=== PATIENT | male | born 1965 | race Two or more races ===

== ENCOUNTER 2022-01-27 10:32 | Emergency (ER) | payer BC, OTHER ==
[~2022-01-27] VITALS: Ht 165.1 cm; Wt 49.9 kg
[2022-01-27 10:51] VITALS: BP 102/68
[2022-01-27] MEDS ORDERED: IPRATROPIUM BROM 0.5 MG/2.5ML INH SOL HHN ONE (11:00)
[2022-01-27] MEDS ORDERED: ALBUTEROL SULF 2.5 MG/0.5ML(0.5%) NEB SOLN HHN ONE (11:00)
[2022-01-27] MEDS ORDERED: methylPREDNISolone SOD SUCC 125 MG/2 ML VL IV ONE (11:00)
[2022-01-27 11:28] LABS: Basophils # (auto) 0 10 ^3/uL (0-0.2); Basophils % (auto) 0.5 % (0.0-2.0); Eosinophils # (auto) 0.1 10 ^3/uL (0-0.8); Eosinophils % (auto) 0.7 % (0.0-7.0); Hematocrit 42.7 % (41.0-53.0); Lymphocytes % (auto) 12.9 % (10.0-50.0); Mean Corpuscular Hgb Conc. 35.1 g/dL (32.0-36.0); Mean Corpuscular Volume 94.1 fL (80.0-100.0); Monocytes # (auto) 0.2 10 ^3/uL (0-1.3); Monocytes % (auto) 2.6 % (0.0-12.0); Neutrophils # (auto) 6.7 10 ^3/uL (1.6-8.6); Neutrophils % (auto) 83.3 % (37.0-80.0); Nucleated Red Blood Cells % 0.1 %; Red Blood Cells 4.54 10^6/uL (4.5-5.90); Red Cell Distribution Width 14.6 % (11.8-14.3)
[2022-01-27 11:43] LABS: Albumin 3.3 g/dL (3.4-5.0); Calcium 8.7 mg/dL (8.5-10.1); Potassium 3.7 mmol/L (3.5-5.1)
[2022-01-27 11:48] LABS: Bilirubin, Total 0.3 mg/dL (0.2-1.0); Total Protein 7.6 g/dL (6.4-8.2)
== END 2022-01-27 12:48 | disposition left against medical advice (07) ==
LOC: EDBD 10:32 → ER 10:32
DX: J44.1 Chronic obstructive pulmonary disease with (acute) exacerbation (principal)
CPT/HCPCS: 36415; 71045; 80053; 83880; 84484; 85025; 94644; 96374; 99285; J2930; J7030; J7644

== ENCOUNTER 2025-02-14 16:00 | Inpatient (IN) | payer MEDICAID ==
[~2025-02-14] VITALS: Ht 165.1 cm; Wt 41.8 kg
[2025-02-14] VITALS (12 sets, daily range): BP systolic 78–124; BP diastolic 54–90; PULSE 86–117; RESP 16–20; TEMP 87.6–99; O2SAT 97–100
[~2025-02-14 16:00] MED LIST: ALBU108A5 PO; BICT1TAB PO; FLUT1INH27 INH; IPRA0.00 NEB; TIOT17SP PO
[2025-02-14] MEDS: MIDAZOLAM HCL 5 MG/ML-1ML VIAL ONE (16:02)
[2025-02-14] MEDS: ETOMIDATE (2MG/ML) 20ML VIAL IV ONE ×2 (16:02→16:04)
[2025-02-14] MEDS: ROCURONIUM 10MG/ML 10ML VIAL IV ONE ×2 (16:03→16:05)
[2025-02-14] MEDS: PROPOFOL 100 ML IV SCH (16:45)
--- NOTE | 2025-02-14 17:37 | DVH ---
INDICATION: sob TECHNIQUE: Single AP portable chest radiograph was obtained. COMPARISON: XY CHEST PORTABLE on DOS: 02/24/24, CHEST PORTABLE on DOS: 01/27/22, XY CHEST PORTABLE on D OS: 02/24/24 FINDINGS: Lungs: Emphysematous changes with hyperaeration of the lungs and flattening of the diaphragm. Opaciti es in the right lung base, may be due to atelectasis and/or developing consolidation. Mild atelectasi s in the left lung base. Cardiac: Heart size is within normal limits. Pulmonary vasculature: Unremarkable. Mediastinum/donna: Unremarkable. Bones: No acute osseous abnormality identified. Other: Endotracheal tube 5 cm from the janie. Nasogastric tube tip in the stomach. IMPRESSION: 1. Bibasilar atelectasis with possible developing consolidation in the right lung base. Similar appea ring emphysematous changes.
[2025-02-14 17:38] LABS: Basophils # (auto) 0.1 10 ^3/uL (0-0.2); Basophils % (auto) 0.5 % (0.0-2.0); Eosinophils # (auto) 0.2 10 ^3/uL (0-0.8); Eosinophils % (auto) 1.1 % (0.0-7.0); Hematocrit 47.5 % (41.0-53.0); Hemoglobin 15.5 g/dL (13.5-17.5); Lymphocytes # (auto) 1.9 10 ^3/uL (0.4-5.4); Lymphocytes % (auto) 11.2 % (10.0-50.0); Mean Corpuscular Hgb Conc. 32.7 g/dL (32.0-36.0); Mean Corpuscular Volume 97.8 fL (80.0-100.0); Monocytes # (auto) 0.7 10 ^3/uL (0-1.3); Monocytes % (auto) 4.1 % (0.0-12.0); Neutrophils # (auto) 13.9 10 ^3/uL (1.6-8.6); Neutrophils % (auto) 83.1 % (37.0-80.0); Platelet Count (auto) 364 10^3/uL (140-450); Red Blood Cells 4.85 10^6/uL (4.5-5.90); Red Cell Distribution Width 14.7 % (11.8-14.3); White Blood Cell 16.7 10^3/uL (4.4-10.8)
[2025-02-14] MEDS: MIDAZOLAM DRIP 50 mg/50mL 50 ML IV SCH (17:38)
[2025-02-14 17:59] LABS: Alanine Aminotransferase 23 U/L (7-40); Albumin 4.7 g/dL (3.2-4.8); Anion Gap 13 (5-15); Aspartate Aminotransferase 40 U/L (13-40); BUN/Creatinine Ratio 17.5 (10.0-20.0); Blood Urea Nitrogen 20 mg/dL (9-23); Calcium 9.6 mg/dL (8.7-10.4); Carbon Dioxide 23 mmol/L (20-31); Chloride 102 mmol/L (98-107); Sodium 138 mmol/L (136-145); Total Protein 7.8 g/dL (5.7-8.2)
[2025-02-14] MEDS: SODIUM CHLORIDE 0.9% 1,850 ML IV ONE (18:07)
[2025-02-14 18:09] LABS: Alkaline Phosphatase 149 U/L (46-116); Glucose 186 mg/dL (74-106); Potassium 3.5 mmol/L (3.5-5.1)
[2025-02-14 18:18] LABS: Lactic Acid w/Reflex 4.5 mmol/L (0.4-2.0)
--- NOTE | 2025-02-14 18:20 | ED.PDOC ---
History of Present Illness HPI Comments 59M with HIV and COPD presents via EMS in respiratory distress. Per EMS patient was short of breath today and frantic so family called 911. Upon EMS arrival patient was frantically running towards them and stopped then became nonresponsive. EMS reports the patient's stopped breathing so they began bagging the patient. After approximately 10 minutes of bagging the patient, patient became more alert. Patient was very combative pulling out his IV, thrashing screaming and not able to interact with the EMS. Upon arrival to the ER. Patient was combative, appear blue, and was frantically confused. Patient was emergently intubated in the ER. Chief Complaint: Shortness of Breath Time Seen by MD: 16:03 Primary Care Provider: TORRI Reviewed Notes: Nurses Notes, Finish Inspector Notes Allergies: Uncoded Allergies: TREE NUTS (Allergy, Unknown, 02/24/24) Information Source: Relative (Child) Mode of Arrival: EMS Past Medical History PAST MEDICAL HISTORY: COPD, HIV Surgical History: Hernia Repair Family History Family History: Family hx of Cancer Social History Smoker: Non-Smoker Alcohol: Occasionally Drugs: Marijuana Lives In: Home Unable to Obtain due to: Altered Mental Status All Other Systems: Deferred Physical Exam General Appearance: Severe Distress HEENT: PERRL/EOMI Neck: Normal Inspection Respiratory: Other (Tachypnea and wheezing) Cardiovascular: Tachycardia Breast Exam: Normal Gastrointestinal: No Organomegaly Genitalia: Penis, Scrotum, Normal Pelvic: Deferred Rectal: Deferred Extremities: Normal range of motion Neurologic: Disoriented, No Motor Deficits Cerebellar Function: Unable to Test Reflexes: NOT DONE Skin: Cyanosis Lymphatic: No Adenopathy Was a procedure done? Was a procedure done?: Yes Sedation Sedation?: No Central Line Recorder of insertion practice: Business Representative Occupation of slot tag inserter: Attending Physician Indication: Hypotension, Volume resuscitation Room prepared for procedure: Yes Business Representative performed hand hygien: Yes Maximal sterile barrier precau: Mask/Eye shield, Sterlie gloves, Large sterlie drape Skin Preparation: Chlorhexidine gluconate Skin preparation completely dr: Yes Insertion site: Right, Femoral Central line catheter type: Wzr-[id number]-[id number] dialysis Number of lumens: 3 Central line exchanged over a: Yes Antiseptic ointment applied to: Yes Post Assessment: Proper placement Informed consent obtained: No Risks/benefits/alt described: No Intubation Indication: Altered Mental Status Prep: No Preoxygenation Pretreated with: Other (Etomidate) Medicated with: Other (Rocuronium) Intubation Approach: Orotracheal Intubation size: cm (8) Informed consent obtained: No Risks/benefits/alt described: No Differential Dx Considerations may include: COPD, HIV, NE, ACS, viral syndrome, abnormalities, sepsis X-Ray, Labs, Meds, VS Vital Signs Date Time Temp Pulse Resp B/P (MAP) Pulse Ox O2 Delivery O2 Flow Rate FiO2 02/14/25 17:38 126/93 02/14/25 17:04 125 02/14/25 16:45 168/106 02/14/25 16:25 114 20 166/83 (110) 99 100 02/14/25 16:09 114 02/14/25 16:08 115 02/14/25 16:06 100.4 118 32 155/77 (103) 71 100.4 Lab Test 02/14/25 18:15 02/14/25 17:14 Range/Units Blood Gas Specimen Type Arterial Blood Gas Sample Site Left radial Blood Gas Patient Temperature 37.0 Arterial Blood Date Drawn [id number] Arterial Blood pH 7.294 L 7.350-7.450 Arterial Blood Partial Pressure CO2 39.7 35.0-48.0 mmHg Arterial Blood HCO3 18.8 L 21.0-28.0 mmol/L Arterial Blood Oxygen Saturation 99.7 H 94.0-98.0 % Arterial Blood Base Excess -7.2 L -2.0-3.0 mmol/L Arterial Blood Oxyhemoglobin 98.4 H 94.0-98.0 % Arterial Blood Carboxyhemoglobin 0.8 0.5-1.5 % Arterial Blood Methemoglobin 0.5 0.0-1.5 % Davin Test Yes Blood Gas Total Hemoglobin 14.30 13.5-17.5 g/dL Blood Gas Modality Vent - ac FiO2 % 100.0 Specimen Drawn By White Blood Count 16.7 H 4.4-10.8 10^3/uL Red Blood Count 4.85 4.5-5.90 10^6/uL Hemoglobin 15.5 13.5-17.5 g/dL Hematocrit 47.5 41.0-53.0 % Mean Corpuscular Volume 97.8 80.0-100.0 fL Mean Corpuscular Hemoglobin 32.0 28.0-32.0 pg Mean Corpuscular Hemoglobin Concent 32.7 32.0-36.0 g/dL Red Cell Distribution Width 14.7 H 11.8-14.3 % Platelet Count 364 140-450 10^3/uL Mean Platelet Volume 7.6 6.9-10.8 fL Neutrophils (%) (Auto) 83.1 H 37.0-80.0 % Lymphocytes (%) (Auto) 11.2 10.0-50.0 % Monocytes (%) (Auto) 4.1 0.0-12.0 % Eosinophils (%) (Auto) 1.1 0.0-7.0 % Basophils (%) (Auto) 0.5 0.0-2.0 % Neutrophils # (Auto) 13.9 H 1.6-8.6 10 ^3/uL Lymphocytes # (Auto) 1.9 0.4-5.4 10 ^3/uL Monocytes # (Auto) 0.7 0-1.3 10 ^3/uL Eosinophils # (Auto) 0.2 0-0.8 10 ^3/uL Basophils # (Auto) 0.1 0-0.2 10 ^3/uL Nucleated Red Blood Cells 0.0 % Sodium Level 138 136-145 mmol/L Potassium Level 3.5 3.5-5.1 mmol/L Chloride Level 102 98-107 mmol/L Carbon Dioxide Level 23 20-31 mmol/L Anion Gap 13 5-15 Blood Urea Nitrogen 20 9-23 mg/dL Creatinine 1.14 0.700-1.30 mg/dL Glomerular Filtration Rate Calc 73 >90 mL/min BUN/Creatinine Ratio 17.5 10.0-20.0 Serum Glucose 186 H 74-106 mg/dL Lactic Acid Level 4.5 *H 0.4-2.0 mmol/L Calcium Level 9.6 8.7-10.4 mg/dL Total Bilirubin 1.0 0.2-1.0 mg/dL Aspartate Amino Transferase (AST) 40 13-40 U/L Alanine Aminotransferase (ALT) 23 7-40 U/L Alkaline Phosphatase 149 H 46-116 U/L Troponin I High Sensitivity 910 *H </=54 ng/L B-Type Natriuretic Peptide 34.43 0-100 pg/mL Total Protein 7.8 5.7-8.2 g/dL Albumin 4.7 3.2-4.8 g/dL Current Medications Medications (Trade) Dose Ordered Sig/Zenon Route Start Time Stop Time Status Last Admin Propofol 100 ml @ 1.8 mls/hr Q24H IV 02/14/25 16:30 02/14/25 16:45 Midazolam HCl 50 ml @ 1 mls/hr Q24H IV 02/14/25 16:30 02/14/25 17:38 Sodium Chloride 1,850 ml @ 1,850 mls/hr ONCE ONCE IV 02/14/25 18:00 02/14/25 18:59 02/14/25 18:07 Time of 1ST Reevaluation: 18:28 (Discussed with cardiology regarding patient's EKG they recommend CT angio and trend the troponins. They do not believe it is a STEMI.) Reevaluation 1ST: Improved Patient Education/Counseling: Pt Unresponsive Family Education/Counseling: Diagnosis, Treatment Departure 1 Departure Time of Disposition: 18:29 (Patient presented acutely ill was emergently intubated and central line we will admit patient to ICU) Impression: Primary Impression: Acute respiratory failure Qualified Codes: J96.01 - Acute respiratory failure with hypoxia Additional Impressions: Shortness of breath Acute metabolic encephalopathy Disposition: ADMITTED INPATIENT Admit to: ICU Condition: Critical Critical Care Note Critical Care Time?: Yes Critical care comment: Acute respiratory failure Authorized and Performed by: Andres Tsang MD Total critical care time: Approximately 117 minutes Due to a high probability of clinically significant, life threatening deterioration, the patient required my highest level of preparedness to intervene emergently and I personally spent this critical care time directly and personally managing the patient. This critical care time included obtaining a history; examining the patient; pulse oximetry; ordering and review of studies; arranging urgent treatment with development of a management plan; evaluation of patient's response to treatment; frequent reassessment; and, discussions with other providers. This critical care time was performed to assess and manage the high probability of imminent, life-threatening deterioration that could result in multi-organ failure. It was exclusive of separately billable procedures and treating other patients and teaching time. Please see my other sections and the rest of the note for further information on patient assessment and treatment. Stability Stability form required: No Heart Score Heart Score: Heart Score Response (Comments) Value History N/A 0 EKG N/A 0 Age N/A 0 Risk Factors N/A 0 Troponin N/A 0 Total 0 ANDRES TSANG MD Feb 14, 2025 18:20
[2025-02-14 18:22] LABS: Base Excess -7.2 mmol/L (-2.0-3.0)
[2025-02-14] MEDS: CEFEPIME 1GM/ 50ML 50 ML IV ONE (18:25)
[2025-02-14] MEDS: IOHEXOL 350 MG/ML 100ML IJ ONE (18:33)
[2025-02-14] MEDS: fentaNYL Drip 2500mCg/250mlNS 250 ML IV SCH (18:55)
[2025-02-14] MEDS: VANCOMYCIN 1GM/200ML PM 250 ML IV ONE (19:02)
--- NOTE | 2025-02-14 19:04 | ECG ---
[facility] Test Date: 2025-02-14 Test Time: 16:08:38 Pat Name: ROSARIO SHEETS Department: ED Room: [address] [place] [address] Gender: M Soil Technologist: mara : 1965 Requested By: ANDRES EARLY Order Number: [id number] Reading MD: Nazario Hunt Measurements Intervals [place] Rate: 115 P: 81 MA: 171 QRS: 81 QRSD: 108 T: 58 QT: 359 QTc: 497 Interpretive Statements Sinus tachycardia Biatrial enlargement Inferior infarct, acute (LCx) Lateral leads are also involved Baseline wander in lead(s) V3 Electronically Signed On 02-14-2025 22:16:14 PDT by Nazario Hunt Please click the below link to view image of tracing.
--- NOTE | 2025-02-14 19:05 | ECG ---
[facility] Test Date: 2025-02-14 Test Time: 17:04:17 Pat Name: ROSARIO SHEETS Department: ED Room: [address] [place] [address] Gender: M Field Director: mara : 1965 Requested By: ANDRES EARLY Order Number: [id number] Reading MD: Nazario Hunt Measurements Intervals [place] Rate: 125 P: 80 [place]: 150 QRS: -57 QRSD: 90 T: 64 QT: 325 QTc: 469 Interpretive Statements Sinus tachycardia Abnormal R-wave progression, early transition Inferior infarct, acute (LCx) Lateral leads are also involved Baseline wander in lead(s) III,aVF Electronically Signed On 02-14-2025 22:16:21 PDT by Nazario Hunt Please click the below link to view image of tracing.
[2025-02-14 19:46] LABS: Urine Bacteria MANY /hpf (None Seen); Urine Blood 2+ /uL (Negative); Urine Clarity Turbid (Clear); Urine Color Yellow (Yellow); Urine Hyaline Cast FEW /lpf (0 - 2); Urine Mucus FEW (None Seen); Urine Protein, UAD 2+ (Negative); Urine Specific Gravity 1.027 (1.001-1.035); Urine Sperm PRESENT /hpf (None Seen); Urine Squamous Epithelial Cell MOD /hpf (<5); Urine Urobilinogen Normal (Negative); Urine WBC 8 /HPF (0-3)
[2025-02-14 19:54] LABS: Cannabinoid Screen, Urine Pos (NEGATIVE)
[2025-02-14] MEDS ORDERED: NITROGLYCERIN 0.4 MG SL TAB SL PRN (20:00)
[2025-02-14] MEDS ORDERED: MORPHINE SULFATE INJ 2 MG/ml SYRG IV PRN (20:00)
[2025-02-14] MEDS ORDERED: VANCOMYCIN PER PHARMACY 0 MG IV SCH (20:00)
[2025-02-14 20:35] LABS: Amphetamine Screen, Urine Pos (NEGATIVE); Barbiturate Scree,Urine Neg (NEGATIVE); Benzodiazephine Screen, Urine Neg (NEGATIVE); Cocaine Screen, Urine Neg (NEGATIVE); Opiate Scree,Urine Neg (NEGATIVE); Phencyclidine Screen, Urine Neg (NEGATIVE)
[2025-02-14] MEDS: HEPARIN SODIUM (PORCINE) 5000 UNITS/ML 1ML VIAL IV ONE (20:58)
[2025-02-14] MEDS: HEPARIN DRIP/D5W 100UNITS/ML 250 ML IV SCH (20:58)
[2025-02-14] MEDS: NOREPINEPHRINE 8 MG/250ML KIT 250 ML IV SCH (20:59)
[2025-02-14] MEDS: SODIUM CHLORIDE 0.9% 1,000 ML IV SCH (21:00)
[2025-02-14 21:05] LABS: INR 1.03 (0.9-1.15); Partial Thromboplastin Time 28.2 SEC (24.5-34.5); Prothrombin Time 10.9 sec (9.3-11.8)
[2025-02-14 21:11] LABS: Basophils # (auto) 0.1 10 ^3/uL (0-0.2); Basophils % (auto) 0.4 % (0.0-2.0); Eosinophils # (auto) 0.1 10 ^3/uL (0-0.8); Eosinophils % (auto) 0.4 % (0.0-7.0); Hematocrit 36.9 % (41.0-53.0); Hemoglobin 12.4 g/dL (13.5-17.5); Lymphocytes # (auto) 1.4 10 ^3/uL (0.4-5.4); Lymphocytes % (auto) 10.2 % (10.0-50.0); Mean Corpuscular Hemoglobin 32.6 pg (28.0-32.0); Mean Corpuscular Hgb Conc. 33.7 g/dL (32.0-36.0); Mean Corpuscular Volume 96.8 fL (80.0-100.0); Monocytes # (auto) 0.9 10 ^3/uL (0-1.3); Monocytes % (auto) 6.9 % (0.0-12.0); Neutrophils # (auto) 11.1 10 ^3/uL (1.6-8.6); Neutrophils % (auto) 82.1 % (37.0-80.0); Platelet Count (auto) 259 10^3/uL (140-450); Red Blood Cells 3.81 10^6/uL (4.5-5.90); Red Cell Distribution Width 14.6 % (11.8-14.3); White Blood Cell 13.5 10^3/uL (4.4-10.8)
--- NOTE | 2025-02-14 21:18 | CONS ---
Pharmacy Clinical Information: Spoke to JAMSHID Kang 02/14/25 @9183 regarding to Heparin Drip RN corrected patient weight 51 kg via scale. RN confirmed Heparin's current rate 600 units/hr with bolus 3,000 units once RN confirmed the PTT Lab is scheduled on 02/15 @0300 [facility] AR[facility]UR [facility] Feb 14, 2025 21:17
[2025-02-14] MEDS: AZITHROMYCIN 500MG/ 250ML 250 ML IV ONE (21:21)
--- NOTE | 2025-02-14 21:43 | DVHHP2 ---
History of Present Illness Reason for Visit: Shortness for breath History of Present Illness 59-year-old male with a history and COPD in HIV presents for evaluation of shortness for breath. Patient is currently sedated and intubated. Per ED records and family is at the bedside patient had been complaining of shortness for breath since yesterday. Today he had another episode of severe shortness for breath in which EMS was called and on arrival patient collapsed to the ground. Patient still had a pulse so he was bagged EN route to the emergency department. Patient regained consciousness prior to arrival to the emergency department and became combative. In the emergency department the patient was still combative, short of breath and was emergently intubated for airway protection. Past Medical History HIV and COPD Past Surgical History Hernia repair Family History Cancer Smoke: No ALCOHOL: occassional Drugs: Marijuana, Other (Methamphetamine) Lives: with Family Review of Systems Review of Systems Review of systems can not be completed, patient is sedated and intubated. Allergies: Uncoded Allergies: TREE NUTS (Allergy, Unknown, 02/24/24) Medications Current Medications Medications Dose Ordered Sig/Zenon Route Start Time Stop Time Status Last Admin Dose Admin Propofol 100 ml @ 1.8 mls/hr Q24H IV 02/14/25 16:30 02/14/25 16:45 1.8 MLS/HR Midazolam HCl 50 ml @ 1 mls/hr Q24H IV 02/14/25 16:30 02/14/25 17:38 15 MLS/HR Fentanyl Citrate 250 ml @ 2.5 mls/hr Q24H IV 02/14/25 18:30 02/14/25 18:55 2.5 MLS/HR Sodium Chloride 1,000 ml @ 85 mls/hr [id number] IV 02/14/25 20:00 02/14/25 21:00 85 MLS/HR Heparin Sodium/ Dextrose 250 ml @ 6 mls/hr Q24H IV 02/14/25 20:35 02/14/25 20:58 6 MLS/HR Piperacillin Sod/ Tazobactam Sod 100 ml @ 25 mls/hr Q8H IV 02/14/25 21:00 Vancomycin HCl 0 ml @ 0 mls/hr UD IV 02/14/25 20:00 Ondansetron HCl 4 mg Q4HP PRN IV 02/14/25 20:00 Acetaminophen 650 mg Q6HP PRN PO 02/14/25 20:00 Nitroglycerin 0.4 mg Q5MINP PRN SL 02/14/25 20:00 Morphine Sulfate 2 mg Q30M PRN IV 02/14/25 20:00 Norepinephrine Bitartrate 250 ml @ 3.75 mls/hr Q24H IV 02/14/25 20:45 02/14/25 20:59 3.75 MLS/HR Vancomycin HCl 100 ml @ 200 mls/hr Q8H IV 02/15/25 03:00 Exam Vital Signs Vital Signs Date Time Temp Pulse Resp B/P (MAP) Pulse Ox O2 Delivery O2 Flow Rate FiO2 02/14/25 21:08 96.8 86 20 78/54 100 60 96.8 02/14/25 20:00 Mechanical Ventilator+ Exam Gen: 59-year-old male in moderate distress Skin: Warm, dry, normal color and texture, no rash. HEENT: Normocephalic atraumatic, mucous membranes moist and pink. Neck: Cervical and supraclavicular nodes normal without enlargement, trachea is midline, thyroid gland is normal without masses. Pulmonary: Intubated, diminished breath sounds bilaterally Cardiac: Regular rate and rhythm. No murmur Abdomen: Soft, nontender, nondistended, bowel sounds present all 4 quadrants, no guarding, no rigidity, no organomegaly. Extremities: No cyanosis, clubbing, no edema Neuro: Sedated, pupils equal and reactive Labs/Xrays ORDERING PHYSICIAN: ANDRES EARLY MD PROCEDURE(s): CXRP - CHEST PORTABLE REASON: sob ORDER NUMBER(s): [id number], ACCESSION NUMBER(s): [id number] INDICATION: sob TECHNIQUE: Single AP portable chest radiograph was obtained. COMPARISON: XY CHEST PORTABLE on DOS: 02/24/24, CHEST PORTABLE on DOS: 01/27/22, XY CHEST PORTABLE on DOS: 02/24/24 FINDINGS: Lungs: Emphysematous changes with hyperaeration of the lungs and flattening of the diaphragm. Opacities in the right lung base, may be due to atelectasis and/or developing consolidation. Mild atelectasis in the left lung base. Cardiac: Heart size is within normal limits. Pulmonary vasculature: Unremarkable. Mediastinum/donna: Unremarkable. Bones: No acute osseous abnormality identified. Other: Endotracheal tube 5 cm from the janie. Nasogastric tube tip in the stomach. IMPRESSION: 1. Bibasilar atelectasis with possible developing consolidation in the right lung base. Similar appearing emphysematous changes. Labs Test 02/14/25 20:45 02/14/25 20:06 02/14/25 19:14 02/14/25 18:15 Range/Units White Blood Count 13.5 H 4.4-10.8 10^3/uL Red Blood Count 3.81 L 4.5-5.90 10^6/uL Hemoglobin 12.4 #L 13.5-17.5 g/dL Hematocrit 36.9 #L 41.0-53.0 % Mean Corpuscular Volume 96.8 80.0-100.0 fL Mean Corpuscular Hemoglobin 32.6 H 28.0-32.0 pg Mean Corpuscular Hemoglobin Concent 33.7 32.0-36.0 g/dL Red Cell Distribution Width 14.6 H 11.8-14.3 % Platelet Count 259 140-450 10^3/uL Mean Platelet Volume 7.8 6.9-10.8 fL Neutrophils (%) (Auto) 82.1 H 37.0-80.0 % Lymphocytes (%) (Auto) 10.2 10.0-50.0 % Monocytes (%) (Auto) 6.9 0.0-12.0 % Eosinophils (%) (Auto) 0.4 0.0-7.0 % Basophils (%) (Auto) 0.4 0.0-2.0 % Neutrophils # (Auto) 11.1 H 1.6-8.6 10 ^3/uL Lymphocytes # (Auto) 1.4 0.4-5.4 10 ^3/uL Monocytes # (Auto) 0.9 0-1.3 10 ^3/uL Eosinophils # (Auto) 0.1 0-0.8 10 ^3/uL Basophils # (Auto) 0.1 0-0.2 10 ^3/uL Nucleated Red Blood Cells 0.0 % Lactic Acid Level 2.0 0.4-2.0 mmol/L Troponin I High Sensitivity 9588 *H </=54 ng/L Urine Color Yellow Yellow Urine Clarity Turbid H Clear Urine pH 6.0 5.0-9.0 Urine Specific [place] 1.027 1.001-1.035 Urine Protein 2+ H Negative Urine Ketones 1+ H Negative Urine Blood 2+ H Negative /uL Urine Nitrite Negative Negative Urine Bilirubin Negative Negative Urine Urobilinogen Normal Negative mg/dL Urine Leukocyte Esterase Trace Negative /uL Urine RBC 60 0 - 3 /hpf Urine Microscopic WBC 8 H 0-3 /HPF Urine Squamous Epithelial Cells Mod <5 /hpf Urine Bacteria Many H None Seen /hpf Urine Hyaline Casts Few 0 - 2 /lpf Urine Mucus Few None Seen Urine Sperm Present None Seen /hpf Urine Glucose Trace Normal mg/dL Urine Opiates Screen Neg NEGATIVE Urine Fentanyl Screen Neg NEGATIVE Urine Barbiturates Screen Neg NEGATIVE Urine Phencyclidine Screen Neg NEGATIVE Urine Amphetamines Screen Pos NEGATIVE Urine Benzodiazepines Screen Neg NEGATIVE Urine Cocaine Screen Neg NEGATIVE Urine Cannabinoids Screen Pos NEGATIVE Blood Gas Specimen Type Arterial Blood Gas Sample Site Left radial Blood Gas Patient Temperature 37.0 Arterial Blood Date Drawn [id number] Arterial Blood pH 7.294 L 7.350-7.450 Arterial Blood Partial Pressure CO2 39.7 35.0-48.0 mmHg Arterial Blood HCO3 18.8 L 21.0-28.0 mmol/L Arterial Blood Oxygen Saturation 99.7 H 94.0-98.0 % Arterial Blood Base Excess -7.2 L -2.0-3.0 mmol/L Arterial Blood Oxyhemoglobin 98.4 H 94.0-98.0 % Arterial Blood Carboxyhemoglobin 0.8 0.5-1.5 % Arterial Blood Methemoglobin 0.5 0.0-1.5 % Davin Test Yes Blood Gas Total Hemoglobin 14.30 13.5-17.5 g/dL Blood Gas Modality Vent - ac FiO2 % 100.0 Specimen Drawn By Test 02/14/25 17:14 Range/Units Prothrombin Time 10.9 9.3-11.8 sec Prothrombin Time INR 1.03 0.9-1.15 Activated Partial Thromboplast Time 28.2 24.5-34.5 SEC Sodium Level 138 136-145 mmol/L Potassium Level 3.5 3.5-5.1 mmol/L Chloride Level 102 98-107 mmol/L Carbon Dioxide Level 23 20-31 mmol/L Anion Gap 13 5-15 Blood Urea Nitrogen 20 9-23 mg/dL Creatinine 1.14 0.700-1.30 mg/dL Glomerular Filtration Rate Calc 73 >90 mL/min BUN/Creatinine Ratio 17.5 10.0-20.0 Serum Glucose 186 H 74-106 mg/dL Calcium Level 9.6 8.7-10.4 mg/dL Total Bilirubin 1.0 0.2-1.0 mg/dL Aspartate Amino Transferase (AST) 40 13-40 U/L Alanine Aminotransferase (ALT) 23 7-40 U/L Alkaline Phosphatase 149 H 46-116 U/L B-Type Natriuretic Peptide 34.43 0-100 pg/mL Total Protein 7.8 5.7-8.2 g/dL Albumin 4.7 3.2-4.8 g/dL Assessment/Plan Assessment/Plan Assessment Acute respiratory failure NSTEMI Sepsis with possible shock Questionable pneumonia HIV Polysubstance abuse Plan Admit the patient to ICU to the hospitalist Zosyn/vancomycin CT angiogram pending Cardiology consultation Pulmonary consult Continue treatment per orders Total critical care time excluding procedures performed is 55 minutes. Plan discussed with: Patient My Orders Orders - BARBIE DENNIS [facility] Procedure Category Date Status Time Sodium Chloride 0.9% PHA 02/14/25 In Process 20:00 Platelet Monitoring GEMA 02/14/25 In Process 20:00 Heparin Per GEMA 02/14/25 In Process Standardized Proce 20:00 Discontinue All Im GEMA 02/14/25 In Process Injections 20:00 Heparin Drip/D5w PHA 02/14/25 In Process 100units/Ml 20:35 Stat Ekg For Chest GEMA 02/14/25 In Process Pain 20:00 Vancomycin Per PHA 02/14/25 In Process Pharmacy 20:00 Admit ADMIT 02/14/25 Transmitted 20:00 Ondansetron Hcl PHA 02/14/25 In Process (Zofran) 20:00 Complete Blood Count LAB 02/15/25 Verified 04:00 Comprehensive LAB 02/15/25 Verified Metabolic Panel 04:00 Echo 2d Mode Cardiac US 02/14/25 Logged DOP 20:00 Condition: Unstable GEMA 02/14/25 In Process 20:00 Acetaminophen Tablet PHA 02/14/25 In Process (Tylenol Tablet) 20:00 Bedrest With Bathroom GEMA 02/14/25 In Process Privileg 20:00 Nitroglycerin PHA 02/14/25 In Process Sublingual (Ntrostat 20:00 Morphine Sulfate PHA 02/14/25 In Process Injection 20:00 Stat Ekg For Chest GEMA 02/14/25 In Process Pain 20:00 Notify Of Changes GEMA 02/14/25 In Process From Base 20:00 Firmware Engineer For GEMA 02/14/25 In Process 24 Hours 20:00 Emergency Dysrhythmia GEMA 02/14/25 In Process Protocol 20:00 Rhythm Strips Once GEMA 02/14/25 In Process Every Shift 20:00 Oxygen By Nasal RT 02/14/25 Transmitted Cannula 20:00 * Cardiology Consult CONS 02/14/25 Transmitted 20:11 *Consult CONS 02/14/25 Transmitted / 20:11 Piperacillin-Tazob PHA 02/14/25 In Process 3.375gm (Zosyn 3.375g 21:00 Norepinephrine 8 PHA 02/14/25 In Process Mg/250ml Kit 20:45 PTPTT LAB 02/15/25 Verified 03:00 Vancomycin 500mg/100ml PHA 02/15/25 In Process 03:00 Vancomycin,Trough LAB 02/15/25 Verified 18:00 Vancomycin Per GEMA 02/15/25 In Process Pharmacy Protoc 19:00 Date of Service: Feb 14, 2025 Billing Provider: BARBIE DENNIS Common Visit Codes: 34777-[id number] CARE 30-74 MIN BARBIE DENNIS Feb 14, 2025 21:43
[2025-02-14] MEDS: PIPERACILLIN-TAZOB 3.375GM 100 ML IV SCH (22:56)
--- NOTE | 2025-02-14 23:17 | DVH ---
INDICATION: intubated, chest pain, sob, c/f pe COMPARISON: CT ANGIO CHEST CONTRAST on DOS: 02/24/24 TECHNIQUE: Multidetector CTA of the chest was performed of the chest with 100 cc of intravenous contr ast. PULMONARY ANGIOGRAPHY PROTOCOL was utilized using a bolus-tracking technique centered on the devi n pulmonary artery. Axial, coronal and sagittal multiplanar and MIP reformats were performed. Radiation Dose : 1. Chest: CTDI volume is 20.72 mGy. Dose-length product is 538.84 mGy*cm The dose indicators for CT are the volume Computed Tomography (CT) Dose Index (CTDIvol) and the Dose Length Product (DLP), and are measured in units of mGy and mGy-cm, respectively. These indicators are not patient dose, but values generated from the CT scanner acquisition factors. The report includes radiation exposure data for exposures received during this examination. Contrast consists 100 mL Omnipaque 350 with none wasted Findings: Heart size is normal. There is no evidence for pulmonary embolus there is bilateral hilar adenopathy. Esophagus is unremarkable nasogastric tube esophagus and stomach. There appears to be gas in the nondependent left lobe of the liver in the biliary radicles in there a ppears to be ascites adjacent to the liver. Vertebral body heights are well preserved. IMPRESSION: 1. No evidence for pulmonary embolus bilateral hilar adenopathy and there is a small amount of gas or air in the nondependent portion of the biliary radicles in the left lobe of the liver of uncertain s ignificance
[2025-02-15] VITALS (107 sets, daily range): BP systolic 83–118; BP diastolic 60–86; PULSE 73–143; RESP 16–27; TEMP 96.3–100; O2SAT 90–100
[2025-02-15] MEDS: VANCOMYCIN 500mg/100mL 100 ML IV SCH (03:01)
[2025-02-15 03:58] LABS: Basophils # (auto) 0.1 10 ^3/uL (0-0.2); Basophils % (auto) 0.4 % (0.0-2.0); Eosinophils # (auto) 0.1 10 ^3/uL (0-0.8); Eosinophils % (auto) 0.5 % (0.0-7.0); Lymphocytes # (auto) 3.2 10 ^3/uL (0.4-5.4); Lymphocytes % (auto) 21.3 % (10.0-50.0); Mean Corpuscular Hemoglobin 32.3 pg (28.0-32.0); Mean Corpuscular Hgb Conc. 32.6 g/dL (32.0-36.0); Monocytes # (auto) 1.1 10 ^3/uL (0-1.3); Monocytes % (auto) 7.5 % (0.0-12.0); Neutrophils # (auto) 10.4 10 ^3/uL (1.6-8.6); Neutrophils % (auto) 70.3 % (37.0-80.0); Nucleated Red Blood Cells % 0.2 %; Platelet Count (auto) 329 10^3/uL (140-450); Red Blood Cells 4.65 10^6/uL (4.5-5.90); White Blood Cell 14.8 10^3/uL (4.4-10.8)
[2025-02-15 04:12] LABS: INR 1.08 (0.9-1.15); Partial Thromboplastin Time 62.6 SEC (24.5-34.5); Prothrombin Time 11.4 sec (9.3-11.8)
[2025-02-15 04:18] LABS: Alanine Aminotransferase 27 U/L (7-40); Albumin 3.7 g/dL (3.2-4.8); Anion Gap 10 (5-15); BUN/Creatinine Ratio 10.9 (10.0-20.0); Bilirubin, Total 1.1 mg/dL (0.2-1.0); Blood Urea Nitrogen 15 mg/dL (9-23); Chloride 105 mmol/L (98-107); Potassium 4.5 mmol/L (3.5-5.1); Total Protein 6.7 g/dL (5.7-8.2)
[2025-02-15 04:31] LABS: Alkaline Phosphatase 119 U/L (46-116); Aspartate Aminotransferase 87 U/L (13-40); Calcium 8.2 mg/dL (8.7-10.4); Carbon Dioxide 19 mmol/L (20-31); Glucose 184 mg/dL (74-106); Sodium 134 mmol/L (136-145)
--- NOTE | 2025-02-15 05:52 | DVH ---
CHEST RADIOGRAPH Indication: PATIENT INTUBATED Technique: Single frontal view of the chest was obtained COMPARISON: XY CHEST PORTABLE on DOS: 02/14/25, XY CHEST PORTABLE on DOS: 02/24/24, CHEST PORTABLE on DO S: 01/27/22 FINDINGS: Lines and Tubes: Endotracheal tube and enteric catheter in satisfactory position Lungs: Mild congestion Pleura: No effusion. No pneumothorax. Cardiomediastinal contours: Unremarkable Bones: Unremarkable IMPRESSION: Lines and tubes in satisfactory position. No significant interval change.
--- NOTE | 2025-02-15 06:39 | ECG ---
[facility] Test Date: 2025-02-14 Test Time: 21:46:27 Pat Name: ROSARIO SHEETS Department: ED Room: [address] [place] [address] A Gender: M Endoscopy Support Specialist: CRISELDA : 1965 Requested By: ANDRES EARLY Order Number: [id number] Reading MD: Nazario Hunt Measurements Intervals [place] Rate: 95 P: 77 OR: 154 QRS: -73 QRSD: 92 T: 70 QT: 392 QTc: 493 Interpretive Statements Sinus rhythm Left anterior fascicular block Low voltage, precordial leads ST elevation, consider inferior injury Borderline prolonged QT interval Electronically Signed On 02-16-2025 18:43:20 PDT by Nazario Hunt Please click the below link to view image of tracing.
[2025-02-15 07:04] LABS: Base Excess -9.7 mmol/L (-2.0-3.0)
--- NOTE | 2025-02-15 08:17 | DVHPNRES ---
Progress Note Date Seen: Feb 15, 2025 Resident Creating Document: ESTEPHANIA LIND RESIDENT Medical Necessity Reason Pt with a Central, PICC or Fol: Yes The following are medically ne: Central Line, Breaux Catheter (RN) Subjective Review of Systems HPI- Patient is 59 years old male with past medical history of COPD, HIV brought in to the ER due to shortness of breaths. Information was gathered from reviewing the chart and also talking to the family. Patient is brought into the hospital by EMS. As patient was short of breath 1 day before family called EMS and on arrival patient collapsed to the ground. EMS began bagging the patient as patient still had pulse. After approximately 10 minutes of bagging the patient, patient became more alert. Patient was very combative pulling out his IV, thrashing screaming and not able to interact with the EMS. Upon arrival to the ER. Patient was combative, appear blue, and was frantically confused. Patient was emergently intubated in the ER. Initial lab workup revealed leukocytosis with WBC 16.7, hemoglobin 15.5, platelets 364, sodium 144, potassium 4.5, serum creatinine 1.37, BUN 15, calcium 8.2, total bilirubin 1.1, AST 87, ALT 27, alkaline phosphatase 119, BNP 34, Troponin I - 910> 4131> 9588> 51245, UDS positive for amphetamine, cannabinoids. Negative for COVID-19 and influenza type A and B. Urinalysis leukocyte esterase trace, WBC 8, bacteria many. Initial chest x-ray revealed-. Bibasilar atelectasis with possible developing consolidation in the right lung base. Similar appearing emphysematous changes. CT angio revealed-bilateral emphysema, bullous lesion. No evidence for pulmonary embolus bilateral hilar adenopathy and there is a small amount of gas or air in the nondependent portion of the biliary radicles in the left lobe of the liver of uncertain significance. Patient on ventilator, on pressure support. Patient was seen by Cardiology, scheduled for left heart catheterization on 02/16/25. Patient on heparin and aspirin. Patient on antibiotic piperacillin and vancomycin. Pending echo 2D report. MRSA screening negative. Respiratory culture preliminary, no significant growth. Patient has a central line in the right femoral artery. PMH-COPD, HIV PSH- hernia repair Allergy- tree nuts Personal History/ Social History-occasional alcoholic, marijuana, methamphetamine, lives with family Home medications-Biktarvy, albuterol sulfate inhaler, ipratropium neb , fluticasone/vilan, Spiriva, Patient was seen today for clinical evaluation. Labs and chart reviewed Overnight patient's BP ranging from 84-115/55-87, pulse 75-96, temperature 98.8- 99.9 I/O- intake 1300, output 400, positive balance 900. Chest x-ray on 02/15/2025-significant interval changes Labs revealed ABG-pH 7.31, pCO2 30.7, PO2 109, bicarbonate 15.1, WBC 16.7> 13.5> 14.8> 16.4 Hemoglobin 15.5> 12.4> 15.0> 14.7 Platelet 364> 259> 329> 320 Sodium 138> 134> 135 Potassium 3.5> 4.5> 4.0 Anion gap 13> 10> 7 Serum creatinine 1.14> 1.37> 1.25 BUN 20> 15> 40 HGB A1C 5.3 Magnesium 1.8 Lactic acid 4.5> 2.0 Total bilirubin 1.0> 1.1> 0.8 AST 40> 87> 369 ALT 23> 27> 230 Alkaline phosphatase 49> 119 Troponin I - 910> 4131> 9588> 39765, UDS positive for amphetamine, cannabinoids. MRSA screening negative Respiratory culture preliminary no significant growth. Patient was seen by Cardiology, recommendation reviewed and appreciated. Patient has due for left heart catheterization tomorrow on 02/16/2025. Pending echo 2D report- Provider Called and spoke to patient's daughter Karo Gibbs, discussed patient's current medical condition, plan of care and answered her questions Objective vital signs Vital Sign Date Time Temp Pulse Resp B/P (MAP) Pulse Ox O2 Delivery O2 Flow Rate FiO2 02/15/25 07:23 87 20 105/74 (84) 100 30 02/15/25 06:45 98.8 209.8 02/15/25 06:00 Mechanical Ventilator+ Total Intake and Output 02/14/25 02/14/25 02/15/25 14:59 22:59 06:59 Intake Total 6 ml 1294.75 ml Output Total 400 ml Balance 6 ml 894.75 ml medications Current Medications Medications Dose Ordered Sig/Zenon Route Start Time Stop Time Status Last Admin Dose Admin Propofol 100 ml @ 1.8 mls/hr Q24H IV 02/14/25 16:30 02/14/25 16:45 1.8 MLS/HR Midazolam HCl 50 ml @ 1 mls/hr Q24H IV 02/14/25 16:30 02/15/25 04:51 15 MLS/HR Fentanyl Citrate 250 ml @ 2.5 mls/hr Q24H IV 02/14/25 18:30 02/14/25 18:55 2.5 MLS/HR Sodium Chloride 1,000 ml @ 85 mls/hr [id number] IV 02/14/25 20:00 02/14/25 23:00 85 MLS/HR Heparin Sodium/ Dextrose 250 ml @ 6 mls/hr Q24H IV 02/14/25 20:35 02/14/25 20:58 6 MLS/HR Piperacillin Sod/ Tazobactam Sod 100 ml @ 25 mls/hr Q8H IV 02/14/25 21:00 02/15/25 04:56 25 MLS/HR Vancomycin HCl 0 ml @ 0 mls/hr UD IV 02/14/25 20:00 Ondansetron HCl 4 mg Q4HP PRN IV 02/14/25 20:00 Acetaminophen 650 mg Q6HP PRN PO 02/14/25 20:00 Nitroglycerin 0.4 mg Q5MINP PRN SL 02/14/25 20:00 Morphine Sulfate 2 mg Q30M PRN IV 02/14/25 20:00 Norepinephrine Bitartrate 250 ml @ 3.75 mls/hr Q24H IV 02/14/25 20:45 02/15/25 04:52 30 MLS/HR Vancomycin HCl 100 ml @ 200 mls/hr Q8H IV 02/15/25 03:00 02/15/25 03:01 200 MLS/HR Examination General examination- HEENT- PEERLA, no acute nasal discharge Cardiovascular- S1-S2 audible, rate and rhythm regular, no murmur Respiratory- CTAB, no wheeze or rhonchi Gastrointestinal-nontender, bowel sound+. Nondistended Musculoskeletal-no acute joint swelling or tenderness or redness Lower extremity- Neurological- cranial nerves intact, no acute dysarthria or dysphagia Psychiatry- denies depression or SI or HI Skin- no acute rash or purpura laboratory and microbiology Laboratory Tests 02/15/25 03:24 Test 02/15/25 03:24 Range/Units Serum Glucose 184 H 74-106 mg/dL Problem List/Assessment/Plan Problem List/Assessment/Plan Assessment and plan- #Neurology Metabolic encephalopathy likely due to acute hypoxic respiratory failure/substance abuse Patient on mechanical ventilation/on sedation -continue current management #Cardiovascular -IHD- NSTEMI type 1 -continue heparin as prescribed -continue aspirin 80 mg daily possible Left heart catheterization tomorrow as per Cardiology Pending Echo 2D report #Pulmonary -acute hypoxic respiratory failure likely due to acute exacerbation of COPD/pneumonia Acute exacerbation of COPD -emphysema -pneumonia Gram-positive versus Gram-negative -continue current management -methylprednisolone 40 mg IV b.i.d. -continue Zosyn, vancomycin as prescribed #Gastrointestinal -transaminitis -monitor CMP #Genitourinary/renal -MOLLY likely due to VMN #Hematology -monitor CBC #Infectious -cardiogenic shock/septic shock -history of HIV #Metabolic or endocrine disorder -mild hyponatremia -lactic acidosis-resolved #Skin or elementary -monitor skin integrity #Substance abuse -UDS positive for amphetamine, cannabinoid Lines-Central line on 02/14/25-right femoral artery ETT patient was intubated on 02/14/2025 Drips-fentanyl, Versed, Levophed. Goals of care, Code status ; discussed with >25 minutes PUD prophylaxis: Pantoprazole DVT prophylaxis: Heparin Plan discussed with Dr. Carrillo , nursing staff, Total time spent on patient evaluation, chart review, assessment and plan, Critical time spent including mechanical ventilation, excluding procedure 87 minutes Plan discussed with: Daughter, Other (RN) Date of Service: Feb 15, 2025 Billing Provider: ANA MARIA GUTIERREZ MD Common Visit Codes: NOT BILLABLE ESTEPHANIA LIND RESIDENT Feb 15, 2025 08:17 ANA MARIA GUTIERREZ MD Feb 27, 2025 09:33
[2025-02-15 08:57] LABS: Triglycerides 81 mg/dL (< 150)
[2025-02-15 08:58] LABS: LDL Cholesterol 81 mg/dL (< 100)
[2025-02-15 08:59] LABS: Cholesterol 138 mg/dL (< 200); HDL Cholesterol 44 mg/dL (40-59)
[2025-02-15 09:57] LABS: Basophils # (auto) 0.1 10 ^3/uL (0-0.2); Basophils % (auto) 0.7 % (0.0-2.0); Eosinophils # (auto) 0.1 10 ^3/uL (0-0.8); Eosinophils % (auto) 0.6 % (0.0-7.0); Hematocrit 44.3 % (41.0-53.0); Hemoglobin 14.7 g/dL (13.5-17.5); Lymphocytes # (auto) 2.5 10 ^3/uL (0.4-5.4); Lymphocytes % (auto) 15.1 % (10.0-50.0); Mean Corpuscular Hemoglobin 32.4 pg (28.0-32.0); Mean Corpuscular Hgb Conc. 33.2 g/dL (32.0-36.0); Mean Corpuscular Volume 97.7 fL (80.0-100.0); Monocytes # (auto) 0.9 10 ^3/uL (0-1.3); Monocytes % (auto) 5.5 % (0.0-12.0); Neutrophils # (auto) 12.8 10 ^3/uL (1.6-8.6); Neutrophils % (auto) 78.1 % (37.0-80.0); Platelet Count (auto) 320 10^3/uL (140-450); Red Blood Cells 4.53 10^6/uL (4.5-5.90); Red Cell Distribution Width 14.8 % (11.8-14.3); White Blood Cell 16.4 10^3/uL (4.4-10.8)
[2025-02-15 10:12] LABS: Albumin 3.5 g/dL (3.2-4.8); Alkaline Phosphatase 110 U/L (46-116); Anion Gap 7 (5-15); BUN/Creatinine Ratio 11.2 (10.0-20.0); Blood Urea Nitrogen 14 mg/dL (9-23); Magnesium 1.8 mg/dL (1.6-2.6); Total Protein 6.1 g/dL (5.7-8.2)
[2025-02-15 10:13] LABS: Bilirubin, Total 0.8 mg/dL (0.2-1.0)
[2025-02-15 10:28] LABS: Alanine Aminotransferase 236 U/L (7-40); Aspartate Aminotransferase 369 U/L (13-40); Carbon Dioxide 20 mmol/L (20-31); Chloride 108 mmol/L (98-107); Glucose 133 mg/dL (74-106); Sodium 135 mmol/L (136-145)
[2025-02-15 10:48] LABS: INR 1.08 (0.9-1.15); Prothrombin Time 11.4 sec (9.3-11.8)
[2025-02-15 10:54] LABS: COVID19 ANTIGEN SOFIA FIA NEGATIVE (NEGATIVE); Rapid Influenza A Negative (Negative); Rapid Influenza B Negative (Negative)
[2025-02-15] MEDS: PANTOPRAZOLE 40 MG/10 ML VIAL INJ IV ONE (11:02)
--- NOTE | 2025-02-15 11:23 | CONS ---
Pharmacy Clinical Information: JUAN DIEGO BORWN TEMPLATE: SPOKE TO MATTEO BREEN REGARDING HEPARIN DOSE CHANGE CURRENT DOSE: 6 UNITS/HR CURRENT APTT: 49.0 ON 02/15/25 @0932 DATE AND TIME OF NEW STARTED: 02/15/25 @1105 NEXT APTT: 02/15/25 @1700 BIJU BREEN READ BACK NEW DOSE: 8 UNITS/HR GERA MICHAUD PHARMACIST Feb 15, 2025 11:23
--- NOTE | 2025-02-15 11:29 | DVHINCON2 ---
Date Seen: Feb 15, 2025 Referring Physician ARCELIA Chavez Reason for Consultation Elevated troponin History of Present Illness This is a 59-year-old male patient who presents to the emergency room with chief complaint of worsening shortness of breath. At the time of assessment, the patient is chemically sedated and mechanically ventilated. History obtained from patient's daughter who is at bedside. According to the patient's daughter, the patient was at home and progressively began feeling shortness of breath. The patient called out for his granddaughter who then called emergency medical services. The patient was endotracheally intubated upon emergency room arrival. Cardiology has been consulted at this time for elevated troponin levels. Initial twelve lead electrocardiogram reveals sinus tachycardia with nonspecific ST segment changes to inferior leads. Initial troponin level of 910ng/L with significant up trend and peak level at [id number]. Significant past medical history includes COPD, HIV, and polysubstance use. Past Medical History Past medical history reviewed. No other significant than mentioned above. Past Surgical History Hernia repair Family History: Lung cancer SIBLINGS SIBLINGS Family History Family history reviewed. 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 Patient's daughter reports that the patient vapes daily Denies alcohol use Allergies: Uncoded Allergies: TREE NUTS (Allergy, Unknown, 02/24/24) Home Meds Home medications reviewed. Current Medications Current Medications Medications (Trade) Dose Ordered Sig/Zenon Route PRN Reason Start Time Stop Time Status Last Admin Propofol 100 ml @ 1.8 mls/hr Q24H IV 02/14/25 16:30 02/14/25 16:45 Midazolam HCl 50 ml @ 1 mls/hr Q24H IV 02/14/25 16:30 02/15/25 09:00 Fentanyl Citrate 250 ml @ 2.5 mls/hr Q24H IV 02/14/25 18:30 02/14/25 18:55 Sodium Chloride 1,000 ml @ 85 mls/hr [id number] IV 02/14/25 20:00 02/14/25 23:00 Heparin Sodium/ Dextrose 250 ml @ 6 mls/hr Q24H IV 02/14/25 20:35 02/15/25 11:17 DC 02/15/25 11:05 Piperacillin Sod/ Tazobactam Sod 100 ml @ 25 mls/hr Q8H IV 02/14/25 21:00 02/15/25 04:56 Vancomycin HCl 0 ml @ 0 mls/hr UD IV 02/14/25 20:00 Ondansetron HCl (Zofran) 4 mg Q4HP PRN IV NAUSEA / VOMITING 02/14/25 20:00 Acetaminophen (Tylenol Tablet) 650 mg Q6HP PRN PO PAIN SCALE 1-3 OR TEMP>100.4 02/14/25 20:00 Nitroglycerin (Ntrostat Sublingual) 0.4 mg Q5MINP PRN SL FOR CHEST PAIN 02/14/25 20:00 Morphine Sulfate 2 mg Q30M PRN IV FOR CHEST PAIN 02/14/25 20:00 Norepinephrine Bitartrate 250 ml @ 3.75 mls/hr Q24H IV 02/14/25 20:45 02/15/25 04:52 Vancomycin HCl 100 ml @ 200 mls/hr Q8H IV 02/15/25 03:00 02/15/25 11:03 Pantoprazole Sodium (Protonix) 40 mg DAILY IV 02/16/25 10:00 Heparin Sodium/ Dextrose 250 ml @ 8 mls/hr Q24H IV 02/15/25 11:30 Review of Systems Constitutional: No symptom reported Ears, Nose, & Throat: No symptom reported Eyes: No symptom reported Neurological: No symptoms reported Pulmonary/Respiratory: Shortness of breath Cardiovascular: No symptom reported Gastrointestinal: No symptom reported Genitourinary: No symptom reported Musculoskeletal: No symptom reported Skin: No symptom reported Psychiatric: No symptom reported Endocrine: No symptom reported Hematologic/Lymphatic: No symptom reported Vital Signs Vital Signs Date Time Temp Pulse Resp B/P (MAP) Pulse Ox O2 Delivery O2 Flow Rate FiO2 02/15/25 10:59 89 20 111/83 (92) 94 30 02/15/25 08:00 Mechanical Ventilator+ 02/15/25 07:45 99.3 210.7 Physical Exam General Appearance: Calm, relaxed. Thin Pulmonary/Respiratory: Clear, bilateral upper lobe breaths sounds. Diminished bilateral lower lobe sounds. Mechanically ventilated Cardiovascular/Chest: Regular rate and rhythm. Peripheral Pulses: 2+ Radial (R). 2+ Radial (L). 2+ Pedal (R). 2+ Pedal (L) Abdominal Exam: Normal bowel sounds. Ankle Exam: Negative ankle edema Lower extremities: Negative lower extremity edema Neuro/Mental Status: Chemically sedated Thoughts/Psych: Deferred Appearance: No acute distress. Skin Exam: Normal inspection. Normal color. Warm and dry. Labs/Diagnostic Data Labs Test 02/15/25 10:15 02/15/25 09:32 02/15/25 06:58 02/15/25 03:24 Range/Units Influenza Type A Antigen Negative Negative Influenza Type B Antigen Negative Negative SARS-CoV-2 Antigen (Rapid) Negative NEGATIVE White Blood Count 16.4 H 4.4-10.8 10^3/uL Red Blood Count 4.53 4.5-5.90 10^6/uL Hemoglobin 14.7 13.5-17.5 g/dL Hematocrit 44.3 41.0-53.0 % Mean Corpuscular Volume 97.7 80.0-100.0 fL Mean Corpuscular Hemoglobin 32.4 H 28.0-32.0 pg Mean Corpuscular Hemoglobin Concent 33.2 32.0-36.0 g/dL Red Cell Distribution Width 14.8 H 11.8-14.3 % Platelet Count 320 140-450 10^3/uL Mean Platelet Volume 8.0 6.9-10.8 fL Neutrophils (%) (Auto) 78.1 37.0-80.0 % Lymphocytes (%) (Auto) 15.1 10.0-50.0 % Monocytes (%) (Auto) 5.5 0.0-12.0 % Eosinophils (%) (Auto) 0.6 0.0-7.0 % Basophils (%) (Auto) 0.7 0.0-2.0 % Neutrophils # (Auto) 12.8 H 1.6-8.6 10 ^3/uL Lymphocytes # (Auto) 2.5 0.4-5.4 10 ^3/uL Monocytes # (Auto) 0.9 0-1.3 10 ^3/uL Eosinophils # (Auto) 0.1 0-0.8 10 ^3/uL Basophils # (Auto) 0.1 0-0.2 10 ^3/uL Nucleated Red Blood Cells 0.0 % Prothrombin Time 11.4 9.3-11.8 sec Prothrombin Time INR 1.08 0.9-1.15 Activated Partial Thromboplast Time 49.0 H 24.5-34.5 SEC Sodium Level 135 L 136-145 mmol/L Potassium Level 4.0 3.5-5.1 mmol/L Chloride Level 108 H 98-107 mmol/L Carbon Dioxide Level 20 20-31 mmol/L Anion Gap 7 5-15 Blood Urea Nitrogen 14 9-23 mg/dL Creatinine 1.25 0.700-1.30 mg/dL Glomerular Filtration Rate Calc 66 >90 mL/min BUN/Creatinine Ratio 11.2 10.0-20.0 Serum Glucose 133 H 74-106 mg/dL Calcium Level 8.0 L 8.7-10.4 mg/dL Magnesium Level 1.8 1.6-2.6 mg/dL Total Bilirubin 0.8 0.2-1.0 mg/dL Aspartate Amino Transferase (AST) 369 H 13-40 U/L Alanine Aminotransferase (ALT) 236 H 7-40 U/L Alkaline Phosphatase 110 46-116 U/L Troponin I High Sensitivity 13117 *H </=54 ng/L Total Protein 6.1 5.7-8.2 g/dL Albumin 3.5 3.2-4.8 g/dL Blood Gas Specimen Type Arterial Blood Gas Sample Site Right radial Blood Gas Patient Temperature 37.0 Arterial Blood Date Drawn [id number] Arterial Blood pH 7.310 L 7.350-7.450 Arterial Blood Partial Pressure CO2 30.7 L 35.0-48.0 mmHg Arterial Blood Partial Pressure O2 109.2 H 83.0-108.0 mmHg Arterial Blood HCO3 15.1 L 21.0-28.0 mmol/L Arterial Blood Oxygen Saturation 97.3 94.0-98.0 % Arterial Blood Base Excess -9.7 L -2.0-3.0 mmol/L Arterial Blood Oxyhemoglobin 96.8 94.0-98.0 % Arterial Blood Carboxyhemoglobin 0.3 L 0.5-1.5 % Arterial Blood Methemoglobin 0.2 0.0-1.5 % Davin Test Modified Blood Gas Total Hemoglobin 15.70 13.5-17.5 g/dL Blood Gas Set Respiration Rate 20.0 Blood Gas Modality Vent - ac Blood Gas Spontaneous Rate 20 FiO2 % 30.0 Blood Gas Tidal Volume 450.0 Blood Gas Inspiratory Pressure 25.0 Blood Gas PEEP or CPAP 5.0 Bl Gas Inspiratory/Expiratory Ratio 1:3.2 Specimen Drawn By ghyde rt Hemoglobin A1c 5.3 <5.7 % A1C Triglycerides Level 81 < 150 mg/dL Cholesterol Level 138 < 200 mg/dL LDL Cholesterol 81 < 100 mg/dL HDL Cholesterol 44 40-59 mg/dL Thyroid Stimulating Hormone (TSH) 0.63 0.55-4.78 uIU/mL Test 02/14/25 20:06 02/14/25 19:14 02/14/25 17:14 Range/Units Lactic Acid Level 2.0 0.4-2.0 mmol/L Urine Color Yellow Yellow Urine Clarity Turbid H Clear Urine pH 6.0 5.0-9.0 Urine Specific [place] 1.027 1.001-1.035 Urine Protein 2+ H Negative Urine Ketones 1+ H Negative Urine Blood 2+ H Negative /uL Urine Nitrite Negative Negative Urine Bilirubin Negative Negative Urine Urobilinogen Normal Negative mg/dL Urine Leukocyte Esterase Trace Negative /uL Urine RBC 60 0 - 3 /hpf Urine Microscopic WBC 8 H 0-3 /HPF Urine Squamous Epithelial Cells Mod <5 /hpf Urine Bacteria Many H None Seen /hpf Urine Hyaline Casts Few 0 - 2 /lpf Urine Mucus Few None Seen Urine Sperm Present None Seen /hpf Urine Glucose Trace Normal mg/dL Urine Opiates Screen Neg NEGATIVE Urine Fentanyl Screen Neg NEGATIVE Urine Barbiturates Screen Neg NEGATIVE Urine Phencyclidine Screen Neg NEGATIVE Urine Amphetamines Screen Pos NEGATIVE Urine Benzodiazepines Screen Neg NEGATIVE Urine Cocaine Screen Neg NEGATIVE Urine Cannabinoids Screen Pos NEGATIVE B-Type Natriuretic Peptide 34.43 0-100 pg/mL Microbiology Date/Time Source Procedure Growth Status 02/14/25 16:27 Sputum Gram Stain - Final Resulted 02/14/25 16:27 Sputum Respiratory Culture - Preliminary Resulted Assessment NSTEMI, likely type I Rule out coronary artery disease Rule out structural heart disease Shock, likely mixed (septic and cardiogenic) Acute hypoxic respiratory failure Pneumonia COPD Transaminitis Polysubstance abuse Plan/Recommendation We will continue with the following plan/recommendations (Dr. Hunt): Case reviewed and discussed with . We will proceed with obtaining a transthoracic echocardiogram to evaluate cardiac function and wall motion. Given the patient's severely elevated troponin level and abnormal twelve lead electrocardiogram, highly suspect NSTEMI type 1. Patient may benefit from coronary angiogram with left heart catheterization. The procedure was discussed with the patients daughter (given that patient is chemically sedated and mechanically ventilated), in full detail including risks and benefits. Risks include but are not limited to bleeding, contrast-induced nephropathy, stroke, and even . The patients daughter understands and is agreeable for the patient to undergo the procedure. An extensive conversation was had between myself and the patient's daughter regarding medical compliance. The patient has a known history of methamphetamine abuse. Explained to the patient's daughter that if a stent needs to be placed, the patient has to be completely compliant to his medication regimen due to the high risk for InStent restenosis/thrombosis if he does not take the required dual antiplatelet therapy. The patient's daughter understands and would like to proceed with coronary angiogram and left heart catheterization. We will tentatively schedule the patient for coronary angiogram on 02/16/2025. In the meantime, continue with heparin drip per ACS protocol and single antiplatelet therapy. Continue with vasopressors for hemodynamic support. Continue with close cardiac surveillance and notify Cardiology immediately for any ECG changes. Thank you for allowing us to care for this patient. Please call with any questions or concerns. Critical care time spent: 42 minutes This medical document was created using an electronic medical record system with voice recognition software and computerized dictation system. Although this document has been carefully reviewed, there might still be some phonetic and typographical errors. Occasional wrong-word or ``sound-alike substitutions may have occurred due to the inherent limitations of voice recognition software. These areas are purely typographical due to imperfections of the software pro grams and do not reflect any compromise in the patient's medical care. Please read the chart carefully and recognize, using context, where these substitutions have occurred. Plan discussed with: Daughter, Other (Bedside RN) NYHA Physical activity limitations: NA Date of Service: Feb 15, 2025 Billing Provider: KERI PEARCE Cardiology Common Codes: 18065-JEVFIAP INP/OBS CARE (High) Cardiology Consultation Codes: 93833-RKOVITQOG CONSULT <45MIN KERI PEARCE Feb 15, 2025 11:29
[2025-02-15] MEDS: HEPARIN DRIP/D5W 100UNITS/ML 250 ML IV SCH (11:30)
[2025-02-15] MEDS: methylPREDNISolone SOD SUCC 40 MG/ML VL IV ONE (13:09)
[2025-02-15] MEDS: MAGNESIUM SULFATE 1GM/100ML 100 ML IV ONE (13:10)
[2025-02-15 17:38] LABS: INR 1.08 (0.9-1.15); Partial Thromboplastin Time 61.5 SEC (24.5-34.5); Prothrombin Time 11.4 sec (9.3-11.8)
[2025-02-15] MEDS: methylPREDNISolone SOD SUCC 40 MG/ML VL IV SCH (20:38)
[2025-02-16] VITALS (108 sets, daily range): BP systolic 85–114; BP diastolic 58–79; PULSE 67–95; RESP 9–29; TEMP 97.6–98.6; O2SAT 94–100
[2025-02-16 04:11] LABS: Basophils # (auto) 0 10 ^3/uL (0-0.2); Basophils % (auto) 0.3 % (0.0-2.0); Eosinophils # (auto) 0 10 ^3/uL (0-0.8); Lymphocytes # (auto) 0.6 10 ^3/uL (0.4-5.4); Lymphocytes % (auto) 3.9 % (10.0-50.0); Mean Corpuscular Hemoglobin 32.3 pg (28.0-32.0); Mean Corpuscular Hgb Conc. 33.3 g/dL (32.0-36.0); Monocytes # (auto) 0.4 10 ^3/uL (0-1.3); Monocytes % (auto) 2.7 % (0.0-12.0); Neutrophils # (auto) 14.1 10 ^3/uL (1.6-8.6); Neutrophils % (auto) 93.1 % (37.0-80.0); Platelet Count (auto) 258 10^3/uL (140-450); Red Blood Cells 4.33 10^6/uL (4.5-5.90); Red Cell Distribution Width 14.9 % (11.8-14.3); White Blood Cell 15.1 10^3/uL (4.4-10.8)
[2025-02-16 04:23] LABS: Potassium 4.2 mmol/L (3.5-5.1); Sodium 138 mmol/L (136-145)
[2025-02-16 04:24] LABS: Anion Gap 10 (5-15)
[2025-02-16 04:25] LABS: Calcium 8.2 mg/dL (8.7-10.4); Carbon Dioxide 18 mmol/L (20-31); Chloride 110 mmol/L (98-107)
[2025-02-16 04:30] LABS: BUN/Creatinine Ratio 15.7 (10.0-20.0); Blood Urea Nitrogen 14 mg/dL (9-23)
[2025-02-16 04:33] LABS: Glucose 155 mg/dL (74-106)
[2025-02-16 04:35] LABS: INR 1.18 (0.9-1.15); Prothrombin Time 12.3 sec (9.3-11.8)
[2025-02-16 04:39] LABS: Partial Thromboplastin Time 91.6 SEC (24.5-34.5)
--- NOTE | 2025-02-16 05:15 | DVH ---
INDICATION: PNA TECHNIQUE: Single frontal view of the chest was obtained COMPARISON: XY CHEST PORTABLE on DOS: 02/15/25, XY CHEST PORTABLE on DOS: 02/14/25, XY CHEST PORTABLE on DOS: 02/24/24, CHEST PORTABLE on DOS: 01/27/22, XY CHEST PORTABLE on DOS: 02/15/25 FINDINGS: Lines and Tubes: Endotracheal tube and enteric catheter in satisfactory position Lungs: Mild congestion Pleura: No effusion. No pneumothorax. Cardiomediastinal contours: Unremarkable Bones: Unremarkable IMPRESSION: Lines and tubes in satisfactory position. No significant interval change.
[2025-02-16 06:06] LABS: Base Excess -10.7 mmol/L (-2.0-3.0)
[2025-02-16] MEDS: HEPARIN DRIP/D5W 100UNITS/ML 250 ML IV SCH ×3 (06:19→22:00)
--- NOTE | 2025-02-16 09:18 | DVHPN2 ---
Consult Progress Note Subjective Other Systems: Patient remains chemically sedated and mechanically ventilated. Patient in normal sinus rhythm with depressed ST on security monitor Objective vital signs Vital Sign Date Time Temp Pulse Resp B/P (MAP) Pulse Ox O2 Delivery O2 Flow Rate FiO2 02/16/25 08:00 24 97 Mechanical Ventilator+ 30 30 02/16/25 08:00 74 02/16/25 07:24 100/72 (81) 02/16/25 04:00 98.3 98.3 Total Intake and Output 02/15/25 02/15/25 02/16/25 15:00 23:00 07:00 Intake Total 1244.75 ml 1188.25 ml 1309.00 ml Output Total 450 ml 500 ml Balance 1244.75 ml 738.25 ml 809.00 ml medications Current Medications Medications Dose Ordered Sig/Zenon Route Start Time Stop Time Status Last Admin Dose Admin Propofol 100 ml @ 1.8 mls/hr Q24H IV 02/14/25 16:30 02/14/25 16:45 1.8 MLS/HR Midazolam HCl 50 ml @ 1 mls/hr Q24H IV 02/14/25 16:30 02/16/25 06:16 6 MLS/HR Fentanyl Citrate 250 ml @ 2.5 mls/hr Q24H IV 02/14/25 18:30 02/14/25 18:55 2.5 MLS/HR Sodium Chloride 1,000 ml @ 85 mls/hr [id number] IV 02/14/25 20:00 02/16/25 01:04 85 MLS/HR Piperacillin Sod/ Tazobactam Sod 100 ml @ 25 mls/hr Q8H IV 02/14/25 21:00 02/16/25 04:33 25 MLS/HR Vancomycin HCl 0 ml @ 0 mls/hr UD IV 02/14/25 20:00 Ondansetron HCl 4 mg Q4HP PRN IV 02/14/25 20:00 Acetaminophen 650 mg Q6HP PRN PO 02/14/25 20:00 Nitroglycerin 0.4 mg Q5MINP PRN SL 02/14/25 20:00 Morphine Sulfate 2 mg Q30M PRN IV 02/14/25 20:00 Norepinephrine Bitartrate 250 ml @ 3.75 mls/hr Q24H IV 02/14/25 20:45 02/15/25 17:09 18.75 MLS/HR Vancomycin HCl 100 ml @ 200 mls/hr Q8H IV 02/15/25 03:00 02/16/25 03:04 200 MLS/HR Pantoprazole Sodium 40 mg DAILY IV 02/16/25 10:00 Aspirin 81 mg DAILY PO 02/16/25 10:00 Methylprednisolone Sodium Succinate 40 mg BID IV 02/15/25 22:00 02/15/25 20:38 40 MG Heparin Sodium/ Dextrose 250 ml @ 5 mls/hr Q24H IV 02/16/25 06:00 02/16/25 06:19 5 MLS/HR Examination: GENERAL:Abnormal, LUNGS:Abnormal (Mechanically ventilated), CVS:Normal, NEURO:Abnormal (Chemically sedated) laboratory and microbiology Laboratory Tests 02/16/25 03:11 Test 02/16/25 03:11 Range/Units Serum Glucose 155 H 74-106 mg/dL Problem List/Assessment/Plan Problem List/Assessment/Plan NSTEMI, likely type I Rule out coronary artery disease Rule out structural heart disease Shock, likely mixed (septic and cardiogenic) Acute hypoxic respiratory failure Pneumonia COPD Transaminitis Polysubstance abuse Plan/Recommendation (Dr. Hunt): Case reviewed and discussed with . We will proceed with obtaining a transthoracic echocardiogram to evaluate cardiac function and wall motion. Given the patient's severely elevated troponin level and abnormal twelve lead electrocardiogram, highly suspect NSTEMI type 1. The plan for coronary angiogram with left heart catheterization was explained to the daughter who was initially agreeable for the patient to undergo the procedure. Today, the patient's daughter has changed her mind and would like to hold off on the procedure. Patient's daughter refusing to sign consents for procedure. In the meantime, continue with heparin drip per ACS protocol and single antiplatelet therapy. Continue vasopressors for hemodynamic support as needed. Continue with close cardiac surveillance and notify Cardiology immediately for any ECG changes. Thank you for allowing us to care for this patient. Please call with any questions or concerns. Critical care time spent: 42 minutes.This medical document was created using an electronic medical record system with voice recognition software and computerized dictation system. Although this document has been carefully reviewed, there might still be some phonetic and typographical errors. Occasional wrong-word or ``sound-alike substitutions may have occurred due to the inherent limitations of voice recognition software. These areas are purely typographical due to imperfections of the software programs and do not reflect any compromise in the patient's medical care. Please read the chart carefully and recognize, using context, where these substitutions have occurred. Plan discussed with: Daughter, Other (Bedside RN) Date of Service: Feb 16, 2025 Billing Provider: KERI PEARCE Common Visit Codes: [id number] CARE 30-74 MIN KERI PEARCE Feb 16, 2025 09:18
[2025-02-16] MEDS: ASPirin 81 mg TAB PO SCH (10:03)
[2025-02-16] MEDS: PANTOPRAZOLE 40 MG/10 ML VIAL INJ IV SCH (10:03)
--- NOTE | 2025-02-16 11:33 | DVHPN2 ---
Progress Note - Dictate Date Seen: Feb 16, 2025 Medical Necessity Reason Pt with a Central, PICC or Fol: Yes The following are medically ne: Central Line, Breaux Catheter (RN) Subjective Covering for Dr. Casillas Patient seen and examined Overnight events reviewed vital signs Vital Sign Date Time Temp Pulse Resp B/P (MAP) Pulse Ox O2 Delivery O2 Flow Rate FiO2 02/16/25 11:23 103/74 02/16/25 10:45 79 99 02/16/25 10:15 18 02/16/25 10:03 30 02/16/25 10:00 Mechanical Ventilator+ 02/16/25 08:00 98.3 98.3 Total Intake and Output 02/15/25 02/15/25 02/16/25 15:00 23:00 07:00 Intake Total 1244.75 ml 1188.25 ml 1309.00 ml Output Total 450 ml 500 ml Balance 1244.75 ml 738.25 ml 809.00 ml medications Current Medications Medications Dose Ordered Sig/Zenon Route Start Time Stop Time Status Last Admin Dose Admin Propofol 100 ml @ 1.8 mls/hr Q24H IV 02/14/25 16:30 02/14/25 16:45 1.8 MLS/HR Midazolam HCl 50 ml @ 1 mls/hr Q24H IV 02/14/25 16:30 02/16/25 06:16 6 MLS/HR Fentanyl Citrate 250 ml @ 2.5 mls/hr Q24H IV 02/14/25 18:30 02/14/25 18:55 2.5 MLS/HR Sodium Chloride 1,000 ml @ 85 mls/hr [id number] IV 02/14/25 20:00 02/16/25 01:04 85 MLS/HR Piperacillin Sod/ Tazobactam Sod 100 ml @ 25 mls/hr Q8H IV 02/14/25 21:00 02/16/25 04:33 25 MLS/HR Vancomycin HCl 0 ml @ 0 mls/hr UD IV 02/14/25 20:00 Ondansetron HCl 4 mg Q4HP PRN IV 02/14/25 20:00 Acetaminophen 650 mg Q6HP PRN PO 02/14/25 20:00 Nitroglycerin 0.4 mg Q5MINP PRN SL 02/14/25 20:00 Morphine Sulfate 2 mg Q30M PRN IV 02/14/25 20:00 Norepinephrine Bitartrate 250 ml @ 3.75 mls/hr Q24H IV 02/14/25 20:45 02/16/25 11:23 11.25 MLS/HR Vancomycin HCl 100 ml @ 200 mls/hr Q8H IV 02/15/25 03:00 02/16/25 10:08 200 MLS/HR Pantoprazole Sodium 40 mg DAILY IV 02/16/25 10:00 02/16/25 10:03 40 MG Aspirin 81 mg DAILY PO 02/16/25 10:00 02/16/25 10:03 81 MG Methylprednisolone Sodium Succinate 40 mg BID IV 02/15/25 22:00 02/16/25 10:02 40 MG Heparin Sodium/ Dextrose 250 ml @ 5 mls/hr Q24H IV 02/16/25 06:00 02/16/25 06:19 5 MLS/HR laboratory and microbiology Laboratory Tests 02/16/25 03:11 Test 02/16/25 03:11 Range/Units Serum Glucose 155 H 74-106 mg/dL Assessment/Plan Impression Acute hypoxemic respiratory failure Multifocal pneumonia Substance abuse Atelectasis Patient seen and examined in ICU Events On mechanical ventilation S/p intubation PEEP 5, FiO2 35% Labs and imaging reviewed ABG reviewed Management Vent support Titrate to maintain sats 90% or above Sedation holiday daily If patient follows commands, proceed to weaning trial Pressure support 05/19, extubate when ready Antibiotics Bronchodilators Monitor renal function Monitor electrolytes Supplement as needed Pressors as needed for hemodynamic support To maintain a mean arterial pressure of 65 mmHg F/u cardiology Watch for signs of withdrawal DVT prophylaxis Critical care time 35 minutes Plan discussed with: Other (Rn) ANA MARIA GUTIERREZ MD Feb 16, 2025 11:33
[2025-02-16 12:40] LABS: INR 1.11 (0.9-1.15); Partial Thromboplastin Time 32.2 SEC (24.5-34.5); Prothrombin Time 11.6 sec (9.3-11.8)
--- NOTE | 2025-02-16 13:03 | CONS ---
Pharmacy Clinical Information: BOLUS 5000 UNITS HEPARIN IV AND INCREASE HEPARIN DRIP RATE TO 800 UNITS/HR = 8 ML/HR PER APTT OF 32.2 (SUBTHERAPEUTIC). NEXT APTT DRAW SCHEDULED FOR 1999 PER RX PROTOCOL. EARL ZURITA PHARMACIST Feb 16, 2025 13:03
[2025-02-16] MEDS: HEPARIN SODIUM (PORCINE) 5000 UNITS/ML 1ML VIAL IV ONE (13:29)
[2025-02-16] MEDS: HEPARIN SODIUM (PORCINE) 5000 UNITS/ML 1ML VIAL ONE (13:42)
[2025-02-16 20:33] LABS: INR 1.14 (0.9-1.15); Prothrombin Time 11.9 sec (9.3-11.8)
[2025-02-16 20:42] LABS: Partial Thromboplastin Time 91.7 SEC (24.5-34.5)
--- NOTE | 2025-02-16 21:18 | CONS ---
Pharmacy Clinical Information: NO BOLUS TEMPLATE: SPOKE TO CARMEL BREEN REGARDING HEPARIN DOSE CHANGE CURRENT DOSE: 800 UNITS/HR CURRENT APTT: 91.7 ON 02/16/25 @1949 HOLD INFUSION FOR 1 HR: YES (ONLY WHEN APTT > 90.0) DECREASE (NEW DOSE): 500 UNITS/HR DATE AND TIME OF NEW STARTED: 02/16/25 @2200 NEXT APTT: 02/17/25 @0400 BIJU BREEN READ BACK NEW DOSE: 500 UNITS/HR GERA MICHAUD PHARMACIST Feb 16, 2025 21:18
[2025-02-17] VITALS (108 sets, daily range): BP systolic 81–113; BP diastolic 55–80; PULSE 61–95; RESP 17–20; TEMP 97.4–98.8; O2SAT 97–100
[2025-02-17 03:45] LABS: Basophils # (auto) 0.1 10 ^3/uL (0-0.2); Basophils % (auto) 0.3 % (0.0-2.0); Eosinophils # (auto) 0 10 ^3/uL (0-0.8); Hematocrit 38.3 % (41.0-53.0); Hemoglobin 12.7 g/dL (13.5-17.5); Lymphocytes # (auto) 0.8 10 ^3/uL (0.4-5.4); Lymphocytes % (auto) 4.1 % (10.0-50.0); Mean Corpuscular Hgb Conc. 33.1 g/dL (32.0-36.0); Mean Corpuscular Volume 96.7 fL (80.0-100.0); Monocytes # (auto) 0.5 10 ^3/uL (0-1.3); Monocytes % (auto) 2.9 % (0.0-12.0); Neutrophils # (auto) 17.1 10 ^3/uL (1.6-8.6); Neutrophils % (auto) 92.7 % (37.0-80.0); Platelet Count (auto) 277 10^3/uL (140-450); Red Blood Cells 3.96 10^6/uL (4.5-5.90); Red Cell Distribution Width 15.1 % (11.8-14.3); White Blood Cell 18.4 10^3/uL (4.4-10.8)
[2025-02-17 04:04] LABS: Alkaline Phosphatase 75 U/L (46-116); Anion Gap 7 (5-15); Bilirubin, Total 0.4 mg/dL (0.2-1.0); Blood Urea Nitrogen 18 mg/dL (9-23); Carbon Dioxide 21 mmol/L (20-31); Potassium 4.5 mmol/L (3.5-5.1); Sodium 140 mmol/L (136-145)
[2025-02-17 04:05] LABS: Alanine Aminotransferase 196 U/L (7-40); Albumin 3.2 g/dL (3.2-4.8); Aspartate Aminotransferase 96 U/L (13-40); Calcium 8.3 mg/dL (8.7-10.4); Chloride 112 mmol/L (98-107); Glucose 169 mg/dL (74-106); Total Protein 5.7 g/dL (5.7-8.2)
[2025-02-17 04:38] LABS: INR 1.05 (0.9-1.15); Partial Thromboplastin Time 33.9 SEC (24.5-34.5); Prothrombin Time 11.1 sec (9.3-11.8)
[2025-02-17] MEDS: HEPARIN SODIUM (PORCINE) 5000 UNITS/ML 1ML VIAL IV ONE (04:56)
[2025-02-17] MEDS: HEPARIN DRIP/D5W 100UNITS/ML 250 ML IV SCH ×3 (05:00→21:55)
--- NOTE | 2025-02-17 06:00 | DVH ---
CHEST RADIOGRAPH Indication: RESPIRATORY FAILURE Technique: Single frontal view of the chest was obtained Comparison: XY CHEST PORTABLE on DOS: 02/16/25, XY CHEST PORTABLE on DOS: 02/15/25, XY CHEST PORTABLE on DOS: 02/14/25 IMPRESSION: Heart appears stable in size. Endotracheal tube tip approximately 3 cm from the janie. Enteric tub e beyond the gastroesophageal junction, not included in this examination. No sizable effusion or pneu mothorax. Patchy airspace opacity in the left lower lobe.
--- NOTE | 2025-02-17 10:12 | DVHPN2 ---
Assessment/Plan Assessment/Plan ICU notes 59 M with COPD, HIV CD4 unknown, admitted for SOB with acute hypoxic RF, intubated and placed on mechanical ventilation Seen by me today during rounds, LHC not done, family refused. c/w heparin. pending echo read, however EF looks severely decreased with dilated left side chambers. Physical exam sedated and mechanically ventilated opening eyes to name, not tracking PERLLA no JVD mechanical breath sounds s1 s2 RRR abdomen soft nontender no LE edema Labs EKG imaging reviewed Assessment and plan Acute on chronic hypoxic RF requiring mechanical ventilation Toxic metabolic encephalopathy PSA vs sepsis Mixed shock sepsis cardiogenic ISO PNA and NSTEMI Pneumonia GP vs GN COPD group E with exacerbation Acute systolic heart failure HFrEF HIV NSTEMI MOLLY VMN Hyponatremia Lactic acidosis PSA c/w mechanical vent c/w pressor maintain MAP >65 c/w sedation maintain RAAS -2 daily SAT SBT c/w vanc, d/c zosyn to meropenem (TRE 8 in culture) steroid and breathing treatment cardio consult appreciated plan for LHC, fam refused c/w heparin drip in the interim d/c fluid, considering diureses per fluid balance switch fem TLC to IJ when able send CD4 VL lines alarcon TLC R fem full code condition critical prognosis poor diet tube feeding dvt ppx on heparin gi ppx protonix critical care time 60 minutes Plan discussed with: Other Date of Service: Feb 17, 2025 Billing Provider: PO MATAMOROS MD Common Visit Codes: [id number] CARE 30-74 MIN PO MATAMOROS MD Feb 17, 2025 10:12
--- NOTE | 2025-02-17 11:15 | DVHPN2 ---
Consult Progress Note Subjective Review of Systems: Deferred (intubated) Objective vital signs Vital Sign Date Time Temp Pulse Resp B/P (MAP) Pulse Ox O2 Delivery O2 Flow Rate FiO2 02/17/25 09:56 67 20 91/65 (74) 100 30 02/17/25 06:45 98.2 208.8 02/17/25 06:00 Mechanical Ventilator+ Total Intake and Output 02/16/25 02/16/25 02/17/25 15:00 23:00 07:00 Intake Total 1109.25 ml 1013.5 ml 1010.55 ml Output Total 400 ml 450 ml Balance 1109.25 ml 613.5 ml 560.55 ml medications Current Medications Medications Dose Ordered Sig/Zenon Route Start Time Stop Time Status Last Admin Dose Admin Propofol 100 ml @ 1.8 mls/hr Q24H IV 02/14/25 16:30 02/14/25 16:45 1.8 MLS/HR Midazolam HCl 50 ml @ 1 mls/hr Q24H IV 02/14/25 16:30 02/16/25 06:16 6 MLS/HR Fentanyl Citrate 250 ml @ 2.5 mls/hr Q24H IV 02/14/25 18:30 02/14/25 18:55 2.5 MLS/HR Sodium Chloride 1,000 ml @ 85 mls/hr [id number] IV 02/14/25 20:00 02/17/25 00:42 85 MLS/HR Vancomycin HCl 0 ml @ 0 mls/hr UD IV 02/14/25 20:00 Ondansetron HCl 4 mg Q4HP PRN IV 02/14/25 20:00 Acetaminophen 650 mg Q6HP PRN PO 02/14/25 20:00 Nitroglycerin 0.4 mg Q5MINP PRN SL 02/14/25 20:00 Morphine Sulfate 2 mg Q30M PRN IV 02/14/25 20:00 Norepinephrine Bitartrate 250 ml @ 3.75 mls/hr Q24H IV 02/14/25 20:45 02/16/25 11:23 11.25 MLS/HR Vancomycin HCl 100 ml @ 200 mls/hr Q8H IV 02/15/25 03:00 02/17/25 02:36 200 MLS/HR Pantoprazole Sodium 40 mg DAILY IV 02/16/25 10:00 02/17/25 10:55 40 MG Aspirin 81 mg DAILY PO 02/16/25 10:00 02/17/25 10:59 81 MG Methylprednisolone Sodium Succinate 40 mg BID IV 02/15/25 22:00 02/17/25 10:55 40 MG Dexmedetomidine HCl 400 mcg/ Dextrose 100 ml @ 2.55 mls/hr Q24H IV 02/16/25 16:45 02/17/25 04:15 2.55 MLS/HR Heparin Sodium/ Dextrose 250 ml @ 8 mls/hr Q24H IV 02/17/25 05:00 Meropenem 50 ml @ 17 mls/hr Q8HR IV 02/17/25 14:00 Examination: LUNGS:Abnormal (rales), CVS:Abnormal (Levophed at 4 mcg), NEURO:Abnormal (Sedated), Any Other System: (Telemetry reviewed, consistent with sinus rhythm at 67 beats per minute.) laboratory and microbiology Laboratory Tests 02/17/25 03:18 Test 02/17/25 03:18 Range/Units Serum Glucose 169 H 74-106 mg/dL Problem List/Assessment/Plan Problem List/Assessment/Plan Problem List/Assessment/Plan NSTEMI, likely type I Rule out coronary artery disease Rule out structural heart disease Shock, likely mixed (septic and cardiogenic) Acute hypoxic respiratory failure Pneumonia COPD Transaminitis Polysubstance abuse Plan/Recommendation (Dr. Hunt): Case reviewed and discussed with . We will proceed with obtaining a transthoracic echocardiogram to evaluate cardiac function and wall motion. Given the patient's severely elevated troponin level and abnormal twelve lead electrocardiogram, highly suspect NSTEMI type 1. The plan for coronary angiogram with left heart catheterization was explained to the daughter who was initially agreeable for the patient to undergo the procedure though decided she would like to hold off on the procedure. Patient's daughter refusing to sign consents for procedure. Continue heparin drip per ACS protocol and single antiplatelet therapy. On vasopressor support, titrate as tolerated. Awaiting final report on echo, seems to be significantly reduced LV function. Initiate on GDMT once able to tolerate. Continue with close cardiac surveillance and notify Cardiology immediately for any ECG changes. Possible CPAP trial, follow up pulmonology recs. Thank you for allowing us to care for this patient. Please call with any questions or concerns. Critical care, time spent: 35 min This medical document was created using an electronic medical record system with voice recognition software and computerized dictation system. Although this document has been carefully reviewed, there might still be some phonetic and typographical errors. Occasional wrong-word or ``sound-alike substitutions may have occurred due to the inherent limitations of voice recognition software. These areas are purely typographical due to imperfections of the software programs and do not reflect any compromise in the patient's medical care. Please read the chart carefully and recognize, using context, where these substitutions have occurred. Thank you for allowing me to participate in the management of this patient. The treatment plan was discussed with and agreed upon by patient/family including requesting consultants and ordering of imaging/procedures. Plan discussed with: Other (Bedside RN) Date of Service: Feb 17, 2025 Billing Provider: NADIA SANCHEZ Common Visit Codes: [id number] INP/OBS CARE(HIGH), [id number] CARE 30-74 MIN NADIA SANCHEZ Feb 17, 2025 11:15
[2025-02-17 11:25] LABS: INR 1.09 (0.9-1.15); Prothrombin Time 11.5 sec (9.3-11.8)
[2025-02-17 11:29] LABS: Partial Thromboplastin Time 116.8 SEC (24.5-34.5)
--- NOTE | 2025-02-17 11:53 | CONS ---
Pharmacy Clinical Information: NO BOLUS TEMPLATE: SPOKE TO MEJIA BREEN REGARDING HEPARIN DOSE CHANGE CURRENT DOSE: 800 UNITS/HR CURRENT APTT: 116.8 ON 02/17/25 @1042 HOLD INFUSION FOR 1 HR: YES (ONLY WHEN APTT > 90.0) DECREASE (NEW DOSE): 500 UNITS/HR DATE AND TIME OF NEW STARTED: 02/17/25 @1230 NEXT APTT: 02/17/25 @1830 MEJIA BREEN READ BACK NEW DOSE: 5 UNITS/HR GERA MICHAUD PHARMACIST Feb 17, 2025 11:53
--- NOTE | 2025-02-17 14:03 | DVHSR ---
APPROVED REPORT EXAM: Two-dimensional and M-mode echocardiogram with Doppler and color Doppler. Blood Pressure: 105/74 mmHg INDICATION Chest Pain RISK FACTORS Height: 5'5", Weight: 112 DIMENSIONS LVDd4.6 (3.8-5.7cm)LA (2D)3.8 (1.9-4.0cm)Aortic Root (2.0-3.7cm) LVDs4.2 (2.5-4.0cm)LA (MM) (1.9-4.0cm)Aortic Cusp Exc (1.5-2.0cm) EF (%) 18.0 (55-70%)Rt. Atrium3.1 (1.9-4.0cm)Asc. Aorta cm IVSd (0.7-1.1cm)RV (D)3.2 (1.8-2.4cm) Mitral Valve MitralMitral Stenosis E wave0.38m/sMV Mean GR.mmHg A wave0.26m/sMV Peak GR.mmHg E/A ratio1.52D MVAcm2 DECEL [id number] 1/2 Timems Aortic Valve Aortic ValveAortic Stenosis V10.69m/Domenica Mean GR.2mmHg V20.76m/Domenica Peak GR.2mmHg LVOT Diameter2.0 (1.8-2.4cm)Doppler AVA2.85cm2 Other Information Quality : Technically LimitedRhythm : Technically limited study due to body habitus and on vent. Conclusion Technically good study. Limited acoustic windows. Most of the studies based on apical and subcostal views. There appears to be biatrial and LV enlargement. Valves appear to be structurally normal as it pertains to aortic tricuspid and mitral. The pulmonic is not clearly visualized. Left ventricular systolic performance is markedly diminished. There is severe global hypokinesis. A kinesis of the apical lateral wall of left ventricle. EF is about 15-20%. Right ventricular functio n appears normal. Free wall hypokinesis. Mild tricuspid and mitral insufficiency. Small pericardial effusion not hemodynamically significant.
[2025-02-17] MEDS: MEROPENEM 1GM IVPB 50 ML IV SCH (14:09)
[2025-02-17 14:39] LABS: Base Excess -4.2 mmol/L (-2.0-3.0)
[2025-02-17] MEDS ORDERED: VANCOMYCIN 500mg/100mL 100 ML IV SCH (15:45)
[2025-02-17] MEDS: VANCOMYCIN 500mg/100mL 100 ML IV SCH (17:15)
[2025-02-17 18:59] LABS: INR 1.06 (0.9-1.15); Partial Thromboplastin Time 26.6 SEC (24.5-34.5); Prothrombin Time 11.2 sec (9.3-11.8)
[2025-02-17] MEDS: HEPARIN 1,000 UNITS/ml 1ML VIAL IV ONE (19:33)
--- NOTE | 2025-02-17 20:05 | DVHPN2 ---
Progress Note - Dictate Date Seen: Feb 17, 2025 Medical Necessity Reason Pt with a Central, PICC or Fol: Yes The following are medically ne: Central Line, Breaux Catheter (RN) Subjective Patient seen and examined at bedside. Sedated, intubated on mechanical ventilator. Overnight events reviewed. vital signs Vital Sign Date Time Temp Pulse Resp B/P (MAP) Pulse Ox O2 Delivery O2 Flow Rate FiO2 02/17/25 19:44 102/70 02/17/25 18:45 98.8 65 20 100 209.8 02/17/25 18:11 30 02/17/25 18:00 Mechanical Ventilator+ Total Intake and Output 02/16/25 02/16/25 02/17/25 15:00 23:00 07:00 Intake Total 1109.25 ml 1013.5 ml 1028.60 ml Output Total 400 ml 450 ml Balance 1109.25 ml 613.5 ml 578.60 ml medications Current Medications Medications Dose Ordered Sig/Zenon Route Start Time Stop Time Status Last Admin Dose Admin Propofol 100 ml @ 1.8 mls/hr Q24H IV 02/14/25 16:30 02/14/25 16:45 1.8 MLS/HR Midazolam HCl 50 ml @ 1 mls/hr Q24H IV 02/14/25 16:30 02/16/25 06:16 6 MLS/HR Fentanyl Citrate 250 ml @ 2.5 mls/hr Q24H IV 02/14/25 18:30 02/17/25 19:44 10 MLS/HR Vancomycin HCl 0 ml @ 0 mls/hr UD IV 02/14/25 20:00 Ondansetron HCl 4 mg Q4HP PRN IV 02/14/25 20:00 Acetaminophen 650 mg Q6HP PRN PO 02/14/25 20:00 Nitroglycerin 0.4 mg Q5MINP PRN SL 02/14/25 20:00 Morphine Sulfate 2 mg Q30M PRN IV 02/14/25 20:00 Norepinephrine Bitartrate 250 ml @ 3.75 mls/hr Q24H IV 02/14/25 20:45 02/16/25 11:23 11.25 MLS/HR Pantoprazole Sodium 40 mg DAILY IV 02/16/25 10:00 02/17/25 10:55 40 MG Aspirin 81 mg DAILY PO 02/16/25 10:00 02/17/25 10:59 81 MG Methylprednisolone Sodium Succinate 40 mg BID IV 02/15/25 22:00 02/17/25 10:55 40 MG Dexmedetomidine HCl 400 mcg/ Dextrose 100 ml @ 2.55 mls/hr Q24H IV 02/16/25 16:45 02/17/25 19:37 3.825 MLS/HR Meropenem 50 ml @ 17 mls/hr Q8HR IV 02/17/25 14:00 02/17/25 14:09 17 MLS/HR Vancomycin HCl 100 ml @ 200 mls/hr Q6H IV 02/17/25 17:00 02/17/25 17:15 200 MLS/HR Heparin Sodium/ Dextrose 250 ml @ 8 mls/hr Q24H IV 02/17/25 19:30 objective Gen.: Patient lying in bed in medical ICU. Sedated, intubated on mechanical ventilator. Head: Normocephalic, atraumatic. Eyes: PERRLA. Ears: Normal external anatomy. Throat: Endotracheal tube and orogastric tube in place. Neck: Supple, trachea midline. Chest: Transmitted breath sounds bilaterally. Decreased air entry bilaterally. No wheezing. Bibasilar crackles. Cardiovascular: Positive S1, positive S2. Regular rate and rhythm. Abdomen: Positive bowel sounds in all 4 quadrants. Soft, nontender, nondistended. : Breaux in place. Normal external genitalia. Rectal: Deferred. Skin: Warm, dry. Intact. Extremities: 2+ radial pulses bilaterally. No lower extremity edema. Neuro: Sedated. laboratory and microbiology Laboratory Tests 02/17/25 03:18 Test 02/17/25 03:18 Range/Units Serum Glucose 169 H 74-106 mg/dL Assessment/Plan Impression Acute hypoxemic respiratory failure Multifocal pneumonia Substance abuse Atelectasis Patient seen and examined in ICU Events On mechanical ventilation S/p intubation Vent settings; AC mode with RR 20, VT 450, PEEP 8, FiO2 30% Improved FiO2 requirements Sedated on Versed, Fentanyl On Precedex drip Continue IV steroids IV fluids with NS at 85 ml/hr. Received heparin 800 units. Sedation vacation done. Patient is extremely agitated, resumed sedation. Possible CPAP tomorrow. Labs and imaging reviewed ABG reviewed Management Vent support Titrate to maintain sats 90% or above Vent settings; AC mode with RR 20, VT 450, PEEP 8, FiO2 30% Sedation holiday daily If patient follows commands, proceed to weaning trial Pressure support 05/19, extubate when ready Antibiotics Received bronchodilators IV steroids Monitor renal function Monitor electrolytes Supplement as needed Pressors as needed for hemodynamic support To maintain a mean arterial pressure of 65 mmHg F/u cardiology Watch for signs of withdrawal DVT prophylaxis GI prophylaxis. Prognosis: Poor given patient's multiple co-morbidities. Condition: Critical Rest of plan per hospitalist and other consultants. A total of 35 minutes of critical care time was spent reviewing the patient record, examining the patient, making a diagnostic and therapeutic plan, discussing this plan with the medical personnel, following up on diagnostic studies and following the patient for clinical stability excluding any and all procedures. At least 50% of this time was spent in direct, [id number] contact. Thank you, ARCELIA Chavez, for allowing me to participate in this patient's care. Further recommendations will depend on the patient's clinical course. Please do not hesitate to contact me if you have any questions or concerns. This medical document was created using an electronic medical record system with [employer] dictation system. Although these documentations are being carefully reviewed, there may still be some phonetic and typographical changes. The errors are purely typographical, due to imperfection on the software program, and do not reflect any compromise in the patient's medical care. Dietary Evaluation Review Comments: 1) If patient remains NPO > 7 days, consider EN/TPN to meet at least 75% estimated daily needs 2) If GI is preferred, consider Jevity 1.2 @ goal rate of 45 mL/hr as tolerated. Flush with 200 mL free H2O Q6H. TF regimen (including flushes) will provide 1296 kcals, 60g Pro, and 1672 mL free H2O per 24 hrs. TF rate will meet 95% estimated daily energy needs and ~87% estimated daily protein needs 3) Advance to cardiac diet when medically feasible, pending PATTERN SETTER approval 4) Follow-up with cardiology and pulmonology 5) Continue to monitor I&O, labs, and skin integrity Expected Outcomes/Goals: 1) patient to receive nutritional support within 7 days 2) appetite and labs to improve 3) diet to advance 4) f/u in 2-3 days Plan discussed with: Other (RN Muriel) JEANMARIE CONDE MD Feb 17, 2025 20:05
[2025-02-18] VITALS (109 sets, daily range): BP systolic 85–115; BP diastolic 58–83; PULSE 47–80; RESP 15–28; TEMP 92.5–99.1; O2SAT 95–100
[2025-02-18 02:13] LABS: INR 1.14 (0.9-1.15); Partial Thromboplastin Time 68.4 SEC (24.5-34.5); Prothrombin Time 11.9 sec (9.3-11.8)
[2025-02-18 03:52] LABS: Basophils # (auto) 0 10 ^3/uL (0-0.2); Basophils % (auto) 0.1 % (0.0-2.0); Eosinophils # (auto) 0 10 ^3/uL (0-0.8); Hematocrit 38.5 % (41.0-53.0); Lymphocytes # (auto) 0.7 10 ^3/uL (0.4-5.4); Lymphocytes % (auto) 3.8 % (10.0-50.0); Mean Corpuscular Hemoglobin 32.8 pg (28.0-32.0); Mean Corpuscular Hgb Conc. 33.8 g/dL (32.0-36.0); Mean Corpuscular Volume 96.9 fL (80.0-100.0); Monocytes # (auto) 0.7 10 ^3/uL (0-1.3); Monocytes % (auto) 3.9 % (0.0-12.0); Neutrophils % (auto) 92.2 % (37.0-80.0); Nucleated Red Blood Cells % 0.1 %; Platelet Count (auto) 250 10^3/uL (140-450); Red Blood Cells 3.97 10^6/uL (4.5-5.90); Red Cell Distribution Width 15.1 % (11.8-14.3); White Blood Cell 17.4 10^3/uL (4.4-10.8)
[2025-02-18 04:13] LABS: Alkaline Phosphatase 72 U/L (46-116); Anion Gap 10 (5-15); BUN/Creatinine Ratio 25.5 (10.0-20.0); Carbon Dioxide 22 mmol/L (20-31); Magnesium 2.2 mg/dL (1.6-2.6); Potassium 4.5 mmol/L (3.5-5.1); Sodium 141 mmol/L (136-145); Total Protein 5.8 g/dL (5.7-8.2)
[2025-02-18 04:14] LABS: Bilirubin, Total 0.3 mg/dL (0.2-1.0); Phosphorus 2.9 mg/dL (2.4-5.1)
[2025-02-18 04:18] LABS: Alanine Aminotransferase 201 U/L (7-40); Albumin 3.1 g/dL (3.2-4.8); Aspartate Aminotransferase 76 U/L (13-40); Blood Urea Nitrogen 24 mg/dL (9-23); Calcium 8.5 mg/dL (8.7-10.4); Chloride 109 mmol/L (98-107); Glucose 163 mg/dL (74-106)
[2025-02-18 05:07] LABS: Basos 0 % (Not Estab.); Eos 0 % (Not Estab.); Hemoglobin 13.3 g/dL (13.0-17.7); Immature Granulocytes (Abs) 0.1 x10E3/uL (0.0-0.1); Lymphs 4 % (Not Estab.); Lymphs (Absolute) 0.8 x10E3/uL (0.7-3.1); MCH 32.6 pg (26.6-33.0); MCHC 34.1 g/dL (31.5-35.7); MCV 96 fL (79-97); Monocytes 5 % (Not Estab.); Monocytes (Absolute) 0.9 x10E3/uL (0.1-0.9); Neutrophils 90 % (Not Estab.); Neutrophils (Absolute) 17.1 x10E3/uL (1.4-7.0); Platelets 186 x10E3/uL (150-450); RBC 4.08 x10E6/uL (4.14-5.80); RDW 13.8 % (11.6-15.4); WBC 18.9 x10E3/uL (3.4-10.8)
--- NOTE | 2025-02-18 08:53 | DVH ---
CHEST RADIOGRAPH Indication: PT INTUBATED Technique: Single frontal view of the chest was obtained Comparison: XY CHEST PORTABLE on DOS: 02/17/25, XY CHEST PORTABLE on DOS: 02/16/25, XY CHEST PORTABLE on DOS: 02/15/25, XY CHEST PORTABLE on DOS: 02/14/25, XY CHEST PORTABLE on DOS: 02/24/24 FINDINGS: Endotracheal tube tip projects 4.5 cm above the janie. Nasogastric tube projects towards stomach. The cardiac silhouette is unremarkable. The lungs demonstrate bilateral patchy airspace opacities, ri [id number]. The pulmonary vasculature is prominent. Small bilateral pleural effusions. The re is no pneumothorax. IMPRESSION: 1. Portable << >>
--- NOTE | 2025-02-18 10:15 | DVHPN2 ---
Assessment/Plan Assessment/Plan ICU notes 59 M with COPD, HIV CD4 unknown, admitted for SOB with acute hypoxic RF, intubated and placed on mechanical ventilation, planned for C wednesday however patient did not want to sign consent, discussed and now they are agreeable. Seen by me today during rounds, net positive, initiating diuresis. Physical exam sedated and mechanically ventilated opening eyes to name, not tracking PERLLA no JVD mechanical breath sounds s1 s2 RRR abdomen soft nontender no LE edema Labs EKG imaging reviewed Assessment and plan Acute on chronic hypoxic RF requiring mechanical ventilation Toxic metabolic encephalopathy PSA vs sepsis Mixed shock sepsis cardiogenic ISO PNA and NSTEMI Pneumonia klebsiella COPD group E with exacerbation Acute systolic heart failure HFrEF 15-20% HIV NSTEMI MOLLY VMN resolved Hyponatremia Lactic acidosis resolved PSA c/w mechanical vent c/w pressor maintain MAP >65 c/w sedation maintain RAAS -2 daily SAT SBT c/w vanc, d/c zosyn to meropenem (TRE 8 in culture) steroid and breathing treatment cardio consult appreciated plan for C, consent signed, plan for wed or c/w heparin drip in the interim d/c fluid, considering diureses per fluid balance switch fem TLC to PICC send CD4 VL adding klonazepam and methadone lasix maintain net -1-2L CD4 VL pending lines alarcon TLC R fem full code condition critical prognosis poor diet tube feeding dvt ppx on heparin gi ppx protonix critical care time 60 minutes Plan discussed with: Other My Orders Orders - PO MATAMOROS MD Procedure Category Date Status Time * Picc Line Consult CONS 02/18/25 Transmitted 10:03 Clonazepam Tablet PHA 02/18/25 Logged (Klonopin Tablet) 14:00 Methadone Hcl Tablet PHA 02/18/25 Logged (Methadone Hcl Tabl 14:00 Nutritional PHA 02/18/25 Logged Supplements (Jevity 10:15 Furosemide Injection PHA 02/18/25 Logged (Lasix Injection) 18:00 Comprehensive LAB 02/19/25 Verified Metabolic Panel 04:00 Magnesium LAB 02/19/25 Verified 04:00 Phosphorus LAB 02/19/25 Verified 04:00 Date of Service: Feb 18, 2025 Billing Provider: PO MATAMOROS MD Common Visit Codes: [id number] CARE 30-74 MIN PO MATAMOROS MD Feb 18, 2025 10:15
[2025-02-18 11:03] LABS: INR 1.14 (0.9-1.15); Partial Thromboplastin Time 57.8 SEC (24.5-34.5); Prothrombin Time 11.9 sec (9.3-11.8)
--- NOTE | 2025-02-18 11:26 | DVHPN2 ---
Consult Progress Note Subjective Review of Systems: Deferred (Continues to be intubated and sedated) Objective vital signs Vital Sign Date Time Temp Pulse Resp B/P (MAP) Pulse Ox O2 Delivery O2 Flow Rate FiO2 02/18/25 09:57 60 20 98/69 (79) 100 30 02/18/25 07:15 97.9 208.2 02/18/25 06:00 Mechanical Ventilator+ Total Intake and Output 02/17/25 02/17/25 02/18/25 15:00 23:00 07:00 Intake Total 147.700 ml 330.875 ml 391.325 ml Output Total 250 ml 375 ml Balance 147.700 ml 80.875 ml 16.325 ml medications Current Medications Medications Dose Ordered Sig/Zenon Route Start Time Stop Time Status Last Admin Dose Admin Propofol 100 ml @ 1.8 mls/hr Q24H IV 02/14/25 16:30 02/14/25 16:45 1.8 MLS/HR Midazolam HCl 50 ml @ 1 mls/hr Q24H IV 02/14/25 16:30 02/18/25 01:21 4 MLS/HR Fentanyl Citrate 250 ml @ 2.5 mls/hr Q24H IV 02/14/25 18:30 02/17/25 19:44 10 MLS/HR Vancomycin HCl 0 ml @ 0 mls/hr UD IV 02/14/25 20:00 Ondansetron HCl 4 mg Q4HP PRN IV 02/14/25 20:00 Acetaminophen 650 mg Q6HP PRN PO 02/14/25 20:00 Nitroglycerin 0.4 mg Q5MINP PRN SL 02/14/25 20:00 Morphine Sulfate 2 mg Q30M PRN IV 02/14/25 20:00 Norepinephrine Bitartrate 250 ml @ 3.75 mls/hr Q24H IV 02/14/25 20:45 02/18/25 05:25 3.75 MLS/HR Pantoprazole Sodium 40 mg DAILY IV 02/16/25 10:00 02/18/25 10:51 40 MG Aspirin 81 mg DAILY PO 02/16/25 10:00 02/18/25 10:52 81 MG Methylprednisolone Sodium Succinate 40 mg BID IV 02/15/25 22:00 02/18/25 10:51 40 MG Dexmedetomidine HCl 400 mcg/ Dextrose 100 ml @ 2.55 mls/hr Q24H IV 02/16/25 16:45 02/17/25 19:37 3.825 MLS/HR Meropenem 50 ml @ 17 mls/hr Q8HR IV 02/17/25 14:00 02/18/25 05:25 17 MLS/HR Vancomycin HCl 100 ml @ 200 mls/hr Q6H IV 02/17/25 17:00 02/18/25 05:24 200 MLS/HR Heparin Sodium/ Dextrose 250 ml @ 8 mls/hr Q24H IV 02/17/25 19:30 02/17/25 21:55 8 MLS/HR Clonazepam 0.5 mg TID PO 02/18/25 14:00 Methadone HCl 10 mg Q8HR PO 02/18/25 14:00 UNV Enteral Nutritional Formula 1,000 ml 40ML/HR GT 02/18/25 10:15 Furosemide 20 mg BIDD IV 02/18/25 18:00 Examination: CVS:Abnormal (Telemetry reviewed and consistent with sinus bradycardia at 54 bpm. HR down to 45 overnight.) laboratory and microbiology Laboratory Tests 02/18/25 03:18 Test 02/18/25 03:18 Range/Units Serum Glucose 163 H 74-106 mg/dL Problem List/Assessment/Plan Problem List/Assessment/Plan Problem List/Assessment/Plan NSTEMI, likely type I Rule out coronary artery disease Rule out structural heart disease Shock, likely mixed (septic and cardiogenic) Acute hypoxic respiratory failure Pneumonia COPD Transaminitis Polysubstance abuse Small pericardial effusion Plan/Recommendation (Dr. Hunt): Case reviewed and discussed with . We will proceed with obtaining a transthoracic echocardiogram to evaluate cardiac function and wall motion. Given the patient's severely elevated troponin level and abnormal twelve lead electrocardiogram, highly suspect NSTEMI type 1. The plan for coronary angiogram with left heart catheterization was explained to the daughter who was initially agreeable for the patient to undergo the procedure though decided she would like to hold off on the procedure. Spoke with daughter via phone as patient now decided to sign consent and go ahead with procedure. Plan of care discussed all questions answered. Continue heparin drip per ACS protocol and single antiplatelet therapy. On vasopressor support, titrate as tolerated. Echo reviewed and shows severely global hypokinesis and decreased LVEF function of 15-20%. Akinesis of the apical lateral wall of left ventricle. Small pericardial effusion. Initiate on GDMT once able to tolerate. Continue with close cardiac surveillance and notify Cardiology immediately for any ECG changes. Possible CPAP trial, follow up pulmonology recs. Thank you for allowing us to care for this patient. Please call with any questions or concerns. Critical care, time spent: 35 min This medical document was created using an electronic medical record system with voice recognition software and computerized dictation system. Although this document has been carefully reviewed, there might still be some phonetic and typographical errors. Occasional wrong-word or ``sound-alike substitutions may have occurred due to the inherent limitations of voice recognition software. These areas are purely typographical due to imperfections of the software programs and do not reflect any compromise in the patient's medical care. Please read the chart carefully and recognize, using context, where these substitutions have occurred. Thank you for allowing me to participate in the management of this patient. The treatment plan was discussed with and agreed upon by patient/family including requesting consultants and ordering of imaging/procedures. Plan discussed with: Daughter (via phone), Other (Bedside RN) Dietary Evaluation Review Comments: 1) If patient remains NPO > 7 days, consider EN/TPN to meet at least 75% estimated daily needs 2) If GI is preferred, consider Jevity 1.2 @ goal rate of 45 mL/hr as tolerated. Flush with 200 mL free H2O Q6H. TF regimen (including flushes) will provide 1296 kcals, 60g Pro, and 1672 mL free H2O per 24 hrs. TF rate will meet 95% estimated daily energy needs and ~87% estimated daily protein needs 3) Advance to cardiac diet when medically feasible, pending [employer] approval 4) Follow-up with cardiology and pulmonology 5) Continue to monitor I&O, labs, and skin integrity Expected Outcomes/Goals: 1) patient to receive nutritional support within 7 days 2) appetite and labs to improve 3) diet to advance 4) f/u in 2-3 days Date of Service: Feb 18, 2025 Billing Provider: NADIA SANCHEZ Common Visit Codes: [id number] INP/OBS CARE(HIGH), [id number] CARE 30-74 MIN NADIA SANCHEZ Feb 18, 2025 11:26
[2025-02-18] MEDS: LIDOCAINE 1% (LOCAL ANESTH.) PF 5ml SDV ID ONE (12:55)
[2025-02-18] MEDS: clonazePAM 0.5 MG TAB PO SCH (14:00)
[2025-02-18] MEDS: METHADONE HCL 10 MG TAB PO SCH (14:00)
--- NOTE | 2025-02-18 14:22 | DVH ---
CHEST RADIOGRAPH Indication: PICC LINE PLACEMENT. TO BE ORDERED BY PICC LINE NURSE Technique: Single frontal view of the chest was obtained Comparison: XY CHEST XRAY 1 VIEW on DOS: 02/18/25, XY CHEST PORTABLE on DOS: 02/17/25, XY CHEST PORTABLE on DOS: 02/16/25 FINDINGS: Lines and Tubes: Right upper extremity PICC is noted terminating over the superior cavoatrial junctio n. Enteric tube is in satisfactory position. Endotracheal tube is in satisfactory position. Lungs: Mild pulmonary vascular congestion. Pleura: No effusion. No pneumothorax. Cardiomediastinal contours: Unremarkable Bones: No acute osseous abnormality. IMPRESSION: Right upper extremity PICC, enteric tube and endotracheal tube are in satisfactory position. No significant interval change.
[2025-02-18 16:51] LABS: INR 1.16 (0.9-1.15); Partial Thromboplastin Time 64.9 SEC (24.5-34.5); Prothrombin Time 12.1 sec (9.3-11.8)
--- NOTE | 2025-02-18 17:02 | CONS ---
Pharmacy Clinical Information: CONTINUE HEPARIN DRIP AT RATE 800 UNITS/HR = 8 ML/HR PER APTT OF 64.9 (THERA PEUTIC) THIRD CONSECUTIVE THERAPEUTIC APTT ==> CHANGE TO DAILY APPTS NEXT APTT DRAW SCHEDULED FOR 02/19 WITH [facility] PER RX PROTOCOL EARL ZURITA PHARMACIST Feb 18, 2025 17:02
--- NOTE | 2025-02-18 18:45 | DVHPN2 ---
Progress Note - Dictate Date Seen: Feb 18, 2025 Medical Necessity Reason Pt with a Central, PICC or Fol: Yes The following are medically ne: Central Line, Alarcon Catheter (RN) Reason for alarcon catheter: Strict I&O Subjective Patient seen and examined at bedside. Sedated, intubated on mechanical ventilator. Overnight events reviewed. vital signs Vital Sign Date Time Temp Pulse Resp B/P (MAP) Pulse Ox O2 Delivery O2 Flow Rate FiO2 02/18/25 18:00 20 100 Mechanical Ventilator+ 30 30 02/18/25 16:07 53 100/67 (78) 02/18/25 07:15 97.9 208.2 Total Intake and Output 02/17/25 02/17/25 02/18/25 15:00 23:00 07:00 Intake Total 147.700 ml 330.875 ml 391.325 ml Output Total 250 ml 375 ml Balance 147.700 ml 80.875 ml 16.325 ml medications Current Medications Medications Dose Ordered Sig/Zenon Route Start Time Stop Time Status Last Admin Dose Admin Propofol 100 ml @ 1.8 mls/hr Q24H IV 02/14/25 16:30 02/14/25 16:45 1.8 MLS/HR Midazolam HCl 50 ml @ 1 mls/hr Q24H IV 02/14/25 16:30 02/18/25 01:21 4 MLS/HR Fentanyl Citrate 250 ml @ 2.5 mls/hr Q24H IV 02/14/25 18:30 02/17/25 19:44 10 MLS/HR Vancomycin HCl 0 ml @ 0 mls/hr UD IV 02/14/25 20:00 Ondansetron HCl 4 mg Q4HP PRN IV 02/14/25 20:00 Acetaminophen 650 mg Q6HP PRN PO 02/14/25 20:00 Nitroglycerin 0.4 mg Q5MINP PRN SL 02/14/25 20:00 Morphine Sulfate 2 mg Q30M PRN IV 02/14/25 20:00 Norepinephrine Bitartrate 250 ml @ 3.75 mls/hr Q24H IV 02/14/25 20:45 02/18/25 05:25 3.75 MLS/HR Pantoprazole Sodium 40 mg DAILY IV 02/16/25 10:00 02/18/25 10:51 40 MG Aspirin 81 mg DAILY PO 02/16/25 10:00 02/18/25 10:52 81 MG Methylprednisolone Sodium Succinate 40 mg BID IV 02/15/25 22:00 02/18/25 10:51 40 MG Dexmedetomidine HCl 400 mcg/ Dextrose 100 ml @ 2.55 mls/hr Q24H IV 02/16/25 16:45 02/17/25 19:37 3.825 MLS/HR Meropenem 50 ml @ 17 mls/hr Q8HR IV 02/17/25 14:00 02/18/25 05:25 17 MLS/HR Heparin Sodium/ Dextrose 250 ml @ 8 mls/hr Q24H IV 02/17/25 19:30 02/17/25 21:55 8 MLS/HR Clonazepam 0.5 mg TID PO 02/18/25 14:00 Methadone HCl 10 mg Q8HR PO 02/18/25 14:00 Enteral Nutritional Formula 1,000 ml 40ML/HR GT 02/18/25 10:15 Furosemide 20 mg BIDD IV 02/18/25 18:00 Sodium Chloride 10 ml QSHIFT@10,22 IV 02/18/25 22:00 objective Gen.: Patient lying in bed in medical ICU. Sedated, intubated on mechanical ventilator. Head: Normocephalic, atraumatic. Eyes: PERRLA. Ears: Normal external anatomy. Throat: Endotracheal tube and orogastric tube in place. Neck: Supple, trachea midline. Chest: Transmitted breath sounds bilaterally. Decreased air entry bilaterally. No wheezing. Bibasilar crackles. Cardiovascular: Positive S1, positive S2. Regular rate and rhythm. Abdomen: Positive bowel sounds in all 4 quadrants. Soft, nontender, nondistended. : Alarcon in place. Normal external genitalia. Rectal: Deferred. Skin: Warm, dry. Intact. Extremities: 2+ radial pulses bilaterally. No lower extremity edema. Neuro: Sedated. laboratory and microbiology Laboratory Tests 02/18/25 03:18 Test 02/18/25 03:18 Range/Units Serum Glucose 163 H 74-106 mg/dL Assessment/Plan Impression Acute hypoxemic respiratory failure On mechanical ventilator Multifocal pneumonia Substance abuse Atelectasis Patient seen and examined in ICU Events On mechanical ventilation S/p intubation Vent settings; AC mode with RR 20, VT 450, PEEP 5, FiO2 30% Sedated on Versed, Fentanyl On pressors (Levophed) for hemodynamic support Titrate to keep mean arterial pressure greater than 65 mmHg. Continue IV steroids Continue heparin. Pending left heart catheterization CPAP/SBT tomorrow. Labs and imaging reviewed ABG on 02/17/25 reviewed, compensated. Management Vent support Titrate to maintain sats 90% or above Vent settings; AC mode with RR 20, VT 450, PEEP 5, FiO2 30% Sedation holiday daily If patient follows commands, proceed to weaning trial Pressure support 05/19, extubate when ready Antibiotics Received bronchodilators IV steroids Diurese w/ Lasix as tolerated Monitor renal function Monitor electrolytes Supplement as needed Pressors as needed for hemodynamic support To maintain a mean arterial pressure of 65 mmHg F/u cardiology recs Plan for [facility] Watch for signs of withdrawal DVT prophylaxis GI prophylaxis. Prognosis: Poor given patient's multiple co-morbidities. Condition: Critical Rest of plan per hospitalist and other consultants. A total of 35 minutes of critical care time was spent reviewing the patient record, examining the patient, making a diagnostic and therapeutic plan, discussing this plan with the medical personnel, following up on diagnostic studies and following the patient for clinical stability excluding any and all procedures. At least 50% of this time was spent in direct, [id number] contact. Thank you, ARCELIA Chavez, for allowing me to participate in this patient's care. Further recommendations will depend on the patient's clinical course. Please do not hesitate to contact me if you have any questions or concerns. This medical document was created using an electronic medical record system with [employer] computerized dictation system. Although these documentations are being carefully reviewed, there may still be some phonetic and typographical changes. The errors are purely typographical, due to imperfection on the software program, and do not reflect any compromise in the patient's medical care. Dietary Evaluation Review Comments: 1) If patient remains NPO > 7 days, consider EN/TPN to meet at least 75% estimated daily needs 2) If GI is preferred, consider Jevity 1.2 @ goal rate of 45 mL/hr as tolerated. Flush with 200 mL free H2O Q6H. TF regimen (including flushes) will provide 1296 kcals, 60g Pro, and 1672 mL free H2O per 24 hrs. TF rate will meet 95% estimated daily energy needs and ~87% estimated daily protein needs 3) Advance to cardiac diet when medically feasible, pending [employer] approval 4) Follow-up with cardiology and pulmonology 5) Continue to monitor I&O, labs, and skin integrity Expected Outcomes/Goals: 1) patient to receive nutritional support within 7 days 2) appetite and labs to improve 3) diet to advance 4) f/u in 2-3 days Plan discussed with: Other (JAMSHID Goodrich) Critical Care Time(min): 35 JEANMARIE CONDE MD Feb 18, 2025 18:45
[2025-02-18] MEDS: FUROSEMIDE 20 MG/2 ML VIAL IV SCH (19:30)
[2025-02-18] MEDS: Jevity 1.2 Cal/Fiber 1 Liter GT SCH (21:01)
[2025-02-18] MEDS: SODIUM CHLOR 0.9% PF (SALINE LOCK) 10ML VIAL/SYR IV SCH (21:41)
[2025-02-19] VITALS (103 sets, daily range): BP systolic 84–128; BP diastolic 53–92; PULSE 43–79; RESP 14–23; TEMP 92.8–99; O2SAT 95–100
[2025-02-19 04:03] LABS: Alkaline Phosphatase 68 U/L (46-116); Anion Gap 9 (5-15); Carbon Dioxide 26 mmol/L (20-31); Magnesium 2.1 mg/dL (1.6-2.6); Sodium 143 mmol/L (136-145); Total Protein 5.7 g/dL (5.7-8.2)
[2025-02-19 04:04] LABS: Basophils # (auto) 0 10 ^3/uL (0-0.2); Basophils % (auto) 0.1 % (0.0-2.0); Eosinophils # (auto) 0 10 ^3/uL (0-0.8); Eosinophils % (auto) 0.1 % (0.0-7.0); Hematocrit 38.7 % (41.0-53.0); Hemoglobin 13.2 g/dL (13.5-17.5); Lymphocytes # (auto) 0.7 10 ^3/uL (0.4-5.4); Lymphocytes % (auto) 5.5 % (10.0-50.0); Mean Corpuscular Hemoglobin 32.8 pg (28.0-32.0); Mean Corpuscular Volume 96.2 fL (80.0-100.0); Monocytes # (auto) 0.6 10 ^3/uL (0-1.3); Monocytes % (auto) 5.2 % (0.0-12.0); Neutrophils # (auto) 11.1 10 ^3/uL (1.6-8.6); Neutrophils % (auto) 89.1 % (37.0-80.0); Nucleated Red Blood Cells % 0.2 %; Platelet Count (auto) 231 10^3/uL (140-450); Red Blood Cells 4.02 10^6/uL (4.5-5.90); Red Cell Distribution Width 15.2 % (11.8-14.3); White Blood Cell 12.4 10^3/uL (4.4-10.8)
[2025-02-19 04:05] LABS: Phosphorus 2.7 mg/dL (2.4-5.1)
[2025-02-19 04:15] LABS: INR 1.14 (0.9-1.15); Partial Thromboplastin Time 52.8 SEC (24.5-34.5); Prothrombin Time 11.9 sec (9.3-11.8)
[2025-02-19 04:19] LABS: Chloride 108 mmol/L (98-107); Glucose 180 mg/dL (74-106)
[2025-02-19 04:20] LABS: Alanine Aminotransferase 190 U/L (7-40); Albumin 3.1 g/dL (3.2-4.8); Aspartate Aminotransferase 69 U/L (13-40); Bilirubin, Total 0.3 mg/dL (0.2-1.0); Blood Urea Nitrogen 31 mg/dL (9-23); Calcium 8.6 mg/dL (8.7-10.4)
--- NOTE | 2025-02-19 05:10 | DVH ---
EXAM: XR Chest, 1 View CLINICAL INDICATION: INTUBATED TECHNIQUE: Frontal view of the chest. COMPARISON: XY CHEST PORTABLE on DOS: 02/18/25, XY CHEST XRAY 1 VIEW on DOS: 02/18/25, XY CHEST PORTABL E on DOS: 02/17/25, XY CHEST PORTABLE on DOS: 02/16/25, XY CHEST PORTABLE on DOS: 02/15/25 FINDINGS: LUNGS AND PLEURAL SPACES: Pulmonary venous congestion. No consolidation. No pneumothorax. HEART: Unremarkable. No cardiomegaly. MEDIASTINUM: Unremarkable. Normal mediastinal contour. BONES/JOINTS: Unremarkable. No acute fracture. TUBES, LINES AND DEVICES: The endotracheal tube (ETT) is in satisfactory position. Right periphera lly inserted central catheter (PICC) tip in the superior vena cava. Enteric tube tip cannot be seen but is below the diaphragm. OTHER FINDINGS: . . IMPRESSION: Pulmonary venous congestion.
[2025-02-19 07:43] LABS: Base Excess 2.8 mmol/L (-2.0-3.0)
[2025-02-19] MEDS: cefTRIAXone 1GM/50ML D5W 50 ML IV SCH (09:35)
[2025-02-19 10:07] LABS: % CD 4 Pos Lymph 30.9 % (30.8-58.5); % CD 8 Pos Lymph 37.2 % (12.0-35.5); Absolute CD 4 Helper 247 /uL (359-1519); CD4/CD8 Ratio 0.83 (0.92-3.72)
[2025-02-19] MEDS: HEPARIN IN NS 1000Units/500mL 1,500 ML ONE (10:08)
[2025-02-19] MEDS: IODIXANOL 320MG/ML 100ML BTL IV ONE (10:08)
--- NOTE | 2025-02-19 11:01 | DVHPNRES ---
Progress Note Date Seen: Feb 19, 2025 Resident Creating Document: LINDSEY JOY RESIDENT Medical Necessity Reason Pt with a Central, PICC or Fol: Yes The following are medically ne: Central Line, Alarcon Catheter (RN) Reason for alarcon catheter: Strict I&O Subjective Review of Systems Patient was seen and examined at bedside. He remains on mechanical ventilator. Minimal vent settings, we came down on respiratory rate to 18. He is still on Levophed at four. He is on fentanyl and Precedex. He will undergo left heart catheterization today. Objective vital signs Vital Sign Date Time Temp Pulse Resp B/P (MAP) Pulse Ox O2 Delivery O2 Flow Rate FiO2 02/19/25 09:20 48 20 92/62 (72) 100 30 02/19/25 08:45 93.9 201.0 02/19/25 08:00 Mechanical Ventilator+ Total Intake and Output 02/18/25 02/18/25 02/19/25 15:00 23:00 07:00 Intake Total 450.00 ml 247.50 ml 373.0 ml Output Total 975 ml 1625 ml Balance 450.00 ml -727.50 ml -1252.0 ml medications Current Medications Medications Dose Ordered Sig/Zenon Route Start Time Stop Time Status Last Admin Dose Admin Propofol 100 ml @ 1.8 mls/hr Q24H IV 02/14/25 16:30 02/14/25 16:45 1.8 MLS/HR Midazolam HCl 50 ml @ 1 mls/hr Q24H IV 02/14/25 16:30 02/19/25 03:52 5 MLS/HR Fentanyl Citrate 250 ml @ 2.5 mls/hr Q24H IV 02/14/25 18:30 02/18/25 15:30 12.5 MLS/HR Ondansetron HCl 4 mg Q4HP PRN IV 02/14/25 20:00 Acetaminophen 650 mg Q6HP PRN PO 02/14/25 20:00 Nitroglycerin 0.4 mg Q5MINP PRN SL 02/14/25 20:00 Morphine Sulfate 2 mg Q30M PRN IV 02/14/25 20:00 Norepinephrine Bitartrate 250 ml @ 3.75 mls/hr Q24H IV 02/14/25 20:45 02/18/25 05:25 3.75 MLS/HR Pantoprazole Sodium 40 mg DAILY IV 02/16/25 10:00 02/19/25 09:34 40 MG Aspirin 81 mg DAILY PO 02/16/25 10:00 02/19/25 09:34 81 MG Methylprednisolone Sodium Succinate 40 mg BID IV 02/15/25 22:00 02/19/25 09:34 40 MG Dexmedetomidine HCl 400 mcg/ Dextrose 100 ml @ 2.55 mls/hr Q24H IV 02/16/25 16:45 02/17/25 19:37 3.825 MLS/HR Heparin Sodium/ Dextrose 250 ml @ 8 mls/hr Q24H IV 02/17/25 19:30 02/19/25 00:53 8 MLS/HR Methadone HCl 10 mg Q8HR PO 02/18/25 14:00 02/19/25 06:30 10 MG Enteral Nutritional Formula 1,000 ml 40ML/HR GT 02/18/25 10:15 02/18/25 21:01 1,000 ML Sodium Chloride 10 ml QSHIFT@10,22 IV 02/18/25 22:00 02/19/25 09:34 10 ML Ceftriaxone Sodium 50 ml @ 100 mls/hr DAILY@09 IV 02/19/25 09:00 02/19/25 09:35 100 MLS/HR Furosemide 40 mg BIDD IV 02/19/25 18:00 Examination Physical examination as below: General: On mechanical ventilator, intubated. HEENT: Head is normocephalic and atraumatic. Pupils are equal, round, and reactive to light. Neck: Supple with no cervical lymphadenopathy. Heart: Sinus bradycardia without murmur, rub, or gallop. Lungs: Scattered crackles Abdomen: No external sign of injury. Bowel sounds are present. Abdomen is soft, nontender. Extremities: Strong peripheral pulses. There is no clubbing, no cyanosis, and no edema. Skin: No rash. Neurologic: Sedated laboratory and microbiology Laboratory Tests 02/19/25 03:00 Test 02/19/25 03:00 Range/Units Serum Glucose 180 H 74-106 mg/dL Microbiology Date/Time Source Procedure Growth Status 02/15/25 06:17 Urine - Alarcon [place] Urine Culture - Final Complete 02/14/25 22:43 Nose MRSA Screen - Final Complete 02/14/25 18:22 Blood Blood Culture - Preliminary NO GROWTH AFTER 72 HOURS OF INCUBATION. Resulted 02/14/25 16:27 Sputum Gram Stain - Final Complete 02/14/25 16:27 Respiratory Culture - Final Klebsiella pneumoniae Complete Labs and/or images reviewed: Labs reviewed by me, Image(s) reviewed by me Problem List/Assessment/Plan Problem List/Assessment/Plan Neurology #Toxic/Metabolic encephalopathy, likely due to sepsis, drug use, respiratory failure On methadone Cardiovascular #Acute on chronic systolic CHF Lasix 40mg IV bid EF 15-20% #Ischemic cardiomyopathy #Drug-induced cardiomyopathy #Methamphetamine abuse #NSTEMI likely type 2 #CAD, mild LHC performed on 02/19/25, mild CAD Aspirin and lipitor DC heparin drip Pulmonology #Acute hypoxic respiratory failure likely due to pneumonia, COPD exacerbation, drug use On minimal vent setting: FIO2: 30%, TV: 450ml. PEEP: 5. RR: 20->18 CPAP trial tomorrow 02/19/25 #Multifocal pneumonia, gram (+) vs gram (-), atypicals Sputum culture growing K. pneumoniae De-escalated from Merrem IV to Rocephin IV #COPD exacerbation, improved DC solumedrol Continue duonebs #Respiratory alkalosis Came down on RR. Nephrology #MOLLY due to VMN, likely hemodynamically mediated, improved Monitor for in and outs Avoid nephrotoxic agents Endocrinology #Hyperglycemia due to glucocorticoids Gastroenterology #Transaminitis, likely due to sepsis Monitor On tube feedings: [facility] Hematology and Oncology #Anemia normocytic, normochromic Monitor Infectious Disease #HIV, since 4 years ago CD4 count 247 Hold biktarvy # Septic shock due to Multifocal pneumonia, gram (+) vs gram (-), atypicals As above Dermatology x DVT ppx Lovenox PUD ppx Protonix Drips Levo 4 Fent Versed Precedex Lines Intubated 02/14/25 PICC line placed on 02/18/25 Alarcon 02/14/25 Updated family members on patient's current status. Goals of care were discussed for over 30 minutes. FULL CODE. Critical care time spent 70 mins. Case was discussed with Dr. Eckert Plan discussed with: Daughter, Other (RN) My Orders My Orders Orders - LINDSEY JOY RESIDENT Procedure Category Date Status Time Ceftriaxone 1gm/50ml PHA 02/19/25 In Process D5w (Rocephin) 09:00 Furosemide Injection PHA 02/19/25 In Process (Lasix Injection) 18:00 Ventilator Orders RT 02/19/25 Transmitted 10:05 Type And Screen BBK 02/19/25 Logged 10:18 Dietary Evaluation Review Comments: 1) If patient remains NPO > 7 days, consider EN/TPN to meet at least 75% estimated daily needs 2) If GI is preferred, consider Jevity 1.2 @ goal rate of 45 mL/hr as tolerated. Flush with 200 mL free H2O Q6H. TF regimen (including flushes) will provide 1296 kcals, 60g Pro, and 1672 mL free H2O per 24 hrs. TF rate will meet 95% estimated daily energy needs and ~87% estimated daily protein needs 3) Advance to cardiac diet when medically feasible, pending [employer] approval 4) Follow-up with cardiology and pulmonology 5) Continue to monitor I&O, labs, and skin integrity Expected Outcomes/Goals: 1) patient to receive nutritional support within 7 days 2) appetite and labs to improve 3) diet to advance 4) f/u in 2-3 days Date of Service: Feb 19, 2025 Billing Provider: ANA MARIA GUTIERREZ MD Common Visit Codes: NOT BILLABLE LINDSEY JOY RESIDENT Feb 19, 2025 11:01 ANA MARIA GUTIERREZ MD Feb 27, 2025 09:32
[2025-02-19] MEDS: LIDOCAINE 2%HCL (LOCAL ANESTH.) INJ 20ML MDV ONE (11:51)
[2025-02-19] MEDS: VERAPAMIL 2.5MG/ML INJ 2ML VIAL IV ONE (12:00)
[2025-02-19] MEDS: ATROPINE SULF 1 MG/10ml SYR ONE (12:03)
[2025-02-19] MEDS: EPINEPHrine HCL 1 MG/10 ML SYRG ONE (12:04)
[2025-02-19] MEDS: HEPARIN 1,000 UNITS/ml 1ML VIAL ONE (12:11)
--- NOTE | 2025-02-19 12:16 | DVHOP2 ---
Operative Report Operative Report CARDIAC DIRECTOR OF CAREER RESOURCES PROCEDURE REPORT [place], [place] Date of Service: 02/19/25 Court Stenographer: Travon Philip MD PROCEDURES PERFORMED: Coronary angiogram, left heart catheterization, conscious sedation administration and supervision, less than 15 minutes; fluoroscopy use and interpretation. PREOPERATIVE DIAGNOSES: NSTEMI, severe CHF POSTOP DIAGNOSIS: NICM DESCRIPTION OF PROCEDURE: The patient or appropriate family signed informed consent understanding the risks, benefits and alternatives of the procedure, they wished to proceed. The patient was brought to the cardiac slab inspector in n.p.o. state. The patient was prepped in a sterile fashion. Sedation was used per cardiac cath protocol. I administered 2 mL of 2% lidocaine to the right wrist. With an antegrade front wall puncture. I cannulated the right radial artery and placed a 6-Maori Glidesheath slender. Next, an intra-arterial spasmolytic was administered. Next, a - 6French Fontana catheter and XXXXX guide and were used for coronary angiogram and LVEDP measurement and pressure pullback. At the completion of procedure, all guides and wires were removed, and there were no immediate complications. FINDINGS: RCA: Moderate vessel off the right sinus of Valsalva, there is no severe flow limiting stenosis. co dominant vessel LEFT MAIN: Moderate size left main, it bifurcates into LAD and circumflex. no stenosis CIRCUMFLEX: Moderate caliber vessel coming off the left main with no flow limiting stenosis. LAD: LAD is a moderate caliber vessel coming of the left main. no severe stenosis. prox LAD mild plaquing noted. LVEDP of 15 mmhg CONCLUSIONS: 1. NICM with mild CAD PLAN: Aggressive risk factor modification and medical management for the patient. TRAVON PHILIP MD Feb 19, 2025 12:16
--- NOTE | 2025-02-19 12:17 | DVHPN2 ---
Progress Note Date Seen: Feb 19, 2025 Medical Necessity Reason Pt with a Central, PICC or Fol: Yes The following are medically ne: Central Line, Alarcon Catheter (RN) Reason for alarcon catheter: Strict I&O Subjective Other Systems: sp cath Objective vital signs Vital Sign Date Time Temp Pulse Resp B/P (MAP) Pulse Ox O2 Delivery O2 Flow Rate FiO2 02/19/25 11:50 47 02/19/25 11:50 30 02/19/25 11:50 20 100 Mechanical Ventilator+ 02/19/25 11:30 98.6 108/73 (85) 209.5 Total Intake and Output 02/18/25 02/18/25 02/19/25 14:59 22:59 06:59 Intake Total 467.00 ml 245.25 ml 372.0 ml Output Total 975 ml 1625 ml Balance 467.00 ml -729.75 ml -1253.0 ml medications Current Medications Medications Dose Ordered Sig/Zenon Route Start Time Stop Time Status Last Admin Dose Admin Propofol 100 ml @ 1.8 mls/hr Q24H IV 02/14/25 16:30 02/14/25 16:45 1.8 MLS/HR Midazolam HCl 50 ml @ 1 mls/hr Q24H IV 02/14/25 16:30 02/19/25 03:52 5 MLS/HR Fentanyl Citrate 250 ml @ 2.5 mls/hr Q24H IV 02/14/25 18:30 02/18/25 15:30 12.5 MLS/HR Ondansetron HCl 4 mg Q4HP PRN IV 02/14/25 20:00 Acetaminophen 650 mg Q6HP PRN PO 02/14/25 20:00 Nitroglycerin 0.4 mg Q5MINP PRN SL 02/14/25 20:00 Morphine Sulfate 2 mg Q30M PRN IV 02/14/25 20:00 Norepinephrine Bitartrate 250 ml @ 3.75 mls/hr Q24H IV 02/14/25 20:45 02/18/25 05:25 3.75 MLS/HR Pantoprazole Sodium 40 mg DAILY IV 02/16/25 10:00 02/19/25 09:34 40 MG Aspirin 81 mg DAILY PO 02/16/25 10:00 02/19/25 09:34 81 MG Methylprednisolone Sodium Succinate 40 mg BID IV 02/15/25 22:00 02/19/25 09:34 40 MG Dexmedetomidine HCl 400 mcg/ Dextrose 100 ml @ 2.55 mls/hr Q24H IV 02/16/25 16:45 02/17/25 19:37 3.825 MLS/HR Heparin Sodium/ Dextrose 250 ml @ 8 mls/hr Q24H IV 02/17/25 19:30 02/19/25 00:53 8 MLS/HR Methadone HCl 10 mg Q8HR PO 02/18/25 14:00 02/19/25 06:30 10 MG Enteral Nutritional Formula 1,000 ml 40ML/HR GT 02/18/25 10:15 02/18/25 21:01 1,000 ML Sodium Chloride 10 ml QSHIFT@10,22 IV 02/18/25 22:00 02/19/25 09:34 10 ML Ceftriaxone Sodium 50 ml @ 100 mls/hr DAILY@09 IV 02/19/25 09:00 02/19/25 09:35 100 MLS/HR Furosemide 40 mg BIDD IV 02/19/25 18:00 Examination: GENERAL:Abnormal, HEENT:Abnormal, LUNGS:Abnormal, CVS:Abnormal, ABDOMEN:Abnormal laboratory and microbiology Laboratory Tests 02/19/25 03:00 Test 02/19/25 03:00 Range/Units Serum Glucose 180 H 74-106 mg/dL Microbiology Date/Time Source Procedure Growth Status 02/15/25 06:17 Urine - Alarcon Port Urine Culture - Final Complete 02/14/25 22:43 Nose MRSA Screen - Final Complete 02/14/25 18:22 Blood Blood Culture - Preliminary NO GROWTH AFTER 72 HOURS OF INCUBATION. Resulted 02/14/25 16:27 Sputum Gram Stain - Final Complete 02/14/25 16:27 Respiratory Culture - Final Klebsiella pneumoniae Complete Problem List/Assessment/Plan Problem List/Assessment/Plan HIV NICM nstemi ckd resp failure r/o PNA cont treatment per primary team [facility] no severe cad noted dc heparin gtt from CV perspective unless other indications fu with primary cardiology team mild sinus bradycardia noted--wean off sedation as possible Plan discussed with: Other (rn) My Orders My Orders Orders - TRAVON PHILIP MD Procedure Category Date Status Time Cl Left Heart Cath CL 02/19/25 Taken 07:56 Dietary Evaluation Review Comments: 1) If patient remains NPO > 7 days, consider EN/TPN to meet at least 75% estimated daily needs 2) If GI is preferred, consider Jevity 1.2 @ goal rate of 45 mL/hr as tolerated. Flush with 200 mL free H2O Q6H. TF regimen (including flushes) will provide 1296 kcals, 60g Pro, and 1672 mL free H2O per 24 hrs. TF rate will meet 95% estimated daily energy needs and ~87% estimated daily protein needs 3) Advance to cardiac diet when medically feasible, pending MACHINE LAY OUT WORKER approval 4) Follow-up with cardiology and pulmonology 5) Continue to monitor I&O, labs, and skin integrity Expected Outcomes/Goals: 1) patient to receive nutritional support within 7 days 2) appetite and labs to improve 3) diet to advance 4) f/u in 2-3 days Date of Service: Feb 19, 2025 Billing Provider: TRAVON PHILIP MD Common Visit Codes: NOT BILLABLE TRAVON PHILIP MD Feb 19, 2025 12:17
[2025-02-19] MEDS: FUROSEMIDE 20 MG/2 ML VIAL IV ONE (14:19)
[2025-02-19] MEDS ORDERED: VANCOMYCIN 750MG KIT 100 ML IV SCH (16:00)
[2025-02-19] MEDS: VANCOMYCIN 750mg/150ml 150 ML IV SCH (17:52)
[2025-02-19] MEDS: FUROSEMIDE 20 MG/2 ML VIAL IV SCH (17:53)
[2025-02-20] VITALS (105 sets, daily range): BP systolic 79–141; BP diastolic 52–99; PULSE 46–114; RESP 16–28; TEMP 97.5–99.1; O2SAT 92–100
[2025-02-20 03:58] LABS: Basophils # (auto) 0 10 ^3/uL (0-0.2); Basophils % (auto) 0.1 % (0.0-2.0); Eosinophils # (auto) 0 10 ^3/uL (0-0.8); Hematocrit 40.1 % (41.0-53.0); Lymphocytes # (auto) 1.7 10 ^3/uL (0.4-5.4); Lymphocytes % (auto) 13.1 % (10.0-50.0); Mean Corpuscular Hemoglobin 33.3 pg (28.0-32.0); Mean Corpuscular Hgb Conc. 34.8 g/dL (32.0-36.0); Mean Corpuscular Volume 95.8 fL (80.0-100.0); Monocytes # (auto) 1.2 10 ^3/uL (0-1.3); Monocytes % (auto) 9.1 % (0.0-12.0); Neutrophils % (auto) 77.7 % (37.0-80.0); Nucleated Red Blood Cells % 0.2 %; Platelet Count (auto) 191 10^3/uL (140-450); Red Blood Cells 4.19 10^6/uL (4.5-5.90); Red Cell Distribution Width 15.1 % (11.8-14.3); White Blood Cell 12.9 10^3/uL (4.4-10.8)
[2025-02-20 04:15] LABS: INR 1.21 (0.9-1.15); Partial Thromboplastin Time 27.1 SEC (24.5-34.5); Prothrombin Time 12.6 sec (9.3-11.8)
[2025-02-20 04:16] LABS: Alkaline Phosphatase 76 U/L (46-116); Anion Gap 7 (5-15); BUN/Creatinine Ratio 38.1 (10.0-20.0); Chloride 103 mmol/L (98-107); Magnesium 2.1 mg/dL (1.6-2.6); Sodium 144 mmol/L (136-145)
[2025-02-20 04:18] LABS: Alanine Aminotransferase 188 U/L (7-40); Albumin 3.4 g/dL (3.2-4.8); Aspartate Aminotransferase 71 U/L (13-40); Bilirubin, Total 0.4 mg/dL (0.2-1.0); Blood Urea Nitrogen 32 mg/dL (9-23); Calcium 8.6 mg/dL (8.7-10.4); Carbon Dioxide 34 mmol/L (20-31); Glucose 138 mg/dL (74-106); Potassium 3.1 mmol/L (3.5-5.1)
[2025-02-20] MEDS: POTASSIUM CHL 20MEQ/50ML 100 ML IV ONE (05:12)
[2025-02-20] MEDS: POTASSIUM CHL 20MEQ/100ML 100 ML IV SCH (05:12)
--- NOTE | 2025-02-20 05:29 | DVH ---
EXAM: XY CHEST PORTABLE HISTORY: sob COMPARISON: XY CHEST XRAY 1 VIEW on DOS: 02/19/25, XY CHEST PORTABLE on DOS: 02/18/25, XY CHEST XRAY 1 EW on DOS: 02/18/25, XY CHEST PORTABLE on DOS: 02/17/25, XY CHEST PORTABLE on DOS: 02/16/25, chest CT dated 02/14/2025 TECHNIQUE: Portable upright AP view of the chest was performed. FINDINGS: Endotracheal tube is re-identified with its tip 3.6 cm above the janie. OG tube and right upper ext remity PICC line are re-identified. No pneumothorax. Emphysematous changes are better characterized o n prior CT scan. There is mild right upper lobe infiltrate. The heart is not enlarged. IMPRESSION: 1. Mechanical ventilation with tubes and lines as above. 2. Mild right upper lobe infiltrate. 3. Emphysema.
--- NOTE | 2025-02-20 05:32 | DVH ---
Exam: US US GUIDED VASCULAR ACCESS Clinical History: PICC LINE INSERTION Comparison: None Findings: Targeted sonographic evaluation of the upper extremity vein was obtained utilizing grayscale and colo r Doppler imaging. IMPRESSION: Sonographic assistance for peripheral central line placement. Please refer to procedural report for d etailed findings.
[2025-02-20 07:19] LABS: Base Excess 5.3 mmol/L (-2.0-3.0)
--- NOTE | 2025-02-20 09:19 | DVHPN2 ---
Consult Progress Note Date Seen: Feb 20, 2025 Subjective Other Systems: No overnight cardiac events Objective vital signs Vital Sign Date Time Temp Pulse Resp B/P (MAP) Pulse Ox O2 Delivery O2 Flow Rate FiO2 02/20/25 08:14 91 18 135/97 (110) 100 30 02/20/25 06:00 Mechanical Ventilator+ 02/20/25 04:00 98.6 98.6 Total Intake and Output 02/19/25 02/19/25 02/20/25 15:00 23:00 07:00 Intake Total 286.00 ml 292.0 ml 207.60 ml Output Total 2850 ml 2025 ml Balance 286.00 ml -2558.0 ml -1817.40 ml medications Current Medications Medications Dose Ordered Sig/Zenon Route Start Time Stop Time Status Last Admin Dose Admin Propofol 100 ml @ 1.8 mls/hr Q24H IV 02/14/25 16:30 02/14/25 16:45 1.8 MLS/HR Midazolam HCl 50 ml @ 1 mls/hr Q24H IV 02/14/25 16:30 02/19/25 03:52 5 MLS/HR Fentanyl Citrate 250 ml @ 2.5 mls/hr Q24H IV 02/14/25 18:30 02/18/25 15:30 12.5 MLS/HR Ondansetron HCl 4 mg Q4HP PRN IV 02/14/25 20:00 Acetaminophen 650 mg Q6HP PRN PO 02/14/25 20:00 Nitroglycerin 0.4 mg Q5MINP PRN SL 02/14/25 20:00 Morphine Sulfate 2 mg Q30M PRN IV 02/14/25 20:00 Norepinephrine Bitartrate 250 ml @ 3.75 mls/hr Q24H IV 02/14/25 20:45 02/18/25 05:25 3.75 MLS/HR Pantoprazole Sodium 40 mg DAILY IV 02/16/25 10:00 02/19/25 09:34 40 MG Aspirin 81 mg DAILY PO 02/16/25 10:00 02/19/25 09:34 81 MG Dexmedetomidine HCl 400 mcg/ Dextrose 100 ml @ 2.55 mls/hr Q24H IV 02/16/25 16:45 02/20/25 04:13 2.55 MLS/HR Methadone HCl 10 mg Q8HR PO 02/18/25 14:00 02/20/25 05:27 10 MG Enteral Nutritional Formula 1,000 ml 40ML/HR GT 02/18/25 10:15 02/18/25 21:01 1,000 ML Sodium Chloride 10 ml QSHIFT@10,22 IV 02/18/25 22:00 02/19/25 22:21 10 ML Ceftriaxone Sodium 50 ml @ 100 mls/hr DAILY@09 IV 02/19/25 09:00 02/19/25 09:35 100 MLS/HR Vancomycin HCl 100 ml @ 100 mls/hr Q12H IV 02/19/25 16:00 Cancel Enoxaparin Sodium 40 mg DAILY SC 02/20/25 10:00 Examination: GENERAL:Abnormal, LUNGS:Abnormal (Endotracheally intubated 30% FiO2), CVS:Abnormal (On low-dose levophed), NEURO:Normal (Low-dose sedation) laboratory and microbiology Laboratory Tests 02/20/25 03:00 Test 02/20/25 03:00 Range/Units Serum Glucose 138 H 74-106 mg/dL Problem List/Assessment/Plan Problem List/Assessment/Plan Shock likely mixed, septic and cardiogenic Non ST-Elevation myocardial infarction 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 Hunt) Transthoracic echocardiogram revealed severely global hypokinesis and decreased LVEF function of 15-20%. The patient underwent a heart catheterization revealing mild coronary artery disease. HFrEF likely secondary to long-standing polysubstance abuse. Continue vasopressor for hemodynamic support. Initiate GDMT for CHF as tolerated. Pending head CT prior to CPAP trial. Replete electrolytes as necessary. Rest of orders per clinical course. Thank you for allowing us to care for this patient. Please call with any questions or concerns. Critical care, time spent: 35 min. This medical document was created using an electronic medical record system with voice recognition software and computerized dictation system. Although this document has been carefully reviewed, there might still be some phonetic and typographical errors. Occasional wrong-word or ``sound-alike substitutions may have occurred due to the inherent limitations of voice recognition software. These areas are purely typographical due to imperfections of the software programs and do not reflect any compromise in the patient's medical care. Please read the chart carefully and recognize, using context, where these substitutions have occurred. Plan discussed with: Other (Grand-daughter) Dietary Evaluation Review Comments: 1) If patient remains NPO > 7 days, consider EN/TPN to meet at least 75% estimated daily needs 2) If GI is preferred, consider Jevity 1.2 @ goal rate of 45 mL/hr as tolerated. Flush with 200 mL free H2O Q6H. TF regimen (including flushes) will provide 1296 kcals, 60g Pro, and 1672 mL free H2O per 24 hrs. TF rate will meet 95% estimated daily energy needs and ~87% estimated daily protein needs 3) Advance to cardiac diet when medically feasible, pending ASSISTED LIVING EXECUTIVE DIRECTOR approval 4) Follow-up with cardiology and pulmonology 5) Continue to monitor I&O, labs, and skin integrity Expected Outcomes/Goals: 1) patient to receive nutritional support within 7 days 2) appetite and labs to improve 3) diet to advance 4) f/u in 2-3 days Date of Service: Feb 20, 2025 Billing Provider: PAULO HENNING Cardiology Common Codes: [id number] CARE 30-74 MIN PAULO HENNING Feb 20, 2025 09:19
[2025-02-20] MEDS: ENOXAPARIN SOD 40 MG/0.4 ML SYRINGE SC SCH (10:09)
[2025-02-20] MEDS: acetaZOLAMIDE 250 MG TAB NG ONE (10:38)
--- NOTE | 2025-02-20 12:21 | ECG ---
[facility] Test Date: 2025-02-19 Test Time: 04:23:52 Pat Name: ROSARIO SHEETS Department: ICU Room: [address] [place] [address] A Gender: M Grade Foreman: JAMSHID : 1965 Requested By: LINDSEY RAM Order Number: [id number] Reading MD: Nazario Hunt Measurements Intervals [employer] Rate: 49 P: 0 AR: 134 QRS: -57 QRSD: 100 T: 253 QT: 496 QTc: 448 Interpretive Statements Bradycardia with irregular rate LAD, consider left anterior fascicular block Borderline low voltage, extremity leads Abnormal T, consider ischemia, diffuse leads Electronically Signed On 02-22-2025 20:21:46 PDT by Nazario Hunt Please click the below link to view image of tracing.
--- NOTE | 2025-02-20 13:29 | DVHPNRES ---
Progress Note Date Seen: Feb 20, 2025 Resident Creating Document: LINDSEY JOY RESIDENT Medical Necessity Reason Pt with a Central, PICC or Fol: Yes The following are medically ne: Central Line, Alarcon Catheter (RN) Reason for alarcon catheter: Strict I&O Subjective Review of Systems Patient was seen and examined at bedside. He remains on mechanical ventilator. Minimal vent settings. He is still on Levophed at four. He is on fentanyl and Precedex. Not following commands, but responding to verbal stimuli Objective vital signs Vital Sign Date Time Temp Pulse Resp B/P (MAP) Pulse Ox O2 Delivery O2 Flow Rate FiO2 02/20/25 13:00 83 18 123/89 (100) 100 02/20/25 12:00 30 02/20/25 12:00 97.5 97.5 02/20/25 12:00 Mechanical Ventilator+ Total Intake and Output 02/19/25 02/19/25 02/20/25 15:00 23:00 07:00 Intake Total 286.00 ml 292.0 ml 207.60 ml Output Total 2850 ml 2025 ml Balance 286.00 ml -2558.0 ml -1817.40 ml medications Current Medications Medications Dose Ordered Sig/Zenon Route Start Time Stop Time Status Last Admin Dose Admin Propofol 100 ml @ 1.8 mls/hr Q24H IV 02/14/25 16:30 02/14/25 16:45 1.8 MLS/HR Midazolam HCl 50 ml @ 1 mls/hr Q24H IV 02/14/25 16:30 02/20/25 10:19 3 MLS/HR Fentanyl Citrate 250 ml @ 2.5 mls/hr Q24H IV 02/14/25 18:30 02/18/25 15:30 12.5 MLS/HR Ondansetron HCl 4 mg Q4HP PRN IV 02/14/25 20:00 Acetaminophen 650 mg Q6HP PRN PO 02/14/25 20:00 Nitroglycerin 0.4 mg Q5MINP PRN SL 02/14/25 20:00 Morphine Sulfate 2 mg Q30M PRN IV 02/14/25 20:00 Norepinephrine Bitartrate 250 ml @ 3.75 mls/hr Q24H IV 02/14/25 20:45 02/18/25 05:25 3.75 MLS/HR Pantoprazole Sodium 40 mg DAILY IV 02/16/25 10:00 02/20/25 10:09 40 MG Aspirin 81 mg DAILY PO 02/16/25 10:00 02/20/25 10:08 81 MG Dexmedetomidine HCl 400 mcg/ Dextrose 100 ml @ 2.55 mls/hr Q24H IV 02/16/25 16:45 02/20/25 04:13 2.55 MLS/HR Methadone HCl 10 mg Q8HR PO 02/18/25 14:00 02/20/25 05:27 10 MG Enteral Nutritional Formula 1,000 ml 40ML/HR GT 02/18/25 10:15 02/18/25 21:01 1,000 ML Sodium Chloride 10 ml QSHIFT@10,22 IV 02/18/25 22:00 02/20/25 10:09 10 ML Ceftriaxone Sodium 50 ml @ 100 mls/hr DAILY@09 IV 02/19/25 09:00 02/20/25 10:09 100 MLS/HR Vancomycin HCl 100 ml @ 100 mls/hr Q12H IV 02/19/25 16:00 Cancel Enoxaparin Sodium 40 mg DAILY SC 02/20/25 10:00 02/20/25 10:09 40 MG Examination Physical examination as below: General: On mechanical ventilator, intubated. HEENT: Head is normocephalic and atraumatic. Pupils are equal, round, and reactive to light. Neck: Supple with no cervical lymphadenopathy. Heart: Sinus bradycardia without murmur, rub, or gallop. Lungs: Scattered crackles Abdomen: No external sign of injury. Bowel sounds are present. Abdomen is soft, nontender. Extremities: Strong peripheral pulses. There is no clubbing, no cyanosis, and no edema. Skin: No rash. Neurologic: Sedated laboratory and microbiology Laboratory Tests 02/20/25 03:00 Test 02/20/25 03:00 Range/Units Serum Glucose 138 H 74-106 mg/dL Microbiology Date/Time Source Procedure Growth Status 02/15/25 06:17 Urine - Alarcon Port Urine Culture - Final Complete 02/14/25 22:43 Nose MRSA Screen - Final Complete 02/14/25 18:22 Blood Blood Culture - Final NO GROWTH AFTER 5 DAYS OF INCUBATION. Complete 02/14/25 16:27 Sputum Gram Stain - Final Complete 02/14/25 16:27 Respiratory Culture - Final Klebsiella pneumoniae Complete Labs and/or images reviewed: Labs reviewed by me, Image(s) reviewed by me Problem List/Assessment/Plan Problem List/Assessment/Plan Neurology #Toxic/Metabolic encephalopathy, likely due to sepsis, drug use, respiratory failure Ordered head ct, pending On Fentanyl and Precedex Cardiovascular #Acute on chronic systolic CHF held Lasix EF 15-20% #Non-Ischemic cardiomyopathy #Drug-induced cardiomyopathy #Methamphetamine abuse #NSTEMI likely type 2 #CAD, mild LHC performed on 02/19/25, mild CAD Aspirin Pulmonology #Acute hypoxic respiratory failure likely due to pneumonia, COPD exacerbation, drug use On minimal vent setting: FIO2: 30%, TV: 450ml. PEEP: 5. RR: 18 CPAP trial tomorrow 02/20/25 #Multifocal pneumonia, gram (+) vs gram (-), atypicals Sputum culture growing K. pneumoniae Rocephin 2g IV qd #COPD exacerbation, improving solumedrol 40mg iv bid Continue duonebs #Respiratory alkalosis Came down on RR. Nephrology #MOLLY due to VMN, likely hemodynamically mediated, improved Monitor for in and outs Avoid nephrotoxic agents Endocrinology #Hyperglycemia due to glucocorticoids Monitor Gastroenterology #Transaminitis, likely due to sepsis Monitor On tube feedings: [facility] Hematology and Oncology #Anemia normocytic, normochromic Monitor Infectious Disease #HIV, since 4 years ago CD4 count 247 Continue biktarvy # Septic shock due to Multifocal pneumonia, gram (+) vs gram (-), atypicals As above Dermatology x DVT ppx Lovenox PUD ppx Protonix Drips Levo 4 Fent Precedex Lines ET tube 02/14/25 PICC line placed on 02/18/25 Alarcon 02/14/25 Updated family members on patient's current status. Goals of care were discussed for over 30 minutes. FULL CODE. Critical care time excluding procedures was 81 mins. Case was discussed with Dr. Servin Plan discussed with: Daughter, Other (RN) My Orders My Orders Orders - LINDSEY JOY RESIDENT Procedure Category Date Status Time Cpap Trial For Am ORDERS 02/19/25 Transmitted 13:34 Cpap/Sed Vacation Med ORDERS 02/19/25 Transmitted Weaning 13:34 Chest Portable XY 02/20/25 Resulted 04:00 Abg W/ Co-Ox RT 02/20/25 Logged 04:00 Cpap Trial For Am ORDERS 02/20/25 Transmitted 04:00 * Special Client Bus Driver CONS 02/19/25 Transmitted Consult Enoxaparin Sodium PHA 02/20/25 In Process (Lovenox) 10:00 Potassium LAB 02/20/25 In Process 12:[address] 02/21/25 Logged 08:00 Dietary Evaluation Review Comments: 1) If patient remains NPO > 7 days, consider EN/TPN to meet at least 75% estimated daily needs 2) If GI is preferred, consider Jevity 1.2 @ goal rate of 45 mL/hr as tolerated. Flush with 200 mL free H2O Q6H. TF regimen (including flushes) will provide 1296 kcals, 60g Pro, and 1672 mL free H2O per 24 hrs. TF rate will meet 95% estimated daily energy needs and ~87% estimated daily protein needs 3) Advance to cardiac diet when medically feasible, pending MINIATURE SET DESIGNER approval 4) Follow-up with cardiology and pulmonology 5) Continue to monitor I&O, labs, and skin integrity Expected Outcomes/Goals: 1) patient to receive nutritional support within 7 days 2) appetite and labs to improve 3) diet to advance 4) f/u in 2-3 days Date of Service: Feb 20, 2025 Billing Provider: BARBIE SERVIN MD Common Visit Codes: [id number] CARE 30-74 MIN, [id number] CARE-EACH +30MIN LINDSEY JOY RESIDENT Feb 20, 2025 13:29 BARBIE SERVIN MD Feb 21, 2025 14:35
[2025-02-20] MEDS: cefTRIAXone 1GM/50ML D5W 50 ML IV ONE (15:26)
[2025-02-20] MEDS: methylPREDNISolone SOD SUCC 40 MG/ML VL IV ONE (16:07)
[2025-02-20] MEDS: methylPREDNISolone SOD SUCC 40 MG/ML VL IV SCH (22:20)
[2025-02-21] VITALS (102 sets, daily range): BP systolic 88–153; BP diastolic 63–97; PULSE 62–117; RESP 7–24; TEMP 97.9–100; O2SAT 85–100
[2025-02-21 03:54] LABS: Basophils # (auto) 0 10 ^3/uL (0-0.2); Basophils % (auto) 0.1 % (0.0-2.0); Eosinophils # (auto) 0 10 ^3/uL (0-0.8); Eosinophils % (auto) 0.1 % (0.0-7.0); Hematocrit 42.9 % (41.0-53.0); Hemoglobin 14.6 g/dL (13.5-17.5); Lymphocytes # (auto) 0.5 10 ^3/uL (0.4-5.4); Lymphocytes % (auto) 4.7 % (10.0-50.0); Mean Corpuscular Volume 97.2 fL (80.0-100.0); Monocytes # (auto) 0.3 10 ^3/uL (0-1.3); Monocytes % (auto) 2.9 % (0.0-12.0); Neutrophils # (auto) 9.4 10 ^3/uL (1.6-8.6); Neutrophils % (auto) 92.2 % (37.0-80.0); Nucleated Red Blood Cells % 0.1 %; Platelet Count (auto) 167 10^3/uL (140-450); Red Blood Cells 4.41 10^6/uL (4.5-5.90); Red Cell Distribution Width 14.8 % (11.8-14.3); White Blood Cell 10.2 10^3/uL (4.4-10.8)
[2025-02-21 04:15] LABS: Alkaline Phosphatase 79 U/L (46-116); Anion Gap 9 (5-15); BUN/Creatinine Ratio 39.5 (10.0-20.0); Carbon Dioxide 27 mmol/L (20-31); Chloride 104 mmol/L (98-107); Sodium 140 mmol/L (136-145); Total Protein 6.2 g/dL (5.7-8.2)
[2025-02-21 04:16] LABS: Alanine Aminotransferase 167 U/L (7-40); Albumin 3.4 g/dL (3.2-4.8); Aspartate Aminotransferase 71 U/L (13-40); Bilirubin, Total 0.4 mg/dL (0.2-1.0); Blood Urea Nitrogen 30 mg/dL (9-23); Calcium 8.6 mg/dL (8.7-10.4); Glucose 132 mg/dL (74-106)
--- NOTE | 2025-02-21 05:15 | DVH ---
EXAM: XR Chest, 1 View CLINICAL INDICATION: sob TECHNIQUE: Frontal view of the chest. COMPARISON: XY CHEST PORTABLE on DOS: 02/20/25, XY CHEST PORTABLE on DOS: 02/18/25, XY CHEST PORTABLE o n DOS: 02/17/25, XY CHEST PORTABLE on DOS: 02/16/25, XY CHEST PORTABLE on DOS: 02/15/25 FINDINGS: LUNGS AND PLEURAL SPACES: Hyperlucent lungs. Flattening of the diaphragm. Pulmonary venous congest ion. No consolidation. No pneumothorax. HEART: Unremarkable. No cardiomegaly. MEDIASTINUM: Unremarkable. Normal mediastinal contour. BONES/JOINTS: Unremarkable. No acute fracture. TUBES, LINES AND DEVICES: Right peripherally inserted central catheter (PICC) tip in the superior v carlos cava. The endotracheal tube (ETT) is in satisfactory position. Enteric tube tip cannot be seen but is below the diaphragm. OTHER FINDINGS: . . IMPRESSION: 1. Suggestion of COPD. 2. Pulmonary venous congestion.
[2025-02-21 06:25] LABS: Base Excess 0.1 mmol/L (-2.0-3.0)
[2025-02-21] MEDS ORDERED: FUROSEMIDE 20 MG/2 ML VIAL IV SCH (10:00)
[2025-02-21] MEDS: Bictegravir-Emtricitabine-Teno (Biktarvy 50-200-25 mg) TABLET PO SCH (10:00)
[2025-02-21] MEDS: cefTRIAXone 2GM/50ML D5W 50 ML IV SCH (11:05)
[2025-02-21] MEDS: FUROSEMIDE 40 MG/4 ML VIAL IV SCH (11:05)
[2025-02-21 14:46] LABS: Base Excess -0.9 mmol/L (-2.0-3.0)
[2025-02-21] MEDS: DEXMEDETOMIDINE HCL IN D5W 100 ML IV SCH (15:00)
[2025-02-21] MEDS: ONDANSETRON HCL 4 MG/2 ML VIAL IV PRN (16:13)
--- NOTE | 2025-02-21 16:50 | DVHPN2 ---
Consult Progress Note Subjective Other Systems: The patient was extubated earlier today. 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 Objective vital signs Vital Sign Date Time Temp Pulse Resp B/P (MAP) Pulse Ox O2 Delivery O2 Flow Rate FiO2 02/21/25 15:00 100 Mask 8.0 02/21/25 15:00 35 35 02/21/25 15:00 101 20 153/97 (115) 02/21/25 14:45 99.7 211.5 Total Intake and Output 02/20/25 02/20/25 02/21/25 15:00 23:00 07:00 Intake Total 63.850 ml 309.8 ml 356.338 ml Output Total 2000 ml 1250 ml Balance 63.850 ml -1690.2 ml -893.662 ml medications Current Medications Medications Dose Ordered Sig/Zenon Route Start Time Stop Time Status Last Admin Dose Admin Midazolam HCl 50 ml @ 1 mls/hr Q24H IV 02/14/25 16:30 02/20/25 10:19 1 MLS/HR Fentanyl Citrate 250 ml @ 2.5 mls/hr Q24H IV 02/14/25 18:30 02/20/25 23:01 15 MLS/HR Acetaminophen 650 mg Q6HP PRN PO 02/14/25 20:00 Nitroglycerin 0.4 mg Q5MINP PRN SL 02/14/25 20:00 Norepinephrine Bitartrate 250 ml @ 3.75 mls/hr Q24H IV 02/14/25 20:45 02/20/25 20:22 7.5 MLS/HR Pantoprazole Sodium 40 mg DAILY IV 02/16/25 10:00 02/21/25 11:05 40 MG Aspirin 81 mg DAILY PO 02/16/25 10:00 02/20/25 10:08 81 MG Enteral Nutritional Formula 1,000 ml 40ML/HR GT 02/18/25 10:15 02/20/25 18:08 1,000 ML Sodium Chloride 10 ml QSHIFT@10,22 IV 02/18/25 22:00 02/21/25 11:06 10 ML Vancomycin HCl 100 ml @ 100 mls/hr Q12H IV 02/19/25 16:00 Cancel Enoxaparin Sodium 40 mg DAILY SC 02/20/25 10:00 02/21/25 11:07 40 MG Ceftriaxone Sodium/Dextrose 50 ml @ 50 mls/hr DAILY IV 02/21/25 10:00 02/21/25 11:05 50 MLS/HR Methylprednisolone Sodium Succinate 40 mg BID IV 02/20/25 22:00 02/21/25 14:06 40 MG Patient Own Medication 1 tab DAILY PO 02/21/25 10:00 Furosemide 40 mg DAILY IV 02/21/25 10:00 02/21/25 11:05 40 MG Ondansetron HCl 4 mg Q6HPRN PRN IV 02/21/25 16:00 Examination: GENERAL:Abnormal (Generalized weakness), LUNGS:Normal, CVS:Normal, NEURO:Normal laboratory and microbiology Laboratory Tests 02/21/25 03:20 Test 02/21/25 03:20 Range/Units Serum Glucose 132 H 74-106 mg/dL Problem List/Assessment/Plan Problem List/Assessment/Plan Shock likely mixed, septic and cardiogenic Non ST-Elevation myocardial infarction 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 Hunt) Transthoracic echocardiogram revealed severely global hypokinesis and decreased LVEF function of 15-20%. The patient underwent a heart catheterization revealing mild coronary artery disease. HFrEF likely secondary to long-standing polysubstance abuse. The patient is currently off of vasopressor therapy and was recently extubated. We will recommend to initiate guideline directed medical therapy for CHF with stable BP. Thank you for allowing us to care for this patient. Please call with any questions or concerns. Critical care, time spent: 35 min. This medical document was created using an electronic medical record system with voice recognition software and computerized dictation system. Although this document has been carefully reviewed, there might still be some phonetic and typographical errors. Occasional wrong-word or ``sound-alike substitutions may have occurred due to the inherent limitations of voice recognition software. These areas are purely typographical due to imperfections of the software programs and do not reflect any compromise in the patient's medical care. Please read the chart carefully and recognize, using context, where these substitutions have occurred. Plan discussed with: Patient, Daughter, Other (Bedside RN) Dietary Evaluation Review Comments: 1) If patient remains NPO > 7 days, consider EN/TPN to meet at least 75% estimated daily needs 2) If GI is preferred, consider Jevity 1.2 @ goal rate of 45 mL/hr as tolerated. Flush with 200 mL free H2O Q6H. TF regimen (including flushes) will provide 1296 kcals, 60g Pro, and 1672 mL free H2O per 24 hrs. TF rate will meet 95% estimated daily energy needs and ~87% estimated daily protein needs 3) Advance to cardiac diet when medically feasible, pending SUPERINTENDENT TRACK approval 4) Follow-up with cardiology and pulmonology 5) Continue to monitor I&O, labs, and skin integrity Expected Outcomes/Goals: 1) patient to receive nutritional support within 7 days 2) appetite and labs to improve 3) diet to advance 4) f/u in 2-3 days Date of Service: Feb 21, 2025 Billing Provider: KERI PEARCE Common Visit Codes: [id number] CARE 30-74 MIN KERI PEARCE Feb 21, 2025 16:50
--- NOTE | 2025-02-21 19:26 | DVHPNRES ---
Progress Note Date Seen: Feb 21, 2025 Resident Creating Document: LINDSEY JOY RESIDENT Medical Necessity Reason Pt with a Central, PICC or Fol: Yes The following are medically ne: Central Line, Alarcon Catheter (RN) Reason for alarcon catheter: Strict I&O Subjective Review of Systems Patient was seen and examined at bedside. He remains on mechanical ventilator. Minimal vent settings. He is still on Levophed at four. He is on fentanyl and Precedex. Following commands. CPAP trial today Objective vital signs Vital Sign Date Time Temp Pulse Resp B/P (MAP) Pulse Ox O2 Delivery O2 Flow Rate FiO2 02/21/25 18:45 78 11 111/74 (86) 100 02/21/25 18:00 Nasal Cannula* 4 36 02/21/25 17:00 99.1 210.4 Total Intake and Output 02/20/25 02/20/25 02/21/25 15:00 23:00 07:00 Intake Total 63.850 ml 309.8 ml 356.338 ml Output Total 2000 ml 1250 ml Balance 63.850 ml -1690.2 ml -893.662 ml medications Current Medications Medications Dose Ordered Sig/Zenon Route Start Time Stop Time Status Last Admin Dose Admin Midazolam HCl 50 ml @ 1 mls/hr Q24H IV 02/14/25 16:30 02/20/25 10:19 1 MLS/HR Fentanyl Citrate 250 ml @ 2.5 mls/hr Q24H IV 02/14/25 18:30 02/20/25 23:01 15 MLS/HR Acetaminophen 650 mg Q6HP PRN PO 02/14/25 20:00 Nitroglycerin 0.4 mg Q5MINP PRN SL 02/14/25 20:00 Norepinephrine Bitartrate 250 ml @ 3.75 mls/hr Q24H IV 02/14/25 20:45 02/20/25 20:22 7.5 MLS/HR Pantoprazole Sodium 40 mg DAILY IV 02/16/25 10:00 02/21/25 11:05 40 MG Aspirin 81 mg DAILY PO 02/16/25 10:00 02/20/25 10:08 81 MG Enteral Nutritional Formula 1,000 ml 40ML/HR GT 02/18/25 10:15 02/20/25 18:08 1,000 ML Sodium Chloride 10 ml QSHIFT@10,22 IV 02/18/25 22:00 02/21/25 11:06 10 ML Vancomycin HCl 100 ml @ 100 mls/hr Q12H IV 02/19/25 16:00 Cancel Enoxaparin Sodium 40 mg DAILY SC 02/20/25 10:00 02/21/25 11:07 40 MG Ceftriaxone Sodium/Dextrose 50 ml @ 50 mls/hr DAILY IV 02/21/25 10:00 02/21/25 11:05 50 MLS/HR Methylprednisolone Sodium Succinate 40 mg BID IV 02/20/25 22:00 02/21/25 14:06 40 MG Patient Own Medication 1 tab DAILY PO 02/21/25 10:00 Furosemide 40 mg DAILY IV 02/21/25 10:00 02/21/25 11:05 40 MG Ondansetron HCl 4 mg Q6HPRN PRN IV 02/21/25 16:00 Examination Physical examination as below: General: On mechanical ventilator, intubated. HEENT: Head is normocephalic and atraumatic. Pupils are equal, round, and reactive to light. Neck: Supple with no cervical lymphadenopathy. Heart: Sinus bradycardia without murmur, rub, or gallop. Lungs: Scattered crackles Abdomen: No external sign of injury. Bowel sounds are present. Abdomen is soft, nontender. Extremities: Strong peripheral pulses. There is no clubbing, no cyanosis, and no edema. Skin: No rash. Neurologic: Following commands laboratory and microbiology Laboratory Tests 02/21/25 03:20 Test 02/21/25 03:20 Range/Units Serum Glucose 132 H 74-106 mg/dL Microbiology Date/Time Source Procedure Growth Status 02/15/25 06:17 Urine - Alarcon Port Urine Culture - Final Complete 02/14/25 22:43 Nose MRSA Screen - Final Complete 02/14/25 18:22 Blood Blood Culture - Final NO GROWTH AFTER 5 DAYS OF INCUBATION. Complete 02/14/25 16:27 Sputum Gram Stain - Final Complete 02/14/25 16:27 Respiratory Culture - Final Klebsiella pneumoniae Complete Labs and/or images reviewed: Labs reviewed by me, Image(s) reviewed by me Problem List/Assessment/Plan Problem List/Assessment/Plan Neurology #Toxic/Metabolic encephalopathy, likely due to sepsis, drug use, respiratory failure Ordered head ct, pending On Fentanyl and Precedex Cardiovascular #Acute on chronic systolic CHF Lasix 40mg iv qd EF 15-20% #Non-Ischemic cardiomyopathy #Drug-induced cardiomyopathy #Methamphetamine abuse #NSTEMI likely type 2 #CAD, mild LHC performed on 02/19/25, mild CAD Aspirin Pulmonology #Acute hypoxic respiratory failure likely due to pneumonia, COPD exacerbation, drug use on mechanical ventilator On minimal vent setting: FIO2: 30%, TV: 450ml. PEEP: 5. RR: 18 CPAP trial today 02/21/25. Extubated around 2pm, in nasal cannula #Multifocal pneumonia, gram (+) vs gram (-), atypicals Sputum culture growing K. pneumoniae Rocephin 2g IV qd #COPD exacerbation, improving solumedrol 40mg iv bid Continue duonebs #Respiratory alkalosis, improved Came down on RR. Nephrology #MOLLY due to VMN, likely hemodynamically mediated, improved Monitor for in and outs Avoid nephrotoxic agents Endocrinology #Hyperglycemia due to glucocorticoids Monitor Gastroenterology #Transaminitis, likely due to sepsis Monitor held tube feedings: Jevety Swallow eval tomorrow Hematology and Oncology #Anemia normocytic, normochromic Monitor Infectious Disease #HIV, since 4 years ago CD4 count 247 Continue biktarvy # Septic shock due to Multifocal pneumonia, gram (+) vs gram (-), atypicals As above Dermatology x DVT ppx Lovenox PUD ppx Protonix Drips Levo off Fent off Precedex off Lines ET tube 02/14/25, extubated 02/21/25 PICC line placed on 02/18/25 Alarcon 02/14/25 PT eval tomorrow Swallow eval tomorrow Updated family members on patient's current status. CPAP trial and extubation today. Goals of care were discussed for over 30 minutes. FULL CODE. Critical care time excluding procedures and including cpap trial was 91 mins. Case was discussed with Dr. Servin Plan discussed with: Daughter, Other (RN) My Orders My Orders Orders - LINDSEY JOY RESIDENT Procedure Category Date Status Time (NF) PHA 02/21/25 In Process [id number] 10:00 Cpap Trial For Am ORDERS 02/21/25 Transmitted 04:00 Chest Portable XY 02/21/25 Resulted 04:00 Abg W/ Co-Ox RT 02/21/25 Logged 04:00 Furosemide Injection PHA 02/21/25 In Process (Lasix Injection) 10:00 Extubate GEMA 02/21/25 In Process 14:48 Abg W/ Co-Ox RT 02/21/25 Logged 14:20 Dexmedetomidine Hcl PHA 02/21/25 In Process In D5w (Precedex) 15:00 * Swallow Request ST 02/22/25 Transmitted 08:00 Pt Request For Service PT 02/22/25 Logged 08:00 Dietary Evaluation Review Comments: 1) If patient remains NPO > 7 days, consider EN/TPN to meet at least 75% estimated daily needs 2) If GI is preferred, consider Jevity 1.2 @ goal rate of 45 mL/hr as tolerated. Flush with 200 mL free H2O Q6H. TF regimen (including flushes) will provide 1296 kcals, 60g Pro, and 1672 mL free H2O per 24 hrs. TF rate will meet 95% estimated daily energy needs and ~87% estimated daily protein needs 3) Advance to cardiac diet when medically feasible, pending TRANSIT POLICE OFFICER approval 4) Follow-up with cardiology and pulmonology 5) Continue to monitor I&O, labs, and skin integrity Expected Outcomes/Goals: 1) patient to receive nutritional support within 7 days 2) appetite and labs to improve 3) diet to advance 4) f/u in 2-3 days Date of Service: Feb 21, 2025 Billing Provider: BARBIE SERVIN MD Common Visit Codes: [id number] CARE 30-74 MIN, [id number] CARE-EACH +30MIN LINDSEY JOY RESIDENT Feb 21, 2025 19:26 BARBIE SERVIN MD Feb 22, 2025 13:41
--- NOTE | 2025-02-21 21:20 | DVH ---
EXAM: CT HEAD WITHOUT CONTRAST; DATE: 02/21/2025 08:36 AM HISTORY: altered mental status COMPARISON: None TECHNIQUE: Axial images were obtained and reformatted in coronal and sagittal planes. All CT scans at this medical facility are performed using dose modulation techniques as appropriate t o a performed exam including the following: Automated exposure control was utilized; adjustment of th e MA and/or KV according to patient size; and use of iterative reconstruction technique. CT Dose: CTDI volume is 51.54 mGy. Dose-length product is 929.5 mGy*cm FINDINGS: Supratentorial Region: No evidence for large acute territorial ischemia. No intracranial hemorrhage is noted. Posterior Fossa: No acute abnormality. Brainstem: Unremarkable. Sellar/Suprasellar Region: Unremarkable. Ventricles, Cisterns, Sulci: Age-appropriate. Orbits: Unremarkable. Paranasal Sinuses: Unremarkable. Mastoid Air Cells: Unremarkable. Vasculature: Unremarkable. Bones/Soft Tissues: No acute abnormality. Other: The patient is intubated. IMPRESSION: 1. No acute intracranial process.
[2025-02-22] VITALS (85 sets, daily range): BP systolic 83–157; BP diastolic 55–103; PULSE 68–127; RESP 11–45; TEMP 97.7–98.2; O2SAT 73–100
[2025-02-22] MEDS: ACETAMINOPHEN 650 MG RECT SUPP PR PRN (00:47)
--- NOTE | 2025-02-22 01:46 | DVH ---
Exam: XY KUB ABDOMEN SINGLE VIEW Indication: ABD PAIN Comparison: None Technique: Single AP radiograph of the abdomen Findings: Nonobstructive bowel gas pattern noted. No abnormal calcific density identified. Lung bases are clear with no pleural fusion. No osseous abnormality noted. Impression: Nonobstructive bowel gas pattern.
[2025-02-22] MEDS: MORPHINE SULFATE INJ 2 MG/ml SYRG IV ONE (02:30)
[2025-02-22 04:04] LABS: Basophils # (auto) 0 10 ^3/uL (0-0.2); Basophils % (auto) 0.2 % (0.0-2.0); Eosinophils # (auto) 0 10 ^3/uL (0-0.8); Hematocrit 42.4 % (41.0-53.0); Hemoglobin 14.4 g/dL (13.5-17.5); Lymphocytes # (auto) 0.3 10 ^3/uL (0.4-5.4); Lymphocytes % (auto) 1.4 % (10.0-50.0); Mean Corpuscular Hemoglobin 33.3 pg (28.0-32.0); Mean Corpuscular Volume 98.1 fL (80.0-100.0); Monocytes # (auto) 0.8 10 ^3/uL (0-1.3); Monocytes % (auto) 3.6 % (0.0-12.0); Neutrophils # (auto) 22.2 10 ^3/uL (1.6-8.6); Neutrophils % (auto) 94.8 % (37.0-80.0); Platelet Count (auto) 162 10^3/uL (140-450); Red Blood Cells 4.33 10^6/uL (4.5-5.90); Red Cell Distribution Width 14.7 % (11.8-14.3); White Blood Cell 23.4 10^3/uL (4.4-10.8)
[2025-02-22 04:27] LABS: Albumin 3.8 g/dL (3.2-4.8); Anion Gap 10 (5-15); Calcium 9.5 mg/dL (8.7-10.4); Carbon Dioxide 27 mmol/L (20-31); Chloride 104 mmol/L (98-107); Magnesium 2.3 mg/dL (1.6-2.6); Potassium 3.5 mmol/L (3.5-5.1); Sodium 141 mmol/L (136-145); Total Protein 6.6 g/dL (5.7-8.2)
[2025-02-22 04:34] LABS: Alanine Aminotransferase 628 U/L (7-40); Alkaline Phosphatase 466 U/L (46-116); Aspartate Aminotransferase 733 U/L (13-40); Bilirubin, Total 3.5 mg/dL (0.2-1.0); Blood Urea Nitrogen 40 mg/dL (9-23); Glucose 164 mg/dL (74-106)
[2025-02-22 04:46] LABS: BUN/Creatinine Ratio 49.4 (10.0-20.0)
--- NOTE | 2025-02-22 05:41 | DVH ---
EXAM: XR Chest, 1 View CLINICAL INDICATION: sob TECHNIQUE: Frontal view of the chest. COMPARISON: XY CHEST PORTABLE on DOS: 02/21/25, XY CHEST PORTABLE on DOS: 02/20/25, XY CHEST XRAY 1 VIE W on DOS: 02/19/25, XY CHEST PORTABLE on DOS: 02/18/25, XY CHEST XRAY 1 VIEW on DOS: 02/18/25 FINDINGS: LUNGS AND PLEURAL SPACES: Right basilar atelectasis or pneumonia. No pneumothorax. HEART: Unremarkable. No cardiomegaly. MEDIASTINUM: Unremarkable. Normal mediastinal contour. BONES/JOINTS: Unremarkable. No acute fracture. OTHER FINDINGS: . IMPRESSION: Right basilar atelectasis or pneumonia.
--- NOTE | 2025-02-22 09:08 | DVH ---
INDICATION: transaminitis TECHNIQUE: Multiple real-time sonographic images of the abdomen were obtained. COMPARISON: None FINDINGS: The liver is homogenous in echogenicity. The liver measures 13cm. No intrahepatic biliary ductal dilatation is noted. The gallbladder wall measures 0.4 cm and is unremarkable. No gallstones or sludge is seen. The commo n duct measures 0.8 cm and is unremarkable. No pericholecystic fluid is noted. The right kidney measures 10cm. No hydronephrosis. The left kidney measures 10cm. No hydronephrosis . The spleen measures 10 cm, within normal limits. The echogenicity is within normal limits. The pancreas is not well visualized due to obscuration from bowel gas. The visualized portions of the IVC and aorta are grossly unremarkable. IMPRESSION: 2.4cm echogenic mass left hepatic mass . Left hepatic vein thrombus
--- NOTE | 2025-02-22 09:54 | DVHPNRES ---
Progress Note Date Seen: Feb 22, 2025 Resident Creating Document: LINDSEY JOY RESIDENT Medical Necessity Reason Pt with a Central, PICC or Fol: Yes The following are medically ne: Central Line, Alarcon Catheter (RN) Reason for alarcon catheter: Strict I&O Subjective Review of Systems Patient was seen and examined at bedside. He remains on nasal cannula at 4 L. he states feeling better right now. However at night she had an episode of vomiting, he also had severe abdominal pain, mostly periumbilical, left lower quadrant. Pain medication was given, abdominal pain subsided. However, a.m. labs revealed transaminitis, liver US revealed left hepatic vein thrombosis, patient was started on heparin drip. Objective vital signs Vital Sign Date Time Temp Pulse Resp B/P (MAP) Pulse Ox O2 Delivery O2 Flow Rate FiO2 02/22/25 06:45 82 14 109/77 (88) 100 02/22/25 06:00 Mechanical Ventilator+ 30 30 02/22/25 00:00 97.9 97.9 02/21/25 20:00 4 Total Intake and Output 02/21/25 02/21/25 02/22/25 15:00 23:00 07:00 Intake Total 101.825 ml 0 ml 0 ml Output Total 2500 ml 850 ml Balance 101.825 ml -2500 ml -850 ml medications Current Medications Medications Dose Ordered Sig/Zenon Route Start Time Stop Time Status Last Admin Dose Admin Midazolam HCl 50 ml @ 1 mls/hr Q24H IV 02/14/25 16:30 02/20/25 10:19 1 MLS/HR Fentanyl Citrate 250 ml @ 2.5 mls/hr Q24H IV 02/14/25 18:30 02/20/25 23:01 15 MLS/HR Acetaminophen 650 mg Q6HP PRN PO 02/14/25 20:00 Nitroglycerin 0.4 mg Q5MINP PRN SL 02/14/25 20:00 Norepinephrine Bitartrate 250 ml @ 3.75 mls/hr Q24H IV 02/14/25 20:45 02/20/25 20:22 7.5 MLS/HR Pantoprazole Sodium 40 mg DAILY IV 02/16/25 10:00 02/21/25 11:05 40 MG Aspirin 81 mg DAILY PO 02/16/25 10:00 02/20/25 10:08 81 MG Enteral Nutritional Formula 1,000 ml 40ML/HR GT 02/18/25 10:15 02/20/25 18:08 1,000 ML Sodium Chloride 10 ml QSHIFT@10,22 IV 02/18/25 22:00 02/21/25 22:57 10 ML Vancomycin HCl 100 ml @ 100 mls/hr Q12H IV 02/19/25 16:00 Cancel Ceftriaxone Sodium/Dextrose 50 ml @ 50 mls/hr DAILY IV 02/21/25 10:00 02/21/25 11:05 50 MLS/HR Methylprednisolone Sodium Succinate 40 mg BID IV 02/20/25 22:00 02/21/25 22:57 40 MG Patient Own Medication 1 tab DAILY PO 02/21/25 10:00 Furosemide 40 mg DAILY IV 02/21/25 10:00 02/21/25 11:05 40 MG Ondansetron HCl 4 mg Q6HPRN PRN IV 02/21/25 16:00 Acetaminophen 650 mg Q6HP PRN MI 02/22/25 00:45 02/22/25 00:47 650 MG Examination Physical examination as below: General: On mechanical ventilator, intubated. HEENT: Head is normocephalic and atraumatic. Pupils are equal, round, and reactive to light. Neck: Supple with no cervical lymphadenopathy. Heart: Sinus bradycardia without murmur, rub, or gallop. Lungs: Scattered crackles Abdomen: No external sign of injury. Bowel sounds are present. Abdomen is soft, nontender. Extremities: Strong peripheral pulses. There is no clubbing, no cyanosis, and no edema. Skin: No rash. Neurologic: Following commands laboratory and microbiology Laboratory Tests 02/22/25 03:25 Test 02/22/25 03:25 Range/Units Serum Glucose 164 H 74-106 mg/dL Microbiology Date/Time Source Procedure Growth Status 02/15/25 06:17 Urine - Alarcon Port Urine Culture - Final Complete 02/14/25 22:43 Nose MRSA Screen - Final Complete 02/14/25 18:22 Blood Blood Culture - Final NO GROWTH AFTER 5 DAYS OF INCUBATION. Complete 02/14/25 16:27 Sputum Gram Stain - Final Complete 02/14/25 16:27 Respiratory Culture - Final Klebsiella pneumoniae Complete Labs and/or images reviewed: Labs reviewed by me, Image(s) reviewed by me Problem List/Assessment/Plan Problem List/Assessment/Plan Neurology #Toxic/Metabolic encephalopathy, likely due to sepsis, drug use, respiratory failure, improved Ordered head ct, unremarkable off sedation Cardiovascular #Acute on chronic systolic CHF, improving Lasix 40mg iv qd EF 15-20% #Non-Ischemic cardiomyopathy #Drug-induced cardiomyopathy #Methamphetamine abuse #NSTEMI likely type 2 #CAD, mild LHC performed on 02/19/25, mild CAD Aspirin Pulmonology #Acute hypoxic respiratory failure likely due to pneumonia, COPD exacerbation, drug use, s/p mechanical ventilator, extubated 02/21/25 On nasal cannula 4lts CPAP trial successful 02/21/25. Extubated around 2pm, in nasal cannula #Multifocal pneumonia, gram (+) vs gram (-), atypicals Sputum culture growing K. pneumoniae Rocephin 2g IV qd #COPD exacerbation, improving solumedrol 40mg iv bid Continue duonebs #Respiratory alkalosis, improved Nephrology #MOLLY due to VMN, likely hemodynamically mediated, improved Monitor for in and outs Avoid nephrotoxic agents Endocrinology #Hyperglycemia due to glucocorticoids Monitor Gastroenterology #Transaminitis, possibly due to left hepatic vein thrombosis #Hepatic mass, hemangioma #Left hepatic vein thrombosis Started heparin drip ordered lower extremity dvt pending gi consult #Acute cholecystitis? Consult surgery #Hyperammonemia lactulose 30ml tid held tube feedings: Jevety Swallow eval today Hematology and Oncology #Anemia normocytic, normochromic Monitor Infectious Disease #HIV, since 4 years ago CD4 count 247 Continue biktarvy # Septic shock due to Multifocal pneumonia, gram (+) vs gram (-), atypicals As above Dermatology x DVT ppx Heparin PUD ppx Protonix Drips Levo off Fent off Precedex off Lines ET tube 02/14/25, extubated 02/21/25 PICC line placed on 02/18/25 Alarcon 02/14/25 PT eval today Swallow eval today Updated family members on patient's current status. Goals of care were discussed for over 30 minutes. FULL CODE. Critical care time excluding procedures was 85 mins. Plan discussed with: Patient, Daughter, Other (RN) My Orders My Orders Orders - LINDSEY JOY Procedure Category Date Status Time Extubate GEMA 02/21/25 In Process 14:48 Abg W/ Co-Ox RT 02/21/25 Logged 14:20 Dexmedetomidine Hcl PHA 02/21/25 In Process In D5w (Precedex) 15:00 * Swallow Request ST 02/22/25 Transmitted 08:00 Pt Request For Service PT 02/22/25 Logged 08:00 Chest Portable XY 02/22/25 Resulted 04:00 LIVER US 02/22/25 Resulted 06:14 Bilirubin, Direct LAB 02/22/25 In Process 06:55 Lactate Dehydrogenase LAB 02/22/25 In Process 06:55 Acute Hepatitis Panel LAB 02/22/25 In Process 07:30 Hepatitis C Antibody LAB 02/22/25 In Process 07:30 Bilat Lower Dvt US 02/22/25 Logged 09:21 Vte Protocol Initiated GEMA 02/22/25 In Process 09:43 PTPTT LAB 02/22/25 Transmitted 09:43 Heparin Sodium PHA 02/22/25 Transmitted (Porcine) 09:45 Heparin Drip/D5w PHA 02/22/25 Transmitted 100units/Ml 09:45 * Gi Dvh Product Support Engineer CONS 02/22/25 Transmitted 09:43 Dietary Evaluation Review Comments: 1) If patient remains NPO > 7 days, consider EN/TPN to meet at least 75% estimated daily needs 2) If GI is preferred, consider Jevity 1.2 @ goal rate of 45 mL/hr as tolerated. Flush with 200 mL free H2O Q6H. TF regimen (including flushes) will provide 1296 kcals, 60g Pro, and 1672 mL free H2O per 24 hrs. TF rate will meet 95% estimated daily energy needs and ~87% estimated daily protein needs 3) Advance to cardiac diet when medically feasible, pending SOFTWARE PUBLISHER approval 4) Follow-up with cardiology and pulmonology 5) Continue to monitor I&O, labs, and skin integrity Expected Outcomes/Goals: 1) patient to receive nutritional support within 7 days 2) appetite and labs to improve 3) diet to advance 4) f/u in 2-3 days Date of Service: Feb 22, 2025 Billing Provider: ROGER UREÑA MD Common Visit Codes: [id number] CARE 30-74 MIN, [id number] CARE-EACH +30MIN LINDSEY JOY RESIDENT Feb 22, 2025 09:54 ROGER UREÑA MD Feb 23, 2025 18:38
[2025-02-22 10:38] LABS: INR 1.14 (0.9-1.15); Partial Thromboplastin Time 24.2 SEC (24.5-34.5); Prothrombin Time 11.9 sec (9.3-11.8)
--- NOTE | 2025-02-22 11:10 | DVH ---
Bilateral lower extremity venous duplex Clinical History: left hepatic vein thrombosis Comparison: None Technique: Duplex Doppler evaluation of the deep venous systems of both lower extremities from the co mmon femoral veins to the popliteal veins including color Doppler and spectral/pulsed waveform analys is was performed. Findings: RIGHT SIDE: The common femoral vein demonstrates lack of compressibility due to an elongated eccentric thrombus a long the posterior wall measuring 1.5 x 0.3 cm in length and thickness respectively . There is compressibility/patency of the great saphenous vein at the proximal thigh . The femoral vein demonstrates appropriate compressibility and waveform variability . The deep femoral vein demonstrates appropriate compressibility and waveform variability . The popliteal vein demonstrates appropriate compressibility and waveform variability . There is color flow at the tibioperoneal trunk and in the posterior tibial vein. LEFT SIDE: The common femoral vein demonstrates appropriate compressibility and waveform variability . There is compressibility/patency of the great saphenous vein at the proximal thigh . The femoral vein demonstrates appropriate compressibility and waveform variability . The deep femoral vein demonstrates appropriate compressibility and waveform variability . The popliteal vein demonstrates appropriate compressibility and waveform variability . There is color flow at the tibioperoneal trunk and in the posterior tibial vein. Impression: 1. Chronic nonocclusive right common femoral DVT. 2. No DVT in the left lower extremity.
[2025-02-22] MEDS: METOCLOPRAMIDE HCL 5MG/ml INJ 2ml VIAL IV ONE (11:57)
[2025-02-22] MEDS: methylPREDNISolone SOD SUCC 125 MG/2 ML VL IV SCH (11:58)
[2025-02-22] MEDS: HEPARIN SODIUM (PORCINE) 5000 UNITS/ML 1ML VIAL IV ONE (12:10)
[2025-02-22] MEDS: HEPARIN DRIP/D5W 100UNITS/ML 250 ML IV SCH (12:10)
--- NOTE | 2025-02-22 13:24 | CONS ---
Pharmacy Clinical Information: HEPARIN PER PHARMACY SPOKE TO JAMSHID TURNER REGARDING NEW HEPARIN DRIP ORDER CURRENT aPTT: 24.2 on 02/22/25 at 09:57 BOLUS: 3800 UNITS PER PROVIDER ORDER INITIAL HEPARIN DOSE: 800 UNITS/HR STARTED AT 12:10 TODAY 02/22/2025 Next aPTT: 02/22/2025 AT 1800 JAMSHID TURNER READ BACK NEW DOSE: 1200 UNITS/HR CHERELLE Tejada Feb 22, 2025 13:24
[2025-02-22] MEDS: IOHEXOL 300 MG/ML 100ML BOTTLE IJ ONE (14:16)
--- NOTE | 2025-02-22 15:10 | DVH ---
Exam: CT CT AB PEL WITH IV CON ONLY History: Liver mass/liver vein thrombus Comparison Study: None available TECHNIQUE: A digital buy boat operator image was obtained. During the uneventful, intravenous administration of c ontrast material, multislice data acquisition was obtained through the abdomen and pelvis. The data s et was subsequently reconstructed into axial images. Images reviewed on a wrist examination is an exa mination of axial and multiplanar reformations using a variety of window levels and settings. RADIATION DOSE: DLP 245.26 mGy.cm; CTDI vol 5.14 mGy. Findings: Lungs: Trace right pleural effusion. Heart: No cardiomegaly or pericardial effusion. Liver: 1.0 cm hemangioma in the left hepatic lobe. Gallbladder: Markedly distended gallbladder with wall thickening/edema. Spleen: Unremarkable Pancreas: Unremarkable Adrenals: Unremarkable Kidneys: Bilateral renal cysts. GI tract: Unremarkable : Breaux catheter within the urinary bladder which is mildly distended. Vasculature: Unremarkable Lymphadenopathy: Absent Peritoneum: No ascites Musculoskeletal: Unremarkable Soft tissues: Unremarkable Impression: 1. No acute abdominopelvic abnormalities. 2. 1.0 cm hemangioma in the left hepatic lobe. No other masses appreciated. 3. Markedly distended gallbladder with wall thickening / edema. 4. Breaux catheter within the urinary bladder which is distended. Correlate for appropriate functiona quinton.
--- NOTE | 2025-02-22 17:46 | DVHPN2 ---
Consult Progress Note Subjective Other Systems: Patient remains in normal sinus rhythm on continuous ribbon hand. Denies any cardiac symptoms at time of assessment Objective vital signs Vital Sign Date Time Temp Pulse Resp B/P (MAP) Pulse Ox O2 Delivery O2 Flow Rate FiO2 02/22/25 16:00 17 98 Nasal Cannula* 2 28 02/22/25 16:00 98 97/72 (80) 02/22/25 12:00 98.1 98.1 Total Intake and Output 02/21/25 02/21/25 02/22/25 14:59 22:59 06:59 Intake Total 125.875 ml 0 ml 0 ml Output Total 2500 ml 850 ml Balance 125.875 ml -2500 ml -850 ml medications Current Medications Medications Dose Ordered Sig/Zenon Route Start Time Stop Time Status Last Admin Dose Admin Acetaminophen 650 mg Q6HP PRN PO 02/14/25 20:00 Nitroglycerin 0.4 mg Q5MINP PRN SL 02/14/25 20:00 Pantoprazole Sodium 40 mg DAILY IV 02/16/25 10:00 02/22/25 11:56 40 MG Sodium Chloride 10 ml QSHIFT@10,22 IV 02/18/25 22:00 02/22/25 12:11 10 ML Vancomycin HCl 100 ml @ 100 mls/hr Q12H IV 02/19/25 16:00 Cancel Ceftriaxone Sodium/Dextrose 50 ml @ 50 mls/hr DAILY IV 02/21/25 10:00 02/22/25 12:18 50 MLS/HR Ondansetron HCl 4 mg Q6HPRN PRN IV 02/21/25 16:00 Heparin Sodium/ Dextrose 250 ml @ 8 mls/hr Q24H IV 02/22/25 09:45 02/22/25 12:10 8 MLS/HR Methylprednisolone Sodium Succinate 20 mg BID IV 02/22/25 22:00 Examination: GENERAL:Abnormal (Generalized weakness), LUNGS:Normal, CVS:Normal, NEURO:Normal laboratory and microbiology Laboratory Tests 02/22/25 03:25 Test 02/22/25 03:25 Range/Units Serum Glucose 164 H 74-106 mg/dL Problem List/Assessment/Plan Problem List/Assessment/Plan Shock likely mixed, septic and cardiogenic Non ST-Elevation myocardial infarction Non-ischemic/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 Hunt) Transthoracic echocardiogram revealed severely global hypokinesis and decreased LVEF function of 15-20%. The patient underwent a left heart catheterization revealing mild coronary artery disease. HFrEF likely secondary to long-standing polysubstance abuse. The patient is currently off of vasopressor therapy, but with borderline low BP readings. We will recommend to initiate guideline directed medical therapy for CHF (beta kelsie, ARNI, MRA, SGLT2i) with stable BP. The patient was found to have left hepatic vein thrombosis, initiate on heparin drip per primary care team. Thank you for allowing us to care for this patient. Please call with any questions or concerns. Critical care, time spent: 35 min. This medical document was created using an electronic medical record system with voice recognition software and computerized dictation system. Although this document has been carefully reviewed, there might still be some phonetic and typographical errors. Occasional wrong-word or ``sound-alike substitutions may have occurred due to the inherent limitations of voice recognition software. These areas are purely typographical due to imperfections of the software programs and do not reflect any compromise in the patient's medical care. Please read the chart carefully and recognize, using context, where these substitutions have occurred. Plan discussed with: Patient, Daughter Dietary Evaluation Review Comments: 1) If patient remains NPO > 7 days, consider EN/TPN to meet at least 75% estimated daily needs 2) If GI is preferred, consider Jevity 1.2 @ goal rate of 45 mL/hr as tolerated. Flush with 200 mL free H2O Q6H. TF regimen (including flushes) will provide 1296 kcals, 60g Pro, and 1672 mL free H2O per 24 hrs. TF rate will meet 95% estimated daily energy needs and ~87% estimated daily protein needs 3) Advance to cardiac diet when medically feasible, pending [employer] approval 4) Follow-up with cardiology and pulmonology 5) Continue to monitor I&O, labs, and skin integrity Expected Outcomes/Goals: 1) patient to receive nutritional support within 7 days 2) appetite and labs to improve 3) diet to advance 4) f/u in 2-3 days Date of Service: Feb 22, 2025 Billing Provider: KERI PEARCE Common Visit Codes: 09878-[id number] CARE 30-74 MIN KERI PEARCE Feb 22, 2025 17:46
[2025-02-22] MEDS: SODIUM CHLORIDE 0.9% 500 ML IV ONE (18:15)
[2025-02-22] MEDS: LACTULOSE 20Gm/30ML SOLN PO ONE (18:15)
[2025-02-22 18:54] LABS: INR 1.25 (0.9-1.15)
--- NOTE | 2025-02-22 21:35 | DVHINCON2 ---
Date of service: Feb 22, [address] Cedillo Reason for Consultation Elevated liver enzymes anf l hepatic vein thrombosis History of Present Illness 59-year-old male with history of polysubstance abuse including methamphetamines was admitted with shock likely mixed, septic and cardiogenic He had a Non ST-Elevation myocardial infarction; suspected Non-ischemic/likely drug-induced cardiomyopathy with LVEF 15-20% Acute hypoxic respiratory failure with underlying COPD with PNA; HIV positive. Patient was extubated yesterday. Later he developed moderate abdominal pain Patient was noted to have moderate elevation in his transaminases. Ultrasound of the abdomen showed a left hepatic vein thrombosis since suspected left hepatic mass. Patient also had a femoral DVT and he has been started on IV heparin. Patient as passed swallow eval is on a pureed diet Family History: Lung cancer SIBLINGS SIBLINGS Allergies: Uncoded Allergies: TREE NUTS (Allergy, Unknown, 02/24/24) Home Meds Reported Medications Tiotropium Orange Monohydrate (Spiriva Respimat) 2.5 Mcg/Act Spr, 2 SPRAY PO DAILY for 90 Days, #12 02/15/25 Fluticasone Furoate-Vilanterol (Fluticasone Furoate/Vilan 100-25 Mcg/Act) 1 Inh Inh, 1 PUFF INH DAILY PRN for BRONCHOSPASM for 90 Days, #180 02/15/25 Ipratropium-Albuterol (Ipratropium Orange/Albut) 1 Arlette Arlette, 3 ML NEB Q6HR PRN for WHEEZING/SHORTNESS OF BREATH for 30 Days, #360 02/15/25 Qgjfmzkwdno-Xmoughiwbxclh-Rofb (Biktarvy 50-200-25 mg) 1 Tab Tab, 1 TAB PO DAILY for 90 Days, #90 02/15/25 Albuterol Sulfate (Albuterol Sulfate Hfa) 108 Mcg/Act Aer, 1-2 PUFF PO QID PRN for 25 Days, #18 02/15/25 Current Medications Current Medications Medications (Trade) Dose Ordered Sig/Zenon Route PRN Reason Start Time Stop Time Status Last Admin Acetaminophen (Tylenol Suppository) [address] MODERATE PAIN (4-6 PAIN SCALE) 02/22/25 00:45 02/22/25 13:55 DC 02/22/25 00:47 Heparin Sodium/ Dextrose 250 ml @ 8 mls/hr Q24H IV 02/22/25 09:45 02/22/25 12:10 Methylprednisolone Sodium Succinate (Solu Medrol) 40 mg BID IV 02/22/25 11:43 02/22/25 13:40 DC 02/22/25 11:58 Methylprednisolone Sodium Succinate (Solu Medrol) 20 mg BID IV 02/22/25 22:00 Lactulose 30 ml TID PO 02/22/25 22:00 Vital Signs Vital Signs Date Time Temp Pulse Resp B/P (MAP) Pulse Ox O2 Delivery O2 Flow Rate FiO2 02/22/25 20:00 81 15 100 Nasal Cannula* 3 32 02/22/25 18:31 135/76 (95) 02/22/25 12:00 98.1 98.1 Physical Exam General: Extubated and awake HEENT: Head is normocephalic and atraumatic. Pupils are equal, round, and reactive to light. Neck: Supple with no cervical lymphadenopathy. Heart: Sinus bradycardia without murmur, rub, or gallop. Lungs: Scattered crackles Abdomen: No external sign of injury. Bowel sounds are present. Abdomen is soft, nontender. Extremities: Strong peripheral pulses. There is no clubbing, no cyanosis, and no edema. Skin: No rash. Neurologic: Following commands Labs/Diagnostic Data Labs Test 02/22/25 18:24 02/22/25 14:56 02/22/25 14:01 02/22/25 08:50 Range/Units Prothrombin Time 13.0 H 9.3-11.8 sec Prothrombin Time INR 1.25 H 0.9-1.15 Activated Partial Thromboplast Time 53.0 H 24.5-34.5 SEC Ammonia 55 H 11-32 umol/L Blood Gas Specimen Type Arterial Blood Gas Sample Site Left radial Blood Gas Patient Temperature 37.0 Arterial Blood Date Drawn [id number] Arterial Blood pH 7.405 7.350-7.450 Arterial Blood Partial Pressure CO2 40.3 35.0-48.0 mmHg Arterial Blood Partial Pressure O2 182.8 H 83.0-108.0 mmHg Arterial Blood HCO3 24.7 21.0-28.0 mmol/L Arterial Blood Oxygen Saturation 99.1 H 94.0-98.0 % Arterial Blood Base Excess 0.0 -2.0-3.0 mmol/L Arterial Blood Oxyhemoglobin 98.5 H 94.0-98.0 % Arterial Blood Carboxyhemoglobin 0.4 L 0.5-1.5 % Arterial Blood Methemoglobin 0.2 0.0-1.5 % Davin Test Yes Blood Gas Total Hemoglobin 15.50 13.5-17.5 g/dL Blood Gas Liter Flow 4.00 Blood Gas Modality Nasal cannula FiO2 % 36.0 Test 02/22/25 03:25 02/21/25 14:38 02/21/25 06:19 02/19/25 03:00 Range/Units White Blood Count 23.4 #H 4.4-10.8 10^3/uL Red Blood Count 4.33 L 4.5-5.90 10^6/uL Hemoglobin 14.4 13.5-17.5 g/dL Hematocrit 42.4 41.0-53.0 % Mean Corpuscular Volume 98.1 80.0-100.0 fL Mean Corpuscular Hemoglobin 33.3 H 28.0-32.0 pg Mean Corpuscular Hemoglobin Concent 34.0 32.0-36.0 g/dL Red Cell Distribution Width 14.7 H 11.8-14.3 % Platelet Count 162 140-450 10^3/uL Mean Platelet Volume 9.3 6.9-10.8 fL Neutrophils (%) (Auto) 94.8 H 37.0-80.0 % Lymphocytes (%) (Auto) 1.4 L 10.0-50.0 % Monocytes (%) (Auto) 3.6 0.0-12.0 % Eosinophils (%) (Auto) 0.0 0.0-7.0 % Basophils (%) (Auto) 0.2 0.0-2.0 % Neutrophils # (Auto) 22.2 H 1.6-8.6 10 ^3/uL Lymphocytes # (Auto) 0.3 L 0.4-5.4 10 ^3/uL Monocytes # (Auto) 0.8 0-1.3 10 ^3/uL Eosinophils # (Auto) 0 0-0.8 10 ^3/uL Basophils # (Auto) 0 0-0.2 10 ^3/uL Nucleated Red Blood Cells 0.0 % Sodium Level 141 136-145 mmol/L Potassium Level 3.5 3.5-5.1 mmol/L Chloride Level 104 98-107 mmol/L Carbon Dioxide Level 27 20-31 mmol/L Anion Gap 10 5-15 Blood Urea Nitrogen 40 #H 9-23 mg/dL Creatinine 0.81 0.700-1.30 mg/dL Glomerular Filtration Rate Calc 100 >90 mL/min BUN/Creatinine Ratio 49.4 H 10.0-20.0 Serum Glucose 164 H 74-106 mg/dL Calcium Level 9.5 8.7-10.4 mg/dL Magnesium Level 2.3 1.6-2.6 mg/dL Total Bilirubin 3.5 H 0.2-1.0 mg/dL Direct Bilirubin 2.4 H <0.3 mg/dL Aspartate Amino Transferase (AST) 733 H 13-40 U/L Alanine Aminotransferase (ALT) 628 H 7-40 U/L Alkaline Phosphatase 466 H 46-116 U/L Lactate Dehydrogenase 958 H 120-246 U/L Total Protein 6.6 5.7-8.2 g/dL Albumin 3.8 3.2-4.8 g/dL Lipase 33 12-53 U/L Blood Gas Pressure Support 8 Blood Gas PEEP or CPAP 5.0 Blood Gas Set Respiration Rate 18.0 Blood Gas Spontaneous Rate 18 Blood Gas Tidal Volume 450.0 Blood Gas Inspiratory Pressure 18.0 Bl Gas Inspiratory/Expiratory Ratio 1:3.0 Specimen Drawn By thue rt Phosphorus Level 2.7 2.4-5.1 mg/dL B-Type Natriuretic Peptide 842.97 0-100 pg/mL Random Vancomycin Level 13.5 H 5-10 ug/mL Test 02/18/25 10:00 02/17/25 13:03 02/15/25 15:00 02/15/25 14:37 Range/Units Vancomycin Level Trough 22.7 H 5-10 ug/mL Absolute Neutrophils (auto) 17.1 H 1.4-7.0 x10E3/uL Absolute Lymphocytes (auto) 0.8 0.7-3.1 x10E3/uL Absolute Monocytes (auto) 0.9 0.1-0.9 x10E3/uL Absolute Eosinophils (auto) 0.0 0.0-0.4 x10E3/uL Absolute Basophils (auto) 0.0 0.0-0.2 x10E3/uL Immature Granulocytes % 1 Not Estab. % Immature Granulocytes # 0.1 0.0-0.1 x10E3/uL Immature Blood Cells . Hematology Comments . Percent CD4 Cells 30.9 30.8-58.5 % Absolute CD4 Count 247 L 359-1519 /uL T-Lymphocyte CD4/CD8 Ratio 0.83 L 0.92-3.72 Percent CD8 Cells 37.2 H 12.0-35.5 % Absolute CD8 Count 298 109-897 /uL HIV-1 RNA (PCR) <20 . copies/mL HIV-1 RNA (PCR) log10 Value . POC Glucose 125 H 70-106 mg/dl Troponin I High Sensitivity 9753 *H </=54 ng/L Test 02/15/25 10:15 02/15/25 03:24 02/14/25 20:06 02/14/25 19:14 Range/Units Influenza Type A Antigen Negative Negative Influenza Type B Antigen Negative Negative SARS-CoV-2 Antigen (Rapid) Negative NEGATIVE Hemoglobin A1c 5.3 <5.7 % A1C Triglycerides Level 81 < 150 mg/dL Cholesterol Level 138 < 200 mg/dL LDL Cholesterol 81 < 100 mg/dL HDL Cholesterol 44 40-59 mg/dL Thyroid Stimulating Hormone (TSH) 0.63 0.55-4.78 uIU/mL Lactic Acid Level 2.0 0.4-2.0 mmol/L Urine Color Yellow Yellow Urine Clarity Turbid H Clear Urine pH 6.0 5.0-9.0 Urine Specific [place] 1.027 1.001-1.035 Urine Protein 2+ H Negative Urine Ketones 1+ H Negative Urine Blood 2+ H Negative /uL Urine Nitrite Negative Negative Urine Bilirubin Negative Negative Urine Urobilinogen Normal Negative mg/dL Urine Leukocyte Esterase Trace Negative /uL Urine RBC 60 0 - 3 /hpf Urine Microscopic WBC 8 H 0-3 /HPF Urine Squamous Epithelial Cells Mod <5 /hpf Urine Bacteria Many H None Seen /hpf Urine Hyaline Casts Few 0 - 2 /lpf Urine Mucus Few None Seen Urine Sperm Present None Seen /hpf Urine Glucose Trace Normal mg/dL Urine Opiates Screen Neg NEGATIVE Urine Fentanyl Screen Neg NEGATIVE Urine Barbiturates Screen Neg NEGATIVE Urine Phencyclidine Screen Neg NEGATIVE Urine Amphetamines Screen Pos NEGATIVE Urine Benzodiazepines Screen Neg NEGATIVE Urine Cocaine Screen Neg NEGATIVE Urine Cannabinoids Screen Pos NEGATIVE Microbiology Date/Time Source Procedure Growth Status 02/15/25 06:17 Urine - [place] Urine Culture - Final Complete 02/14/25 22:43 Nose MRSA Screen - Final Complete 02/14/25 18:22 Blood Blood Culture - Final NO GROWTH AFTER 5 DAYS OF INCUBATION. Complete 02/14/25 16:27 Sputum Gram Stain - Final Complete 02/14/25 16:27 Respiratory Culture - Final Klebsiella pneumoniae Complete Liver USG IMPRESSION: 2.4cm echogenic mass left hepatic mass . Left hepatic vein thrombus CT SCAN ABD PELVIS Impression: 1. No acute abdominopelvic abnormalities. 2. 1.0 cm hemangioma in the left hepatic lobe. No other masses appreciated. 3. Markedly distended gallbladder with wall thickening / edema. 4. Breaux catheter within the urinary bladder which is distended. Correlate for appropriate functionality. Problems(with codes): (1) Hepatic vein thrombosis (2) Gall bladder disease (3) Elevated liver enzymes (4) Acute metabolic encephalopathy (5) Shortness of breath (6) Acute respiratory failure (7) Multifocal pneumonia (8) Severe sepsis (9) COPD exacerbation (10) Leukocytosis Plan/Recommendation Plan Patient has been started on IV heparin Continue to monitor labs Continue IV antibiotics If persistent elevation in liver enzymes and leukocytosis consider cholec ystostomy tube placement Patient is high-risk for surgical procedure; surgical consult pending IR consult, I do not believe he needs any surgical or radiological intervention for his thrombosis at this time Plan discussed with: Patient, Other (Dr Cedillo) POLLY BAIRES MD Feb 22, 2025 21:35
[2025-02-22] MEDS: methylPREDNISolone SOD SUCC 40 MG/ML VL IV SCH (21:56)
[2025-02-22] MEDS: LACTULOSE 20Gm/30ML SOLN PO SCH (21:56)
[2025-02-23] VITALS (41 sets, daily range): BP systolic 104–129; BP diastolic 59–81; PULSE 56–155; RESP 11–27; TEMP 97.5–98.6; O2SAT 76–100
[2025-02-23 00:52] LABS: INR 1.19 (0.9-1.15); Partial Thromboplastin Time 50.6 SEC (24.5-34.5); Prothrombin Time 12.4 sec (9.3-11.8)
[2025-02-23 04:36] LABS: Basophils # (auto) 0 10 ^3/uL (0-0.2); Basophils % (auto) 0.1 % (0.0-2.0); Eosinophils # (auto) 0 10 ^3/uL (0-0.8); Hematocrit 37.4 % (41.0-53.0); Hemoglobin 12.9 g/dL (13.5-17.5); Lymphocytes # (auto) 0.5 10 ^3/uL (0.4-5.4); Mean Corpuscular Hemoglobin 33.1 pg (28.0-32.0); Mean Corpuscular Hgb Conc. 34.4 g/dL (32.0-36.0); Mean Corpuscular Volume 96.2 fL (80.0-100.0); Monocytes # (auto) 0.9 10 ^3/uL (0-1.3); Monocytes % (auto) 5.4 % (0.0-12.0); Neutrophils # (auto) 15.7 10 ^3/uL (1.6-8.6); Neutrophils % (auto) 91.5 % (37.0-80.0); Platelet Count (auto) 119 10^3/uL (140-450); Red Blood Cells 3.89 10^6/uL (4.5-5.90); Red Cell Distribution Width 15.2 % (11.8-14.3); White Blood Cell 17.2 10^3/uL (4.4-10.8)
[2025-02-23 04:47] LABS: Albumin 3.5 g/dL (3.2-4.8); Anion Gap 7 (5-15); BUN/Creatinine Ratio 38.2 (10.0-20.0); Calcium 9.2 mg/dL (8.7-10.4); Carbon Dioxide 29 mmol/L (20-31); Chloride 103 mmol/L (98-107); Magnesium 2.2 mg/dL (1.6-2.6); Potassium 3.7 mmol/L (3.5-5.1); Sodium 139 mmol/L (136-145); Total Protein 6.1 g/dL (5.7-8.2)
[2025-02-23 04:53] LABS: Alanine Aminotransferase 789 U/L (7-40); Alkaline Phosphatase 743 U/L (46-116); Aspartate Aminotransferase 616 U/L (13-40); Bilirubin, Total 5.3 mg/dL (0.2-1.0); Blood Urea Nitrogen 29 mg/dL (9-23); Glucose 159 mg/dL (74-106)
[2025-02-23] MEDS: ONDANSETRON HCL 4 MG/2 ML VIAL IV PRN (05:52)
[2025-02-23 07:32] LABS: INR 1.16 (0.9-1.15); Prothrombin Time 12.1 sec (9.3-11.8)
[2025-02-23] MEDS: HEPARIN DRIP/D5W 100UNITS/ML 250 ML IV SCH (09:14)
--- NOTE | 2025-02-23 09:21 | CONS ---
Pharmacy Clinical Information: INCREASE HEPARIN DRIP RATE TO 1000 UNITS/HR PER APTT OF 45 NEXT APTT DRAW SCHEDULED ON 02/23 @ 1500 PER RX PROTOCOL PER JAMSHID ALTAMIRANO, NEW RATE 1000 UNITS/HR STARTED AT 0900. JAMSHID ALTAMIRANO CONFIRMED AND READ BACK Kelly Harris PHARMACIST Feb 23, 2025 09:20
[2025-02-23] MEDS: rifAXIMin 550 MG TAB PO SCH (11:13)
--- NOTE | 2025-02-23 11:38 | DVH ---
CLINICAL HISTORY: r/o choledocholithiasis, cholangitis TECHNIQUE: Multiplanar multisequence images of the abdomen were obtained per MRCP protocol. COMPARISON: 02/22/2025 CT and ultrasound abdomen FINDINGS: Examination is markedly degraded by motion. Adrenal glands, spleen unremarkable. No hydronephrosis. Small right pleural effusion. T2 bright lesion in the left hepatic lobe measuring 12 mm. The gallbladder is severely distended. There is either a large calculus or extensive sludge within t he gallbladder. Extensive pericholecystic / gallbladder wall edema. Severe gallbladder distention. T he common bile duct measures approximately 8 mm in diameter. Pancreatic duct measures 3 mm in diamet er. IMPRESSION: Examination markedly degraded by motion. 1. Severe distention of the gallbladder which is extremely heterogeneous in appearance. There is eit her complete distention of gallbladder with sludge / debris and/or gallstones. Extensive pericholecy stic edema with gallbladder distention. These findings are highly concerning for cholecystitis. Marianna elate clinically to exclude gangrenous cholecystitis and other etiologies. Recommend surgical consult ation and HIDA scan for further management. 2. The common bile duct is dilated to approximately 8 mm 3. Right pleural effusion. 4. Other findings as described.
[2025-02-23 12:06] LABS: Hepatitis A Ab IgM Negative; Hepatitis B Core IgM Negative (Negative); Hepatitis B Surface Antigen Negative (Negative); Hepatitis C Antibody Negative (Negative)
--- NOTE | 2025-02-23 12:56 | DVHPNRES ---
Progress Note Date Seen: Feb 23, 2025 Resident Creating Document: LINDSEY JOY RESIDENT Medical Necessity Reason Pt with a Central, PICC or Fol: Yes The following are medically ne: Central Line, Alarcon Catheter (RN) Reason for alarcon catheter: Strict I&O Subjective Review of Systems Patient was seen and examined at bedside. He remains on nasal cannula at 2 L. He's following commands. States feeling better than on admission. Patient is currently on pureed diet. Objective vital signs Vital Sign Date Time Temp Pulse Resp B/P (MAP) Pulse Ox O2 Delivery O2 Flow Rate FiO2 02/23/25 11:34 14 100 Nasal Cannula* 2 28 02/23/25 11:34 66 02/23/25 06:45 02/23/25 04:00 98.0 98.0 Total Intake and Output 02/22/25 02/22/25 02/23/25 15:00 23:00 07:00 Intake Total 74 ml 714 ml 264 ml Output Total 1800 ml 650 ml Balance 74 ml -1086 ml -386 ml medications Current Medications Medications Dose Ordered Sig/Zenon Route Start Time Stop Time Status Last Admin Dose Admin Acetaminophen 650 mg Q6HP PRN PO 02/14/25 20:00 Nitroglycerin 0.4 mg Q5MINP PRN SL 02/14/25 20:00 Pantoprazole Sodium 40 mg DAILY IV 02/16/25 10:00 02/23/25 11:12 40 MG Sodium Chloride 10 ml QSHIFT@10,22 IV 02/18/25 22:00 02/23/25 11:12 10 ML Vancomycin HCl 100 ml @ 100 mls/hr Q12H IV 02/19/25 16:00 Cancel Ondansetron HCl 4 mg Q6HPRN PRN IV 02/21/25 16:00 02/23/25 11:12 4 MG Methylprednisolone Sodium Succinate 20 mg BID IV 02/22/25 22:00 02/23/25 11:12 20 MG Lactulose 30 ml Q6HR PO 02/23/25 12:00 Rifaximin 550 mg BID PO 02/23/25 10:00 02/23/25 11:13 550 MG Meropenem 50 ml @ 17 mls/hr Q8H IV 02/23/25 21:00 Enoxaparin Sodium 40 mg DAILY SC 02/24/25 10:00 UNV Examination Physical examination as below: General: Awake, alert, in no acute distress HEENT: Head is normocephalic and atraumatic. Pupils are equal, round, and reactive to light. Neck: Supple with no cervical lymphadenopathy. Heart: Normal rate without murmur, rub, or gallop. Lungs: Scattered crackles and wheezing Abdomen: No external sign of injury. Bowel sounds are present. Abdomen is soft, nontender. Extremities: Strong peripheral pulses. There is no clubbing, no cyanosis, and no edema. Skin: No rash. Neurologic: Following commands laboratory and microbiology Laboratory Tests 02/23/25 03:40 Test 02/23/25 03:40 Range/Units Serum Glucose 159 H 74-106 mg/dL Microbiology Date/Time Source Procedure Growth Status 02/15/25 06:17 Urine - [place] Urine Culture - Final Complete 02/14/25 22:43 Nose MRSA Screen - Final Complete 02/14/25 18:22 Blood Blood Culture - Final NO GROWTH AFTER 5 DAYS OF INCUBATION. Complete 02/14/25 16:27 Sputum Gram Stain - Final Complete 02/14/25 16:27 Respiratory Culture - Final Klebsiella pneumoniae Complete Labs and/or images reviewed: Labs reviewed by me, Image(s) reviewed by me Problem List/Assessment/Plan Problem List/Assessment/Plan Neurology #Toxic/Metabolic encephalopathy, likely due to sepsis, drug use, respiratory failure, improved Ordered head ct, unremarkable off sedation Cardiovascular #Acute on chronic systolic CHF, improving We will start GDMT Aldactone 25 mg p.o. q.d. EF 15-20% #Non-Ischemic cardiomyopathy #Drug-induced cardiomyopathy #Methamphetamine abuse #NSTEMI likely type 2 #CAD, mild LHC performed on 02/19/25, mild CAD Aspirin Pulmonology #Acute hypoxic respiratory failure likely due to pneumonia, COPD exacerbation, drug use, s/p mechanical ventilator, extubated 02/21/25 On nasal cannula 2lts CPAP trial successful 02/21/25. Extubated, in nasal cannula #Multifocal pneumonia, gram (+) vs gram (-), atypicals Sputum culture growing K. pneumoniae Merrem IV #COPD exacerbation, improving solumedrol 20mg iv bid Continue duonebs #Respiratory alkalosis, improved Nephrology #MOLLY due to VMN, likely hemodynamically mediated, improved Monitor for in and outs Avoid nephrotoxic agents Endocrinology #Hyperglycemia due to glucocorticoids Monitor Gastroenterology #Transaminitis, possibly due to left hepatic vein thrombosis #Hepatic mass, hemangioma #Left hepatic vein thrombosis ruled out #Acalculous cholecystitis DC heparin drip ordered lower extremity dvt gi consult recommended IR cholecystostomy Surgery recommended IR cholecystostomy #Acute cholecystitis? Consult surgery #Hyperammonemia lactulose 30ml qid diet: puree Hematology and Oncology #Anemia normocytic, normochromic Chronic, nonocclusive right common femoral thrombus Monitor Infectious Disease #HIV, since 4 years ago CD4 count 247 Continue biktarvy # Septic shock due to Multifocal pneumonia, gram (+) vs gram (-), atypicals, improved As above off levophed Dermatology x DVT ppx Heparin PUD ppx Protonix Drips Levo off Fent off Precedex off Lines ET tube 02/14/25, extubated 02/21/25 PICC line placed on 02/18/25 Alarcon 02/14/25 Updated family members on patient's current status. Goals of care were discussed for over 30 minutes. FULL CODE. Critical care time excluding procedures was 73 mins. Case was discussed with Dr. Lemus Plan discussed with: Spouse, Son, Other (RN) My Orders My Orders Orders - LINDSEY JOY RESIDENT Procedure Category Date Status Time Heparin Protocol GEMA 02/22/25 In Process 13:25 * Surgical Consult CONS 02/22/25 Transmitted Heparin Per Pharmacy GEMA 02/22/25 In Process Protocol 19:34 Heparin Protocol GEMA 02/23/25 In Process 01:10 Lactulose Oral PHA 02/23/25 In Process 12:00 Rifaximin (Xifaxan) PHA 02/23/25 In Process 10:00 Mrcp Mri MRI 02/23/25 Resulted 07:43 PTPTT LAB 02/23/25 Logged 15:00 Heparin Per Pharmacy GEMA 02/23/25 In Process Protocol 09:17 Meropenem 1gm Ivpb PHA 02/23/25 In Process (Merrem 1gm/ Ns) 12:00 Meropenem 1gm Ivpb PHA 02/23/25 In Process (Merrem 1gm/ Ns) 21:00 Npo Except For GEMA 02/23/25 In Process Medications 11:56 Transfer Orders XFER 02/23/25 Transmitted 12:10 Enoxaparin Sodium PHA 02/24/25 Logged (Lovenox) 10:00 Dietary Evaluation Review Comments: 1) If patient remains NPO > 7 days, consider EN/TPN to meet at least 75% estimated daily needs 2) If GI is preferred, consider Jevity 1.2 @ goal rate of 45 mL/hr as tolerated. Flush with 200 mL free H2O Q6H. TF regimen (including flushes) will provide 1296 kcals, 60g Pro, and 1672 mL free H2O per 24 hrs. TF rate will meet 95% estimated daily energy needs and ~87% estimated daily protein needs 3) Advance to cardiac diet when medically feasible, pending VOLTMETER OPERATOR approval 4) Follow-up with cardiology and pulmonology 5) Continue to monitor I&O, labs, and skin integrity Expected Outcomes/Goals: 1) patient to receive nutritional support within 7 days 2) appetite and labs to improve 3) diet to advance 4) f/u in 2-3 days LINDSEY JOY RESIDENT Feb 23, 2025 12:56
[2025-02-23] MEDS: LACTULOSE 20Gm/30ML SOLN PO SCH (14:17)
[2025-02-23] MEDS: MEROPENEM 1GM IVPB 50 ML IV ONE (14:22)
--- NOTE | 2025-02-23 17:46 | DVHPN2 ---
Consult Progress Note Subjective Other Systems: Patient was downgraded to telemetry unit. Patient in normal sinus rhythm on cardiac cath lab manager at time of assessment Objective vital signs Vital Sign Date Time Temp Pulse Resp B/P (MAP) Pulse Ox O2 Delivery O2 Flow Rate FiO2 02/23/25 13:00 98.2 66 118/69 (85) 100 98.2 02/23/25 12:00 11 02/23/25 11:34 Nasal Cannula* 2 28 Total Intake and Output 02/22/25 02/22/25 02/23/25 14:59 22:59 06:59 Intake Total 66 ml 714 ml 264 ml Output Total 1800 ml 650 ml Balance 66 ml -1086 ml -386 ml medications Current Medications Medications Dose Ordered Sig/Zenon Route Start Time Stop Time Status Last Admin Dose Admin Acetaminophen 650 mg Q6HP PRN PO 02/14/25 20:00 Nitroglycerin 0.4 mg Q5MINP PRN SL 02/14/25 20:00 Pantoprazole Sodium 40 mg DAILY IV 02/16/25 10:00 02/23/25 11:12 40 MG Sodium Chloride 10 ml QSHIFT@10,22 IV 02/18/25 22:00 02/23/25 11:12 10 ML Vancomycin HCl 100 ml @ 100 mls/hr Q12H IV 02/19/25 16:00 Cancel Ondansetron HCl 4 mg Q6HPRN PRN IV 02/21/25 16:00 02/23/25 11:12 4 MG Methylprednisolone Sodium Succinate 20 mg BID IV 02/22/25 22:00 02/23/25 11:12 20 MG Lactulose 30 ml Q6HR PO 02/23/25 12:00 02/23/25 14:17 30 ML Rifaximin 550 mg BID PO 02/23/25 10:00 02/23/25 11:13 550 MG Meropenem 50 ml @ 17 mls/hr Q8H IV 02/23/25 21:00 Enoxaparin Sodium 40 mg DAILY SC 02/24/25 10:00 Spironolactone 25 mg DAILY PO 02/24/25 10:00 Examination: GENERAL:Abnormal (Generalized weakness), LUNGS:Normal, CVS:Normal laboratory and microbiology Laboratory Tests 02/23/25 03:40 Test 02/23/25 03:40 Range/Units Serum Glucose 159 H 74-106 mg/dL Problem List/Assessment/Plan Problem List/Assessment/Plan Shock likely mixed, septic and cardiogenic Non ST-Elevation myocardial infarction Non-ischemic/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 Hunt) Transthoracic echocardiogram revealed severely global hypokinesis and decreased LVEF function of 15-20%. The patient underwent a left heart catheterization revealing mild coronary artery disease. HFrEF likely secondary to long-standing polysubstance abuse. We will recommend to initiate guideline directed medical therapy for CHF (beta kelsie, ARNI, MRA, SGLT2i) with stable BP. The patient was found to have left hepatic vein thrombosis, now on Lovenox subcutaneous injections per primary care team. There is no further inpatient cardiac workup indicated at this time. Establish GDMT with stable blood pressure and as tolerated. The patient should follow up with Cardiology in the outpatient setting post discharge. Thank you for allowing us to care for this patient. Please call with any questions or concerns. Critical care, time spent: 35 min. This medical document was created using an electronic medical record system with voice recognition software and computerized dictation system. Although this document has been carefully reviewed, there might still be some phonetic and typographical errors. Occasional wrong-word or ``sound-alike substitutions may have occurred due to the inherent limitations of voice recognition software. These areas are purely typographical due to imperfections of the software programs and do not reflect any compromise in the patient's medical care. Please read the chart carefully and recognize, using context, where these substitutions have occurred. Plan discussed with: Other Dietary Evaluation Review Comments: 1) If patient remains NPO > 7 days, consider EN/TPN to meet at least 75% estimated daily needs 2) If GI is preferred, consider Jevity 1.2 @ goal rate of 45 mL/hr as tolerated. Flush with 200 mL free H2O Q6H. TF regimen (including flushes) will provide 1296 kcals, 60g Pro, and 1672 mL free H2O per 24 hrs. TF rate will meet 95% estimated daily energy needs and ~87% estimated daily protein needs 3) Advance to cardiac diet when medically feasible, pending EAP COUNSELOR approval 4) Follow-up with cardiology and pulmonology 5) Continue to monitor I&O, labs, and skin integrity Expected Outcomes/Goals: 1) patient to receive nutritional support within 7 days 2) appetite and labs to improve 3) diet to advance 4) f/u in 2-3 days Date of Service: Feb 23, 2025 Billing Provider: KERI PEARCE Common Visit Codes: [id number] INP/OBS CARE(HIGH) KERI PEARCE Feb 23, 2025 17:46
--- NOTE | 2025-02-23 19:46 | DVHINCON2 ---
Date of service: Feb 23, 2025 Family History: Lung cancer SIBLINGS SIBLINGS Allergies: Uncoded Allergies: TREE NUTS (Allergy, Unknown, 02/24/24) Home Meds Reported Medications Tiotropium [place] Monohydrate (Spiriva Respimat) 2.5 Mcg/Act Spr, 2 SPRAY PO DAILY for 90 Days, #12 02/15/25 Fluticasone Furoate-Vilanterol (Fluticasone Furoate/Vilan 100-25 Mcg/Act) 1 Inh Inh, 1 PUFF INH DAILY PRN for BRONCHOSPASM for 90 Days, #180 02/15/25 Ipratropium-Albuterol (Ipratropium [place]/Albut) 1 Arlette Arlette, 3 ML NEB Q6HR PRN for WHEEZING/SHORTNESS OF BREATH for 30 Days, #360 02/15/25 Idfkplvwegh-Mbgiiilvbjvfw-Pyiq (Biktarvy 50-200-25 mg) 1 Tab Tab, 1 TAB PO DAILY for 90 Days, #90 02/15/25 Albuterol Sulfate (Albuterol Sulfate Hfa) 108 Mcg/Act Aer, 1-2 PUFF PO QID PRN for 25 Days, #18 02/15/25 Current Medications Current Medications Medications (Trade) Dose Ordered Sig/Zenon Route PRN Reason Start Time Stop Time Status Last Admin Methylprednisolone Sodium Succinate (Solu Medrol) 20 mg BID IV 02/22/25 22:00 02/23/25 11:12 Lactulose 30 ml TID PO 02/22/25 22:00 02/23/25 06:15 DC 02/23/25 05:33 Lactulose 30 ml Q6HR PO 02/23/25 12:00 02/23/25 14:17 Rifaximin (Xifaxan) 550 mg BID PO 02/23/25 10:00 02/23/25 11:13 Heparin Sodium/ Dextrose 250 ml @ 10 mls/hr Q24H IV 02/23/25 09:15 02/23/25 11:15 DC 02/23/25 09:14 Meropenem 50 ml @ 17 mls/hr Q8H IV 02/23/25 21:00 Enoxaparin Sodium (Lovenox) 40 mg DAILY SC 02/24/25 10:00 Spironolactone (Aldactone) 25 mg DAILY PO 02/24/25 10:00 Vital Signs Vital Signs Date Time Temp Pulse Resp B/P (MAP) Pulse Ox O2 Delivery O2 Flow Rate FiO2 02/23/25 13:00 98.2 66 118/69 (85) 100 98.2 02/23/25 12:00 11 02/23/25 11:34 Nasal Cannula* 2 28 Labs/Diagnostic Data Labs Test 02/23/25 08:28 02/23/25 06:50 02/23/25 03:40 02/22/25 14:01 Range/Units Lipase 36 12-53 U/L Prothrombin Time 12.1 H 9.3-11.8 sec Prothrombin Time INR 1.16 H 0.9-1.15 Activated Partial Thromboplast Time 45.0 H 24.5-34.5 SEC White Blood Count 17.2 #H 4.4-10.8 10^3/uL Red Blood Count 3.89 L 4.5-5.90 10^6/uL Hemoglobin 12.9 L 13.5-17.5 g/dL Hematocrit 37.4 #L 41.0-53.0 % Mean Corpuscular Volume 96.2 80.0-100.0 fL Mean Corpuscular Hemoglobin 33.1 H 28.0-32.0 pg Mean Corpuscular Hemoglobin Concent 34.4 32.0-36.0 g/dL Red Cell Distribution Width 15.2 H 11.8-14.3 % Platelet Count 119 L 140-450 10^3/uL Mean Platelet Volume 9.9 6.9-10.8 fL Neutrophils (%) (Auto) 91.5 H 37.0-80.0 % Lymphocytes (%) (Auto) 3.0 L 10.0-50.0 % Monocytes (%) (Auto) 5.4 0.0-12.0 % Eosinophils (%) (Auto) 0.0 0.0-7.0 % Basophils (%) (Auto) 0.1 0.0-2.0 % Neutrophils # (Auto) 15.7 H 1.6-8.6 10 ^3/uL Lymphocytes # (Auto) 0.5 0.4-5.4 10 ^3/uL Monocytes # (Auto) 0.9 0-1.3 10 ^3/uL Eosinophils # (Auto) 0 0-0.8 10 ^3/uL Basophils # (Auto) 0 0-0.2 10 ^3/uL Nucleated Red Blood Cells 0.0 % Sodium Level 139 136-145 mmol/L Potassium Level 3.7 3.5-5.1 mmol/L Chloride Level 103 98-107 mmol/L Carbon Dioxide Level 29 20-31 mmol/L Anion Gap 7 5-15 Blood Urea Nitrogen 29 #H 9-23 mg/dL Creatinine 0.76 0.700-1.30 mg/dL Glomerular Filtration Rate Calc 102 >90 mL/min BUN/Creatinine Ratio 38.2 H 10.0-20.0 Serum Glucose 159 H 74-106 mg/dL Calcium Level 9.2 8.7-10.4 mg/dL Magnesium Level 2.2 1.6-2.6 mg/dL Total Bilirubin 5.3 H 0.2-1.0 mg/dL Aspartate Amino Transferase (AST) 616 H 13-40 U/L Alanine Aminotransferase (ALT) 789 H 7-40 U/L Alkaline Phosphatase 743 H 46-116 U/L Ammonia 115 *H 11-32 umol/L B-Type Natriuretic Peptide 417.95 0-100 pg/mL Total Protein 6.1 5.7-8.2 g/dL Albumin 3.5 3.2-4.8 g/dL Blood Gas Specimen Type Arterial Blood Gas Sample Site Left radial Blood Gas Patient Temperature 37.0 Arterial Blood Date Drawn [id number] Arterial Blood pH 7.405 7.350-7.450 Arterial Blood Partial Pressure CO2 40.3 35.0-48.0 mmHg Arterial Blood Partial Pressure O2 182.8 H 83.0-108.0 mmHg Arterial Blood HCO3 24.7 21.0-28.0 mmol/L Arterial Blood Oxygen Saturation 99.1 H 94.0-98.0 % Arterial Blood Base Excess 0.0 -2.0-3.0 mmol/L Arterial Blood Oxyhemoglobin 98.5 H 94.0-98.0 % Arterial Blood Carboxyhemoglobin 0.4 L 0.5-1.5 % Arterial Blood Methemoglobin 0.2 0.0-1.5 % Davin Test Yes Blood Gas Total Hemoglobin 15.50 13.5-17.5 g/dL Blood Gas Liter Flow 4.00 Blood Gas Modality Nasal cannula FiO2 % 36.0 Test 02/22/25 08:50 02/22/25 03:25 02/21/25 14:38 02/21/25 06:19 Range/Units Hepatitis A IgM Antibody Negative Hepatitis B Surface Antigen Negative Negative Hepatitis B Core IgM Antibody Negative Negative Hepatitis C Antibody Negative Negative Direct Bilirubin 2.4 H <0.3 mg/dL Lactate Dehydrogenase 958 H 120-246 U/L Blood Gas Pressure Support 8 Blood Gas PEEP or CPAP 5.0 Blood Gas Set Respiration Rate 18.0 Blood Gas Spontaneous Rate 18 Blood Gas Tidal Volume 450.0 Blood Gas Inspiratory Pressure 18.0 Bl Gas Inspiratory/Expiratory Ratio 1:3.0 Specimen Drawn By Solace Therapeuticse rt Test 02/19/25 03:00 02/18/25 10:00 02/17/25 13:03 02/15/25 15:00 Range/Units Phosphorus Level 2.7 2.4-5.1 mg/dL Random Vancomycin Level 13.5 H 5-10 ug/mL Vancomycin Level Trough 22.7 H 5-10 ug/mL Absolute Neutrophils (auto) 17.1 H 1.4-7.0 x10E3/uL Absolute Lymphocytes (auto) 0.8 0.7-3.1 x10E3/uL Absolute Monocytes (auto) 0.9 0.1-0.9 x10E3/uL Absolute Eosinophils (auto) 0.0 0.0-0.4 x10E3/uL Absolute Basophils (auto) 0.0 0.0-0.2 x10E3/uL Immature Granulocytes % 1 Not Estab. % Immature Granulocytes # 0.1 0.0-0.1 x10E3/uL Immature Blood Cells . Hematology Comments . Percent CD4 Cells 30.9 30.8-58.5 % Absolute CD4 Count 247 L 359-1519 /uL T-Lymphocyte CD4/CD8 Ratio 0.83 L 0.92-3.72 Percent CD8 Cells 37.2 H 12.0-35.5 % Absolute CD8 Count 298 109-897 /uL HIV-1 RNA (PCR) <20 . copies/mL HIV-1 RNA (PCR) log10 Value . POC Glucose 125 H 70-106 mg/dl Test 02/15/25 14:37 02/15/25 10:15 02/15/25 03:24 02/14/25 20:06 Range/Units Troponin I High Sensitivity 9753 *H </=54 ng/L Influenza Type A Antigen Negative Negative Influenza Type B Antigen Negative Negative SARS-CoV-2 Antigen (Rapid) Negative NEGATIVE Hemoglobin A1c 5.3 <5.7 % A1C Triglycerides Level 81 < 150 mg/dL Cholesterol Level 138 < 200 mg/dL LDL Cholesterol 81 < 100 mg/dL HDL Cholesterol 44 40-59 mg/dL Thyroid Stimulating Hormone (TSH) 0.63 0.55-4.78 uIU/mL Lactic Acid Level 2.0 0.4-2.0 mmol/L Test 02/14/25 19:14 Range/Units Urine Color Yellow Yellow Urine Clarity Turbid H Clear Urine pH 6.0 5.0-9.0 Urine Specific [place] 1.027 1.001-1.035 Urine Protein 2+ H Negative Urine Ketones 1+ H Negative Urine Blood 2+ H Negative /uL Urine Nitrite Negative Negative Urine Bilirubin Negative Negative Urine Urobilinogen Normal Negative mg/dL Urine Leukocyte Esterase Trace Negative /uL Urine RBC 60 0 - 3 /hpf Urine Microscopic WBC 8 H 0-3 /HPF Urine Squamous Epithelial Cells Mod <5 /hpf Urine Bacteria Many H None Seen /hpf Urine Hyaline Casts Few 0 - 2 /lpf Urine Mucus Few None Seen Urine Sperm Present None Seen /hpf Urine Glucose Trace Normal mg/dL Urine Opiates Screen Neg NEGATIVE Urine Fentanyl Screen Neg NEGATIVE Urine Barbiturates Screen Neg NEGATIVE Urine Phencyclidine Screen Neg NEGATIVE Urine Amphetamines Screen Pos NEGATIVE Urine Benzodiazepines Screen Neg NEGATIVE Urine Cocaine Screen Neg NEGATIVE Urine Cannabinoids Screen Pos NEGATIVE Microbiology Date/Time Source Procedure Growth Status 02/15/25 06:17 Urine - [place] Urine Culture - Final Complete 02/14/25 22:43 Nose MRSA Screen - Final Complete 02/14/25 18:22 Blood Blood Culture - Final NO GROWTH AFTER 5 DAYS OF INCUBATION. Complete 02/14/25 16:27 Sputum Gram Stain - Final Complete 02/14/25 16:27 Respiratory Culture - Final Klebsiella pneumoniae Complete Assessment [id number] AFEBRILE VSS RESPIRATORY ISSUES REMAINS EXTUBATED LFT ELEVATION R/O AC CHOLECYSTITIS MRCP CBD STONE NOT R/O HIGH RISK FOR SURGERY CONSIDER EMERGENT IR CHOLECYSTOSTOMY INDICATED Plan discussed with: Other NADEGE BAIRES MD Feb 23, 2025 19:46
--- NOTE | 2025-02-23 20:23 | DVHINCON2 ---
DATE OF CONSULTATION: 02/23/2025 HISTORY OF PRESENT ILLNESS: A 59 years old coming in with polysubstance abuse, methamphetamines admitted with a shock, sepsis and also has cardiogenic issues with possible myocardial infarction and suspected nonischemic likely drug-induced cardiomyopathy, ejection fraction was 15-20%, also was in acute hypoxic respiratory failure, requiring intubation and finally was extubated and then started to have elevation in his liver enzymes, left hepatic vein thrombosis was suspected and also gallstones were picked up on the CAT scan and MRCP did not rule out a CBD stone. PAST MEDICAL HISTORY: Please refer to records. PAST SURGICAL HISTORY: As mentioned above. PHYSICAL EXAMINATION: VITAL SIGNS: Afebrile, stable signs. HEENT: With no evidence of pallor, cyanosis, but he has jaundice. NECK: Supple, nontender with no thyromegaly, lymphadenopathy. CHEST AND LUNGS: Clear. HEART: Within normal limits. ABDOMEN: Soft, tender in right upper quadrant. No rebound. EXTREMITIES: Unremarkable. NEUROLOGIC: Not assessed. CLINICAL IMPRESSION: Rule out acute cholecystitis. He has elevated liver enzymes, rule out CBD stone and he is also at very high risk for surgery. PLAN: Will be to consider cholecystostomy as per IR evaluation and hence should there be an emergent need for gallbladder surgery, then he can be considered for transfer to higher level of care. MD NIMO Byers/DEVEN TID: [id number] RECEIPT: [id number]
--- NOTE | 2025-02-23 20:56 | DVHPN2 ---
Progress Note - Dictate Date Seen: Feb 23, 2025 Medical Necessity Reason Pt with a Central, PICC or Fol: Yes The following are medically ne: Central Line, Alarcon Catheter (RN) Reason for alarcon catheter: Strict I&O Subjective No new complaints Downgraded to floor vital signs Vital Sign Date Time Temp Pulse Resp B/P (MAP) Pulse Ox O2 Delivery O2 Flow Rate FiO2 02/23/25 13:00 98.2 66 118/69 (85) 100 98.2 02/23/25 12:00 11 02/23/25 11:34 Nasal Cannula* 2 28 Total Intake and Output 02/22/25 02/22/25 02/23/25 15:00 23:00 07:00 Intake Total 74 ml 714 ml 264 ml Output Total 1800 ml 650 ml Balance 74 ml -1086 ml -386 ml medications Current Medications Medications Dose Ordered Sig/Zenon Route Start Time Stop Time Status Last Admin Dose Admin Acetaminophen 650 mg Q6HP PRN PO 02/14/25 20:00 Nitroglycerin 0.4 mg Q5MINP PRN SL 02/14/25 20:00 Pantoprazole Sodium 40 mg DAILY IV 02/16/25 10:00 02/23/25 11:12 40 MG Sodium Chloride 10 ml QSHIFT@10,22 IV 02/18/25 22:00 02/23/25 11:12 10 ML Vancomycin HCl 100 ml @ 100 mls/hr Q12H IV 02/19/25 16:00 Cancel Ondansetron HCl 4 mg Q6HPRN PRN IV 02/21/25 16:00 02/23/25 11:12 4 MG Methylprednisolone Sodium Succinate 20 mg BID IV 02/22/25 22:00 02/23/25 11:12 20 MG Lactulose 30 ml Q6HR PO 02/23/25 12:00 02/23/25 14:17 30 ML Rifaximin 550 mg BID PO 02/23/25 10:00 02/23/25 11:13 550 MG Meropenem 50 ml @ 17 mls/hr Q8H IV 02/23/25 21:00 Enoxaparin Sodium 40 mg DAILY SC 02/24/25 10:00 Spironolactone 25 mg DAILY PO 02/24/25 10:00 objective General: Awake, alert, in no acute distress HEENT: Head is normocephalic and atraumatic. Pupils are equal, round, and reactive to light. Neck: Supple with no cervical lymphadenopathy. Heart: Normal rate without murmur, rub, or gallop. Lungs: Scattered crackles and wheezing Abdomen: No external sign of injury. Bowel sounds are present. Abdomen is soft, nontender. Extremities: Strong peripheral pulses. There is no clubbing, no cyanosis, and no edema. Skin: No rash. Neurologic: Following commands laboratory and microbiology Laboratory Tests 02/23/25 03:40 Test 02/23/25 03:40 Range/Units Serum Glucose 159 H 74-106 mg/dL MRCP IMPRESSION: Examination markedly degraded by motion. 1. Severe distention of the gallbladder which is extremely heterogeneous in appearance. There is either complete distention of gallbladder with sludge / debris and/or gallstones. Extensive pericholecystic edema with gallbladder distention. These findings are highly concerning for cholecystitis. Correlate clinically to exclude gangrenous cholecystitis and other etiologies. Recommend surgical consultation and HIDA scan for further management. 2. The common bile duct is dilated to approximately 8 mm 3. Right pleural effusion. 4. Other findings as described. Problems(with codes): (1) Leukocytosis (2) Multifocal pneumonia (3) Severe sepsis (4) Gall bladder disease (5) Elevated liver enzymes Prognosis Plan Distended gallbladder with cholelithiasis and suspected cholecystitis Worsening liver enzymes IR consult for cholecystostomy is recommended Patient is high-risk for surgery Continue broad-spectrum antibiotics Leukocytosis improved slightly today Overall prognosis remains guarded Dietary Evaluation Review Comments: 1) If patient remains NPO > 7 days, consider EN/TPN to meet at least 75% estimated daily needs 2) If GI is preferred, consider Jevity 1.2 @ goal rate of 45 mL/hr as tolerated. Flush with 200 mL free H2O Q6H. TF regimen (including flushes) will provide 1296 kcals, 60g Pro, and 1672 mL free H2O per 24 hrs. TF rate will meet 95% estimated daily energy needs and ~87% estimated daily protein needs 3) Advance to cardiac diet when medically feasible, pending [employer] approval 4) Follow-up with cardiology and pulmonology 5) Continue to monitor I&O, labs, and skin integrity Expected Outcomes/Goals: 1) patient to receive nutritional support within 7 days 2) appetite and labs to improve 3) diet to advance 4) f/u in 2-3 days Plan discussed with: Patient POLLY BAIRES MD Feb 23, 2025 20:56
[2025-02-23] MEDS: MEROPENEM 1GM IVPB 50 ML IV SCH (21:08)
[2025-02-24] VITALS (7 sets, daily range): BP systolic 106–144; BP diastolic 48–71; PULSE 48–83; RESP 16–18; TEMP 97.5–98.1; O2SAT 97–100
[2025-02-24] MEDS: SPIRONOLACTONE 25 MG TAB PO SCH (09:11)
[2025-02-24] MEDS: ENOXAPARIN SOD 40 MG/0.4 ML SYRINGE SC SCH (09:12)
[2025-02-24 09:16] LABS: Albumin 3.7 g/dL (3.2-4.8); Anion Gap 12 (5-15); BUN/Creatinine Ratio 31.4 (10.0-20.0); Calcium 8.9 mg/dL (8.7-10.4); Carbon Dioxide 22 mmol/L (20-31); Chloride 102 mmol/L (98-107); Total Protein 6.5 g/dL (5.7-8.2)
[2025-02-24 09:17] LABS: Alanine Aminotransferase 640 U/L (7-40); Alkaline Phosphatase 901 U/L (46-116); Aspartate Aminotransferase 329 U/L (13-40); Blood Urea Nitrogen 22 mg/dL (9-23); Glucose 116 mg/dL (74-106); Potassium 4.8 mmol/L (3.5-5.1); Sodium 136 mmol/L (136-145)
--- NOTE | 2025-02-24 11:03 | DVHPN2 ---
Reviewed: Care Plan, H&P, Labs, Medications, Previous Orders, Radiology Changes from previous H/P or p: No Changes Objective Vitals Vital Signs Date Time Temp Pulse Resp B/P (MAP) Pulse Ox O2 Delivery O2 Flow Rate FiO2 02/24/25 09:00 97.5 75 16 125/71 (89) 97 97.5 02/23/25 20:00 Nasal Cannula* 3 32 Intake/Output Intake and Output 02/24/25 06:59 Intake Total 821 ml Output Total 650 ml Balance 171 ml Intake Oral 735 ml IV Total 86 ml Output Urine Total 650 ml # Bowel Movements 1 Medications Current Medications Medications Dose Ordered Sig/Zenon Route Start Time Stop Time Status Last Admin Dose Admin Acetaminophen 650 mg Q6HP PRN PO 02/14/25 20:00 Nitroglycerin 0.4 mg Q5MINP PRN SL 02/14/25 20:00 Pantoprazole Sodium 40 mg DAILY IV 02/16/25 10:00 02/24/25 09:10 40 MG Sodium Chloride 10 ml QSHIFT@10,22 IV 02/18/25 22:00 02/24/25 09:10 10 ML Vancomycin HCl 100 ml @ 100 mls/hr Q12H IV 02/19/25 16:00 Cancel Ondansetron HCl 4 mg Q6HPRN PRN IV 02/21/25 16:00 02/23/25 11:12 4 MG Methylprednisolone Sodium Succinate 20 mg BID IV 02/22/25 22:00 02/23/25 21:09 20 MG Lactulose 30 ml Q6HR PO 02/23/25 12:00 02/24/25 05:35 30 ML Rifaximin 550 mg BID PO 02/23/25 10:00 02/24/25 09:11 550 MG Meropenem 50 ml @ 17 mls/hr Q8H IV 02/23/25 21:00 02/24/25 05:35 17 MLS/HR Enoxaparin Sodium 40 mg DAILY SC 02/24/25 10:00 02/24/25 09:12 40 MG Spironolactone 25 mg DAILY PO 02/24/25 10:00 02/24/25 09:11 25 MG Laboratory Results Laboratory Tests 02/24/25 06:59 Chemistry Test 02/24/25 06:59 Albumin 3.7 g/dL (3.2-4.8) Calcium Level 8.9 mg/dL (8.7-10.4) Magnesium Level 2.0 mg/dL (1.6-2.6) Total Protein 6.5 g/dL (5.7-8.2) LFT Test 02/24/25 06:59 Alanine Aminotransferase (ALT) 640 U/L (7-40) H Alkaline Phosphatase 901 U/L (46-116) H Aspartate Amino Transferase (AST) 329 U/L (13-40) H Total Bilirubin 3.0 mg/dL (0.2-1.0) H Urinalysis Test 02/14/25 19:14 Urine Color Yellow (Yellow) Urine Clarity Turbid (Clear) H Urine pH 6.0 (5.0-9.0) Urine Specific [place] 1.027 (1.001-1.035) Urine Protein 2+ (Negative) H Urine Ketones 1+ (Negative) H Urine Blood 2+ /uL (Negative) H Urine Nitrite Negative (Negative) Urine Bilirubin Negative (Negative) Urine Urobilinogen Normal mg/dL (Negative) Urine Leukocyte Esterase Trace /uL (Negative) Urine RBC 60 /hpf (0 - 3) Urine Microscopic WBC 8 /HPF (0-3) H Urine Squamous Epithelial Cells Mod /hpf (<5) Urine Bacteria Many /hpf (None Seen) H Urine Hyaline Casts Few /lpf (0 - 2) Urine Mucus Few (None Seen) Urine Sperm Present /hpf (None Seen) Urine Glucose Trace mg/dL (Normal) Microbiology Microbiology Date/Time Source Procedure Growth Status 02/15/25 06:17 Urine - [place] Urine Culture - Final Complete 02/14/25 22:43 Nose MRSA Screen - Final Complete 02/14/25 18:22 Blood Blood Culture - Final NO GROWTH AFTER 5 DAYS OF INCUBATION. Complete 02/14/25 16:27 Sputum Gram Stain - Final Complete 02/14/25 16:27 Respiratory Culture - Final Klebsiella pneumoniae Complete Labs and/or images reviewed: Labs reviewed by me, Image(s) reviewed by me Assessment/Plan Assessment/Plan Covering For resident physician Septic Shock due to multifocal pneumonia Acute metabolic encephalopathy Acute on chronic systolic CHF Nonischemic cardiomyopathy Drug-induced cardiomyopathy History of chronic current meth abuse Non ST-elevation type 2 MT Coronary artery disease Acute hypoxic respiratory failure Multifocal pneumonia COPD exacerbation MOLLY Acute cholecystitis by MRCP: Surgeon Dr.R Barker following HIV for the last four years Time Spent 70 minutes Patient is full code Advanced care planning time 20 minutes Prognosis very poor Plan discussed with: Patient Date of Service: Feb 24, 2025 Billing Provider: NATAN CRUZ MD Common Visit Codes: [id number] CARE 30-74 MIN NATAN CRUZ MD Feb 24, 2025 11:02
[2025-02-24 11:04] LABS: Basophils # (auto) 0 10 ^3/uL (0-0.2); Eosinophils # (auto) 0 10 ^3/uL (0-0.8); Eosinophils % (auto) 0.2 % (0.0-7.0); Hematocrit 40.3 % (41.0-53.0); Hemoglobin 13.2 g/dL (13.5-17.5); Lymphocytes # (auto) 1.3 10 ^3/uL (0.4-5.4); Lymphocytes % (auto) 9.8 % (10.0-50.0); Mean Corpuscular Hemoglobin 32.1 pg (28.0-32.0); Mean Corpuscular Hgb Conc. 32.8 g/dL (32.0-36.0); Mean Corpuscular Volume 98.1 fL (80.0-100.0); Monocytes # (auto) 1.4 10 ^3/uL (0-1.3); Monocytes % (auto) 10.6 % (0.0-12.0); Neutrophils # (auto) 10.6 10 ^3/uL (1.6-8.6); Neutrophils % (auto) 79.4 % (37.0-80.0); Nucleated Red Blood Cells % 0.1 %; Platelet Count (auto) 94 10^3/uL (140-450); Red Blood Cells 4.11 10^6/uL (4.5-5.90); Red Cell Distribution Width 15.1 % (11.8-14.3); White Blood Cell 13.4 10^3/uL (4.4-10.8)
--- NOTE | 2025-02-24 11:54 | DVHPN2 ---
Progress Note Date Seen: Feb 24, 2025 Medical Necessity Reason Pt with a Central, PICC or Fol: Yes The following are medically ne: Central Line, Alarcon Catheter (RN) Reason for alarcon catheter: Strict I&O Objective vital signs Vital Sign Date Time Temp Pulse Resp B/P (MAP) Pulse Ox O2 Delivery O2 Flow Rate FiO2 02/24/25 09:00 97.5 75 16 125/71 (89) 97 97.5 02/23/25 20:00 Nasal Cannula* 3 32 Total Intake and Output 02/23/25 02/23/25 02/24/25 15:00 23:00 07:00 Intake Total 28 ml 240 ml 545 ml Output Total 650 ml Balance 28 ml 240 ml -105 ml medications Current Medications Medications Dose Ordered Sig/Zenon Route Start Time Stop Time Status Last Admin Dose Admin Acetaminophen 650 mg Q6HP PRN PO 02/14/25 20:00 Nitroglycerin 0.4 mg Q5MINP PRN SL 02/14/25 20:00 Pantoprazole Sodium 40 mg DAILY IV 02/16/25 10:00 02/24/25 09:10 40 MG Sodium Chloride 10 ml QSHIFT@10,22 IV 02/18/25 22:00 02/24/25 09:10 10 ML Vancomycin HCl 100 ml @ 100 mls/hr Q12H IV 02/19/25 16:00 Cancel Ondansetron HCl 4 mg Q6HPRN PRN IV 02/21/25 16:00 02/23/25 11:12 4 MG Methylprednisolone Sodium Succinate 20 mg BID IV 02/22/25 22:00 02/23/25 21:09 20 MG Lactulose 30 ml Q6HR PO 02/23/25 12:00 02/24/25 05:35 30 ML Rifaximin 550 mg BID PO 02/23/25 10:00 02/24/25 09:11 550 MG Meropenem 50 ml @ 17 mls/hr Q8H IV 02/23/25 21:00 02/24/25 05:35 17 MLS/HR Enoxaparin Sodium 40 mg DAILY SC 02/24/25 10:00 02/24/25 09:12 40 MG Spironolactone 25 mg DAILY PO 02/24/25 10:00 02/24/25 09:11 25 MG laboratory and microbiology Laboratory Tests 02/24/25 10:27 02/24/25 06:59 Test 02/24/25 06:59 Range/Units Serum Glucose 116 H 74-106 mg/dL Microbiology Date/Time Source Procedure Growth Status 02/15/25 06:17 Urine - [place] Urine Culture - Final Complete 02/14/25 22:43 Nose MRSA Screen - Final Complete 02/14/25 18:22 Blood Blood Culture - Final NO GROWTH AFTER 5 DAYS OF INCUBATION. Complete 02/14/25 16:27 Sputum Gram Stain - Final Complete 02/14/25 16:27 Respiratory Culture - Final Klebsiella pneumoniae Complete Problem List/Assessment/Plan Problem List/Assessment/Plan AFEBRILE VSS ABD SOFT NO INCREASING PAIN WBC DOWN LFT TRENDING DOWN ONGOING EVAL FOR IR CHOLECYSTOSTOMY Plan discussed with: Patient Dietary Evaluation Review Comments: 1) If patient remains NPO > 7 days, consider EN/TPN to meet at least 75% estimated daily needs 2) If GI is preferred, consider Jevity 1.2 @ goal rate of 45 mL/hr as tolerated. Flush with 200 mL free H2O Q6H. TF regimen (including flushes) will provide 1296 kcals, 60g Pro, and 1672 mL free H2O per 24 hrs. TF rate will meet 95% estimated daily energy needs and ~87% estimated daily protein needs 3) Advance to cardiac diet when medically feasible, pending [employer] approval 4) Follow-up with cardiology and pulmonology 5) Continue to monitor I&O, labs, and skin integrity Expected Outcomes/Goals: 1) patient to receive nutritional support within 7 days 2) appetite and labs to improve 3) diet to advance 4) f/u in 2-3 days NADEGE BAIRES MD Feb 24, 2025 11:54
--- NOTE | 2025-02-24 13:39 | DVH ---
EXAM: XY CHEST PORTABLE TECHNIQUE: Single frontal chest radiograph CLINICAL HISTORY: sob COMPARISON: XY CHEST PORTABLE on DOS: 02/22/25, XY CHEST PORTABLE on DOS: 02/21/25, XY CHEST PORTABLE on DOS: 02/20/25 Findings/Impression: Frontal chest radiograph demonstrates no acute osseous or superficial soft tissue abnormalities. Right upper extremity PICC terminates near the superior cavoatrial junction. The trachea is midline. The cardiac silhouette and mediastinum are within normal limits. No pneumothorax, pleural effusions, or consolidations.
--- NOTE | 2025-02-24 17:31 | DVHPN2 ---
Progress Note - Dictate Date Seen: Feb 24, 2025 Medical Necessity Reason Pt with a Central, PICC or Fol: Yes The following are medically ne: Central Line, Laarcon Catheter (RN) Reason for alarcon catheter: Strict I&O Subjective 59 y o male HIV positive No new complaints Downgraded to floor Leukocytosis is improving Liver enzymes are trending down [place] level at 131 Hepatitis panel negative vital signs Vital Sign Date Time Temp Pulse Resp B/P (MAP) Pulse Ox O2 Delivery O2 Flow Rate FiO2 02/24/25 17:00 97.8 67 18 106/68 (81) 100 97.8 02/23/25 20:00 Nasal Cannula* 3 32 Total Intake and Output 02/23/25 02/23/25 02/24/25 15:00 23:00 07:00 Intake Total 28 ml 240 ml 545 ml Output Total 650 ml Balance 28 ml 240 ml -105 ml medications Current Medications Medications Dose Ordered Sig/Zenon Route Start Time Stop Time Status Last Admin Dose Admin Acetaminophen 650 mg Q6HP PRN PO 02/14/25 20:00 Nitroglycerin 0.4 mg Q5MINP PRN SL 02/14/25 20:00 Pantoprazole Sodium 40 mg DAILY IV 02/16/25 10:00 02/24/25 09:10 40 MG Sodium Chloride 10 ml QSHIFT@10,22 IV 02/18/25 22:00 02/24/25 09:10 10 ML Vancomycin HCl 100 ml @ 100 mls/hr Q12H IV 02/19/25 16:00 Cancel Ondansetron HCl 4 mg Q6HPRN PRN IV 02/21/25 16:00 02/23/25 11:12 4 MG Methylprednisolone Sodium Succinate 20 mg BID IV 02/22/25 22:00 02/23/25 21:09 20 MG Lactulose 30 ml Q6HR PO 02/23/25 12:00 02/24/25 13:19 30 ML Rifaximin 550 mg BID PO 02/23/25 10:00 02/24/25 09:11 550 MG Meropenem 50 ml @ 17 mls/hr Q8H IV 02/23/25 21:00 02/24/25 13:19 17 MLS/HR Enoxaparin Sodium 40 mg DAILY SC 02/24/25 10:00 02/24/25 09:12 40 MG Spironolactone 25 mg DAILY PO 02/24/25 10:00 02/24/25 09:11 25 MG objective General: Awake, alert, in no acute distress HEENT: Head is normocephalic and atraumatic. Pupils are equal, round, and reactive to light. Neck: Supple with no cervical lymphadenopathy. Heart: Normal rate without murmur, rub, or gallop. Lungs: Scattered crackles and wheezing Abdomen: No external sign of injury. Bowel sounds are present. Abdomen is soft, nontender. Extremities: Strong peripheral pulses. There is no clubbing, no cyanosis, and no edema. Skin: No rash. Neurologic: Following commands laboratory and microbiology Laboratory Tests 02/24/25 10:27 02/24/25 06:59 Test 02/24/25 06:59 Range/Units Serum Glucose 116 H 74-106 mg/dL Problems(with codes): (1) Leukocytosis (2) Multifocal pneumonia (3) Elevated liver enzymes (4) Severe sepsis (5) Gall bladder disease (6) Hepatic vein thrombosis Prognosis Plan Markedly distended gallbladder with cholelithiasis and suspected cholecystitis IR consult for cholecystostomy is pending Patient is high-risk for surgery Continue broad-spectrum antibiotics Leukocytosis improved slightly today Lactulose increased to 30 mL every 6 hours Xifaxan added Patient is on Lovenox subQ twice a day for chronic right femoral nonocclusive DVT and possible left hepatic vein thrombosis which may be chronic I will cancel his HIDA scan because of elevated bilirubin and proceed with cholecystostomy tube Overall prognosis remains guarded Dietary Evaluation Review Comments: 1) If patient remains NPO > 7 days, consider EN/TPN to meet at least 75% estimated daily needs 2) If GI is preferred, consider Jevity 1.2 @ goal rate of 45 mL/hr as tolerated. Flush with 200 mL free H2O Q6H. TF regimen (including flushes) will provide 1296 kcals, 60g Pro, and 1672 mL free H2O per 24 hrs. TF rate will meet 95% estimated daily energy needs and ~87% estimated daily protein needs 3) Advance to cardiac diet when medically feasible, pending [employer] approval 4) Follow-up with cardiology and pulmonology 5) Continue to monitor I&O, labs, and skin integrity Expected Outcomes/Goals: 1) patient to receive nutritional support within 7 days 2) appetite and labs to improve 3) diet to advance 4) f/u in 2-3 days Plan discussed with: Patient, Other (Dr Cedillo) POLLY BAIRES MD Feb 24, 2025 17:31
[2025-02-24] MEDS: LACTULOSE 20Gm/30ML SOLN PO SCH (20:29)
[2025-02-25] VITALS (9 sets, daily range): BP systolic 108–147; BP diastolic 53–85; PULSE 62–112; RESP 15–21; TEMP 97.5–99.7; O2SAT 95–100
--- NOTE | 2025-02-25 11:36 | DVHPN2 ---
Reviewed: Care Plan, H&P, Labs, Medications, Previous Orders, Radiology Changes from previous H/P or p: No Changes Objective Vitals Vital Signs Date Time Temp Pulse Resp B/P (MAP) Pulse Ox O2 Delivery O2 Flow Rate FiO2 02/25/25 09:13 98.0 62 15 109/64 (79) 100 98.0 02/24/25 20:00 Nasal Cannula* 3 32 Intake/Output Intake and Output 02/25/25 07:00 Intake Total 1710 ml Output Total 750 ml Balance 960 ml Intake Oral 1560 ml IV Total 150 ml Output Urine Total 750 ml # Bowel Movements 4 Medications Current Medications Medications Dose Ordered Sig/Zenon Route Start Time Stop Time Status Last Admin Dose Admin Acetaminophen 650 mg Q6HP PRN PO 02/14/25 20:00 Nitroglycerin 0.4 mg Q5MINP PRN SL 02/14/25 20:00 Pantoprazole Sodium 40 mg DAILY IV 02/16/25 10:00 02/25/25 08:31 40 MG Sodium Chloride 10 ml QSHIFT@10,22 IV 02/18/25 22:00 02/25/25 08:31 10 ML Vancomycin HCl 100 ml @ 100 mls/hr Q12H IV 02/19/25 16:00 Cancel Ondansetron HCl 4 mg Q6HPRN PRN IV 02/21/25 16:00 02/23/25 11:12 4 MG Methylprednisolone Sodium Succinate 20 mg BID IV 02/22/25 22:00 02/23/25 21:09 20 MG Rifaximin 550 mg BID PO 02/23/25 10:00 02/25/25 08:32 550 MG Meropenem 50 ml @ 17 mls/hr Q8H IV 02/23/25 21:00 02/25/25 04:24 17 MLS/HR Enoxaparin Sodium 40 mg DAILY SC 02/24/25 10:00 02/24/25 09:12 40 MG Spironolactone 25 mg DAILY PO 02/24/25 10:00 02/25/25 08:31 25 MG Lactulose 30 ml Q4HR PO 02/24/25 22:00 02/25/25 08:32 30 ML Laboratory Results Laboratory Tests 02/24/25 06:59 02/24/25 10:27 Urinalysis Test 02/14/25 19:14 Urine Color Yellow (Yellow) Urine Clarity Turbid (Clear) H Urine pH 6.0 (5.0-9.0) Urine Specific [place] 1.027 (1.001-1.035) Urine Protein 2+ (Negative) H Urine Ketones 1+ (Negative) H Urine Blood 2+ /uL (Negative) H Urine Nitrite Negative (Negative) Urine Bilirubin Negative (Negative) Urine Urobilinogen Normal mg/dL (Negative) Urine Leukocyte Esterase Trace /uL (Negative) Urine RBC 60 /hpf (0 - 3) Urine Microscopic WBC 8 /HPF (0-3) H Urine Squamous Epithelial Cells Mod /hpf (<5) Urine Bacteria Many /hpf (None Seen) H Urine Hyaline Casts Few /lpf (0 - 2) Urine Mucus Few (None Seen) Urine Sperm Present /hpf (None Seen) Urine Glucose Trace mg/dL (Normal) Microbiology Microbiology Date/Time Source Procedure Growth Status 02/15/25 06:17 Urine - [place] Urine Culture - Final Complete 02/14/25 22:43 Nose MRSA Screen - Final Complete 02/14/25 18:22 Blood Blood Culture - Final NO GROWTH AFTER 5 DAYS OF INCUBATION. Complete 02/14/25 16:27 Sputum Gram Stain - Final Complete 02/14/25 16:27 Respiratory Culture - Final Klebsiella pneumoniae Complete Labs and/or images reviewed: Labs reviewed by me, Image(s) reviewed by me Assessment/Plan Assessment/Plan Covering For resident physician Septic Shock due to multifocal pneumonia Acute metabolic encephalopathy Acute on chronic systolic CHF Nonischemic cardiomyopathy Drug-induced cardiomyopathy History of chronic current meth abuse Non ST-elevation type 2 SD Coronary artery disease Acute hypoxic respiratory failure Multifocal pneumonia COPD exacerbation MOLLY Acute cholecystitis by MRCP: Surgeon Dr.R Barker planning for cholecystostomy tube placement HIV for the last four years Time Spent 50 minutes Patient is full code Prognosis very poor Plan discussed with: Patient My Orders Orders - NATAN CRUZ MD Procedure Category Date Status Time Lactulose Oral PHA 02/24/25 In Process 22:00 Date of Service: Feb 25, 2025 Billing Provider: NATAN CRUZ MD Common Visit Codes: [id number] INP/OBS CARE(HIGH) NATAN CRUZ MD Feb 25, 2025 11:36
[2025-02-25] MEDS: ACETAMINOPHEN 325 MG TAB PO PRN (15:32)
--- NOTE | 2025-02-25 16:51 | DVH ---
US BiLat Lower DVT HISTORY: LE PAIN COMPARISON: US BILAT LOWER DVT on DOS: 02/22/25 TECHNIQUE: Duplex doppler evaluation of the deep venous system of the lower extremity from the common femoral veins, superficial femoral vein, great saphenous vein, deep femoral vein, popliteal vein, an d calf veins, including color doppler and spectral/pulsed waveform analysis, was performed. FINDINGS: Right: - Common femoral vein: Compressible - Deep femoral vein: Compressible - Femoral vein: Compressible - Popliteal vein: Compressible - Posterior tibial vein: Waveforms present - Peroneal vein: Waveforms present - Other: Possible chronic DVT in the right external iliac vein. Left: - Common femoral vein: Compressible - Deep femoral vein: Compressible - Femoral vein: Compressible - Popliteal vein: Compressible - Posterior tibial vein: Waveforms present - Peroneal vein: Waveforms present - Other: Nothing IMPRESSION: No right or left lower extremity deep venous thrombosis of the femoral or popliteal veins. Howevere there is possible chronic DVT in the right external iliac vein.
[2025-02-25] MEDS: traMADol HCL 50 MG TAB PO PRN (17:00)
--- NOTE | 2025-02-25 20:42 | DVH ---
EXAM: US BILAT LOW EXT ART DUPLEX HISTORY: left leg pain. no dorsalis pedis pulse COMPARISON: None TECHNIQUE: Real-time grayscale and color Doppler images of the bilateral lower extremities were obtai aries with spectral waveform analysis. Findings: Arterial peak systolic velocities reported in units of centimeters per second (cm/sec): Right side: Common femoral - 68 Profunda - 139 Proximal SFA - 127 Mid SFA - 128 Distal SFA - 141 Popliteal - 68 Posterior tibial - 33, monophasic Dorsalis pedis - not visualized Diffuse multiphasic waveforms. Left side: Common femoral - 207, monophasic Profunda - not visualized Proximal SFA - not visualized Mid SFA - not visualized Distal SFA - 17, monophasic Popliteal - not visualized Posterior tibial - not visualized Dorsalis pedis - not visualized IMPRESSION: 1. Occlusion of the left profunda femoris, proximal to mid superficial femoral, popliteal, posterior tibial, and dorsalis pedis arteries. 2. Occlusion of the right dorsalis pedis artery. Critical Result: Vascular occlusion Findings discussed with Victorino BREEN at 02/25/2025 08:40 PM, and acknowledged receipt and understanding of the findings.
--- NOTE | 2025-02-25 22:18 | DVHPN2 ---
Progress Note - Dictate Date Seen: Feb 25, 2025 Medical Necessity Reason Pt with a Central, PICC or Fol: Yes The following are medically ne: Central Line, Alarcon Catheter (RN) Reason for alarcon catheter: Strict I&O Subjective 59 y o male HIV positive No new complaints Downgraded to floor Leukocytosis is improving Liver enzymes are trending down Ammonia level at 131 Hepatitis panel negative Patient wants to take his own home medications Patient is more awake alert and is eating food vital signs Vital Sign Date Time Temp Pulse Resp B/P (MAP) Pulse Ox O2 Delivery O2 Flow Rate FiO2 02/25/25 16:43 99.7 104 21 147/85 (105) 100 99.7 02/25/25 08:00 Nasal Cannula* 5 40 Total Intake and Output 02/24/25 02/24/25 02/25/25 15:00 23:00 07:00 Intake Total 50 ml 1010 ml 650 ml Output Total 350 ml 400 ml Balance 50 ml 660 ml 250 ml medications Current Medications Medications Dose Ordered Sig/Zenon Route Start Time Stop Time Status Last Admin Dose Admin Acetaminophen 650 mg Q6HP PRN PO 02/14/25 20:00 02/25/25 15:32 650 MG Nitroglycerin 0.4 mg Q5MINP PRN SL 02/14/25 20:00 Pantoprazole Sodium 40 mg DAILY IV 02/16/25 10:00 02/25/25 08:31 40 MG Sodium Chloride 10 ml QSHIFT@10,22 IV 02/18/25 22:00 02/25/25 21:19 10 ML Vancomycin HCl 100 ml @ 100 mls/hr Q12H IV 02/19/25 16:00 Cancel Ondansetron HCl 4 mg Q6HPRN PRN IV 02/21/25 16:00 02/23/25 11:12 4 MG Methylprednisolone Sodium Succinate 20 mg BID IV 02/22/25 22:00 02/23/25 21:09 20 MG Rifaximin 550 mg BID PO 02/23/25 10:00 02/25/25 21:19 550 MG Meropenem 50 ml @ 17 mls/hr Q8H IV 02/23/25 21:00 02/25/25 21:19 17 MLS/HR Enoxaparin Sodium 40 mg DAILY SC 02/24/25 10:00 02/24/25 09:12 40 MG Spironolactone 25 mg DAILY PO 02/24/25 10:00 02/25/25 08:31 25 MG Lactulose 30 ml Q4HR PO 02/24/25 22:00 02/25/25 13:30 30 ML Tramadol HCl 50 mg Q6HP PRN PO 02/25/25 16:30 02/25/25 17:00 50 MG Heparin Sodium/ Dextrose 250 ml @ 8.406 mls/ hr Q24H IV 02/25/25 22:00 UNV Acetaminophen/ Hydrocodone Bitart 1 tab Q4HPRN PRN PO 02/25/25 22:00 UNV objective General: Awake, alert, in no acute distress HEENT: Head is normocephalic and atraumatic. Pupils are equal, round, and reactive to light. Neck: Supple with no cervical lymphadenopathy. Heart: Normal rate without murmur, rub, or gallop. Lungs: Scattered crackles and wheezing Abdomen: No external sign of injury. Bowel sounds are present. Abdomen is soft, nontender. Extremities: Strong peripheral pulses. There is no clubbing, no cyanosis, and no edema. Skin: No rash. Neurologic: Following commands laboratory and microbiology Laboratory Tests 02/24/25 10:27 02/24/25 06:59 Test 02/24/25 06:59 Range/Units Serum Glucose 116 H 74-106 mg/dL Problems(with codes): (1) Leukocytosis (2) Multifocal pneumonia (3) COPD exacerbation (4) Elevated liver enzymes (5) Severe sepsis (6) Gall bladder disease (7) Hepatic vein thrombosis (8) Acute metabolic encephalopathy (9) Hepatic encephalopathy Prognosis Plan Distended gallbladder with cholelithiasis and suspected cholecystitis Worsening liver enzymes IR consult for cholecystostomy is recommended Patient is high-risk for surgery Continue broad-spectrum antibiotics Leukocytosis improved slightly today Overall prognosis remains guarded Dietary Evaluation Review Comments: 1) If patient remains NPO > 7 days, consider EN/TPN to meet at least 75% estimated daily needs 2) If GI is preferred, consider Jevity 1.2 @ goal rate of 45 mL/hr as tolerated. Flush with 200 mL free H2O Q6H. TF regimen (including flushes) will provide 1296 kcals, 60g Pro, and 1672 mL free H2O per 24 hrs. TF rate will meet 95% estimated daily energy needs and ~87% estimated daily protein needs 3) Advance to cardiac diet when medically feasible, pending RADIOLOGY TECHNICIAN approval 4) Follow-up with cardiology and pulmonology 5) Continue to monitor I&O, labs, and skin integrity Expected Outcomes/Goals: 1) patient to receive nutritional support within 7 days 2) appetite and labs to improve 3) diet to advance 4) f/u in 2-3 days Plan discussed with: Patient POLLY BAIRES MD Feb 25, 2025 22:18
--- NOTE | 2025-02-25 23:02 | DVHCONRES ---
Date Seen: Feb 25, 2025 Resident Creating Document: MEGAN ANN Jr., MD Referring Physician DR. 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 Patient was extubated . Later he developed moderate abdominal pain Patient was noted to have moderate elevation in his transaminases. Ultrasound of the abdomen showed a left hepatic vein thrombosis since suspected left hepatic mass. Patient also had a femoral DVT and he has been started on IV heparin. Patient as passed swallow eval is on a pureed diet. Today around 5:00 p.m. the patient was off heparin secondary to possible IR procedure for cholecystostomy tube tomorrow. Patient developed acute onset of left foot pain at 5:00 p.m. underwent a duplex ultrasound which demonstrated thrombus within the SFA popliteal and tibial arteries as well as profunda. Patient has a severe pain in the calf and difficulty moving his foot at this time. 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 Past Surgical History Hernia repair, cardiac catheterization Family History: Lung cancer SIBLINGS SIBLINGS Social History Polysubstance abuse Allergies: Uncoded Allergies: TREE NUTS (Allergy, Unknown, 02/24/24) Home Meds Reported Medications Tiotropium [place] Monohydrate (Spiriva Respimat) 2.5 Mcg/Act Spr, 2 SPRAY PO DAILY for 90 Days, #12 02/15/25 Fluticasone Furoate-Vilanterol (Fluticasone Furoate/Vilan 100-25 Mcg/Act) 1 Inh Inh, 1 PUFF INH DAILY PRN for BRONCHOSPASM for 90 Days, #180 25 Ipratropium-Albuterol (Ipratropium [place]/Albut) 1 Arlette Arlette, 3 ML NEB Q6HR PRN for WHEEZING/SHORTNESS OF BREATH for 30 Days, #360 25 Sqplbamsfhm-Enuxdppjruirb-Wius (Biktarvy 50-200-25 mg) 1 Tab Tab, 1 TAB PO DAILY for 90 Days, #90 02/15/25 Albuterol Sulfate (Albuterol Sulfate Hfa) 108 Mcg/Act Aer, 1-2 PUFF PO QID PRN for 25 Days, #18 02/15/25 Current Medications Current Medications Medications (Trade) Dose Ordered Sig/Zenon Route PRN Reason Start Time Stop Time Status Last Admin Tramadol HCl (Ultram) 50 mg Q6HP PRN PO MODERATE PAIN (4-6 PAIN SCALE) 02/25/25 16:30 02/25/25 17:00 Heparin Sodium/ Dextrose 250 ml @ 8.406 mls/ hr Q24H IV 02/25/25 22:00 UNV Acetaminophen/ Hydrocodone Bitart ([place] 5/325MG Tab) 1 tab Q4HPRN PRN PO SEVERE PAIN (7-10 PAIN SCALE) 02/25/25 22:00 Review of Systems All systems reviewed see HPI Vital Signs Vital Signs Date Time Temp Pulse Resp B/P (MAP) Pulse Ox O2 Delivery O2 Flow Rate FiO2 02/25/25 16:43 99.7 104 21 147/85 (105) 100 99.7 02/25/25 08:00 Nasal Cannula* 5 40 Physical Exam Head eyes ears nose and throat exam eyes are nonicteric conjunctiva is pink neck was supple no JVD no lymphadenopathy no carotid bruits lungs decreased breath sounds at bases on 5 L oxygen, heart regular rate and rhythm abdomen is soft mild tenderness in the right upper quadrant. Lower extremities palpable femoral pulses bilaterally nonpalpable pedal pulses on the left with a cool foot calf tenderness but soft on the left side decreased motion of the toes. His right leg palpable femoral pulse and Doppler signals in the right DP and PT. neurolog ically left foot decreased sensation and decreased motor of the digits on the left foot. Labs/Diagnostic Data Labs Test 02/24/25 10:27 02/24/25 06:59 02/24/25 04:00 02/23/25 08:28 Range/Units White Blood Count 13.4 H 4.4-10.8 10^3/uL Red Blood Count 4.11 L 4.5-5.90 10^6/uL Hemoglobin 13.2 L 13.5-17.5 g/dL Hematocrit 40.3 L 41.0-53.0 % Mean Corpuscular Volume 98.1 80.0-100.0 fL Mean Corpuscular Hemoglobin 32.1 H 28.0-32.0 pg Mean Corpuscular Hemoglobin Concent 32.8 32.0-36.0 g/dL Red Cell Distribution Width 15.1 H 11.8-14.3 % Platelet Count 94 L 140-450 10^3/uL Mean Platelet Volume 9.5 6.9-10.8 fL Neutrophils (%) (Auto) 79.4 37.0-80.0 % Lymphocytes (%) (Auto) 9.8 L 10.0-50.0 % Monocytes (%) (Auto) 10.6 0.0-12.0 % Eosinophils (%) (Auto) 0.2 0.0-7.0 % Basophils (%) (Auto) 0.0 0.0-2.0 % Neutrophils # (Auto) 10.6 H 1.6-8.6 10 ^3/uL Lymphocytes # (Auto) 1.3 0.4-5.4 10 ^3/uL Monocytes # (Auto) 1.4 H 0-1.3 10 ^3/uL Eosinophils # (Auto) 0 0-0.8 10 ^3/uL Basophils # (Auto) 0 0-0.2 10 ^3/uL Nucleated Red Blood Cells 0.1 % Sodium Level 136 136-145 mmol/L Potassium Level 4.8 3.5-5.1 mmol/L Chloride Level 102 98-107 mmol/L Carbon Dioxide Level 22 20-31 mmol/L Anion Gap 12 5-15 Blood Urea Nitrogen 22 9-23 mg/dL Creatinine 0.70 0.700-1.30 mg/dL Glomerular Filtration Rate Calc 105 >90 mL/min BUN/Creatinine Ratio 31.4 H 10.0-20.0 Serum Glucose 116 H 74-106 mg/dL Calcium Level 8.9 8.7-10.4 mg/dL Magnesium Level 2.0 1.6-2.6 mg/dL Total Bilirubin 3.0 H 0.2-1.0 mg/dL Aspartate Amino Transferase (AST) 329 H 13-40 U/L Alanine Aminotransferase (ALT) 640 H 7-40 U/L Alkaline Phosphatase 901 H 46-116 U/L Total Protein 6.5 5.7-8.2 g/dL Albumin 3.7 3.2-4.8 g/dL Ammonia 131 *H 11-32 umol/L Lipase 36 12-53 U/L Test 02/23/25 06:50 02/23/25 03:40 02/22/25 14:01 02/22/25 08:50 Range/Units Prothrombin Time 12.1 H 9.3-11.8 sec Prothrombin Time INR 1.16 H 0.9-1.15 Activated Partial Thromboplast Time 45.0 H 24.5-34.5 SEC B-Type Natriuretic Peptide 417.95 0-100 pg/mL Blood Gas Specimen Type Arterial Blood Gas Sample Site Left radial Blood Gas Patient Temperature 37.0 Arterial Blood Date Drawn [id number] Arterial Blood pH 7.405 7.350-7.450 Arterial Blood Partial Pressure CO2 40.3 35.0-48.0 mmHg Arterial Blood Partial Pressure O2 182.8 H 83.0-108.0 mmHg Arterial Blood HCO3 24.7 21.0-28.0 mmol/L Arterial Blood Oxygen Saturation 99.1 H 94.0-98.0 % Arterial Blood Base Excess 0.0 -2.0-3.0 mmol/L Arterial Blood Oxyhemoglobin 98.5 H 94.0-98.0 % Arterial Blood Carboxyhemoglobin 0.4 L 0.5-1.5 % Arterial Blood Methemoglobin 0.2 0.0-1.5 % Davin Test Yes Blood Gas Total Hemoglobin 15.50 13.5-17.5 g/dL Blood Gas Liter Flow 4.00 Blood Gas Modality Nasal cannula FiO2 % 36.0 Hepatitis A IgM Antibody Negative Hepatitis B Surface Antigen Negative Negative Hepatitis B Core IgM Antibody Negative Negative Hepatitis C Antibody Negative Negative Test 02/22/25 03:25 02/21/25 14:38 02/21/25 06:19 02/19/25 03:00 Range/Units Direct Bilirubin 2.4 H <0.3 mg/dL Lactate Dehydrogenase 958 H 120-246 U/L Blood Gas Pressure Support 8 Blood Gas PEEP or CPAP 5.0 Blood Gas Set Respiration Rate 18.0 Blood Gas Spontaneous Rate 18 Blood Gas Tidal Volume 450.0 Blood Gas Inspiratory Pressure 18.0 Bl Gas Inspiratory/Expiratory Ratio 1:3.0 Specimen Drawn By aden hernandez Phosphorus Level 2.7 2.4-5.1 mg/dL Random Vancomycin Level 13.5 H 5-10 ug/mL Test 02/18/25 10:00 02/17/25 13:03 02/15/25 15:00 02/15/25 14:37 Range/Units Vancomycin Level Trough 22.7 H 5-10 ug/mL Absolute Neutrophils (auto) 17.1 H 1.4-7.0 x10E3/uL Absolute Lymphocytes (auto) 0.8 0.7-3.1 x10E3/uL Absolute Monocytes (auto) 0.9 0.1-0.9 x10E3/uL Absolute Eosinophils (auto) 0.0 0.0-0.4 x10E3/uL Absolute Basophils (auto) 0.0 0.0-0.2 x10E3/uL Immature Granulocytes % 1 Not Estab. % Immature Granulocytes # 0.1 0.0-0.1 x10E3/uL Immature Blood Cells . Hematology Comments . Percent CD4 Cells 30.9 30.8-58.5 % Absolute CD4 Count 247 L 359-1519 /uL T-Lymphocyte CD4/CD8 Ratio 0.83 L 0.92-3.72 Percent CD8 Cells 37.2 H 12.0-35.5 % Absolute CD8 Count 298 109-897 /uL HIV-1 RNA (PCR) <20 . copies/mL HIV-1 RNA (PCR) log10 Value . POC Glucose 125 H 70-106 mg/dl Troponin I High Sensitivity 9753 *H </=54 ng/L Test 02/15/25 10:15 02/15/25 03:24 02/14/25 20:06 02/14/25 19:14 Range/Units Influenza Type A Antigen Negative Negative Influenza Type B Antigen Negative Negative SARS-CoV-2 Antigen (Rapid) Negative NEGATIVE Hemoglobin A1c 5.3 <5.7 % A1C Triglycerides Level 81 < 150 mg/dL Cholesterol Level 138 < 200 mg/dL LDL Cholesterol 81 < 100 mg/dL HDL Cholesterol 44 40-59 mg/dL Thyroid Stimulating Hormone (TSH) 0.63 0.55-4.78 uIU/mL Lactic Acid Level 2.0 0.4-2.0 mmol/L Urine Color Yellow Yellow Urine Clarity Turbid H Clear Urine pH 6.0 5.0-9.0 Urine Specific [place] 1.027 1.001-1.035 Urine Protein 2+ H Negative Urine Ketones 1+ H Negative Urine Blood 2+ H Negative /uL Urine Nitrite Negative Negative Urine Bilirubin Negative Negative Urine Urobilinogen Normal Negative mg/dL Urine Leukocyte Esterase Trace Negative /uL Urine RBC 60 0 - 3 /hpf Urine Microscopic WBC 8 H 0-3 /HPF Urine Squamous Epithelial Cells Mod <5 /hpf Urine Bacteria Many H None Seen /hpf Urine Hyaline Casts Few 0 - 2 /lpf Urine Mucus Few None Seen Urine Sperm Present None Seen /hpf Urine Glucose Trace Normal mg/dL Urine Opiates Screen Neg NEGATIVE Urine Fentanyl Screen Neg NEGATIVE Urine Barbiturates Screen Neg NEGATIVE Urine Phencyclidine Screen Neg NEGATIVE Urine Amphetamines Screen Pos NEGATIVE Urine Benzodiazepines Screen Neg NEGATIVE Urine Cocaine Screen Neg NEGATIVE Urine Cannabinoids Screen Pos NEGATIVE Microbiology Date/Time Source Procedure Growth Status 02/15/25 06:17 Urine - [place] Urine Culture - Final Complete 02/14/25 22:43 Nose MRSA Screen - Final Complete 02/14/25 18:22 Blood Blood Culture - Final NO GROWTH AFTER 5 DAYS OF INCUBATION. Complete 02/14/25 16:27 Sputum Gram Stain - Final Complete 02/14/25 16:27 Respiratory Culture - Final Klebsiella pneumoniae Complete US BiLat Lower DVT HISTORY: LE PAIN COMPARISON: US BILAT LOWER DVT on DOS: 02/22/25 TECHNIQUE: Duplex doppler evaluation of the deep venous system of the lower extremity from the common femoral veins, superficial femoral vein, great saphenous vein, deep femoral vein, popliteal vein, and calf veins, including color doppler and spectral/pulsed waveform analysis, was performed. FINDINGS: Right: - Common femoral vein: Compressible - Deep femoral vein: Compressible - Femoral vein: Compressible - Popliteal vein: Compressible - Posterior tibial vein: Waveforms present - Peroneal vein: Waveforms present - Other: Possible chronic DVT in the right external iliac vein. Left: - Common femoral vein: Compressible - Deep femoral vein: Compressible - Femoral vein: Compressible - Popliteal vein: Compressible - Posterior tibial vein: Waveforms present - Peroneal vein: Waveforms present - Other: Nothing IMPRESSION: No right or left lower extremity deep venous thrombosis of the femoral or popliteal veins. Howevere there is possible chronic DVT in the right external iliac vein. Assessment Left acute limb ischemia We will require emergent surgical thrombectomy left femoral artery cutdown angiogram possible fasciotomies possible bypass. Patient is aware of this understands risks benefits of the procedure including limb loss, ID, need for long-term ventilation, need for further operations and possible . 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 Plan/Recommendation Left acute limb ischemia We will require emergent surgical thrombectomy left femoral artery cutdown angiogram possible fasciotomies possible bypass. Patient is aware of this understands risks benefits of the procedure including limb loss, ID, need for long-term ventilation, need for further operations and possible . 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 Plan discussed with: Patient MEGAN ANN Jr., MD Feb 25, 2025 23:01
[2025-02-25] MEDS ORDERED: PROPOFOL 10 MG/ML 20 ML IV ONE (23:25)
[2025-02-25] MEDS ORDERED: fentaNYL CITRATE 100 MCG/2 ML VL ONE (23:25)
[2025-02-25] MEDS ORDERED: PHENYLEPHRINE HCL 10 MG/ML VL ONE (23:25)
[2025-02-25 23:37] LABS: Basophils # (auto) 0 10 ^3/uL (0-0.2); Basophils % (auto) 0.1 % (0.0-2.0); Eosinophils # (auto) 0 10 ^3/uL (0-0.8); Eosinophils % (auto) 0.2 % (0.0-7.0); Hematocrit 39.9 % (41.0-53.0); Hemoglobin 13.1 g/dL (13.5-17.5); Lymphocytes # (auto) 0.9 10 ^3/uL (0.4-5.4); Lymphocytes % (auto) 7.3 % (10.0-50.0); Mean Corpuscular Hemoglobin 32.1 pg (28.0-32.0); Mean Corpuscular Hgb Conc. 32.8 g/dL (32.0-36.0); Mean Corpuscular Volume 97.8 fL (80.0-100.0); Monocytes # (auto) 0.9 10 ^3/uL (0-1.3); Monocytes % (auto) 7.2 % (0.0-12.0); Neutrophils # (auto) 10.9 10 ^3/uL (1.6-8.6); Neutrophils % (auto) 85.2 % (37.0-80.0); Nucleated Red Blood Cells % 0.1 %; Platelet Count (auto) 74 10^3/uL (140-450); Red Blood Cells 4.09 10^6/uL (4.5-5.90); Red Cell Distribution Width 15.3 % (11.8-14.3); White Blood Cell 12.8 10^3/uL (4.4-10.8)
[2025-02-25 23:43] LABS: Anion Gap 7 (5-15); Carbon Dioxide 28 mmol/L (20-31)
[2025-02-25 23:48] LABS: BUN/Creatinine Ratio 25.9 (10.0-20.0); Blood Urea Nitrogen 14 mg/dL (9-23)
[2025-02-25 23:57] LABS: INR 1.11 (0.9-1.15); Partial Thromboplastin Time 25.8 SEC (24.5-34.5); Prothrombin Time 11.6 sec (9.3-11.8)
--- NOTE | 2025-02-25 23:59 | PRN ---
JERMAN DAI RESIDENT 02/25/25 9809: Misceleneous Note Note Note The night team was called as patient had severe left sided leg pain since 3 PM and bilateral Lower extremity Arterial Doppler was ordered at that time which resulted around 8 40 pm which revealed IMPRESSION: 1. Occlusion of the left profunda femoris, proximal to mid superficial femoral, popliteal, posterior tibial, and dorsalis pedis arteries. 2. Occlusion of the right dorsalis pedis artery. Pt was evaluated at bedside Mentioned severe pain in left foot Physical exam Right sided : Absent Dorsalis pedis on palpation but post tibial, popliteal, femoral pulses were intact Left sided : Absent Dorsalis pedis, post tibial, popliteal, on palpation but femoral pulses were intact.+ Absent capillary refill on the left side, partial paralysis on the left side, sensory deficit on right lower extremity digits Cold on palpation on left side foot and leg Bedside POCUS revealed Absent Doppler on right dorsalis pedis, but intact Post tibial Absent Doppler on left dorsalis and post tibial CT angio lower extremity with abdominal aorta runoff was ordered stat, patient was ordered to start on heparin drip stat Vascular surgeon Dr. Barraza was consulted and case was discussed in detail Vascular surgeon Dr. Barraza decided that pt will require emergent surgical thrombectomy left femoral artery cutdown angiogram possible fasciotomies possible bypass for left acute limb ischaemia Family at bedside was explained about all the above and was explained that he is going to be getting a high-risk surgery considering multiple comorbidities and recent ICU admission pt was later taken to OR. Resident Physician : JERMAN DAI PGY2 INTERNAL MEDICINE Attending Physician : ROGER UREÑA MD, IMRAN M MD 02/26/25 1822: Misceleneous Note Note Note critical care time 40 mins Date of Service: Feb 25, 2025 Billing Provider: ROGER UREÑA MD Common Visit Codes: [id number] CARE 30-74 MIN JERMAN DAI RESIDENT Feb 25, 2025 23:59 ROGER UREÑA MD Feb 26, 2025 18:22
[2025-02-26] VITALS (10 sets, daily range): BP systolic 94–108; BP diastolic 62–70; PULSE 58–93; RESP 16–18; TEMP 97.8–98.1; O2SAT 92–100
[2025-02-26] LABS: Calcium 8.6 mg/dL (8.7-10.4); Chloride 96 mmol/L (98-107); Glucose 115 mg/dL (74-106); Potassium 3.4 mmol/L (3.5-5.1); Sodium 131 mmol/L (136-145)
[2025-02-26] MEDS: ceFAZolin 2 GM/D5W50ml 50 ML IV ONE (00:15)
[2025-02-26 00:25] LABS: Lactic Acid w/Reflex 2.9 mmol/L (0.4-2.0)
[2025-02-26] MEDS ORDERED: DexAMETHasone SOD PHOS 10MG/1ML VIAL INJ ONE (00:27)
[2025-02-26] MEDS ORDERED: ONDANSETRON HCL 4 MG/2 ML VIAL ONE (00:27)
[2025-02-26] MEDS ORDERED: ePHEDrine SULFATE 50 MG/ML AMP ONE (00:28)
[2025-02-26] MEDS ORDERED: fentaNYL CITRATE 100 MCG/2 ML VL ONE (00:43)
[2025-02-26] MEDS: LIDOCAINE 1% HCL (LOCAL ANESTH.) INJ 20ML MDV ONE (01:00)
[2025-02-26] MEDS: BUPIVACAINE HCL 0.25% P/F 10 ML VIAL ONE (01:00)
[2025-02-26] MEDS: HEPARIN SODIUM (PORCINE) 5000 UNITS/ML 1ML VIAL ONE (01:00)
--- NOTE | 2025-02-26 01:34 | DVHOP2 ---
Operative Report - 2 Report Details Date: 02/26/25 Preop Diagnosis: Left leg acute limb ischemia Postop Diagnosis: Left common femoral, profunda, SFA thrombosis Surgeon: Giovani Barraza MD Anesthesiologist: General endotracheal tube Anesthesia: General Consent: The patient was informed of the risks and benefits of the procedure. These include but are not limited to complications of anesthesia, postoperative infection, incomplete relief of symptoms, recurrence of symptoms, damage to blood vessels, nerves and tendons, deep venous thrombosis, pulmonary embolism and possible need for repeat surgery in the future. Complications: None Estimated Blood Loss: 100 mL Findings: Left common femoral, left profunda, left SFA thrombus Indications for Surgery: Left leg acute limb ischemia Name of Procedure Performed Left common femoral artery cutdown, left common femoral artery, profunda, SFA thrombectomy/embolectomy, and left lower extremity arteriogram Procedure Details Procedure Details: Patient was identified in the preop hold areas being . He was brought back to the operating room placed in operating table in supine position after adequate induction of anesthesia antibiotics and time-out. Left leg was prepped and draped normal surgical fashion. A left common femoral artery cutdown was made Bovie cauterization was used for hemostasis. The common femoral artery was then isolated and it was pulsatile but distally it was not. Circumferential control the common femoral artery was obtained with vessel loops. The SFA and profunda were both isolated and controlled with vessel loops as well. The arteries were soft however appeared to be full with thrombus. 5000 units of heparin was given. Vessels were all clamped. A transverse arteriotomy was made in the left common femoral artery just above the bifurcation. We had encountered fresh thrombus. The profunda was then embolectomize with thrombus removed. And they profunda was then flushed with heparinized saline. The SFA was then unclamped Rene catheter were floor [place] Rene was passed down to the tibioperoneal trunk. It was pulled back and a significant thrombus was removed which was measuring the entire length of the popliteal artery as well as SFA. Multiple passes were obtained until no further thrombus was encountered this was all done under x-ray guidance. A completion angiogram demonstrated no residual thrombus and flow into the tibioperoneal trunk down to the foot with the main runoff being in the posterior tibial artery. At this point in time all areas involved were flushed with heparin saline. Finally the common femoral artery was then unclamped and the thrombus burden was removed pulsatile flow was restored. This was flushed with heparinized saline. The transverse arteriotomy was then closed with a 5 0 Prolene suture in a running fashion. The wound was irrigated out and then closed the deep layer was closed with the 2-0 Vicryl sutures interruptedly followed by a dermal layer of 2-0 Vicryl suture. Followed by 4-0 Monocryl subcuticular suture. Followed by Dermabond. Patient tolerated procedure well was taken in the PACU in stable condition. Sponge and needle counts were correct. At the end of the procedure patient had a popliteal pulse which was palpable and Doppler signals in the foot. He had full movement of his foot and had normal sensation. Specimen: Left common femoral artery/SFA thrombus Condition Good Disposition pacu then floor GIOVANI BARRAZA Jr., MD Feb 26, 2025 01:34
--- NOTE | 2025-02-26 01:42 | DVH ---
CTA ABDOMEN AND PELVIS WITH BILATERAL LOWER EXTREMITY RUNOFFS Clinical Indication: Male, 59 old. 59 years old, Male; limb ischaemia. Technique: Multiple contiguous axial images were obtained through the abdomen, pelvis, and both lowe r extremities following the administration of IV contrast material. Post processing coronal and sag ittal reconstruction images were made from the axial images. Image post-processing was obtained. IV contrast: Administered DLP: 842.14 CTDI: 7.14, 31.57, 0.14 Comparison: CT CT AB PEL WITH IV CON ONLY on DOS: 02/22/25, MRCP from 02/23/2025 FINDINGS: Lower Thorax: Normal-sized heart. No pericardial effusion. There is moderate centrilobular emphysema in the lung bases. Liver and Biliary system: There is a cyst in segment 3 of the liver. Normal-sized liver. Major portal veins are patent. Redemonstration of marked distention of the gallbladder filled with intermediate d ensity. There is gallbladder wall edema. There is mild dilatation of the common bile duct. Mild centr al intrahepatic bile duct dilatation. Spleen: There are bands of hypodensity within the upper spleen likely infarcts. Adrenal Glands and Kidneys: A tiny left renal cyst is seen otherwise unremarkable. Pancreas and Retroperitoneum: Mildly atrophic pancreas. There is no retroperitoneal lymphadenopathy. Aorta and Major Vessels: Widely patent abdominal aorta containing mild mixed atherosclerotic plaque. Widely patent origins of the celiac axis, SMA, TITUS, and single bilateral renal arteries. Widely kimball nt bilateral common iliac, external iliac, and internal iliac arteries containing mild mixed plaque. Bowel, Mesentery and Peritoneal space: Normal caliber small and large bowel. There is scattered fluid -filled large bowel. There is no free air or fluid collection. Pelvis: A Breaux catheter is seen in the urinary bladder with nondependent gas likely related to the i nstrumentation. There are dystrophic calcifications in the prostate gland. There is no pelvic lymphad enopathy. Abdominal wall and Osseous Structures: Small fat containing right inguinal hernia. No destructive oss eous lesion. Small bilateral hydroceles. Bilateral lower extremities: Right lower extremity: Widely patent and normal caliber right common, superficial, and deep femoral arteries. Widely patent right popliteal artery and origin of the trifurcation arteries. The anterior tibial and peroneal liudmila kelsi become non-opacified distally. The posterior tibial artery demonstrates runoff to the ankle. No acute osseous abnormality. Normal mineralization and alignment. Joint spaces are preserved. Muscle bundles are intact. Left lower extremity: The left common femoral artery becomes occluded distally (series 2, image 122) by thrombus/plaque. Th ere is occlusion at the bifurcation of the left common femoral artery. The left deep femoral artery b ecomes opacified shortly after origin. There is occlusion of the origin of the left superficial femor al artery and significant thrombus throughout the remainder of the left superficial femoral artery re sulting in marked multifocal stenosis. Into the proximal to mid popliteal artery although is better o pacified. The distal popliteal artery is occluded. Anterior tibial artery becomes opacified at the o rigin although becomes unopacified at the mid calf.. Minimal opacification of the tibioperoneal trun k although no significant opacification of the posterior tibial and peroneal arteries.. There is no o pacification of the trifurcation arteries to the ankle. No acute osseous abnormality. Normal mineralization and alignment. Joint spaces are preserved. Muscle bundles are intact. IMPRESSION: 1. Left common femoral artery becomes occluded distally by thrombus/plaque ; occlusion at the bifurca tion of the left common femoral artery; reconstitution of blood flow in the left deep femoral artery shortly after origin; occlusion of the origin of the left superficial femoral artery ; significant th rombus throughout the remainder of the left SFA resulting in marked multifocal stenosis. This thrombu s extends into the popliteal artery which is better opacified although distally becomes occluded. 2. Anterior tibial artery on the left is opacified at origin although becomes non-opacified at the mi d calf. Minimal opacification of the left tibioperoneal trunk. no opacification of the trifurcation arteries to the left ankle. 3. The right anterior tibial artery and peroneal arteries become non-opacified distally which may be due to timing of contrast bolus versus occlusion. Otherwise widely patent arteries in the right lower extremity. Posterior tibial artery with runoff to the ankle. 4. Widely patent aortoiliac vessels with widely at origins of aortic branch vessels. 5. Moderate centrilobular emphysema. 6. Marked distention of the gallbladder filled with intermediate density material which could be slud ge 7. Mild dilatation of common bile duct and central intrahepatic bile ducts. Correlate with LFTs 8. Upper splenic infarcts. 9. Fluid-filled large bowel which maybe manifesting as loose stools and/or diarrhea and could be rela jose to underlying colitis or physiologic.
[2025-02-26] MEDS ORDERED: MEPERIDINE HCL (25 MG/ML) 1ML VIAL IV PRN (01:45)
[2025-02-26] MEDS ORDERED: ACETAMINOPHEN IV 1000 MG/100ML (10MG/ML) IV PRN (01:45)
[2025-02-26] MEDS ORDERED: HYDROmorphone HCL 2 MG/ML VL/or syr IV PRN (01:45)
[2025-02-26] MEDS: HEPARIN SODIUM (PORCINE) 5000 UNITS/ML 1ML VIAL IV ONE (02:28)
[2025-02-26] MEDS: HEPARIN DRIP/D5W 100UNITS/ML 250 ML IV SCH ×3 (02:31→20:47)
[2025-02-26] MEDS: DexAMETHasone SOD PHOS 10MG/1ML VIAL INJ IV ONE (02:38)
[2025-02-26 08:56] LABS: Basophils # (auto) 0 10 ^3/uL (0-0.2); Eosinophils # (auto) 0 10 ^3/uL (0-0.8); Hemoglobin 11.8 g/dL (13.5-17.5); Lymphocytes # (auto) 0.3 10 ^3/uL (0.4-5.4); Monocytes # (auto) 0.3 10 ^3/uL (0-1.3); Neutrophils # (auto) 13.1 10 ^3/uL (1.6-8.6); Red Cell Distribution Width 14.8 % (11.8-14.3)
[2025-02-26 08:59] LABS: Lymphocytes % (auto) 2.4 % (10.0-50.0); Mean Corpuscular Hemoglobin 32.7 pg (28.0-32.0); Mean Corpuscular Hgb Conc. 33.6 g/dL (32.0-36.0); Mean Corpuscular Volume 97.2 fL (80.0-100.0); Monocytes % (auto) 2.1 % (0.0-12.0); Neutrophils % (auto) 95.5 % (37.0-80.0); Platelet Count (auto) 33 10^3/uL (140-450); Red Blood Cells 3.61 10^6/uL (4.5-5.90); White Blood Cell 13.7 10^3/uL (4.4-10.8)
[2025-02-26 09:04] LABS: Albumin 3.2 g/dL (3.2-4.8); Anion Gap 10 (5-15); BUN/Creatinine Ratio 28.6 (10.0-20.0); Blood Urea Nitrogen 16 mg/dL (9-23); Carbon Dioxide 29 mmol/L (20-31); Potassium 3.6 mmol/L (3.5-5.1); Sodium 136 mmol/L (136-145)
[2025-02-26 09:07] LABS: Alanine Aminotransferase 244 U/L (7-40); Alkaline Phosphatase 547 U/L (46-116); Aspartate Aminotransferase 63 U/L (13-40); Bilirubin, Total 1.4 mg/dL (0.2-1.0); Chloride 97 mmol/L (98-107); Glucose 227 mg/dL (74-106); Total Protein 5.5 g/dL (5.7-8.2)
[2025-02-26 09:43] LABS: INR 1.26 (0.9-1.15); Prothrombin Time 13.1 sec (9.3-11.8)
[2025-02-26 09:46] LABS: Partial Thromboplastin Time > 139.0 SEC (24.5-34.5)
--- NOTE | 2025-02-26 10:43 | CONS ---
Pharmacy Clinical Information: HEPARIN DRIP STOPPED FOR 1 HOUR DUE TO APTT > 139 RE-START AFTER 1 HOUR AT NEW RATE = 550 UNITS/HR = 5.5 ML/HR CONFIRMED WITH RN JOHANNA JAVIER APTT SCHEDULED FOR 1800 PER RX PROTOCOL EARL ZURITA PHARMACIST Feb 26, 2025 10:43
--- NOTE | 2025-02-26 11:28 | ECG ---
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
--- NOTE | 2025-02-26 13:12 | DVHSR ---
APPROVED REPORT EXAM: Two-dimensional and M-mode echocardiogram with Doppler, color Doppler and Bubble Study. INDICATION LOOK FOR CARDIAC SHUNT RISK FACTORS Height: 5'5", Weight: 88 Other Information Quality : Technically LimitedRhythm : Technically limited study due to body habitus. Conclusion trivial pericardial effusion severe LV systolic dysfunction --chronic eustachian valve noted in right atriuM? normal variant possibly
--- NOTE | 2025-02-26 14:04 | DVHPNRES ---
Progress Note Date Seen: Feb 26, 2025 Resident Creating Document: LINDSEY JOY RESIDENT Medical Necessity Reason Pt with a Central, PICC or Fol: Yes The following are medically ne: Central Line, Alarcon Catheter (RN) Reason for alarcon catheter: Strict I&O Subjective Review of Systems Patient was seen and examined at bedside. He remains on nasal cannula at 2 L. He's following commands. Overnight events reviewed. Patient has had left common femoral artery occlusion, thrombectomy was performed by vascular surgeon. Patient was complain of severe pain he had an arterial Doppler done which demonstrated the occlusion. Patient has had the procedure without any complications. Patient will undergo percutaneous cholecystostomy today by Interventional Radiology Objective vital signs Vital Sign Date Time Temp Pulse Resp B/P (MAP) Pulse Ox O2 Delivery O2 Flow Rate FiO2 02/26/25 08:42 98.1 58 16 94/67 (76) 92 98.1 02/26/25 08:00 Nasal Cannula* 4 36 Total Intake and Output 02/25/25 02/25/25 02/26/25 15:00 23:00 07:00 Intake Total 50 ml 290 ml 391.00 ml Output Total 700 ml Balance 50 ml 290 ml -309.00 ml medications Current Medications Medications Dose Ordered Sig/Zenon Route Start Time Stop Time Status Last Admin Dose Admin Acetaminophen 650 mg Q6HP PRN PO 02/14/25 20:00 02/25/25 15:32 650 MG Nitroglycerin 0.4 mg Q5MINP PRN SL 02/14/25 20:00 Pantoprazole Sodium 40 mg DAILY IV 02/16/25 10:00 02/26/25 10:10 40 MG Sodium Chloride 10 ml QSHIFT@10,22 IV 02/18/25 22:00 02/25/25 21:19 10 ML Vancomycin HCl 100 ml @ 100 mls/hr Q12H IV 02/19/25 16:00 Cancel Ondansetron HCl 4 mg Q6HPRN PRN IV 02/21/25 16:00 02/23/25 11:12 4 MG Methylprednisolone Sodium Succinate 20 mg BID IV 02/22/25 22:00 02/23/25 21:09 20 MG Rifaximin 550 mg BID PO 02/23/25 10:00 02/25/25 21:19 550 MG Meropenem 50 ml @ 17 mls/hr Q8H IV 02/23/25 21:00 02/26/25 13:00 17 MLS/HR Spironolactone 25 mg DAILY PO 02/24/25 10:00 02/25/25 08:31 25 MG Lactulose 30 ml Q4HR PO 02/24/25 22:00 02/25/25 13:30 30 ML Tramadol HCl 50 mg Q6HP PRN PO 02/25/25 16:30 02/25/25 17:00 50 MG Acetaminophen/ Hydrocodone Bitart 1 tab Q4HPRN PRN PO 02/25/25 22:00 Heparin Sodium/ Dextrose 250 ml @ 5.5 mls/hr Q24H IV 02/26/25 11:10 02/26/25 11:11 5.5 MLS/HR Examination Physical examination as below: General: Awake, alert, in no acute distress HEENT: Head is normocephalic and atraumatic. Pupils are equal, round, and reactive to light. Neck: Supple with no cervical lymphadenopathy. Heart: Normal rate without murmur, rub, or gallop. Lungs: Scattered crackles and wheezing Abdomen: No external sign of injury. Bowel sounds are present. Abdomen is soft, nontender. Extremities: Strong peripheral pulses. There is no clubbing, no cyanosis, and no edema. Skin: No rash. Neurologic: Following commands laboratory and microbiology Laboratory Tests 02/26/25 08:30 Test 02/26/25 08:30 Range/Units Serum Glucose 227 #H 74-106 mg/dL Microbiology Date/Time Source Procedure Growth Status 02/15/25 06:17 Urine - Alarcon [place] Urine Culture - Final Complete 02/14/25 22:43 Nose MRSA Screen - Final Complete 02/14/25 18:22 Blood Blood Culture - Final NO GROWTH AFTER 5 DAYS OF INCUBATION. Complete 02/14/25 16:27 Sputum Gram Stain - Final Complete 02/14/25 16:27 Respiratory Culture - Final Klebsiella pneumoniae Complete Labs and/or images reviewed: Labs reviewed by me, Image(s) reviewed by me Problem List/Assessment/Plan Problem List/Assessment/Plan Neurology #Toxic/Metabolic encephalopathy, likely due to sepsis, drug use, respiratory failure, improved Ordered head ct, unremarkable off sedation Cardiovascular #Acute on chronic systolic CHF, improving We will start GDMT Aldactone 25 mg p.o. q.d. EF 15-20% #Non-Ischemic cardiomyopathy #Drug-induced cardiomyopathy #Methamphetamine abuse #NSTEMI likely type 2 #CAD, mild #Left common femoral thrombus status post thrombectomy LHC performed on 02/19/25, mild CAD Aspirin Continue heparin drip for two more days Pulmonology #Acute hypoxic respiratory failure likely due to pneumonia, COPD exacerbation, drug use, s/p mechanical ventilator, extubated 02/21/25 On nasal cannula 2lts CPAP trial successful 02/21/25. Extubated, in nasal cannula #Multifocal pneumonia, gram (+) vs gram (-), atypicals Sputum culture growing K. pneumoniae Merrem IV #COPD exacerbation, improving solumedrol 20mg iv bid Continue duonebs #Respiratory alkalosis, improved Nephrology #MOLLY due to VMN, likely hemodynamically mediated, improved Monitor for in and outs Avoid nephrotoxic agents Endocrinology #Hyperglycemia due to glucocorticoids Monitor Gastroenterology #Transaminitis, possibly due to left hepatic vein thrombosis #Hepatic mass, hemangioma #Left hepatic vein thrombosis ruled out #Acalculous cholecystitis DC heparin drip ordered lower extremity dvt gi consult recommended IR cholecystostomy Surgery recommended IR cholecystostomy #Acute cholecystitis? Consult surgery, two high-risk for surgery Consulted Interventional Radiology for percutaneous cholecystostomy to be performed today #Hyperammonemia lactulose 30ml qid diet: puree Hematology and Oncology #Anemia normocytic, normochromic Chronic, nonocclusive right common femoral thrombus Monitor #Thrombocytopenia, severe, possibly due to sepsis, HIT Hold heparin drip if plt <50 1 unit of platelets given Infectious Disease #HIV, since 4 years ago CD4 count 247 Continue biktarvy # Septic shock due to Multifocal pneumonia, gram (+) vs gram (-), atypicals, improved As above off levophed Dermatology x DVT ppx Heparin PUD ppx Protonix Drips off Lines ET tube 02/14/25, extubated 02/21/25 PICC line placed on 02/18/25 Alarcon 02/14/25 Updated family members on patient's current status. Goals of care were discussed for over 30 minutes. FULL CODE. Critical care time excluding procedures was 73 mins. Case was discussed with Dr. Eckert Plan discussed with: Patient, Daughter, Other (RN) My Orders My Orders Orders - LINDSEY JOY RESIDENT Procedure Category Date Status Time Pheresis Platelets BBK 02/26/25 Logged 09:45 Dietary Evaluation Review Comments: 1) If patient remains NPO > 7 days, consider EN/TPN to meet at least 75% estimated daily needs 2) If GI is preferred, consider Jevity 1.2 @ goal rate of 45 mL/hr as tolerated. Flush with 200 mL free H2O Q6H. TF regimen (including flushes) will provide 1296 kcals, 60g Pro, and 1672 mL free H2O per 24 hrs. TF rate will meet 95% estimated daily energy needs and ~87% estimated daily protein needs 3) Advance to cardiac diet when medically feasible, pending DIRECTOR OF SOLUTIONS ARCHITECTURE approval 4) Follow-up with cardiology and pulmonology 5) Continue to monitor I&O, labs, and skin integrity Expected Outcomes/Goals: 1) patient to receive nutritional support within 7 days 2) appetite and labs to improve 3) diet to advance 4) f/u in 2-3 days Date of Service: Feb 26, 2025 Billing Provider: ANA MARIA GUTIERREZ MD Common Visit Codes: NOT BILLABLE LINDSEY JOY RESIDENT Feb 26, 2025 14:04 ANA MARIA GUTIERREZ MD Feb 27, 2025 09:31
[2025-02-26 18:04] LABS: Prothrombin Time 12.5 sec (9.3-11.8)
[2025-02-26 18:38] LABS: Partial Thromboplastin Time > 139.0 SEC (24.5-34.5)
[2025-02-26] MEDS ORDERED: HEPARIN DRIP/D5W 100UNITS/ML 250 ML IV SCH (20:00)
[2025-02-26 20:13] LABS: INR 1.16 (0.9-1.15); Prothrombin Time 12.1 sec (9.3-11.8)
--- NOTE | 2025-02-26 21:14 | CONS ---
Pharmacy Clinical Information: NO BOLUS TEMPLATE: SPOKE TO SHIMA BREEN REGARDING HEPARIN DOSE CHANGE PREVIOUS APTT OF >139 @1710 02/26 APPEARS FALSE, NURSE ORDER NEW APPT @1900. WE HELD INFUSION IN THE MEAN TIME PER RX PROTOCOL. CURRENT DOSE: 550 UNITS/HR CURRENT APTT: 38 ON 02/26/25 @1900 INCREASE (NEW DOSE): 750 UNITS/HR DATE AND TIME OF NEW STARTED: 02/27/25 @2046 NEXT APTT: 02/27/25 @0300 CHUCK BREEN READ BACK NEW DOSE: 750 UNITS/HR GERA MICHAUD PHARMACIST Feb 26, 2025 21:14
[2025-02-26] MEDS: BIKTARVY PO ONE (21:22)
[2025-02-26] MEDS ORDERED: PATIENTS OWN MEDICATION PO SCH (22:00)
--- NOTE | 2025-02-26 23:01 | DVHPN2 ---
Progress Note - Dictate Date Seen: Feb 26, 2025 Medical Necessity Reason Pt with a Central, PICC or Fol: Yes The following are medically ne: Central Line, Alarcon Catheter (RN) Reason for alarcon catheter: Strict I&O Subjective 59 y o male HIV positive No new complaints Downgraded to floor Leukocytosis is improving Liver enzymesPersistently elevated Ammonia level at 39 Hepatitis panel negative Patient wants to take his own home medications Patient is more awake alert and is eating food vital signs Vital Sign Date Time Temp Pulse Resp B/P (MAP) Pulse Ox O2 Delivery O2 Flow Rate FiO2 02/26/25 21:00 97.9 89 17 108/70 (83) 100 97.9 02/26/25 08:00 Nasal Cannula* 4 36 Total Intake and Output 02/25/25 02/25/25 02/26/25 14:59 22:59 06:59 Intake Total 50 ml 290 ml 391.00 ml Output Total 700 ml Balance 50 ml 290 ml -309.00 ml medications Current Medications Medications Dose Ordered Sig/Zenon Route Start Time Stop Time Status Last Admin Dose Admin Acetaminophen 650 mg Q6HP PRN PO 02/14/25 20:00 02/25/25 15:32 650 MG Nitroglycerin 0.4 mg Q5MINP PRN SL 02/14/25 20:00 Pantoprazole Sodium 40 mg DAILY IV 02/16/25 10:00 02/26/25 10:10 40 MG Sodium Chloride 10 ml QSHIFT@10,22 IV 02/18/25 22:00 02/26/25 21:22 10 ML Vancomycin HCl 100 ml @ 100 mls/hr Q12H IV 02/19/25 16:00 Cancel Ondansetron HCl 4 mg Q6HPRN PRN IV 02/21/25 16:00 02/23/25 11:12 4 MG Methylprednisolone Sodium Succinate 20 mg BID IV 02/22/25 22:00 02/23/25 21:09 20 MG Rifaximin 550 mg BID PO 02/23/25 10:00 02/26/25 21:20 550 MG Meropenem 50 ml @ 17 mls/hr Q8H IV 02/23/25 21:00 02/26/25 21:21 17 MLS/HR Spironolactone 25 mg DAILY PO 02/24/25 10:00 02/25/25 08:31 25 MG Lactulose 30 ml Q4HR PO 02/24/25 22:00 02/26/25 17:49 30 ML Tramadol HCl 50 mg Q6HP PRN PO 02/25/25 16:30 02/25/25 17:00 50 MG Acetaminophen/ Hydrocodone Bitart 1 tab Q4HPRN PRN PO 02/25/25 22:00 Patient Own Medication 1 DAILY PO 02/27/25 10:00 Heparin Sodium/ Dextrose 250 ml @ 7.5 mls/hr Q24H IV 02/26/25 20:45 02/26/25 20:47 7.5 MLS/HR objective General: Awake, alert, in no acute distress HEENT: Head is normocephalic and atraumatic. Pupils are equal, round, and reactive to light. Neck: Supple with no cervical lymphadenopathy. Heart: Normal rate without murmur, rub, or gallop. Lungs: Scattered crackles and wheezing Abdomen: No external sign of injury. Bowel sounds are present. Abdomen is soft, nontender. Extremities: Strong peripheral pulses. There is no clubbing, no cyanosis, and no edema. Skin: No rash. Neurologic: Following commands laboratory and microbiology Laboratory Tests 02/26/25 08:30 Test 02/26/25 08:30 Range/Units Serum Glucose 227 #H 74-106 mg/dL Problems(with codes): (1) Hepatic encephalopathy (2) Leukocytosis (3) Multifocal pneumonia (4) COPD exacerbation (5) Elevated liver enzymes (6) Gall bladder disease (7) Hepatic vein thrombosis (8) Acute metabolic encephalopathy Prognosis Plan Continue supportive care Patient is percutaneous cholecystostomy tube placement was deferred today as the patient's PTT INR were high Adjust the heparin drip according to his PT INR Patient's heparin drip we will have to be discontinued couple hours prior to his procedure and then resumed subsequently if required Continue IV antibiotics Continue supportive care I will follow up patient with you Overall because of multiple system involvement patient's prognosis is poor Dietary Evaluation Review Comments: 1) If patient remains NPO > 7 days, consider EN/TPN to meet at least 75% estimated daily needs 2) If GI is preferred, consider Jevity 1.2 @ goal rate of 45 mL/hr as tolerated. Flush with 200 mL free H2O Q6H. TF regimen (including flushes) will provide 1296 kcals, 60g Pro, and 1672 mL free H2O per 24 hrs. TF rate will meet 95% estimated daily energy needs and ~87% estimated daily protein needs 3) Advance to cardiac diet when medically feasible, pending PAPER SALES MANAGER approval 4) Follow-up with cardiology and pulmonology 5) Continue to monitor I&O, labs, and skin integrity Expected Outcomes/Goals: 1) patient to receive nutritional support within 7 days 2) appetite and labs to improve 3) diet to advance 4) f/u in 2-3 days Plan discussed with: Patient POLLY BAIRES MD Feb 26, 2025 23:01
[2025-02-27] VITALS (14 sets, daily range): BP systolic 95–133; BP diastolic 59–79; PULSE 66–86; RESP 12–19; TEMP 97.6–98.3; O2SAT 97–100
[2025-02-27 04:49] LABS: INR 1.18 (0.9-1.15); Partial Thromboplastin Time 46.8 SEC (24.5-34.5); Prothrombin Time 12.3 sec (9.3-11.8)
[2025-02-27] MEDS: HEPARIN DRIP/D5W 100UNITS/ML 250 ML IV SCH (05:48)
[2025-02-27 08:40] LABS: Basophils # (auto) 0 10 ^3/uL (0-0.2); Basophils % (auto) 0.1 % (0.0-2.0); Eosinophils # (auto) 0.2 10 ^3/uL (0-0.8); Eosinophils % (auto) 1.3 % (0.0-7.0); Hematocrit 33.7 % (41.0-53.0); Hemoglobin 11.5 g/dL (13.5-17.5); Lymphocytes # (auto) 1.7 10 ^3/uL (0.4-5.4); Lymphocytes % (auto) 13.1 % (10.0-50.0); Mean Corpuscular Hemoglobin 33.2 pg (28.0-32.0); Mean Corpuscular Hgb Conc. 34.1 g/dL (32.0-36.0); Mean Corpuscular Volume 97.6 fL (80.0-100.0); Neutrophils # (auto) 9.9 10 ^3/uL (1.6-8.6); Neutrophils % (auto) 77.5 % (37.0-80.0); Nucleated Red Blood Cells % 0.1 %; Platelet Count (auto) 59 10^3/uL (140-450); Red Blood Cells 3.46 10^6/uL (4.5-5.90); White Blood Cell 12.8 10^3/uL (4.4-10.8)
[2025-02-27 08:52] LABS: Anion Gap 9 (5-15); BUN/Creatinine Ratio 35.3 (10.0-20.0); Blood Urea Nitrogen 18 mg/dL (9-23); Chloride 100 mmol/L (98-107); Glucose 105 mg/dL (74-106); Magnesium 1.7 mg/dL (1.6-2.6); Sodium 140 mmol/L (136-145)
[2025-02-27 08:57] LABS: Alanine Aminotransferase 182 U/L (7-40); Albumin 3.1 g/dL (3.2-4.8); Alkaline Phosphatase 464 U/L (46-116); Aspartate Aminotransferase 90 U/L (13-40); Bilirubin, Total 1.2 mg/dL (0.2-1.0); Calcium 8.4 mg/dL (8.7-10.4); Carbon Dioxide 31 mmol/L (20-31); Potassium 3.4 mmol/L (3.5-5.1); Total Protein 5.1 g/dL (5.7-8.2)
[2025-02-27] MEDS: BIKTARVY PO SCH (10:00)
[2025-02-27] MEDS: ARGATROBAN 250 MG in SODIUM CHL 0.9% 247.5 ML IV SCH ×4 (10:51→23:57)
--- NOTE | 2025-02-27 11:26 | DVH ---
US US GUIDANCE FOR NEEDLE PLACEME, HISTORY: CARMEN TUBE PROCEDURE: Informed consent was obtained. The patient was placed in supine position, and initial limi jose ultrasound evaluation of the RUQ abdomen was obtained. The skin overlying the gallbladder was pre pped with chlorhexidine which was allowed to dry and draped in the usual sterile fashion. Time out wa s performed. IV sedation and 1% lidocaine local anesthetic were administered. Using US needle biopsy guide, a 21 g Accu Stick needle was advanced into the gallbladder via a subcostal, trans-peritoneal a pproach. Following aspiration of bile, a small amount of contrast was injected to delineate the visco us. The needle was then exchanged over mandrill wire to a non-vascular access set, through which a g uidewire was advanced into the gallbladder. Following serial dilation, an 10.2 Vietnamese multipurpose pi gtail catheter was placed within the gallbladder. Approximately 2 cc of fluid was withdrawn and sent to the laboratory for analysis. The drain was secured in place and attached to gravity drainage. A st erile dressing was applied. No immediate complication was identified. [id number] FLUOROSCOPY TIME: 1.4 minutes. CONTRAST USED: 15 mL Isovue 300. SEDATION: Dr. Emi Ann was personally responsible for the administration of moderate sedation during the procedure performed, including the use of an independent trained observer who had no other duties during the procedure. The drugs utilized were IV fentanyl and versed (see nursing log for details). The total time of supervision by the attending physician was [id number] minutes. FINDINGS: Limited US scan of the right upper abdomen demonstrates large complex gallbladder filled wi th echogenic material. Aspirated bile is thick and dark. Completion image demonstrates good positioni ng of the drainage catheter. The cystic duct is patent. IMPRESSION: US/fluoro-guided percutaneous 10.2 Vietnamese cholecystostomy tube placement. If output is low, consider connecting to suction drainage. PLAN: This tube will need to remain in place for at least 6-8 weeks before removal, so as to prevent bile leakage. If cholecystectomy is not planned, please have patient follow-up with IR at discharge t o schedule cholangiogram in 6-8 weeks. If cystic duct patency and tract maturation is established, we will consider clamp trial prior to removal of the tube in 1-2 weeks.
[2025-02-27 12:00] LABS: INR 1.07 (0.9-1.15); Prothrombin Time 11.3 sec (9.3-11.8)
[2025-02-27] MEDS: IOHEXOL 350 MG/ML 100ML IJ ONE (12:26)
[2025-02-27] MEDS: HEPARIN DRIP/D5W 100UNITS/ML 250 ML IV ONE (12:26)
[2025-02-27] MEDS: IOHEXOL 300 MG/ML 100ML BOTTLE IJ ONE (12:26)
[2025-02-27] MEDS: GELATIN 1 SPONGE SIZE 100 TOP ONE (12:26)
[2025-02-27] MEDS: THROMBIN (BOVINE) 5000 UNIT SOL VIAL ONE (12:26)
[2025-02-27] MEDS: fentaNYL CITRATE 100 MCG/2 ML VL ONE (12:27)
[2025-02-27] MEDS: ONDANSETRON HCL 4 MG/2 ML VIAL IV ONE (12:27)
[2025-02-27] MEDS: IODIXANOL 320MG/ML 100ML BTL IV ONE (12:27)
[2025-02-27] MEDS: MIDAZOLAM HCL 2MG/2ML 2ml VIAL (1mg/ml) ONE (12:28)
[2025-02-27] MEDS: LIDOCAINE 2%HCL (LOCAL ANESTH.) INJ 20ML MDV ONE (12:28)
[2025-02-27] MEDS: POTASSIUM EFFERVESENT TAB 25 MEQ PO ONE (12:50)
[2025-02-27] MEDS: HYDROcodone-ACET 5/325MG TAB PO PRN (12:58)
[2025-02-27] MEDS: LACTULOSE 20Gm/30ML SOLN PO ONE (13:30)
[2025-02-27 14:45] LABS: INR 1.11 (0.9-1.15); Partial Thromboplastin Time 30.2 SEC (24.5-34.5); Prothrombin Time 11.6 sec (9.3-11.8)
--- NOTE | 2025-02-27 16:28 | DVHPN2 ---
Progress Note Date Seen: Feb 27, 2025 Medical Necessity Reason Pt with a Central, PICC or Fol: Yes The following are medically ne: Central Line, Alarcon Catheter (RN) Reason for alarcon catheter: Strict I&O Objective vital signs Vital Sign Date Time Temp Pulse Resp B/P (MAP) Pulse Ox O2 Delivery O2 Flow Rate FiO2 02/27/25 12:30 98.2 84 16 104/60 (75) 99 98.2 02/27/25 08:00 Nasal Cannula* 3 32 Total Intake and Output 02/26/25 02/26/25 02/27/25 14:59 22:59 06:59 Intake Total 75 ml 694 ml 586 ml Output Total 800 ml 550 ml Balance 75 ml -106 ml 36 ml medications Current Medications Medications Dose Ordered Sig/Zenon Route Start Time Stop Time Status Last Admin Dose Admin Acetaminophen 650 mg Q6HP PRN PO 02/14/25 20:00 02/25/25 15:32 650 MG Nitroglycerin 0.4 mg Q5MINP PRN SL 02/14/25 20:00 Pantoprazole Sodium 40 mg DAILY IV 02/16/25 10:00 02/27/25 10:21 40 MG Sodium Chloride 10 ml QSHIFT@10,22 IV 02/18/25 22:00 02/27/25 10:27 10 ML Vancomycin HCl 100 ml @ 100 mls/hr Q12H IV 02/19/25 16:00 Cancel Ondansetron HCl 4 mg Q6HPRN PRN IV 02/21/25 16:00 02/23/25 11:12 4 MG Methylprednisolone Sodium Succinate 20 mg BID IV 02/22/25 22:00 02/23/25 21:09 20 MG Rifaximin 550 mg BID PO 02/23/25 10:00 02/27/25 10:21 550 MG Meropenem 50 ml @ 17 mls/hr Q8H IV 02/23/25 21:00 02/27/25 12:50 17 MLS/HR Spironolactone 25 mg DAILY PO 02/24/25 10:00 02/27/25 10:21 25 MG Patient Own Medication 1 DAILY PO 02/27/25 10:00 02/27/25 13:42 1 Lactulose 30 ml BID PO 02/27/25 22:00 Argatroban 250 mg/ Sodium Chloride 250 ml @ 2.538 mls/ hr Q24H IV 02/27/25 15:30 02/27/25 15:21 2.538 MLS/HR Acetaminophen/ Hydrocodone Bitart 1 tab Q4HP PRN PO 02/27/25 16:00 UNV laboratory and microbiology Laboratory Tests 02/27/25 07:45 Test 02/27/25 07:45 Range/Units Serum Glucose 105 # 74-106 mg/dL Microbiology Date/Time Source Procedure Growth Status 02/15/25 06:17 Urine - Alarcon Port Urine Culture - Final Complete 02/14/25 22:43 Nose MRSA Screen - Final Complete 02/14/25 18:22 Blood Blood Culture - Final NO GROWTH AFTER 5 DAYS OF INCUBATION. Complete 02/14/25 16:27 Sputum Gram Stain - Final Complete 02/14/25 16:27 Respiratory Culture - Final Klebsiella pneumoniae Complete Problem List/Assessment/Plan Problem List/Assessment/Plan AFEBRILE VSS ABD SOFT NO INCREASING PAIN WBC DOWN LFT TRENDING DOWN IR CHOLECYSTOSTOMY DONE CONTINUE CLOSE OBSERVATION Plan discussed with: Other Dietary Evaluation Review Comments: 1) If patient remains NPO > 7 days, consider EN/TPN to meet at least 75% estimated daily needs 2) If GI is preferred, consider Jevity 1.2 @ goal rate of 45 mL/hr as tolerated. Flush with 200 mL free H2O Q6H. TF regimen (including flushes) will provide 1296 kcals, 60g Pro, and 1672 mL free H2O per 24 hrs. TF rate will meet 95% estimated daily energy needs and ~87% estimated daily protein needs 3) Advance to cardiac diet when medically feasible, pending [facility] approval 4) Follow-up with cardiology and pulmonology 5) Continue to monitor I&O, labs, and skin integrity Expected Outcomes/Goals: 1) patient to receive nutritional support within 7 days 2) appetite and labs to improve 3) diet to advance 4) f/u in 2-3 days NADEGE BAIRES MD Feb 27, 2025 16:28
--- NOTE | 2025-02-27 17:45 | DVHPNRES ---
Progress Note Date Seen: Feb 27, 2025 Resident Creating Document: LINDSEY JOY RESIDENT Medical Necessity Reason Pt with a Central, PICC or Fol: Yes The following are medically ne: Central Line, Alarcon Catheter (RN) Reason for alarcon catheter: Strict I&O Subjective Review of Systems Patient was seen and examined at bedside. He remains on nasal cannula at 2 L. He's following commands. Patient will undergo percutaneous cholecystostomy today by Interventional Radiology Objective vital signs Vital Sign Date Time Temp Pulse Resp B/P (MAP) Pulse Ox O2 Delivery O2 Flow Rate FiO2 02/27/25 16:30 98.1 83 16 133/62 (85) 99 98.1 02/27/25 08:00 Nasal Cannula* 3 32 Total Intake and Output 02/26/25 02/26/25 02/27/25 15:00 23:00 07:00 Intake Total 75 ml 694 ml 586 ml Output Total 800 ml 550 ml Balance 75 ml -106 ml 36 ml medications Current Medications Medications Dose Ordered Sig/Zenon Route Start Time Stop Time Status Last Admin Dose Admin Acetaminophen 650 mg Q6HP PRN PO 02/14/25 20:00 02/25/25 15:32 650 MG Nitroglycerin 0.4 mg Q5MINP PRN SL 02/14/25 20:00 Pantoprazole Sodium 40 mg DAILY IV 02/16/25 10:00 02/27/25 10:21 40 MG Sodium Chloride 10 ml QSHIFT@10,22 IV 02/18/25 22:00 02/27/25 10:27 10 ML Vancomycin HCl 100 ml @ 100 mls/hr Q12H IV 02/19/25 16:00 Cancel Ondansetron HCl 4 mg Q6HPRN PRN IV 02/21/25 16:00 02/23/25 11:12 4 MG Methylprednisolone Sodium Succinate 20 mg BID IV 02/22/25 22:00 02/23/25 21:09 20 MG Rifaximin 550 mg BID PO 02/23/25 10:00 02/27/25 10:21 550 MG Meropenem 50 ml @ 17 mls/hr Q8H IV 02/23/25 21:00 02/27/25 12:50 17 MLS/HR Spironolactone 25 mg DAILY PO 02/24/25 10:00 02/27/25 10:21 25 MG Patient Own Medication 1 DAILY PO 02/27/25 10:00 02/27/25 13:42 1 Lactulose 30 ml BID PO 02/27/25 22:00 Argatroban 250 mg/ Sodium Chloride 250 ml @ 2.538 mls/ hr Q24H IV 02/27/25 15:30 02/27/25 15:21 2.538 MLS/HR Acetaminophen/ Hydrocodone Bitart 1 tab Q4HP PRN PO 02/27/25 16:00 Examination Physical examination as below: General: Awake, alert, in no acute distress HEENT: Head is normocephalic and atraumatic. Pupils are equal, round, and reactive to light. Neck: Supple with no cervical lymphadenopathy. Heart: Normal rate without murmur, rub, or gallop. Lungs: Scattered crackles and wheezing Abdomen: No external sign of injury. Bowel sounds are present. Abdomen is soft, nontender. Extremities: Strong peripheral pulses. There is no clubbing, no cyanosis, and no edema. Skin: No rash. Neurologic: Following commands laboratory and microbiology Laboratory Tests 02/27/25 07:45 Test 02/27/25 07:45 Range/Units Serum Glucose 105 # 74-106 mg/dL Microbiology Date/Time Source Procedure Growth Status 02/15/25 06:17 Urine - Alarcon Port Urine Culture - Final Complete 02/14/25 22:43 Nose MRSA Screen - Final Complete 02/14/25 18:22 Blood Blood Culture - Final NO GROWTH AFTER 5 DAYS OF INCUBATION. Complete 02/14/25 16:27 Sputum Gram Stain - Final Complete 02/14/25 16:27 Respiratory Culture - Final Klebsiella pneumoniae Complete Labs and/or images reviewed: Labs reviewed by me, Image(s) reviewed by me Problem List/Assessment/Plan Problem List/Assessment/Plan Neurology #Toxic/Metabolic encephalopathy, likely due to sepsis, drug use, respiratory failure, improved Ordered head ct, unremarkable off sedation Cardiovascular #Acute on chronic systolic CHF, improving start GDMT Aldactone 25 mg p.o. q.d. entresto jardiance metoprolol succ EF 15-20% #Non-Ischemic cardiomyopathy #Drug-induced cardiomyopathy #Methamphetamine abuse #NSTEMI likely type 2 #CAD, mild #Left common femoral thrombus status post thrombectomy LHC performed on 02/19/25, mild CAD Aspirin continue argatroban iv dc heparin given HIT Pulmonology #Acute hypoxic respiratory failure likely due to pneumonia, COPD exacerbation, drug use, s/p mechanical ventilator, extubated 02/21/25 On nasal cannula 2lts CPAP trial successful 02/21/25. Extubated, in nasal cannula #Multifocal pneumonia, gram (+) vs gram (-), atypicals Sputum culture growing K. pneumoniae Merrem IV #COPD exacerbation, improving dc solumedrol 20mg iv bid prednisone 40mg po qd Continue duonebs #Respiratory alkalosis, improved Nephrology #MOLLY due to VMN, likely hemodynamically mediated, improved Monitor for in and outs Avoid nephrotoxic agents Endocrinology #Hyperglycemia due to glucocorticoids Monitor Gastroenterology #Transaminitis, possibly due to left hepatic vein thrombosis #Hepatic mass, hemangioma #Left hepatic vein thrombosis ruled out #Acalculous cholecystitis DC heparin drip Surgery recommended IR cholecystostomy Consulted Interventional Radiology for percutaneous cholecystostomy to be performed today #Hyperammonemia lactulose 30ml bid diet: cardiac diet Hematology and Oncology #Anemia normocytic, normochromic Chronic, nonocclusive right common femoral thrombus Monitor #Thrombocytopenia, severe, 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 Goals of care were discussed for over 30 minutes. FULL CODE. Critical care time excluding procedures was 67 mins. Case was discussed with Dr. Servin Plan discussed with: Patient, Daughter, Other (RN) My Orders My Orders Orders - LINDSEY JOY RESIDENT Procedure Category Date Status Time Patients Own PHA 02/27/25 In Process Medication 10:00 Serotonin LAB 02/27/25 In Process 07:55 Lactulose Oral PHA 02/27/25 In Process 22:00 Complete Blood Count LAB 02/28/25 Verified 05:00 Complete Blood Count LAB 03/01/25 Verified 05:00 Complete Blood Count LAB 03/02/25 Verified 05:00 Complete Blood Count LAB 03/03/25 Verified 05:00 Complete Blood Count LAB 03/04/25 Verified 05:00 Cardiac DIET 02/27/25 Transmitted Diet-2gna,Lofat,Lochol Lunch Sodium Chl 0.9% PHA 02/27/25 In Process (Ns... W/Argatroban 15:30 PTPTT LAB 02/27/25 Logged 17:30 Hydrocodone-Acet PHA 02/27/25 In Process 10/325mg Tab ([place] 16:00 * Stripper Cutter Machine CONS 02/27/25 Transmitted Consult Dietary Evaluation Review Comments: 1) If patient remains NPO > 7 days, consider EN/TPN to meet at least 75% estimated daily needs 2) If GI is preferred, consider Jevity 1.2 @ goal rate of 45 mL/hr as tolerated. Flush with 200 mL free H2O Q6H. TF regimen (including flushes) will provide 1296 kcals, 60g Pro, and 1672 mL free H2O per 24 hrs. TF rate will meet 95% estimated daily energy needs and ~87% estimated daily protein needs 3) Advance to cardiac diet when medically feasible, pending [facility] approval 4) Follow-up with cardiology and pulmonology 5) Continue to monitor I&O, labs, and skin integrity Expected Outcomes/Goals: 1) patient to receive nutritional support within 7 days 2) appetite and labs to improve 3) diet to advance 4) f/u in 2-3 days Date of Service: Feb 27, 2025 Billing Provider: BARBIE SERVIN MD Common Visit Codes: [id number] CARE 30-74 MIN LINDSEY JOY Feb 27, 2025 17:44 BARBIE SERVIN MD Feb 28, 2025 16:35
[2025-02-27 18:51] LABS: INR 1.16 (0.9-1.15); Partial Thromboplastin Time 36.1 SEC (24.5-34.5); Prothrombin Time 12.1 sec (9.3-11.8)
--- NOTE | 2025-02-27 21:10 | CONS ---
Pharmacy Clinical Information: [facility] PER PHARMACY SPOKE TO ABHAY BREEN REGARDING TO [facility] DOSE CHANGE CURRENT DOSE: 2.5ML/HR CURRENT aPTT: 36.1 ON 02/27/25 AT 1725 INCREASE (NEW DOSE): 3.8 ML/HR WAS STARTED AT 2036 ON 02/27/25 NEXT aPTT: 02/27/25 AT 2237 JAMSHID BLANK READ BACK NEW DOSE: 3.8 ML/HR CHERELLE Tejada Feb 27, 2025 21:10
[2025-02-27] MEDS: SACUBITRIL-VALSARTAN 24mg/26mg TAB PO SCH (21:29)
[2025-02-27] MEDS: LACTULOSE 20Gm/30ML SOLN PO SCH (21:36)
[2025-02-27 23:20] LABS: INR 1.19 (0.9-1.15); Partial Thromboplastin Time 38.5 SEC (24.5-34.5); Prothrombin Time 12.4 sec (9.3-11.8)
[2025-02-28] VITALS (7 sets, daily range): BP systolic 102–127; BP diastolic 57–67; PULSE 65–88; RESP 17–19; TEMP 97.6–98.1; O2SAT 91–97
[2025-02-28] MEDS: HYDROcodone-ACET 10/325MG TAB PO PRN (00:04)
[2025-02-28 02:38] LABS: INR 1.22 (0.9-1.15); Partial Thromboplastin Time 43.6 SEC (24.5-34.5); Prothrombin Time 12.7 sec (9.3-11.8)
[2025-02-28] MEDS: ARGATROBAN 250 MG in SODIUM CHL 0.9% 247.5 ML IV SCH ×3 (03:10→13:00)
[2025-02-28 06:35] LABS: Basophils # (auto) 0.1 10 ^3/uL (0-0.2); Basophils % (auto) 0.5 % (0.0-2.0); Eosinophils # (auto) 0.2 10 ^3/uL (0-0.8); Eosinophils % (auto) 1.4 % (0.0-7.0); Hematocrit 37.3 % (41.0-53.0); Hemoglobin 12.4 g/dL (13.5-17.5); Lymphocytes # (auto) 1.1 10 ^3/uL (0.4-5.4); Lymphocytes % (auto) 7.7 % (10.0-50.0); Mean Corpuscular Hemoglobin 32.7 pg (28.0-32.0); Mean Corpuscular Hgb Conc. 33.2 g/dL (32.0-36.0); Mean Corpuscular Volume 98.5 fL (80.0-100.0); Monocytes # (auto) 0.8 10 ^3/uL (0-1.3); Monocytes % (auto) 5.7 % (0.0-12.0); Neutrophils # (auto) 11.7 10 ^3/uL (1.6-8.6); Neutrophils % (auto) 84.7 % (37.0-80.0); Nucleated Red Blood Cells % 0.1 %; Platelet Count (auto) 68 10^3/uL (140-450); Red Blood Cells 3.79 10^6/uL (4.5-5.90); Red Cell Distribution Width 15.1 % (11.8-14.3); White Blood Cell 13.8 10^3/uL (4.4-10.8)
[2025-02-28 06:46] LABS: INR 1.29 (0.9-1.15); Partial Thromboplastin Time 41.5 SEC (24.5-34.5); Prothrombin Time 13.3 sec (9.3-11.8)
[2025-02-28 06:57] LABS: Albumin 3.4 g/dL (3.2-4.8); Anion Gap 8 (5-15); BUN/Creatinine Ratio 23.5 (10.0-20.0); Blood Urea Nitrogen 16 mg/dL (9-23); Calcium 9.2 mg/dL (8.7-10.4); Carbon Dioxide 30 mmol/L (20-31); Magnesium 1.8 mg/dL (1.6-2.6); Potassium 3.6 mmol/L (3.5-5.1); Sodium 136 mmol/L (136-145); Total Protein 5.9 g/dL (5.7-8.2)
[2025-02-28 06:58] LABS: Bilirubin, Total 1.2 mg/dL (0.2-1.0)
[2025-02-28 06:59] LABS: Alkaline Phosphatase 441 U/L (46-116); Aspartate Aminotransferase 69 U/L (13-40); Chloride 98 mmol/L (98-107); Glucose 140 mg/dL (74-106)
[2025-02-28 07:00] LABS: Alanine Aminotransferase 154 U/L (7-40)
[2025-02-28] MEDS: EMPAGLIFLOZIN 10 MG TAB PO SCH (10:39)
[2025-02-28] MEDS: predniSONE 20 MG TAB PO SCH (10:41)
[2025-02-28] MEDS: METOPROLOL SUCCINATE XL 50 MG TAB PO SCH (10:42)
[2025-02-28 12:15] LABS: INR 1.32 (0.9-1.15); Prothrombin Time 13.6 sec (9.3-11.8)
[2025-02-28 15:44] LABS: INR 1.32 (0.9-1.15); Partial Thromboplastin Time 50.5 SEC (24.5-34.5); Prothrombin Time 13.6 sec (9.3-11.8)
--- NOTE | 2025-02-28 15:52 | DVH ---
CT CT AB PEL WO CON-NO ORAL OR IV INDICATION: abdominal pain : 59 old Male abdominal pain EXAM DATE: 02/28/2025 12:51 PM COMPARISON: 02/25 RADIATION DOSE: CTDIvol: 5.07 mGy, DLP: 264.79 mGy*cm PROCEDURE: Helical CT images were obtained of the abdomen and pelvis without IV contrast Sagittal and coronal reconstructions are provided. ORAL CONTRAST: None. ADDITIONAL IMAGES / REFORMATS: None All C T scans at this medical facility are performed using dose modulation techniques as appropriate to a p erformed exam including the following: Automated exposure control was utilized; adjustment of the MA and/or KV according to patient size; and use of iterative reconstruction technique. FINDINGS: LUNG BASE: Emphysematous changes of the lungs with right middle lobe centrilobular nodules. LIVER: Normal. GALLBLADDER AND BILIARY TREE: Cholecystostomy tube in the gallbladder with dense material in the gall bladder. No intra- or extrahepatic biliary ductal dilation. PANCREAS: Normal. SPLEEN: Normal. BOWEL: Contrast material seen in the colon. Normal appendix. ADRENALS: Normal. KIDNEYS AND URETER: Normal. BLADDER: Normal. REPRODUCTIVE ORGANS: Normal. LYMPH NODES:No lymphadenopathy. PERITONEUM: No ascites or free air. No other fluid collection. VESSELS: Post surgical changes are seen in the left groin. RETROPERITONEUM: Normal. ABDOMINAL WALL: Normal. BONES: Scattered osseous degenerative changes are noted. IMPRESSION: No acute intraabdominal abnormality. Emphysematous changes of the lungs with right middle lobe centrilobular nodules could be aspiration p neumonia. Cholecystostomy tube in the gallbladder with dense material in the gallbladder probable contrast from the procedure. Post surgical changes are seen in the left groin.
--- NOTE | 2025-02-28 18:08 | DVHPNRES ---
Progress Note Date Seen: Feb 28, 2025 Resident Creating Document: LINDSEY JOY RESIDENT Medical Necessity Reason Pt with a Central, PICC or Fol: Yes The following are medically ne: Central Line, Alarcon Catheter (RN) Reason for alarcon catheter: Strict I&O Subjective Review of Systems Patient was seen and examined at bedside. He remains on nasal cannula at 2 L. Awake and alert. Complaining of abdominal pain, improving with narcotics Objective vital signs Vital Sign Date Time Temp Pulse Resp B/P (MAP) Pulse Ox O2 Delivery O2 Flow Rate FiO2 02/28/25 16:35 97.6 77 18 102/66 (78) 96 97.6 02/28/25 08:00 Nasal Cannula* 3 32 Total Intake and Output 02/27/25 02/27/25 02/28/25 15:00 23:00 07:00 Intake Total 245.5 ml 936 ml 1025 ml Output Total 1200 ml 800 ml Balance 245.5 ml -264 ml 225 ml medications Current Medications Medications Dose Ordered Sig/Zenon Route Start Time Stop Time Status Last Admin Dose Admin Acetaminophen 650 mg Q6HP PRN PO 02/14/25 20:00 02/28/25 13:22 650 MG Nitroglycerin 0.4 mg Q5MINP PRN SL 02/14/25 20:00 Sodium Chloride 10 ml QSHIFT@10,22 IV 02/18/25 22:00 02/28/25 10:45 10 ML Vancomycin HCl 100 ml @ 100 mls/hr Q12H IV 02/19/25 16:00 Cancel Ondansetron HCl 4 mg Q6HPRN PRN IV 02/21/25 16:00 02/23/25 11:12 4 MG Rifaximin 550 mg BID PO 02/23/25 10:00 02/28/25 10:41 550 MG Meropenem 50 ml @ 17 mls/hr Q8H IV 02/23/25 21:00 02/28/25 13:10 17 MLS/HR Spironolactone 25 mg DAILY PO 02/24/25 10:00 02/28/25 10:41 25 MG Patient Own Medication 1 DAILY PO 02/27/25 10:00 02/28/25 11:00 1 Lactulose 30 ml BID PO 02/27/25 22:00 02/28/25 10:40 30 ML Metoprolol Succinate 25 mg DAILY PO 02/28/25 10:00 02/28/25 10:42 25 MG Sacubitril/ Valsartan 0.5 tab BID PO 02/27/25 22:00 02/28/25 10:41 0.5 TAB Empaglifozin 10 mg DAILY PO 02/28/25 10:00 02/28/25 10:39 10 MG Prednisone 30 mg DAILY PO 03/01/25 10:00 Pantoprazole Sodium 40 mg DAILY@0600 PO 03/01/25 06:00 Apixaban 5 mg BID PO 02/28/25 22:00 Oxycodone/ Acetaminophen 1 tab Q4HP PRN PO 02/28/25 16:45 Examination Physical examination as below: General: Awake, alert, in no acute distress HEENT: Head is normocephalic and atraumatic. Pupils are equal, round, and reactive to light. Neck: Supple with no cervical lymphadenopathy. Heart: Normal rate without murmur, rub, or gallop. Lungs: Scattered crackles and wheezing Abdomen: No external sign of injury. Bowel sounds are present. Abdomen is soft, nontender. Extremities: Strong peripheral pulses. There is no clubbing, no cyanosis, and no edema. Skin: No rash. Neurologic: no neurologic deficits laboratory and microbiology Laboratory Tests 02/28/25 05:05 Test 02/28/25 05:05 Range/Units Serum Glucose 140 H 74-106 mg/dL Microbiology Date/Time Source Procedure Growth Status 02/27/25 09:13 Drainage Gram Stain - Final Resulted 02/27/25 09:13 Drainage Wound Culture - Preliminary Resulted 02/15/25 06:17 Urine - Alarcon Port Urine Culture - Final Complete 02/14/25 22:43 Nose MRSA Screen - Final Complete 02/14/25 18:22 Blood Blood Culture - Final NO GROWTH AFTER 5 DAYS OF INCUBATION. Complete 02/14/25 16:27 Sputum Gram Stain - Final Complete 02/14/25 16:27 Respiratory Culture - Final Klebsiella pneumoniae Complete Labs and/or images reviewed: Labs reviewed by me, Image(s) reviewed by me Problem List/Assessment/Plan Problem List/Assessment/Plan Neurology #Toxic/Metabolic encephalopathy, likely due to sepsis, drug use, respiratory failure, improved Ordered head ct, unremarkable Cardiovascular #Acute on chronic systolic CHF, improving continue GDMT Aldactone 25 mg p.o. q.d. entresto jardiance metoprolol succ EF 15-20% #Non-Ischemic cardiomyopathy #Drug-induced cardiomyopathy #Methamphetamine abuse #NSTEMI likely type 2 #CAD, mild #Left common femoral thrombus status post thrombectomy LHC performed on 02/19/25, mild CAD Aspirin dc argatroban iv, continue eliquis 5mg po bid Pulmonology #Acute hypoxic respiratory failure likely due to pneumonia, COPD exacerbation, drug use, s/p mechanical ventilator, extubated 02/21/25 On nasal cannula 4lts, wane down as tolerated CPAP trial successful 02/21/25. Extubated, in nasal cannula #Multifocal pneumonia, gram (+) vs gram (-), atypicals Sputum culture growing K. pneumoniae Merrem IV #COPD exacerbation, improving prednisone 30mg po qd Continue duonebs #Respiratory alkalosis, improved Nephrology #MOLLY due to VMN, likely hemodynamically mediated, improved Monitor for in and outs Avoid nephrotoxic agents Endocrinology #Hyperglycemia due to glucocorticoids Monitor Gastroenterology #Transaminitis, possibly due to left hepatic vein thrombosis #Hepatic mass, hemangioma #Left hepatic vein thrombosis ruled out #Acalculous cholecystitis Surgery recommended IR cholecystostomy Consulted Interventional Radiology for percutaneous cholecystostomy performed, will fu in outpatient #Hyperammonemia lactulose 30ml bid diet: cardiac diet Hematology and Oncology #Anemia normocytic, normochromic Chronic, nonocclusive right common femoral thrombus Monitor #Thrombocytopenia, severe, 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 consulted for dc planning top SNF for PT for 4 weeks Goals of care were discussed for over 30 minutes. FULL CODE. Case was discussed with Dr. Servin Plan discussed with: Patient, Daughter, Other (RN) My Orders My Orders Orders - LINDSEY JOY Procedure Category Date Status Time Metoprolol Xl PHA 02/28/25 In Process Succinate (Toprol Xl) 10:00 Sacubitril-Valsartan PHA 02/27/25 In Process (Entresto 24-26 Mg 22:00 Empagliflozin PHA 02/28/25 In Process (Jardiance) 10:00 Pharmacy GEMA 02/27/25 In Process Clarification: 21:05 Pharmacy GEMA 02/28/25 In Process Clarification: 09:00 Ct Ab Pel Wo Con-No CT 02/28/25 Resulted Oral Or Iv 12:00 Pharmacy GEMA 02/28/25 In Process Clarification: 12:45 Prednisone Tablet PHA 03/01/25 In Process 10:00 * Temper [employer] CONS 02/28/25 Transmitted Consult 16:36 Pantoprazole Tablet PHA 03/01/25 In Process (Protonix Tablet) 06:00 Apixaban (Eliquis) PHA 02/28/25 In Process 22:00 Oxycodone W/ Acet PHA 02/28/25 In Process 5/325mg Tab (Percocet 16:45 Dietary Evaluation Review Comments: 1) If patient remains NPO > 7 days, consider EN/TPN to meet at least 75% estimated daily needs 2) If GI is preferred, consider Jevity 1.2 @ goal rate of 45 mL/hr as tolerated. Flush with 200 mL free H2O Q6H. TF regimen (including flushes) will provide 1296 kcals, 60g Pro, and 1672 mL free H2O per 24 hrs. TF rate will meet 95% estimated daily energy needs and ~87% estimated daily protein needs 3) Advance to cardiac diet when medically feasible, pending [facility] approval 4) Follow-up with cardiology and pulmonology 5) Continue to monitor I&O, labs, and skin integrity Expected Outcomes/Goals: 1) patient to receive nutritional support within 7 days 2) appetite and labs to improve 3) diet to advance 4) f/u in 2-3 days Date of Service: Feb 28, 2025 Billing Provider: BARBIE SERVIN MD Common Visit Codes: [id number] INP/OBS CARE(HIGH) Secondary Visit Codes: [id number] CARE PLAN 30 MINUTES LINDSEY JOY Feb 28, 2025 18:08 BARBIE SERVIN MD Mar 01, 2025 11:59
[2025-02-28] MEDS: APIXABAN 5 MG TAB PO SCH (20:59)
[2025-03-01] VITALS (10 sets, daily range): BP systolic 94–148; BP diastolic 56–84; PULSE 57–96; RESP 16–19; TEMP 97.5–98.5; O2SAT 94–100
[2025-03-01] MEDS: OXYCODONE W/ ACETAMINOPHEN 5/325MG TABLET PO PRN (01:21)
[2025-03-01] MEDS: PANTOPRAZOLE 40 MG TAB PO SCH (05:42)
[2025-03-01 07:06] LABS: Albumin 3.3 g/dL (3.2-4.8); Anion Gap 9 (5-15); BUN/Creatinine Ratio 33.9 (10.0-20.0); Blood Urea Nitrogen 20 mg/dL (9-23); Calcium 8.9 mg/dL (8.7-10.4); Carbon Dioxide 26 mmol/L (20-31); Glucose 91 mg/dL (74-106); Magnesium 1.8 mg/dL (1.6-2.6); Potassium 4.7 mmol/L (3.5-5.1); Total Protein 5.9 g/dL (5.7-8.2)
[2025-03-01 07:09] LABS: Alanine Aminotransferase 120 U/L (7-40); Alkaline Phosphatase 396 U/L (46-116); Aspartate Aminotransferase 59 U/L (13-40); Bilirubin, Total 1.4 mg/dL (0.2-1.0); Chloride 96 mmol/L (98-107); Sodium 131 mmol/L (136-145)
[2025-03-01 07:37] LABS: Basophils # (auto) 0.1 10 ^3/uL (0-0.2); Basophils % (auto) 0.3 % (0.0-2.0); Eosinophils # (auto) 0.1 10 ^3/uL (0-0.8); Eosinophils % (auto) 0.3 % (0.0-7.0); Hematocrit 38.7 % (41.0-53.0); Hemoglobin 12.5 g/dL (13.5-17.5); Lymphocytes # (auto) 1.7 10 ^3/uL (0.4-5.4); Lymphocytes % (auto) 8.6 % (10.0-50.0); Mean Corpuscular Hemoglobin 31.9 pg (28.0-32.0); Mean Corpuscular Hgb Conc. 32.2 g/dL (32.0-36.0); Mean Corpuscular Volume 99.1 fL (80.0-100.0); Monocytes # (auto) 1.1 10 ^3/uL (0-1.3); Monocytes % (auto) 5.3 % (0.0-12.0); Neutrophils # (auto) 17.1 10 ^3/uL (1.6-8.6); Neutrophils % (auto) 85.5 % (37.0-80.0); Nucleated Red Blood Cells % 0.1 %; Red Blood Cells 3.91 10^6/uL (4.5-5.90); Red Cell Distribution Width 15.1 % (11.8-14.3); White Blood Cell 20.1 10^3/uL (4.4-10.8)
[2025-03-01 07:39] LABS: Platelet Count (auto) 104 10^3/uL (140-450)
--- NOTE | 2025-03-01 09:49 | DVHPNRES ---
Progress Note Date Seen: Mar 01, 2025 Resident Creating Document: LINDSEY JOY RESIDENT Medical Necessity Reason Pt with a Central, PICC or Fol: Yes The following are medically ne: Central Line, Alarcon Catheter (RN) Reason for alarcon catheter: Strict I&O Subjective Review of Systems Patient was seen and examined at bedside. He remains on nasal cannula at 2 L. Awake and alert. Complaining of abdominal pain, improving with narcotics will be scheduled for cholecystectomy tomorrow Objective vital signs Vital Sign Date Time Temp Pulse Resp B/P (MAP) Pulse Ox O2 Delivery O2 Flow Rate FiO2 03/01/25 05:00 98.1 85 19 94/63 (73) 94 98.1 02/28/25 20:00 Nasal Cannula* 2 28 Total Intake and Output 02/28/25 02/28/25 03/01/25 15:00 23:00 07:00 Intake Total 50 ml 405 ml 700 ml Output Total 500 ml 700 ml Balance 50 ml -95 ml 0 ml medications Current Medications Medications Dose Ordered Sig/Zenon Route Start Time Stop Time Status Last Admin Dose Admin Acetaminophen 650 mg Q6HP PRN PO 02/14/25 20:00 02/28/25 13:22 650 MG Nitroglycerin 0.4 mg Q5MINP PRN SL 02/14/25 20:00 Sodium Chloride 10 ml QSHIFT@10,22 IV 02/18/25 22:00 02/28/25 20:59 10 ML Vancomycin HCl 100 ml @ 100 mls/hr Q12H IV 02/19/25 16:00 Cancel Ondansetron HCl 4 mg Q6HPRN PRN IV 02/21/25 16:00 02/23/25 11:12 4 MG Meropenem 50 ml @ 17 mls/hr Q8H IV 02/23/25 21:00 03/01/25 05:42 17 MLS/HR Patient Own Medication 1 DAILY PO 02/27/25 10:00 02/28/25 11:00 1 Lactulose 30 ml BID PO 02/27/25 22:00 02/28/25 10:40 30 ML Metoprolol Succinate 25 mg DAILY PO 02/28/25 10:00 02/28/25 10:42 25 MG Sacubitril/ Valsartan 0.5 tab BID PO 02/27/25 22:00 02/28/25 20:58 0.5 TAB Empaglifozin 10 mg DAILY PO 02/28/25 10:00 02/28/25 10:39 10 MG Pantoprazole Sodium 40 mg DAILY@0600 PO 03/01/25 06:00 03/01/25 05:42 40 MG Apixaban 5 mg BID PO 02/28/25 22:00 02/28/25 20:59 5 MG Oxycodone/ Acetaminophen 1 tab Q4HP PRN PO 02/28/25 16:45 03/01/25 06:07 1 TAB Spironolactone 12.5 mg DAILY PO 03/01/25 10:00 Al Hydrox/Mg Hydrox/Simethicone 30 ml Q6HP PRN PO 03/01/25 14:00 Prednisone 30 mg DAILY PO 03/01/25 18:00 Examination Physical examination as below: General: Awake, alert, in no acute distress HEENT: Head is normocephalic and atraumatic. Pupils are equal, round, and reactive to light. Neck: Supple with no cervical lymphadenopathy. Heart: Normal rate without murmur, rub, or gallop. Lungs: Scattered crackles and wheezing Abdomen: No external sign of injury. Bowel sounds are present. Abdomen is soft, nontender. Extremities: Strong peripheral pulses. There is no clubbing, no cyanosis, and no edema. Skin: No rash. Neurologic: no neurologic deficits laboratory and microbiology Laboratory Tests 03/01/25 05:43 Test 03/01/25 05:43 Range/Units Serum Glucose 91 74-106 mg/dL Microbiology Date/Time Source Procedure Growth Status 02/27/25 09:13 Drainage Gram Stain - Final Resulted 02/27/25 09:13 Drainage Wound Culture - Preliminary Resulted 02/15/25 06:17 Urine - Alarcon Port Urine Culture - Final Complete 02/14/25 22:43 Nose MRSA Screen - Final Complete 02/14/25 18:22 Blood Blood Culture - Final NO GROWTH AFTER 5 DAYS OF INCUBATION. Complete 02/14/25 16:27 Sputum Gram Stain - Final Complete 02/14/25 16:27 Respiratory Culture - Final Klebsiella pneumoniae Complete Labs and/or images reviewed: Labs reviewed by me, Image(s) reviewed by me Problem List/Assessment/Plan Problem List/Assessment/Plan Neurology #Toxic/Metabolic encephalopathy, likely due to sepsis, drug use, respiratory failure, improved Ordered head ct, unremarkable Cardiovascular #Acute on chronic systolic CHF, improving continue GDMT Aldactone 25 mg p.o. q.d. entresto jardiance metoprolol succ EF 15-20% #Non-Ischemic cardiomyopathy #Drug-induced cardiomyopathy #Methamphetamine abuse #NSTEMI likely type 2 #CAD, mild #Left common femoral thrombus status post thrombectomy LHC performed on 02/19/25, mild CAD Aspirin held eliquis 5mg po bid for procedure Pulmonology #Acute hypoxic respiratory failure likely due to pneumonia, COPD exacerbation, drug use, s/p mechanical ventilator, extubated 02/21/25 On nasal cannula 4lts, wane down as tolerated CPAP trial successful 02/21/25. Extubated, in nasal cannula #Multifocal pneumonia, gram (+) vs gram (-), atypicals Sputum culture growing K. pneumoniae Merrem IV #COPD exacerbation, improving prednisone 30mg po qd Continue duonebs #Respiratory alkalosis, improved Nephrology #MOLLY due to VMN, likely hemodynamically mediated, improved Monitor for in and outs Avoid nephrotoxic agents Endocrinology #Hyperglycemia due to glucocorticoids Monitor Gastroenterology #Transaminitis, possibly due to left hepatic vein thrombosis #Hepatic mass, hemangioma #Left hepatic vein thrombosis ruled out #Acalculous cholecystitis Surgery recommended IR cholecystostomy Consulted Interventional Radiology for percutaneous cholecystostomy performed, will fu in outpatient consulted surgery, cholecystectomy tomorrow #Hyperammonemia lactulose 30ml bid diet: cardiac diet Hematology and Oncology #Anemia normocytic, normochromic Chronic, nonocclusive right common femoral thrombus Monitor #Thrombocytopenia, severe, 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 consulted SS for dc planning top SNF for PT for 4 weeks Goals of care were discussed for over 30 minutes. FULL CODE. Case was discussed with Dr. Srevin Plan discussed with: Patient, Daughter, Other (RN) My Orders My Orders Orders - LINDSEY JOY Procedure Category Date Status Time Ct Ab Pel Wo Con-No CT 02/28/25 Resulted Oral Or Iv 12:00 Pharmacy GEMA 02/28/25 In Process Clarification: 12:45 * Manager Lab CONS 02/28/25 Transmitted Consult 16:36 Pantoprazole Tablet PHA 03/01/25 In Process (Protonix Tablet) 06:00 Apixaban (Eliquis) PHA 02/28/25 In Process 22:00 Oxycodone W/ Acet PHA 02/28/25 In Process 5/325mg Tab (Percocet 16:45 Ammonia LAB 03/01/25 In Process 06:18 Spironolactone PHA 03/01/25 In Process (Aldactone) 10:00 Alum & Mag PHA 03/01/25 In Process Hydrox-Simethicone 14:00 Prednisone Tablet PHA 03/01/25 In Process 18:00 Dietary Evaluation Review Comments: 1) If patient remains NPO > 7 days, consider EN/TPN to meet at least 75% estimated daily needs 2) If GI is preferred, consider Jevity 1.2 @ goal rate of 45 mL/hr as tolerated. Flush with 200 mL free H2O Q6H. TF regimen (including flushes) will provide 1296 kcals, 60g Pro, and 1672 mL free H2O per 24 hrs. TF rate will meet 95% estimated daily energy needs and ~87% estimated daily protein needs 3) Advance to cardiac diet when medically feasible, pending [employer] approval 4) Follow-up with cardiology and pulmonology 5) Continue to monitor I&O, labs, and skin integrity Expected Outcomes/Goals: 1) patient to receive nutritional support within 7 days 2) appetite and labs to improve 3) diet to advance 4) f/u in 2-3 days Date of Service: Mar 01, 2025 Billing Provider: BARBIE SERVIN MD Common Visit Codes: [id number] INP/OBS CARE(HIGH) Secondary Visit Codes: [id number] CARE PLAN 30 MINUTES LINDSEY JOY Mar 01, 2025 09:49 BARBIE SERVIN MD Mar 03, 2025 21:24
[2025-03-01] MEDS ORDERED: predniSONE 20 MG TAB PO SCH ×2 (10:00→18:00)
[2025-03-01] MEDS: MAALOX PLUS or MAALOX 30 ML PO ONE (10:31)
[2025-03-01] MEDS: SPIRONOLACTONE 25 MG TAB PO SCH (10:32)
--- NOTE | 2025-03-01 11:39 | DVHPN2 ---
Progress Note Date Seen: Mar 01, 2025 Medical Necessity Reason Pt with a Central, PICC or Fol: Yes The following are medically ne: Central Line, Alarcon Catheter (RN) Reason for alarcon catheter: Strict I&O Objective vital signs Vital Sign Date Time Temp Pulse Resp B/P (MAP) Pulse Ox O2 Delivery O2 Flow Rate FiO2 03/01/25 10:34 92 111/69 03/01/25 08:30 97.5 17 95 97.5 03/01/25 08:00 Nasal Cannula* 2 28 Total Intake and Output 02/28/25 02/28/25 03/01/25 15:00 23:00 07:00 Intake Total 50 ml 405 ml 700 ml Output Total 500 ml 700 ml Balance 50 ml -95 ml 0 ml medications Current Medications Medications Dose Ordered Sig/Zenon Route Start Time Stop Time Status Last Admin Dose Admin Acetaminophen 650 mg Q6HP PRN PO 02/14/25 20:00 02/28/25 13:22 650 MG Nitroglycerin 0.4 mg Q5MINP PRN SL 02/14/25 20:00 Sodium Chloride 10 ml QSHIFT@10,22 IV 02/18/25 22:00 03/01/25 10:40 10 ML Vancomycin HCl 100 ml @ 100 mls/hr Q12H IV 02/19/25 16:00 Cancel Ondansetron HCl 4 mg Q6HPRN PRN IV 02/21/25 16:00 03/01/25 10:31 4 MG Meropenem 50 ml @ 17 mls/hr Q8H IV 02/23/25 21:00 03/01/25 05:42 17 MLS/HR Patient Own Medication 1 DAILY PO 02/27/25 10:00 03/01/25 10:54 1 Lactulose 30 ml BID PO 02/27/25 22:00 02/28/25 10:40 30 ML Metoprolol Succinate 25 mg DAILY PO 02/28/25 10:00 03/01/25 10:34 25 MG Sacubitril/ Valsartan 0.5 tab BID PO 02/27/25 22:00 03/01/25 10:35 0.5 TAB Empaglifozin 10 mg DAILY PO 02/28/25 10:00 03/01/25 10:32 10 MG Pantoprazole Sodium 40 mg DAILY@0600 PO 03/01/25 06:00 03/01/25 05:42 40 MG Apixaban 5 mg BID PO 02/28/25 22:00 03/01/25 10:34 5 MG Oxycodone/ Acetaminophen 1 tab Q4HP PRN PO 02/28/25 16:45 03/01/25 10:36 1 TAB Spironolactone 12.5 mg DAILY PO 03/01/25 10:00 03/01/25 10:32 12.5 MG Al Hydrox/Mg Hydrox/Simethicone 30 ml Q6HP PRN PO 03/01/25 14:00 Prednisone 30 mg DAILY PO 03/01/25 18:00 Albuterol 2.5 mg Q4HPRN PRN NEB 03/01/25 11:00 Ipratropium [place] 0.5 mg Q4HPRN PRN NEB 03/01/25 11:00 laboratory and microbiology Laboratory Tests 03/01/25 05:43 Test 03/01/25 05:43 Range/Units Serum Glucose 91 74-106 mg/dL Problem List/Assessment/Plan Problem List/Assessment/Plan 03/01/25 patient is sp cholecystostomy but his leukocytosis continues and he is in a lot of pain, I believe he would benefit from cholecystectomy, discussed with Sonja Daniel Plan discussed with: Patient Dietary Evaluation Review Comments: 1) If patient remains NPO > 7 days, consider EN/TPN to meet at least 75% estimated daily needs 2) If GI is preferred, consider Jevity 1.2 @ goal rate of 45 mL/hr as tolerated. Flush with 200 mL free H2O Q6H. TF regimen (including flushes) will provide 1296 kcals, 60g Pro, and 1672 mL free H2O per 24 hrs. TF rate will meet 95% estimated daily energy needs and ~87% estimated daily protein needs 3) Advance to cardiac diet when medically feasible, pending [facility] approval 4) Follow-up with cardiology and pulmonology 5) Continue to monitor I&O, labs, and skin integrity Expected Outcomes/Goals: 1) patient to receive nutritional support within 7 days 2) appetite and labs to improve 3) diet to advance 4) f/u in 2-3 days FLAVIO BROTHERS MD Mar 01, 2025 11:39
--- NOTE | 2025-03-01 12:20 | DVH ---
AP portable chest HISTORY: SOB Comparison: XY CHEST PORTABLE on DOS: 02/24/25, XY CHEST PORTABLE on DOS: 02/22/25, XY CHEST PORTABLE o n DOS: 02/21/25 FINDINGS: There is a central line with its tip in the low superior vena cava. Heart size is normal. N o infiltrates or effusions. IMPRESSION: 1. No acute cardiopulmonary pathology. PICC line catheter tip remains in the low superior vena cava
[2025-03-01] MEDS ORDERED: MAALOX PLUS or MAALOX 30 ML PO PRN (14:00)
[2025-03-01] MEDS: IPRATROPIUM BROM 0.5 MG/2.5ML INH SOL NEB PRN (14:04)
[2025-03-01] MEDS: ALBUTEROL SULF 2.5 MG/0.5ML(0.5%) NEB SOLN NEB PRN (14:04)
[2025-03-02] VITALS (16 sets, daily range): BP systolic 87–108; BP diastolic 49–67; PULSE 76–108; RESP 13–29; TEMP 98.1–98.3; O2SAT 91–100
[2025-03-02] MEDS: MORPHINE SULFATE INJ 2 MG/ml SYRG IV PRN (05:09)
[2025-03-02 07:18] LABS: Basophils # (auto) 0 10 ^3/uL (0-0.2); Basophils % (auto) 0.4 % (0.0-2.0); Eosinophils # (auto) 0.1 10 ^3/uL (0-0.8); Eosinophils % (auto) 0.8 % (0.0-7.0); Hematocrit 38.8 % (41.0-53.0); Hemoglobin 13.1 g/dL (13.5-17.5); Lymphocytes % (auto) 8.1 % (10.0-50.0); Mean Corpuscular Hemoglobin 32.7 pg (28.0-32.0); Mean Corpuscular Hgb Conc. 33.7 g/dL (32.0-36.0); Monocytes # (auto) 0.9 10 ^3/uL (0-1.3); Monocytes % (auto) 7.4 % (0.0-12.0); Neutrophils # (auto) 10.2 10 ^3/uL (1.6-8.6); Neutrophils % (auto) 83.3 % (37.0-80.0); Platelet Count (auto) 146 10^3/uL (140-450); Red Cell Distribution Width 14.6 % (11.8-14.3); White Blood Cell 12.2 10^3/uL (4.4-10.8)
[2025-03-02 07:30] LABS: Albumin 3.6 g/dL (3.2-4.8); Anion Gap 6 (5-15); Aspartate Aminotransferase 35 U/L (13-40); BUN/Creatinine Ratio 31.4 (10.0-20.0); Blood Urea Nitrogen 22 mg/dL (9-23); Calcium 9.3 mg/dL (8.7-10.4); Carbon Dioxide 28 mmol/L (20-31); Glucose 99 mg/dL (74-106); Magnesium 2.1 mg/dL (1.6-2.6); Potassium 4.1 mmol/L (3.5-5.1); Total Protein 6.5 g/dL (5.7-8.2)
[2025-03-02 07:33] LABS: Alanine Aminotransferase 88 U/L (7-40); Alkaline Phosphatase 346 U/L (46-116); Bilirubin, Total 1.3 mg/dL (0.2-1.0); Chloride 95 mmol/L (98-107); Sodium 129 mmol/L (136-145)
[2025-03-02] MEDS: predniSONE 20 MG TAB PO SCH (09:25)
[2025-03-02] MEDS ORDERED: ROCURONIUM 10MG/ML 10ML VIAL IV ONE (09:39)
[2025-03-02] MEDS ORDERED: LIDOCAINE 1% INJ PF 5ML AMP ONE (09:39)
[2025-03-02] MEDS ORDERED: fentaNYL CITRATE 100 MCG/2 ML VL ONE ×2 (09:39→10:15)
[2025-03-02] MEDS ORDERED: PROPOFOL 10 MG/ML 20 ML IV ONE (09:39)
[2025-03-02] MEDS: LIDOCAINE W/ EPINEPHRINE 1% 20ML VIAL ONE (10:32)
[2025-03-02] MEDS ORDERED: KETAMINE 50mg/ML 1ml syringe ONE (10:52)
--- NOTE | 2025-03-02 10:54 | DVHPNRES ---
Progress Note Date Seen: Mar 02, 2025 Resident Creating Document: LINDSEY JOY RESIDENT Medical Necessity Reason Pt with a Central, PICC or Fol: Yes The following are medically ne: Central Line, Alarcon Catheter (RN) Reason for alarcon catheter: Strict I&O Subjective Review of Systems Patient was seen and examined at bedside. He remains on nasal cannula at 4 L. Awake and alert. Complaining of abdominal pain, improving with narcotics will be scheduled for cholecystectomy today Objective vital signs Vital Sign Date Time Temp Pulse Resp B/P (MAP) Pulse Ox O2 Delivery O2 Flow Rate FiO2 03/02/25 08:12 98.3 79 17 100/61 (74) 98 98.3 03/02/25 01:30 Nasal Cannula 2.0 03/02/25 01:30 28 Total Intake and Output 03/01/25 03/01/25 03/02/25 15:00 23:00 07:00 Intake Total 50 ml 604 ml 290 ml Output Total 475 ml Balance 50 ml 604 ml -185 ml medications Current Medications Medications Dose Ordered Sig/Zenon Route Start Time Stop Time Status Last Admin Dose Admin Acetaminophen 650 mg Q6HP PRN PO 02/14/25 20:00 03/01/25 13:11 650 MG Nitroglycerin 0.4 mg Q5MINP PRN SL 02/14/25 20:00 Sodium Chloride 10 ml QSHIFT@10,22 IV 02/18/25 22:00 03/01/25 21:44 10 ML Vancomycin HCl 100 ml @ 100 mls/hr Q12H IV 02/19/25 16:00 Cancel Ondansetron HCl 4 mg Q6HPRN PRN IV 02/21/25 16:00 03/01/25 10:31 4 MG Meropenem 50 ml @ 17 mls/hr Q8H IV 02/23/25 21:00 03/02/25 05:08 17 MLS/HR Patient Own Medication 1 DAILY PO 02/27/25 10:00 03/01/25 10:54 1 Lactulose 30 ml BID PO 02/27/25 22:00 03/01/25 13:13 30 ML Metoprolol Succinate 25 mg DAILY PO 02/28/25 10:00 03/01/25 10:34 25 MG Sacubitril/ Valsartan 0.5 tab BID PO 02/27/25 22:00 03/01/25 21:42 0.5 TAB Empaglifozin 10 mg DAILY PO 02/28/25 10:00 03/01/25 10:32 10 MG Pantoprazole Sodium 40 mg DAILY@0600 PO 03/01/25 06:00 03/01/25 05:42 40 MG Oxycodone/ Acetaminophen 1 tab Q4HP PRN PO 02/28/25 16:45 03/01/25 20:41 1 TAB Spironolactone 12.5 mg DAILY PO 03/01/25 10:00 03/01/25 10:32 12.5 MG Al Hydrox/Mg Hydrox/Simethicone 30 ml Q6HP PRN PO 03/01/25 14:00 Albuterol 2.5 mg Q4HPRN PRN NEB 03/01/25 11:00 03/01/25 14:04 2.5 MG Ipratropium [place] 0.5 mg Q4HPRN PRN NEB 03/01/25 11:00 03/01/25 14:04 0.5 MG Prednisone 20 mg DAILY PO 03/02/25 10:00 Morphine Sulfate 1 mg Q4HP PRN IV 03/01/25 18:00 03/02/25 05:09 1 MG Examination Physical examination as below: General: Awake, alert, in no acute distress HEENT: Head is normocephalic and atraumatic. Pupils are equal, round, and reactive to light. Neck: Supple with no cervical lymphadenopathy. Heart: Normal rate without murmur, rub, or gallop. Lungs: Scattered crackles and wheezing Abdomen: No external sign of injury. Bowel sounds are present. Abdomen is soft, nontender. Extremities: Strong peripheral pulses. There is no clubbing, no cyanosis, and no edema. Skin: No rash. Neurologic: no neurologic deficits laboratory and microbiology Laboratory Tests 03/02/25 06:57 Test 03/02/25 06:57 Range/Units Serum Glucose 99 74-106 mg/dL Microbiology Date/Time Source Procedure Growth Status 02/27/25 09:13 Drainage Gram Stain - Final Resulted 02/27/25 09:13 Drainage Wound Culture - Preliminary Resulted 02/15/25 06:17 Urine - Alarcon Port Urine Culture - Final Complete 02/14/25 22:43 Nose MRSA Screen - Final Complete 02/14/25 18:22 Blood Blood Culture - Final NO GROWTH AFTER 5 DAYS OF INCUBATION. Complete 02/14/25 16:27 Sputum Gram Stain - Final Complete 02/14/25 16:27 Respiratory Culture - Final Klebsiella pneumoniae Complete Labs and/or images reviewed: Labs reviewed by me, Image(s) reviewed by me Problem List/Assessment/Plan Problem List/Assessment/Plan Neurology #Toxic/Metabolic encephalopathy, likely due to sepsis, drug use, respiratory failure, improved Ordered head ct, unremarkable Cardiovascular #Acute on chronic systolic CHF, improving continue GDMT Aldactone 25 mg p.o. q.d. entresto jardiance metoprolol succ EF 15-20% #Non-Ischemic cardiomyopathy #Drug-induced cardiomyopathy #Methamphetamine abuse #NSTEMI likely type 2 #CAD, mild #Left common femoral thrombus status post thrombectomy LHC performed on 02/19/25, mild CAD Aspirin held eliquis 5mg po bid for procedure, can start tomorrow Pulmonology #Acute hypoxic respiratory failure likely due to pneumonia, COPD exacerbation, drug use, s/p mechanical ventilator, extubated 02/21/25 On nasal cannula 4lts, wane down as tolerated CPAP trial successful 02/21/25. Extubated, in nasal cannula #Multifocal pneumonia, gram (+) vs gram (-), atypicals Sputum culture growing K. pneumoniae Merrem IV #COPD exacerbation, improving prednisone 30mg po qd Continue duonebs #Respiratory alkalosis, improved Nephrology #MOLLY due to VMN, likely hemodynamically mediated, improved Monitor for in and outs Avoid nephrotoxic agents Endocrinology #Hyperglycemia due to glucocorticoids Monitor Gastroenterology #Transaminitis, possibly due to left hepatic vein thrombosis #Hepatic mass, hemangioma #Left hepatic vein thrombosis ruled out #Acalculous cholecystitis Surgery recommended IR cholecystostomy Consulted Interventional Radiology for percutaneous cholecystostomy performed, will fu in outpatient consulted surgery, cholecystectomy today #Hyperammonemia lactulose 30ml bid diet: cardiac diet Hematology and Oncology #Anemia normocytic, normochromic Chronic, nonocclusive right common femoral thrombus Monitor #Thrombocytopenia, severe, 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 consulted for dc planning top SNF for PT for 4 weeks Goals of care were discussed for over 30 minutes. FULL CODE. Case was discussed with Dr. Lemus Plan discussed with: Patient, Daughter, Other (RN) My Orders My Orders Orders - LINDSEY JOY RESIDENT Procedure Category Date Status Time Albuterol Medneb PHA 03/01/25 In Process (Ventolin Medneb) 11:00 Ipratropium Medneb PHA 03/01/25 In Process (Atrovent Medneb) 11:00 Chest Portable XY 03/01/25 Resulted 10:59 Morphine Sulfate PHA 03/01/25 In Process Injection 18:00 Dietary Evaluation Review Comments: 1) If patient remains NPO > 7 days, consider EN/TPN to meet at least 75% estimated daily needs 2) If GI is preferred, consider Jevity 1.2 @ goal rate of 45 mL/hr as tolerated. Flush with 200 mL free H2O Q6H. TF regimen (including flushes) will provide 1296 kcals, 60g Pro, and 1672 mL free H2O per 24 hrs. TF rate will meet 95% estimated daily energy needs and ~87% estimated daily protein needs 3) Advance to cardiac diet when medically feasible, pending [employer] approval 4) Follow-up with cardiology and pulmonology 5) Continue to monitor I&O, labs, and skin integrity Expected Outcomes/Goals: 1) patient to receive nutritional support within 7 days 2) appetite and labs to improve 3) diet to advance 4) f/u in 2-3 days LINDSEY JOY RESIDENT Mar 02, 2025 10:54
[2025-03-02] MEDS ORDERED: SUGAMMADEX 200mg/2ml Vial (100MG/ML) IV ONE (11:06)
[2025-03-02] MEDS: ACETAMINOPHEN IV 1000 MG/100ML (10MG/ML) IV ONE (11:20)
[2025-03-02] MEDS ORDERED: ePHEDrine SULFATE 50 MG/ML AMP IV PRN (11:45)
[2025-03-02] MEDS: ONDANSETRON HCL 4 MG/2 ML VIAL IV ONE (11:45)
--- NOTE | 2025-03-02 12:10 | DVHOP ---
DATE OF SURGERY: 03/02/2025 PREOPERATIVE DIAGNOSES: Cholecystitis, status post cholecystostomy tube, status post cardiopulmonary arrest, status post right femoral thromboendarterectomy, and embolectomy. SURGEON: Cooper Rivera MD LAV CREWMAN: Adam Pal NP ANESTHESIA: General endotracheal, PHOTOGRAPHY INTERN PROCEDURES: * Laparoscopic cholecystectomy. * Placement of Les-Rucker drain DESCRIPTION OF PROCEDURE: Under general endotracheal anesthesia with the patient's skin prepped and draped including the preparation of the percutaneous cholecystostomy tube, a supraumbilical incision was made and Veress needle inserted by the hanging drop technique to establish pneumoperitoneum to 15 mmHg pressure with carbon dioxide. Following distention of the abdomen, the needle was removed and replaced with a 5 mm trocar port through which a 0-degree viewing laparoscope was inserted and under direct vision, 5 and 10-mm ports inserted through the abdominal wall at the anterior axillary line at the level of the umbilicus and subxiphoid midline skin respectively. Instrumentation was then introduced and laparoscopy was performed. The abdomen was poorly distensible due to phlegmon in the right upper quadrant which included gangrenous gallbladder as well as omentum, transverse colon, and loops of small bowel. This was bluntly and the gallbladder was placed on tension. The gallbladder had extravasated much bile surrounding the gallbladder from the cholecystostomy insertion tube. On initial visualization, the bowel was cultured. The gallbladder contained many blood clots secondary to the cholecystostomy. The gallbladder was placed on tension. The cystic duct and cystic artery were identified, circumferentially dissected, traced into the hepatocystic triangle so as to minimize the potential for inadvertent injury to the common bile duct. The cystic duct and artery were then divided between metallic clips and gallbladder resected from its liver bed by electrocautery and traction. The fully mobilized gallbladder was removed from the peritoneal cavity by placement in a specimen extraction bag which was withdrawn from the peritoneal cavity through the subxiphoid 10 mm port site. Subsequently, the right upper quadrant was irrigated. Irrigant was aspirated. A 10 mm Les-Rucker drain was placed underneath the right lobe of the liver and exteriorized through the 5 mm port site in the right flank, secured with a 2-0 nylon suture. Following assurance of complete hemostasis and following aspiration of most of the irrigation fluid, the abdomen was desufflated after withdrawal of instrumentation. Fascial defect closed using #0 Vicryl. Wounds approximated using Monocryl sutures, Dermabond glue, and Steri-Strips. The patient remained stable throughout the procedure, left the operating room following an accurate needle and sponge count. MD LASHELL Andersen/MADELAINE TID: [id number] RECEIPT: [id number]
[2025-03-02] MEDS: HYDROmorphone HCL 2 MG/ML VL/or syr IV PRN (12:51)
[2025-03-03] VITALS (21 sets, daily range): BP systolic 76–122; BP diastolic 50–63; PULSE 60–106; RESP 15–26; TEMP 97.9–98.7; O2SAT 88–100
[2025-03-03 04:18] LABS: Basophils # (auto) 0 10 ^3/uL (0-0.2); Basophils % (auto) 0.2 % (0.0-2.0); Eosinophils # (auto) 0.1 10 ^3/uL (0-0.8); Eosinophils % (auto) 0.7 % (0.0-7.0); Hemoglobin 10.2 g/dL (13.5-17.5); Lymphocytes # (auto) 1.7 10 ^3/uL (0.4-5.4); Lymphocytes % (auto) 12.7 % (10.0-50.0); Mean Corpuscular Hemoglobin 32.9 pg (28.0-32.0); Mean Corpuscular Hgb Conc. 33.9 g/dL (32.0-36.0); Monocytes % (auto) 7.7 % (0.0-12.0); Neutrophils # (auto) 10.4 10 ^3/uL (1.6-8.6); Neutrophils % (auto) 78.7 % (37.0-80.0); Platelet Count (auto) 144 10^3/uL (140-450); Red Blood Cells 3.09 10^6/uL (4.5-5.90); Red Cell Distribution Width 15.1 % (11.8-14.3); White Blood Cell 13.3 10^3/uL (4.4-10.8)
[2025-03-03 04:24] LABS: Anion Gap 6 (5-15); BUN/Creatinine Ratio 37.3 (10.0-20.0); Blood Urea Nitrogen 22 mg/dL (9-23); Carbon Dioxide 28 mmol/L (20-31); Glucose 98 mg/dL (74-106); Magnesium 1.9 mg/dL (1.6-2.6); Potassium 3.9 mmol/L (3.5-5.1)
[2025-03-03 04:25] LABS: Bilirubin, Total 1.1 mg/dL (0.2-1.0)
[2025-03-03 04:31] LABS: Alanine Aminotransferase 79 U/L (7-40); Albumin 2.9 g/dL (3.2-4.8); Alkaline Phosphatase 257 U/L (46-116); Aspartate Aminotransferase 49 U/L (13-40); Calcium 8.2 mg/dL (8.7-10.4); Chloride 96 mmol/L (98-107); Sodium 130 mmol/L (136-145); Total Protein 5.4 g/dL (5.7-8.2)
--- NOTE | 2025-03-03 05:44 | DVH ---
CHEST RADIOGRAPH Indication: sob Technique: Single frontal view of the chest was obtained Comparison: XY CHEST PORTABLE on DOS: 03/01/25, XY CHEST PORTABLE on DOS: 02/24/25, XY CHEST PORTABLE o n DOS: 02/22/25 IMPRESSION: Heart appears normal in size. The lungs appear clear without focal airspace opacity, effusion, or pn eumothorax. Right PICC line tip in the region of the superior vena cava. No significant interval rakesh nge.
[2025-03-03] MEDS: NOREPINEPHRINE 8 MG/250ML KIT 250 ML IV ONE (10:08)
[2025-03-03] MEDS: BUPIVACAINE HCL 50 ML ONE (10:09)
[2025-03-03] MEDS: ACETAMINOPHEN IV 100 ML IV ONE (10:09)
--- NOTE | 2025-03-03 10:19 | DVHPN2 ---
Subjective Update 03/03 03/03 patient is status post cholecystectomy. Patient was new diagnosis FF, meth abuse. He remains on antibiotics. Was upgraded to ICU status post or due to concern of low blood pressure and complex high-risk surgery. Patient did not require any vasopressor support and remains stable this a.m.. Blood pressures do remain low. Patient wants to ambulating wheelchair which is fine, we will escalate ambulation only with PT.. Patient low blood pressure we will hold Entresto, okay to continue metoprolol and spironolactone. We will add monitoring 5 t.i.d. for blood pressure CHF support. Okay to resume anticoagulation aspirin, Eliquis. can de-escalate to tele. continue PT Reviewed: Care Plan, H&P, Labs, Medications, Previous Orders, Radiology Changes from previous H/P or p: No Changes General: Per HPI Objective Vitals Vital Signs Date Time Temp Pulse Resp B/P (MAP) Pulse Ox O2 Delivery O2 Flow Rate FiO2 03/03/25 07:30 95 22 Nasal Cannula* 2 28 03/03/25 07:00 92/52 (65) 94 03/02/25 20:00 98.2 98.2 Intake/Output Intake and Output 03/03/25 07:00 Intake Total 468 ml Output Total 800 ml Balance -332 ml Intake Oral 300 ml IV Total 168 ml Output Urine Total 700 ml Drainage Total 50 ml Other 50 ml Exam General: Awake, alert, in no acute distress HEENT: Head is normocephalic and atraumatic. Pupils are equal, round, and reactive to light. Neck: Supple with no cervical lymphadenopathy. Heart: Normal rate without murmur, rub, or gallop. Lungs: Scattered crackles and wheezing Abdomen: No external sign of injury. Bowel sounds are present. Abdomen is soft, nontender. Extremities: Strong peripheral pulses. There is no clubbing, no cyanosis, and no edema. Skin: No rash. Neurologic: no neurologic deficits Medications Current Medications Medications Dose Ordered Sig/Zenon Route Start Time Stop Time Status Last Admin Dose Admin Acetaminophen 650 mg Q6HP PRN PO 02/14/25 20:00 03/01/25 13:11 650 MG Nitroglycerin 0.4 mg Q5MINP PRN SL 02/14/25 20:00 Sodium Chloride 10 ml QSHIFT@10,22 IV 02/18/25 22:00 03/03/25 10:08 10 ML Vancomycin HCl 100 ml @ 100 mls/hr Q12H IV 02/19/25 16:00 Cancel Ondansetron HCl 4 mg Q6HPRN PRN IV 02/21/25 16:00 03/01/25 10:31 4 MG Meropenem 50 ml @ 17 mls/hr Q8H IV 02/23/25 21:00 03/03/25 06:15 17 MLS/HR Patient Own Medication 1 DAILY PO 02/27/25 10:00 03/02/25 10:00 1 Lactulose 30 ml BID PO 02/27/25 22:00 03/01/25 13:13 30 ML Metoprolol Succinate 25 mg DAILY PO 02/28/25 10:00 03/01/25 10:34 25 MG Sacubitril/ Valsartan 0.5 tab BID PO 02/27/25 22:00 03/02/25 22:10 0.5 TAB Empaglifozin 10 mg DAILY PO 02/28/25 10:00 03/01/25 10:32 10 MG Pantoprazole Sodium 40 mg DAILY@0600 PO 03/01/25 06:00 03/03/25 06:15 40 MG Oxycodone/ Acetaminophen 1 tab Q4HP PRN PO 02/28/25 16:45 03/02/25 22:11 1 TAB Spironolactone 12.5 mg DAILY PO 03/01/25 10:00 03/01/25 10:32 12.5 MG Al Hydrox/Mg Hydrox/Simethicone 30 ml Q6HP PRN PO 03/01/25 14:00 Albuterol 2.5 mg Q4HPRN PRN NEB 03/01/25 11:00 03/03/25 03:49 2.5 MG Ipratropium [place] 0.5 mg Q4HPRN PRN NEB 03/01/25 11:00 03/03/25 03:49 0.5 MG Prednisone 20 mg DAILY PO 03/02/25 10:00 Morphine Sulfate 1 mg Q4HP PRN IV 03/01/25 18:00 03/02/25 05:09 1 MG Midodrine 5 mg TID@0600,1200,1800 PO 03/03/25 12:00 Laboratory Results Laboratory Tests 03/03/25 03:23 Chemistry Test 03/03/25 03:23 Albumin 2.9 g/dL (3.2-4.8) L Calcium Level 8.2 mg/dL (8.7-10.4) L Magnesium Level 1.9 mg/dL (1.6-2.6) Total Protein 5.4 g/dL (5.7-8.2) L LFT Test 03/03/25 03:23 Alanine Aminotransferase (ALT) 79 U/L (7-40) H Alkaline Phosphatase 257 U/L (46-116) H Aspartate Amino Transferase (AST) 49 U/L (13-40) H Total Bilirubin 1.1 mg/dL (0.2-1.0) H Urinalysis Test 02/14/25 19:14 Urine Color Yellow (Yellow) Urine Clarity Turbid (Clear) H Urine pH 6.0 (5.0-9.0) Urine Specific [place] 1.027 (1.001-1.035) Urine Protein 2+ (Negative) H Urine Ketones 1+ (Negative) H Urine Blood 2+ /uL (Negative) H Urine Nitrite Negative (Negative) Urine Bilirubin Negative (Negative) Urine Urobilinogen Normal mg/dL (Negative) Urine Leukocyte Esterase Trace /uL (Negative) Urine RBC 60 /hpf (0 - 3) Urine Microscopic WBC 8 /HPF (0-3) H Urine Squamous Epithelial Cells Mod /hpf (<5) Urine Bacteria Many /hpf (None Seen) H Urine Hyaline Casts Few /lpf (0 - 2) Urine Mucus Few (None Seen) Urine Sperm Present /hpf (None Seen) Urine Glucose Trace mg/dL (Normal) Microbiology Microbiology Date/Time Source Procedure Growth Status 02/27/25 09:13 Drainage Gram Stain - Final Resulted 02/27/25 09:13 Drainage Wound Culture - Preliminary Resulted 02/15/25 06:17 Urine - [place] Urine Culture - Final Complete 02/14/25 22:43 Nose MRSA Screen - Final Complete 02/14/25 18:22 Blood Blood Culture - Final NO GROWTH AFTER 5 DAYS OF INCUBATION. Complete 02/14/25 16:27 Sputum Gram Stain - Final Complete 02/14/25 16:27 Respiratory Culture - Final Klebsiella pneumoniae Complete Labs and/or images reviewed: Labs reviewed by me, Image(s) reviewed by me Assessment/Plan Assessment/Plan 03/03 patient is status post cholecystectomy. Patient was new diagnosis FF, meth abuse. He remains on antibiotics. Was upgraded to ICU status post or due to concern of low blood pressure and complex high-risk surgery. Patient did not require any vasopressor support and remains stable this a.m.. Blood pressures do remain low. Patient wants to ambulating wheelchair which is fine, we will escalate ambulation only with PT.. Patient low blood pressure we will hold Entresto, okay to continue metoprolol and spironolactone. We will add monitoring 5 t.i.d. for blood pressure CHF support. Okay to resume anticoagulation aspirin, Eliquis. can de-escalate to tele. continue PT Neurology #Toxic/Metabolic encephalopathy, likely due to sepsis, drug use, respiratory failure, improved Ordered head ct, unremarkable Cardiovascular #Acute on chronic systolic CHF, improving continue GDMT Aldactone 25 mg p.o. q.d. entresto holding - low BP add midodrie 5 tid on 03/03 - defer weaning to primary team. jardiance metoprolol succ EF 15-20% #Non-Ischemic cardiomyopathy #Drug-induced cardiomyopathy #Methamphetamine abuse #NSTEMI likely type 2 #CAD, mild #Left common femoral thrombus status post thrombectomy LHC performed on 02/19/25, mild CAD Aspirin held eliquis 5mg po bid for procedure, can start tomorrow Pulmonology #Acute hypoxic respiratory failure likely due to pneumonia, COPD exacerbation, drug use, s/p mechanical ventilator, extubated 02/21/25 On nasal cannula 4lts, wane down as tolerated CPAP trial successful 02/21/25. Extubated, in nasal cannula #Multifocal pneumonia, gram (+) vs gram (-), atypicals Sputum culture growing K. pneumoniae Merrem IV #COPD exacerbation, improving prednisone 30mg po qd Continue duonebs #Respiratory alkalosis, improved Nephrology #MOLLY due to VMN, likely hemodynamically mediated, improved Monitor for in and outs Avoid nephrotoxic agents Endocrinology #Hyperglycemia due to glucocorticoids Monitor Gastroenterology #Transaminitis, possibly due to left hepatic vein thrombosis #Hepatic mass, hemangioma #Left hepatic vein thrombosis ruled out #Acalculous cholecystitis Surgery recommended IR cholecystostomy Consulted Interventional Radiology for percutaneous cholecystostomy performed, will fu in outpatient consulted surgery, cholecystectomy today #Hyperammonemia lactulose 30ml bid diet: cardiac diet Hematology and Oncology #Anemia normocytic, normochromic Chronic, nonocclusive right common femoral thrombus Monitor #Thrombocytopenia, severe, 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 eliquis today, 5mg po bid 1 unit of platelets given Infectious Disease #HIV, since 4 years ago CD4 count 247 Continue biktarvy # Septic shock due to Multifocal pneumonia, gram (+) vs gram (-), atypicals, improved As above off levophed Dermatology x DVT ppx Heparin PUD ppx Protonix Drips off Lines ET tube 02/14/25, extubated 02/21/25 PICC line placed on 02/18/25 [place] 02/14/25 ELIAS drain 03/02 Plan discussed with: Patient My Orders Orders - KORI VO MD Procedure Category Date Status Time Midodrine Tablet PHA 03/03/25 In Process (Proamatine Tablet) 12:00 Transfer Orders XFER 03/03/25 Transmitted 10:03 Date of Service: Mar 03, 2025 Billing Provider: KORI VO MD Common Visit Codes: [id number] CARE 30-74 MIN KORI VO MD Mar 03, 2025 10:19
[2025-03-03] MEDS: MIDODRINE HCL 10 MG TAB PO ONE (10:58)
[2025-03-03] MEDS: MIDODRINE HCL 10 MG TAB PO SCH (12:12)
[2025-03-03] MEDS: MUPIROCIN 2% OINT 15gm or 22gm FOR MRSA NARES EACHNOSTRI SCH (17:16)
--- NOTE | 2025-03-03 23:27 | DVHPN2 ---
Progress Note - Dictate Date Seen: Mar 03, 2025 Medical Necessity Reason Pt with a Central, PICC or Fol: No Subjective Patient seen and examined at bedside. Remains on supplemental oxygen Overnight events reviewed. vital signs Vital Sign Date Time Temp Pulse Resp B/P (MAP) Pulse Ox O2 Delivery O2 Flow Rate FiO2 03/03/25 21:00 98.3 78 16 122/55 (77) 93 98.3 03/03/25 20:36 Room Air 0.0 03/03/25 20:36 21 Total Intake and Output 03/02/25 03/02/25 03/03/25 15:00 23:00 07:00 Intake Total 100 ml 67 ml 301 ml Output Total 150 ml 125 ml 525 ml Balance -50 ml -58 ml -224 ml medications Current Medications Medications Dose Ordered Sig/Zenon Route Start Time Stop Time Status Last Admin Dose Admin Acetaminophen 650 mg Q6HP PRN PO 02/14/25 20:00 03/01/25 13:11 650 MG Nitroglycerin 0.4 mg Q5MINP PRN SL 02/14/25 20:00 Sodium Chloride 10 ml QSHIFT@10,22 IV 02/18/25 22:00 03/03/25 21:49 10 ML Vancomycin HCl 100 ml @ 100 mls/hr Q12H IV 02/19/25 16:00 Cancel Ondansetron HCl 4 mg Q6HPRN PRN IV 02/21/25 16:00 03/01/25 10:31 4 MG Meropenem 50 ml @ 17 mls/hr Q8H IV 02/23/25 21:00 03/03/25 21:44 17 MLS/HR Patient Own Medication 1 DAILY PO 02/27/25 10:00 03/03/25 10:59 1 Lactulose 30 ml BID PO 02/27/25 22:00 03/03/25 21:48 30 ML Metoprolol Succinate 25 mg DAILY PO 02/28/25 10:00 03/03/25 10:59 25 MG Sacubitril/ Valsartan 0.5 tab BID PO 02/27/25 22:00 03/03/25 21:49 0.5 TAB Empaglifozin 10 mg DAILY PO 02/28/25 10:00 03/03/25 10:58 10 MG Pantoprazole Sodium 40 mg DAILY@0600 PO 03/01/25 06:00 03/03/25 06:15 40 MG Oxycodone/ Acetaminophen 1 tab Q4HP PRN PO 02/28/25 16:45 03/03/25 22:56 1 TAB Spironolactone 12.5 mg DAILY PO 03/01/25 10:00 03/03/25 10:57 12.5 MG Al Hydrox/Mg Hydrox/Simethicone 30 ml Q6HP PRN PO 03/01/25 14:00 Albuterol 2.5 mg Q4HPRN PRN NEB 03/01/25 11:00 03/03/25 16:30 2.5 MG Ipratropium [place] 0.5 mg Q4HPRN PRN NEB 03/01/25 11:00 03/03/25 16:30 0.5 MG Prednisone 20 mg DAILY PO 03/02/25 10:00 03/03/25 10:58 20 MG Morphine Sulfate 1 mg Q4HP PRN IV 03/01/25 18:00 03/02/25 05:09 1 MG Midodrine 5 mg TID@0600,1200,1800 PO 03/03/25 12:00 03/03/25 17:17 5 MG Mupirocin 1 applic BID EACHNOSTRI 03/03/25 15:40 03/08/25 15:39 03/03/25 17:16 1 APPLIC objective Gen.: Patient lying in bed in no apparent distress. On supplemental oxygen. Head: Normocephalic, atraumatic. Eyes: EOMI/PERRLA. Ears: Normal hearing. Normal anatomy. Neck/trachea: Trachea midline, supple. Nose: Normal external anatomy. Mouth: Moist mucous membranes. Chest: Decreased air entry bilaterally. No wheezing or rhonchi. Cardiovascular: Positive S1, positive S2. Regular rate and rhythm. Abdomen: Positive bowel sounds in all 4 quadrants. Soft, non-tender, non- distended. : Deferred. Rectal: Deferred. Skin: Warm, dry. Intact. Extremities: 2+ radial pulses bilaterally. No lower extremity edema. Neuro: Awake, alert, oriented x3. No gross motor or sensory deficits. Cranial nerves II through XII intact. Gait not assessed. laboratory and microbiology Laboratory Tests 03/03/25 03:23 Test 03/03/25 03:23 Range/Units Serum Glucose 98 74-106 mg/dL Assessment/Plan Impression Acute hypoxemic respiratory failure On supplemental oxygen Multifocal pneumonia AE COPD Acute kidney injury Cardiomyopathy Substance abuse Events Currently on supplemental oxygen, 4 LPM NC Taper O2 as tolerated Continue bronchodilators Continue steroids Continue antibiotics On midodrine for blood pressure support Protonix for GI prophylaxis s/p laparoscopic cholecystectomy Surgery recs appreciated Labs and imaging reviewed Management Supplemental oxygen Titrate to keep O2 sats above 92%. Antibiotics Bronchodilators Steroids Monitor renal function Monitor electrolytes Supplement as needed Cardiology recs appreciated DVT prophylaxis GI prophylaxis. Prognosis: Poor given patient's multiple co-morbidities. Rest of plan per hospitalist and other consultants. Thank you, ARCELIA Chavez, for allowing me to participate in this patient's care. Further recommendations will depend on the patient's clinical course. Please do not hesitate to contact me if you have any questions or concerns. This medical document was created using an electronic medical record system with [employer] dictation system. Although these documentations are being carefully reviewed, there may still be some phonetic and typographical changes. The errors are purely typographical, due to imperfection on the software program, and do not reflect any compromise in the patient's medical care. Dietary Evaluation Review Comments: 1) If patient remains NPO > 7 days, consider EN/TPN to meet at least 75% estimated daily needs 2) If GI is preferred, consider Jevity 1.2 @ goal rate of 45 mL/hr as tolerated. Flush with 200 mL free H2O Q6H. TF regimen (including flushes) will provide 1296 kcals, 60g Pro, and 1672 mL free H2O per 24 hrs. TF rate will meet 95% estimated daily energy needs and ~87% estimated daily protein needs 3) Advance to cardiac diet when medically feasible, pending [employer] approval 4) Follow-up with cardiology and pulmonology 5) Continue to monitor I&O, labs, and skin integrity Expected Outcomes/Goals: 1) patient to receive nutritional support within 7 days 2) appetite and labs to improve 3) diet to advance 4) f/u in 2-3 days Plan discussed with: Patient, Other (RN) JEANMARIE CONDE MD Mar 03, 2025 23:27
[2025-03-04] VITALS (14 sets, daily range): BP systolic 106–153; BP diastolic 61–83; PULSE 66–134; RESP 16–18; TEMP 97.8–98.9; O2SAT 93–100
[2025-03-04 05:57] LABS: Basophils # (auto) 0.1 10 ^3/uL (0-0.2); Basophils % (auto) 0.6 % (0.0-2.0); Eosinophils # (auto) 0.1 10 ^3/uL (0-0.8); Eosinophils % (auto) 1.6 % (0.0-7.0); Hematocrit 26.7 % (41.0-53.0); Hemoglobin 9.1 g/dL (13.5-17.5); Lymphocytes # (auto) 1.5 10 ^3/uL (0.4-5.4); Mean Corpuscular Hemoglobin 33.3 pg (28.0-32.0); Mean Corpuscular Hgb Conc. 34.3 g/dL (32.0-36.0); Monocytes # (auto) 0.8 10 ^3/uL (0-1.3); Monocytes % (auto) 8.9 % (0.0-12.0); Neutrophils # (auto) 6.8 10 ^3/uL (1.6-8.6); Neutrophils % (auto) 72.9 % (37.0-80.0); Platelet Count (auto) 166 10^3/uL (140-450); Red Blood Cells 2.75 10^6/uL (4.5-5.90); Red Cell Distribution Width 14.6 % (11.8-14.3); White Blood Cell 9.4 10^3/uL (4.4-10.8)
[2025-03-04 06:18] LABS: Anion Gap 7 (5-15); Aspartate Aminotransferase 25 U/L (13-40); BUN/Creatinine Ratio 31.3 (10.0-20.0); Blood Urea Nitrogen 20 mg/dL (9-23); Carbon Dioxide 27 mmol/L (20-31); Chloride 98 mmol/L (98-107); Glucose 95 mg/dL (74-106); Potassium 3.6 mmol/L (3.5-5.1)
[2025-03-04 06:19] LABS: Alanine Aminotransferase 59 U/L (7-40); Albumin 2.9 g/dL (3.2-4.8); Alkaline Phosphatase 224 U/L (46-116); Bilirubin, Total 0.8 mg/dL (0.2-1.0); Calcium 8.2 mg/dL (8.7-10.4); Sodium 132 mmol/L (136-145); Total Protein 5.1 g/dL (5.7-8.2)
--- NOTE | 2025-03-04 10:28 | DVHPN2 ---
Progress Note Date Seen: Mar 04, 2025 Medical Necessity Reason Pt with a Central, PICC or Fol: No Objective vital signs Vital Sign Date Time Temp Pulse Resp B/P (MAP) Pulse Ox O2 Delivery O2 Flow Rate FiO2 03/04/25 10:12 84 16 100 03/04/25 10:06 Nasal Cannula* 3 32 03/04/25 09:00 98.7 153/77 (102) 98.7 Total Intake and Output 03/03/25 03/03/25 03/04/25 15:00 23:00 07:00 Intake Total 550 ml 280 ml Output Total 320 ml 300 ml Balance 230 ml -20 ml medications Current Medications Medications Dose Ordered Sig/Zenon Route Start Time Stop Time Status Last Admin Dose Admin Acetaminophen 650 mg Q6HP PRN PO 02/14/25 20:00 03/01/25 13:11 650 MG Nitroglycerin 0.4 mg Q5MINP PRN SL 02/14/25 20:00 Sodium Chloride 10 ml QSHIFT@10,22 IV 02/18/25 22:00 03/03/25 21:49 10 ML Vancomycin HCl 100 ml @ 100 mls/hr Q12H IV 02/19/25 16:00 Cancel Ondansetron HCl 4 mg Q6HPRN PRN IV 02/21/25 16:00 03/01/25 10:31 4 MG Meropenem 50 ml @ 17 mls/hr Q8H IV 02/23/25 21:00 03/04/25 04:37 17 MLS/HR Patient Own Medication 1 DAILY PO 02/27/25 10:00 03/03/25 10:59 1 Lactulose 30 ml BID PO 02/27/25 22:00 03/03/25 21:48 30 ML Metoprolol Succinate 25 mg DAILY PO 02/28/25 10:00 03/03/25 10:59 25 MG Sacubitril/ Valsartan 0.5 tab BID PO 02/27/25 22:00 03/03/25 21:49 0.5 TAB Empaglifozin 10 mg DAILY PO 02/28/25 10:00 03/03/25 10:58 10 MG Pantoprazole Sodium 40 mg DAILY@0600 PO 03/01/25 06:00 03/04/25 06:16 40 MG Oxycodone/ Acetaminophen 1 tab Q4HP PRN PO 02/28/25 16:45 03/03/25 22:56 1 TAB Spironolactone 12.5 mg DAILY PO 03/01/25 10:00 03/03/25 10:57 12.5 MG Al Hydrox/Mg Hydrox/Simethicone 30 ml Q6HP PRN PO 03/01/25 14:00 Albuterol 2.5 mg Q4HPRN PRN NEB 03/01/25 11:00 03/04/25 10:05 2.5 MG Ipratropium [place] 0.5 mg Q4HPRN PRN NEB 03/01/25 11:00 03/04/25 10:05 0.5 MG Prednisone 20 mg DAILY PO 03/02/25 10:00 03/03/25 10:58 20 MG Morphine Sulfate 1 mg Q4HP PRN IV 03/01/25 18:00 03/02/25 05:09 1 MG Midodrine 5 mg TID@0600,1200,1800 PO 03/03/25 12:00 03/03/25 17:17 5 MG Mupirocin 1 applic BID EACHNOSTRI 03/03/25 15:40 03/08/25 15:39 03/03/25 17:16 1 APPLIC laboratory and microbiology Laboratory Tests 03/04/25 05:34 Test 03/04/25 05:34 Range/Units Serum Glucose 95 74-106 mg/dL Problem List/Assessment/Plan Problem List/Assessment/Plan 03/01/25 patient is sp cholecystostomy but his leukocytosis continues and he is in a lot of pain, I believe he would benefit from cholecystectomy, discussed with Sonja Danile 03/04/25 FEELS MUCH IMPROVED, ABDOMENAPPROPRIATELY TENDER, ok TO DISCHARGE, RETURN TO SEE ME IN TEN DAYS Plan discussed with: Patient Dietary Evaluation Review Comments: 1) If patient remains NPO > 7 days, consider EN/TPN to meet at least 75% estimated daily needs 2) If GI is preferred, consider Jevity 1.2 @ goal rate of 45 mL/hr as tolerated. Flush with 200 mL free H2O Q6H. TF regimen (including flushes) will provide 1296 kcals, 60g Pro, and 1672 mL free H2O per 24 hrs. TF rate will meet 95% estimated daily energy needs and ~87% estimated daily protein needs 3) Advance to cardiac diet when medically feasible, pending PHYSICAL THERAPY TECHNICIAN approval 4) Follow-up with cardiology and pulmonology 5) Continue to monitor I&O, labs, and skin integrity Expected Outcomes/Goals: 1) patient to receive nutritional support within 7 days 2) appetite and labs to improve 3) diet to advance 4) f/u in 2-3 days FLAVIO BROTHERS MD Mar 04, 2025 10:28
--- NOTE | 2025-03-04 17:54 | DVHPN2 ---
Subjective Update 03/04 03/03 patient is status post cholecystectomy. Patient was new diagnosis HF, meth abuse. He remains on antibiotics. Was upgraded to ICU status post or due to concern of low blood pressure and complex high-risk surgery. Patient did not require any vasopressor support and remains stable this a.m. Blood pressures do remain low. Patient wants to ambulating wheelchair which is fine, we will escalate ambulation only with PT.. Patient low blood pressure we will hold Entresto, okay to continue metoprolol and spironolactone. We will add midodrine 5 t.i.d. for blood pressure CHF support. Okay to resume anticoagulation aspirin, Eliquis. can de-escalate to tele. continue PT 03/04 patient continues to do well, blood pressure stable on midodrine. Continuing to hold Entresto. Continue PT. Patient wants to go to [facility] for rehab. Reviewed: Care Plan, H&P, Labs, Medications, Previous Orders, Radiology Changes from previous H/P or p: No Changes General: Per HPI Objective Vitals Vital Signs Date Time Temp Pulse Resp B/P (MAP) Pulse Ox O2 Delivery O2 Flow Rate FiO2 03/04/25 14:52 79 16 153/74 100 3.0 32 03/04/25 13:00 98.9 98.9 03/04/25 10:06 Nasal Cannula* Intake/Output Intake and Output 03/04/25 07:00 Intake Total 830 ml Output Total 620 ml Balance 210 ml Intake Oral 730 ml IV Total 100 ml Output Urine Total 600 ml Drainage Total 20 ml Exam General: Awake, alert, in no acute distress HEENT: Head is normocephalic and atraumatic. Pupils are equal, round, and reactive to light. Neck: Supple with no cervical lymphadenopathy. Heart: Normal rate without murmur, rub, or gallop. Lungs: Scattered crackles and wheezing Abdomen: No external sign of injury. Bowel sounds are present. Abdomen is soft, nontender. Extremities: Strong peripheral pulses. There is no clubbing, no cyanosis, and no edema. Skin: No rash. Neurologic: no neurologic deficits Medications Current Medications Medications Dose Ordered Sig/Zenon Route Start Time Stop Time Status Last Admin Dose Admin Acetaminophen 650 mg Q6HP PRN PO 02/14/25 20:00 03/01/25 13:11 650 MG Nitroglycerin 0.4 mg Q5MINP PRN SL 02/14/25 20:00 Sodium Chloride 10 ml QSHIFT@10,22 IV 02/18/25 22:00 03/04/25 10:44 10 ML Vancomycin HCl 100 ml @ 100 mls/hr Q12H IV 02/19/25 16:00 Cancel Ondansetron HCl 4 mg Q6HPRN PRN IV 02/21/25 16:00 03/01/25 10:31 4 MG Meropenem 50 ml @ 17 mls/hr Q8H IV 02/23/25 21:00 03/04/25 15:23 17 MLS/HR Patient Own Medication 1 DAILY PO 02/27/25 10:00 03/04/25 11:06 1 Lactulose 30 ml BID PO 02/27/25 22:00 03/04/25 10:44 30 ML Metoprolol Succinate 25 mg DAILY PO 02/28/25 10:00 03/04/25 10:46 25 MG Sacubitril/ Valsartan 0.5 tab BID PO 02/27/25 22:00 03/04/25 10:45 0.5 TAB Empaglifozin 10 mg DAILY PO 02/28/25 10:00 03/04/25 10:46 10 MG Pantoprazole Sodium 40 mg DAILY@0600 PO 03/01/25 06:00 03/04/25 06:16 40 MG Oxycodone/ Acetaminophen 1 tab Q4HP PRN PO 02/28/25 16:45 03/03/25 22:56 1 TAB Spironolactone 12.5 mg DAILY PO 03/01/25 10:00 03/04/25 10:46 12.5 MG Al Hydrox/Mg Hydrox/Simethicone 30 ml Q6HP PRN PO 03/01/25 14:00 Albuterol 2.5 mg Q4HPRN PRN NEB 03/01/25 11:00 03/04/25 10:05 2.5 MG Ipratropium [place] 0.5 mg Q4HPRN PRN NEB 03/01/25 11:00 03/04/25 10:05 0.5 MG Prednisone 20 mg DAILY PO 03/02/25 10:00 03/04/25 10:45 20 MG Morphine Sulfate 1 mg Q4HP PRN IV 03/01/25 18:00 03/02/25 05:09 1 MG Midodrine 5 mg TID@0600,1200,1800 PO 03/03/25 12:00 03/03/25 17:17 5 MG Mupirocin 1 applic BID EACHNOSTRI 03/03/25 15:40 03/08/25 15:39 03/04/25 10:44 1 APPLIC Laboratory Results Laboratory Tests 03/04/25 05:34 Chemistry Test 03/04/25 05:34 Albumin 2.9 g/dL (3.2-4.8) L Calcium Level 8.2 mg/dL (8.7-10.4) L Total Protein 5.1 g/dL (5.7-8.2) L LFT Test 03/04/25 05:34 Alanine Aminotransferase (ALT) 59 U/L (7-40) H Alkaline Phosphatase 224 U/L (46-116) H Aspartate Amino Transferase (AST) 25 U/L (13-40) Total Bilirubin 0.8 mg/dL (0.2-1.0) Urinalysis Test 02/14/25 19:14 Urine Color Yellow (Yellow) Urine Clarity Turbid (Clear) H Urine pH 6.0 (5.0-9.0) Urine Specific [place] 1.027 (1.001-1.035) Urine Protein 2+ (Negative) H Urine Ketones 1+ (Negative) H Urine Blood 2+ /uL (Negative) H Urine Nitrite Negative (Negative) Urine Bilirubin Negative (Negative) Urine Urobilinogen Normal mg/dL (Negative) Urine Leukocyte Esterase Trace /uL (Negative) Urine RBC 60 /hpf (0 - 3) Urine Microscopic WBC 8 /HPF (0-3) H Urine Squamous Epithelial Cells Mod /hpf (<5) Urine Bacteria Many /hpf (None Seen) H Urine Hyaline Casts Few /lpf (0 - 2) Urine Mucus Few (None Seen) Urine Sperm Present /hpf (None Seen) Urine Glucose Trace mg/dL (Normal) Microbiology Microbiology Date/Time Source Procedure Growth Status 03/02/25 19:54 Nose MRSA Screen - Final Methicillin Resistant S.aureus Complete 03/02/25 10:22 Gallbladder Fluid Gram Stain - Final Resulted 03/02/25 10:22 Gallbladder Fluid Anaerobic Culture - Preliminary Resulted 03/02/25 10:22 Gallbladder Fluid Aerobic Culture - Preliminary Resulted 02/15/25 06:17 Urine - [place] Urine Culture - Final Complete 02/14/25 18:22 Blood Blood Culture - Final NO GROWTH AFTER 5 DAYS OF INCUBATION. Complete 02/14/25 16:27 Sputum Gram Stain - Final Complete 02/14/25 16:27 Respiratory Culture - Final Klebsiella pneumoniae Complete Labs and/or images reviewed: Labs reviewed by me, Image(s) reviewed by me Assessment/Plan Assessment/Plan 03/04 patient continues to do well, blood pressure stable on midodrine. Continuing to hold Entresto. Continue PT. Patient wants to go to [facility] for rehab. Neurology #Toxic/Metabolic encephalopathy, likely due to sepsis, drug use, respiratory failure, improved Ordered head ct, unremarkable Cardiovascular #Acute on chronic systolic CHF, improving continue GDMT Aldactone 25 mg p.o. q.d. entresto holding - low BP add midodrie 5 tid on 03/03 - defer weaning to primary team. jardiance metoprolol succ EF 15-20% #Non-Ischemic cardiomyopathy #Drug-induced cardiomyopathy #Methamphetamine abuse #NSTEMI likely type 2 #CAD, mild #Left common femoral thrombus status post thrombectomy LHC performed on 02/19/25, mild CAD Aspirin held eliquis 5mg po bid for procedure, can start tomorrow Pulmonology #Acute hypoxic respiratory failure likely due to pneumonia, COPD exacerbation, drug use, s/p mechanical ventilator, extubated 02/21/25 On nasal cannula 4lts, wane down as tolerated CPAP trial successful 02/21/25. Extubated, in nasal cannula #Multifocal pneumonia, gram (+) vs gram (-), atypicals Sputum culture growing K. pneumoniae Merrem IV #COPD exacerbation, improving prednisone 30mg po qd Continue duonebs #Respiratory alkalosis, improved Nephrology #MOLLY due to VMN, likely hemodynamically mediated, improved Monitor for in and outs Avoid nephrotoxic agents Endocrinology #Hyperglycemia due to glucocorticoids Monitor Gastroenterology #Transaminitis, possibly due to left hepatic vein thrombosis #Hepatic mass, hemangioma #Left hepatic vein thrombosis ruled out #Acalculous cholecystitis Surgery recommended IR cholecystostomy Consulted Interventional Radiology for percutaneous cholecystostomy performed, will fu in outpatient consulted surgery, cholecystectomy today #Hyperammonemia lactulose 30ml bid diet: cardiac diet Hematology and Oncology #Anemia normocytic, normochromic Chronic, nonocclusive right common femoral thrombus Monitor #Thrombocytopenia, severe, 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
[2025-03-05] VITALS (14 sets, daily range): BP systolic 101–166; BP diastolic 55–82; PULSE 70–112; RESP 17–20; TEMP 97.7–98.5; O2SAT 94–100
[2025-03-05 08:31] LABS: Albumin 3.5 g/dL (3.2-4.8); Anion Gap 7 (5-15); Aspartate Aminotransferase 30 U/L (13-40); BUN/Creatinine Ratio 22.9 (10.0-20.0); Blood Urea Nitrogen 16 mg/dL (9-23); Calcium 9.1 mg/dL (8.7-10.4); Carbon Dioxide 28 mmol/L (20-31); Glucose 97 mg/dL (74-106); Total Protein 6.1 g/dL (5.7-8.2)
[2025-03-05 08:32] LABS: Bilirubin, Total 0.7 mg/dL (0.2-1.0)
[2025-03-05 08:33] LABS: Alanine Aminotransferase 60 U/L (7-40); Alkaline Phosphatase 286 U/L (46-116); Chloride 98 mmol/L (98-107); Potassium 3.2 mmol/L (3.5-5.1); Sodium 133 mmol/L (136-145)
--- NOTE | 2025-03-05 12:05 | DVHPN2 ---
Progress Note Date Seen: Mar 05, 2025 Medical Necessity Reason Pt with a Central, PICC or Fol: No Objective vital signs Vital Sign Date Time Temp Pulse Resp B/P (MAP) Pulse Ox O2 Delivery O2 Flow Rate FiO2 03/05/25 09:04 98.2 74 20 134/69 (90) 96 98.2 03/05/25 08:05 Nasal Cannula* 4 36 Total Intake and Output 03/04/25 03/04/25 03/05/25 15:00 23:00 07:00 Intake Total 599 ml 50 ml Balance 599 ml 50 ml medications Current Medications Medications Dose Ordered Sig/Zenon Route Start Time Stop Time Status Last Admin Dose Admin Acetaminophen 650 mg Q6HP PRN PO 02/14/25 20:00 03/01/25 13:11 650 MG Nitroglycerin 0.4 mg Q5MINP PRN SL 02/14/25 20:00 Sodium Chloride 10 ml QSHIFT@10,22 IV 02/18/25 22:00 03/05/25 10:00 10 ML Vancomycin HCl 100 ml @ 100 mls/hr Q12H IV 02/19/25 16:00 Cancel Ondansetron HCl 4 mg Q6HPRN PRN IV 02/21/25 16:00 03/01/25 10:31 4 MG Meropenem 50 ml @ 17 mls/hr Q8H IV 02/23/25 21:00 03/05/25 05:41 17 MLS/HR Patient Own Medication 1 DAILY PO 02/27/25 10:00 03/05/25 10:00 1 Lactulose 30 ml BID PO 02/27/25 22:00 03/04/25 10:44 30 ML Metoprolol Succinate 25 mg DAILY PO 02/28/25 10:00 03/05/25 08:23 25 MG Sacubitril/ Valsartan 0.5 tab BID PO 02/27/25 22:00 03/05/25 08:22 0.5 TAB Empaglifozin 10 mg DAILY PO 02/28/25 10:00 03/05/25 08:23 10 MG Pantoprazole Sodium 40 mg DAILY@0600 PO 03/01/25 06:00 03/05/25 05:41 40 MG Oxycodone/ Acetaminophen 1 tab Q4HP PRN PO 02/28/25 16:45 03/04/25 21:41 1 TAB Spironolactone 12.5 mg DAILY PO 03/01/25 10:00 03/05/25 08:22 12.5 MG Al Hydrox/Mg Hydrox/Simethicone 30 ml Q6HP PRN PO 03/01/25 14:00 Albuterol 2.5 mg Q4HPRN PRN NEB 03/01/25 11:00 03/05/25 08:04 2.5 MG Ipratropium [place] 0.5 mg Q4HPRN PRN NEB 03/01/25 11:00 03/05/25 08:04 0.5 MG Morphine Sulfate 1 mg Q4HP PRN IV 03/01/25 18:00 03/02/25 05:09 1 MG Mupirocin 1 applic BID EACHNOSTRI 03/03/25 15:40 03/08/25 15:39 03/05/25 08:23 1 APPLIC Apixaban 5 mg BID PO 03/05/25 10:00 Prednisone 10 mg DAILY PO 03/06/25 10:00 laboratory and microbiology Laboratory Tests 03/05/25 07:01 03/04/25 05:34 Test 03/05/25 07:01 Range/Units Serum Glucose 97 74-106 mg/dL Problem List/Assessment/Plan Problem List/Assessment/Plan 03/01/25 patient is sp cholecystostomy but his leukocytosis continues and he is in a lot of pain, I believe he would benefit from cholecystectomy, discussed with Sonja Daniel 03/04/25 FEELS MUCH IMPROVED, ABDOMENAPPROPRIATELY TENDER, ok TO DISCHARGE, RETURN TO SEE ME IN TEN DAYS DOING VERY WELL, WANTS TO BR DISCHARGED Plan discussed with: Patient Dietary Evaluation Review Comments: 1) If patient remains NPO > 7 days, consider EN/TPN to meet at least 75% estimated daily needs 2) If GI is preferred, consider Jevity 1.2 @ goal rate of 45 mL/hr as tolerated. Flush with 200 mL free H2O Q6H. TF regimen (including flushes) will provide 1296 kcals, 60g Pro, and 1672 mL free H2O per 24 hrs. TF rate will meet 95% estimated daily energy needs and ~87% estimated daily protein needs 3) Advance to cardiac diet when medically feasible, pending FAGOTER approval 4) Follow-up with cardiology and pulmonology 5) Continue to monitor I&O, labs, and skin integrity Expected Outcomes/Goals: 1) patient to receive nutritional support within 7 days 2) appetite and labs to improve 3) diet to advance 4) f/u in 2-3 days FLAVIO BROTHERS MD Mar 05, 2025 12:05
[2025-03-05] MEDS: APIXABAN 5 MG TAB PO SCH (13:12)
[2025-03-05] MEDS: POTASSIUM CHL 20 Meq TABLET PO ONE (13:15)
--- NOTE | 2025-03-05 18:18 | DVHPN2 ---
Progress Note - Dictate Date Seen: Mar 05, 2025 Medical Necessity Reason Pt with a Central, PICC or Fol: No Subjective 59 y o male HIV positive Patient is S/P laparoscopic cholecystectomy with drain placement on the No new complaints tolerating diet vital signs Vital Sign Date Time Temp Pulse Resp B/P (MAP) Pulse Ox O2 Delivery O2 Flow Rate FiO2 03/05/25 17:32 98.4 87 20 128/68 (88) 95 98.4 03/05/25 15:38 Room Air* 0 21 Total Intake and Output 03/04/25 03/04/25 03/05/25 15:00 23:00 07:00 Intake Total 599 ml 50 ml Balance 599 ml 50 ml medications Current Medications Medications Dose Ordered Sig/Zenon Route Start Time Stop Time Status Last Admin Dose Admin Acetaminophen 650 mg Q6HP PRN PO 02/14/25 20:00 03/01/25 13:11 650 MG Nitroglycerin 0.4 mg Q5MINP PRN SL 02/14/25 20:00 Sodium Chloride 10 ml QSHIFT@10,22 IV 02/18/25 22:00 03/05/25 10:00 10 ML Vancomycin HCl 100 ml @ 100 mls/hr Q12H IV 02/19/25 16:00 Cancel Ondansetron HCl 4 mg Q6HPRN PRN IV 02/21/25 16:00 03/01/25 10:31 4 MG Meropenem 50 ml @ 17 mls/hr Q8H IV 02/23/25 21:00 03/05/25 13:15 17 MLS/HR Patient Own Medication 1 DAILY PO 02/27/25 10:00 03/05/25 10:00 1 Lactulose 30 ml BID PO 02/27/25 22:00 03/04/25 10:44 30 ML Metoprolol Succinate 25 mg DAILY PO 02/28/25 10:00 03/05/25 08:23 25 MG Sacubitril/ Valsartan 0.5 tab BID PO 02/27/25 22:00 03/05/25 08:22 0.5 TAB Empaglifozin 10 mg DAILY PO 02/28/25 10:00 03/05/25 08:23 10 MG Pantoprazole Sodium 40 mg DAILY@0600 PO 03/01/25 06:00 03/05/25 05:41 40 MG Oxycodone/ Acetaminophen 1 tab Q4HP PRN PO 02/28/25 16:45 03/04/25 21:41 1 TAB Spironolactone 12.5 mg DAILY PO 03/01/25 10:00 03/05/25 08:22 12.5 MG Al Hydrox/Mg Hydrox/Simethicone 30 ml Q6HP PRN PO 03/01/25 14:00 Albuterol 2.5 mg Q4HPRN PRN NEB 03/01/25 11:00 03/05/25 15:38 2.5 MG Ipratropium [place] 0.5 mg Q4HPRN PRN NEB 03/01/25 11:00 03/05/25 15:38 0.5 MG Morphine Sulfate 1 mg Q4HP PRN IV 03/01/25 18:00 03/02/25 05:09 1 MG Mupirocin 1 applic BID EACHNOSTRI 03/03/25 15:40 03/08/25 15:39 03/05/25 08:23 1 APPLIC Apixaban 5 mg BID PO 03/05/25 10:00 03/05/25 13:12 5 MG Prednisone 10 mg DAILY PO 03/06/25 10:00 objective General: Awake, alert, in no acute distress HEENT: Head is normocephalic and atraumatic. Pupils are equal, round, and reactive to light. Neck: Supple with no cervical lymphadenopathy. Heart: Normal rate without murmur, rub, or gallop. Lungs: Scattered crackles and wheezing Abdomen: No external sign of injury. Bowel sounds are present. Abdomen is soft, nontender. Extremities: Strong peripheral pulses. There is no clubbing, no cyanosis, and no edema. Skin: No rash. Neurologic: Following commands laboratory and microbiology Laboratory Tests 03/05/25 07:01 03/04/25 05:34 Test 03/05/25 07:01 Range/Units Serum Glucose 97 74-106 mg/dL Problems(with codes): (1) Hepatic encephalopathy (2) Leukocytosis (3) Multifocal pneumonia (4) COPD exacerbation (5) Elevated liver enzymes (6) Severe sepsis (7) Gall bladder disease (8) Acute metabolic encephalopathy (9) Hepatic vein thrombosis Prognosis Plan Discharge planning is in progress Outpatient follow up with surgical consult Outpatient follow up with GI Services as needed Advance diet as tolerated Dietary Evaluation Review Comments: 1) If patient remains NPO > 7 days, consider EN/TPN to meet at least 75% estimated daily needs 2) If GI is preferred, consider Jevity 1.2 @ goal rate of 45 mL/hr as tolerated. Flush with 200 mL free H2O Q6H. TF regimen (including flushes) will provide 1296 kcals, 60g Pro, and 1672 mL free H2O per 24 hrs. TF rate will meet 95% estimated daily energy needs and ~87% estimated daily protein needs 3) Advance to cardiac diet when medically feasible, pending MOLDER HELPER approval 4) Follow-up with cardiology and pulmonology 5) Continue to monitor I&O, labs, and skin integrity Expected Outcomes/Goals: 1) patient to receive nutritional support within 7 days 2) appetite and labs to improve 3) diet to advance 4) f/u in 2-3 days Plan discussed with: Patient POLLY BAIRES MD Mar 05, 2025 18:18
--- NOTE | 2025-03-05 20:13 | DVHPNRES ---
Progress Note Date Seen: Mar 05, 2025 Resident Creating Document: LINDSEY JOY RESIDENT Medical Necessity Reason Pt with a Central, PICC or Fol: No Subjective Review of Systems Patient was seen and examined at bedside. He remains on nasal cannula at 4 L. Awake and alert. Objective vital signs Vital Sign Date Time Temp Pulse Resp B/P (MAP) Pulse Ox O2 Delivery O2 Flow Rate FiO2 03/05/25 17:32 98.4 87 20 128/68 (88) 95 98.4 03/05/25 15:38 Room Air* 0 21 Total Intake and Output 03/04/25 03/04/25 03/05/25 15:00 23:00 07:00 Intake Total 599 ml 50 ml Balance 599 ml 50 ml medications Current Medications Medications Dose Ordered Sig/Zenon Route Start Time Stop Time Status Last Admin Dose Admin Acetaminophen 650 mg Q6HP PRN PO 02/14/25 20:00 03/01/25 13:11 650 MG Nitroglycerin 0.4 mg Q5MINP PRN SL 02/14/25 20:00 Sodium Chloride 10 ml QSHIFT@10,22 IV 02/18/25 22:00 03/05/25 10:00 10 ML Vancomycin HCl 100 ml @ 100 mls/hr Q12H IV 02/19/25 16:00 Cancel Ondansetron HCl 4 mg Q6HPRN PRN IV 02/21/25 16:00 03/01/25 10:31 4 MG Meropenem 50 ml @ 17 mls/hr Q8H IV 02/23/25 21:00 03/05/25 13:15 17 MLS/HR Patient Own Medication 1 DAILY PO 02/27/25 10:00 03/05/25 10:00 1 Lactulose 30 ml BID PO 02/27/25 22:00 03/04/25 10:44 30 ML Metoprolol Succinate 25 mg DAILY PO 02/28/25 10:00 03/05/25 08:23 25 MG Sacubitril/ Valsartan 0.5 tab BID PO 02/27/25 22:00 03/05/25 08:22 0.5 TAB Empaglifozin 10 mg DAILY PO 02/28/25 10:00 03/05/25 08:23 10 MG Pantoprazole Sodium 40 mg DAILY@0600 PO 03/01/25 06:00 03/05/25 05:41 40 MG Oxycodone/ Acetaminophen 1 tab Q4HP PRN PO 02/28/25 16:45 03/04/25 21:41 1 TAB Spironolactone 12.5 mg DAILY PO 03/01/25 10:00 03/05/25 08:22 12.5 MG Al Hydrox/Mg Hydrox/Simethicone 30 ml Q6HP PRN PO 03/01/25 14:00 Albuterol 2.5 mg Q4HPRN PRN NEB 03/01/25 11:00 03/05/25 15:38 2.5 MG Ipratropium [place] 0.5 mg Q4HPRN PRN NEB 03/01/25 11:00 03/05/25 15:38 0.5 MG Morphine Sulfate 1 mg Q4HP PRN IV 03/01/25 18:00 03/02/25 05:09 1 MG Mupirocin 1 applic BID EACHNOSTRI 03/03/25 15:40 03/08/25 15:39 03/05/25 08:23 1 APPLIC Apixaban 5 mg BID PO 03/05/25 10:00 03/05/25 13:12 5 MG Prednisone 10 mg DAILY PO 03/06/25 10:00 Examination Physical examination as below: General: Awake, alert, in no acute distress HEENT: Head is normocephalic and atraumatic. Pupils are equal, round, and reactive to light. Neck: Supple with no cervical lymphadenopathy. Heart: Normal rate without murmur, rub, or gallop. Lungs: Scattered crackles and wheezing Abdomen: No external sign of injury. Bowel sounds are present. Abdomen is soft, nontender. Extremities: Strong peripheral pulses. There is no clubbing, no cyanosis, and no edema. Skin: No rash. Neurologic: no neurologic deficits laboratory and microbiology Laboratory Tests 03/05/25 17:56 03/05/25 07:01 03/04/25 05:34 Test 03/05/25 07:01 Range/Units Serum Glucose 97 74-106 mg/dL Microbiology Date/Time Source Procedure Growth Status 03/02/25 19:54 Nose MRSA Screen - Final Methicillin Resistant S.aureus Complete 03/02/25 10:22 Gallbladder Fluid Gram Stain - Final Resulted 03/02/25 10:22 Gallbladder Fluid Anaerobic Culture - Preliminary Resulted 03/02/25 10:22 Gallbladder Fluid Aerobic Culture - Preliminary Resulted 02/15/25 06:17 Urine - [place] Urine Culture - Final Complete 02/14/25 18:22 Blood Blood Culture - Final NO GROWTH AFTER 5 DAYS OF INCUBATION. Complete 02/14/25 16:27 Sputum Gram Stain - Final Complete 02/14/25 16:27 Respiratory Culture - Final Klebsiella pneumoniae Complete Labs and/or images reviewed: Labs reviewed by me, Image(s) reviewed by me Problem List/Assessment/Plan Problem List/Assessment/Plan Neurology #Toxic/Metabolic encephalopathy, likely due to sepsis, drug use, respiratory failure, improved Ordered head ct, unremarkable Cardiovascular #Acute on chronic systolic CHF, improving continue GDMT Aldactone 12.5 mg p.o. q.d. entresto jardiance metoprolol succ EF 15-20% #Non-Ischemic cardiomyopathy #Drug-induced cardiomyopathy #Methamphetamine abuse #NSTEMI likely type 2 #CAD, mild #Left common femoral thrombus status post thrombectomy LHC performed on 02/19/25, mild CAD Aspirin eliquis 5mg po bid Pulmonology #Acute hypoxic respiratory failure likely due to pneumonia, COPD exacerbation, drug use, s/p mechanical ventilator, extubated 02/21/25 On nasal cannula 4lts, wane down as tolerated CPAP trial successful 02/21/25. Extubated, in nasal cannula #Multifocal pneumonia, gram (+) vs gram (-), atypicals Sputum culture growing K. pneumoniae Merrem IV #COPD exacerbation, improving prednisone 30mg po qd Continue duonebs #Respiratory alkalosis, improved Nephrology #MOLLY due to VMN, likely hemodynamically mediated, improved Monitor for in and outs Avoid nephrotoxic agents Endocrinology #Hyperglycemia due to glucocorticoids Monitor Gastroenterology #Transaminitis, possibly due to left hepatic vein thrombosis #Hepatic mass, hemangioma #Left hepatic vein thrombosis ruled out #Acalculous cholecystitis Surgery recommended IR cholecystostomy Consulted Interventional Radiology for percutaneous cholecystostomy performed, will fu in outpatient consulted surgery, cholecystectomy performed, no complications, ELIAS drain placed #Hyperammonemia lactulose 30ml bid diet: cardiac diet Hematology and Oncology #Anemia normocytic, normochromic Chronic, nonocclusive right common femoral thrombus Monitor #Thrombocytopenia, severe, 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 consulted SS for dc planning to SNF for PT for 4 weeks, pending Goals of care were discussed for over 30 minutes. FULL CODE. Case was discussed with Dr. Servin Plan discussed with: Patient, Daughter, Other (RN) My Orders My Orders Orders - LINDSEY JOY RESIDENT Procedure Category Date Status Time Apixaban (Eliquis) PHA 03/05/25 In Process 10:00 Prednisone Tablet PHA 03/06/25 In Process 10:00 Dme: [facility] 03/05/25 Transmitted 16:52 Complete Blood Count LAB 03/06/25 Verified 04:00 Comprehensive LAB 03/06/25 Verified Metabolic Panel 04:00 Magnesium LAB 03/06/25 Verified 04:00 Dietary Evaluation Review Comments: 1) If patient remains NPO > 7 days, consider EN/TPN to meet at least 75% estimated daily needs 2) If GI is preferred, consider Jevity 1.2 @ goal rate of 45 mL/hr as tolerated. Flush with 200 mL free H2O Q6H. TF regimen (including flushes) will provide 1296 kcals, 60g Pro, and 1672 mL free H2O per 24 hrs. TF rate will meet 95% estimated daily energy needs and ~87% estimated daily protein needs 3) Advance to cardiac diet when medically feasible, pending [employer]AIR [employer]SEMBLER approval 4) Follow-up with cardiology and pulmonology 5) Continue to monitor I&O, labs, and skin integrity Expected Outcomes/Goals: 1) patient to receive nutritional support within 7 days 2) appetite and labs to improve 3) diet to advance 4) f/u in 2-3 days Date of Service: Mar 05, 2025 Billing Provider: BARBIE SERVIN MD Common Visit Codes: [id number] INP/OBS CARE(HIGH) Secondary Visit Codes: [id number] CARE PLAN 30 MINUTES LINDSEY JOY RESIDENT Mar 05, 2025 20:13 BARBIE SERVIN MD Mar 06, 2025 15:06
[2025-03-06] VITALS (13 sets, daily range): BP systolic 90–122; BP diastolic 50–60; PULSE 78–99; RESP 17–19; TEMP 97.8–98.6; O2SAT 94–100
--- NOTE | 2025-03-06 07:16 | DVHDSRES ---
Discharge Summary Date of Admission Resident Creating Document: LINDSEY JOY RESIDENT Feb 14, 2025 at 20:00 Date of Discharge: Mar 06, 2025 Admitting Diagnosis SOB Labs/Diagnostic Data: Laboratory Results Test 03/05/25 17:56 03/05/25 12:09 03/05/25 07:01 03/04/25 05:34 Hemoglobin 11.0 g/dL (13.5-17.5) Hematocrit 32.0 % (41.0-53.0) Ammonia 19 umol/L (11-32) Sodium Level 133 mmol/L (136-145) Potassium Level 3.2 mmol/L (3.5-5.1) Chloride Level 98 mmol/L (98-107) Carbon Dioxide Level 28 mmol/L (20-31) Anion Gap 7 (5-15) Blood Urea Nitrogen 16 mg/dL (9-23) Creatinine 0.70 mg/dL (0.700-1.30) Glomerular Filtration Rate Calc 105 mL/min (>90) BUN/Creatinine Ratio 22.9 (10.0-20.0) Serum Glucose 97 mg/dL (74-106) Calcium Level 9.1 mg/dL (8.7-10.4) Magnesium Level 1.9 mg/dL (1.6-2.6) Total Bilirubin 0.7 mg/dL (0.2-1.0) Aspartate Amino Transferase (AST) 30 U/L (13-40) Alanine Aminotransferase (ALT) 60 U/L (7-40) Alkaline Phosphatase 286 U/L (46-116) Total Protein 6.1 g/dL (5.7-8.2) Albumin 3.5 g/dL (3.2-4.8) White Blood Count 9.4 10^3/uL (4.4-10.8) Red Blood Count 2.75 10^6/uL (4.5-5.90) Mean Corpuscular Volume 97.0 fL (80.0-100.0) Mean Corpuscular Hemoglobin 33.3 pg (28.0-32.0) Mean Corpuscular Hemoglobin Concent 34.3 g/dL (32.0-36.0) Red Cell Distribution Width 14.6 % (11.8-14.3) Platelet Count 166 10^3/uL (140-450) Mean Platelet Volume 7.9 fL (6.9-10.8) Neutrophils (%) (Auto) 72.9 % (37.0-80.0) Lymphocytes (%) (Auto) 16.0 % (10.0-50.0) Monocytes (%) (Auto) 8.9 % (0.0-12.0) Eosinophils (%) (Auto) 1.6 % (0.0-7.0) Basophils (%) (Auto) 0.6 % (0.0-2.0) Neutrophils # (Auto) 6.8 10 ^3/uL (1.6-8.6) Lymphocytes # (Auto) 1.5 10 ^3/uL (0.4-5.4) Monocytes # (Auto) 0.8 10 ^3/uL (0-1.3) Eosinophils # (Auto) 0.1 10 ^3/uL (0-0.8) Basophils # (Auto) 0.1 10 ^3/uL (0-0.2) Nucleated Red Blood Cells 0.0 % Test 03/02/25 05:24 02/28/25 15:16 02/27/25 11:18 02/26/25 02:38 POC Glucose 132 mg/dl (70-106) Prothrombin Time 13.6 sec (9.3-11.8) Prothrombin Time INR 1.32 (0.9-1.15) Activated Partial Thromboplast Time 50.5 SEC (24.5-34.5) Serotonin 7 ng/mL (23-230) Lactic Acid Level 1.4 mmol/L (0.4-2.0) Test 02/23/25 08:28 02/23/25 03:40 02/22/25 14:01 02/22/25 08:50 Lipase 36 U/L (12-53) B-Type Natriuretic Peptide 417.95 pg/mL (0-100) Blood Gas Specimen Type Arterial Blood Gas Sample Site Left radial Blood Gas Patient Temperature 37.0 Arterial Blood Date Drawn [id number] Arterial Blood pH 7.405 (7.350-7.450) Arterial Blood Partial Pressure CO2 40.3 mmHg (35.0-48.0) Arterial Blood Partial Pressure O2 182.8 mmHg (83.0-108.0) Arterial Blood HCO3 24.7 mmol/L (21.0-28.0) Arterial Blood Oxygen Saturation 99.1 % (94.0-98.0) Arterial Blood Base Excess 0.0 mmol/L (-2.0-3.0) Arterial Blood Oxyhemoglobin 98.5 % (94.0-98.0) Arterial Blood Carboxyhemoglobin 0.4 % (0.5-1.5) Arterial Blood Methemoglobin 0.2 % (0.0-1.5) Davin Test Yes Blood Gas Total Hemoglobin 15.50 g/dL (13.5-17.5) Blood Gas Liter Flow 4.00 Blood Gas Modality Nasal cannula FiO2 % 36.0 Hepatitis A IgM Antibody Negative Hepatitis B Surface Antigen Negative (Negative) Hepatitis B Core IgM Antibody Negative (Negative) Hepatitis C Antibody Negative (Negative) Test 02/22/25 03:25 02/21/25 14:38 02/21/25 06:19 02/19/25 03:00 Direct Bilirubin 2.4 mg/dL (<0.3) Lactate Dehydrogenase 958 U/L (120-246) Blood Gas Pressure Support 8 Blood Gas PEEP or CPAP 5.0 Blood Gas Set Respiration Rate 18.0 Blood Gas Spontaneous Rate 18 Blood Gas Tidal Volume 450.0 Blood Gas Inspiratory Pressure 18.0 Bl Gas Inspiratory/Expiratory Ratio 1:3.0 Specimen Drawn By thue rt Phosphorus Level 2.7 mg/dL (2.4-5.1) Random Vancomycin Level 13.5 ug/mL (5-10) Test 02/18/25 10:00 02/17/25 13:03 02/15/25 14:37 02/15/25 10:15 Vancomycin Level Trough 22.7 ug/mL (5-10) Absolute Neutrophils (auto) 17.1 x10E3/uL (1.4-7.0) Absolute Lymphocytes (auto) 0.8 x10E3/uL (0.7-3.1) Absolute Monocytes (auto) 0.9 x10E3/uL (0.1-0.9) Absolute Eosinophils (auto) 0.0 x10E3/uL (0.0-0.4) Absolute Basophils (auto) 0.0 x10E3/uL (0.0-0.2) Immature Granulocytes % 1 % (Not Estab.) Immature Granulocytes # 0.1 x10E3/uL (0.0-0.1) Immature Blood Cells (.) Hematology Comments (.) Percent CD4 Cells 30.9 % (30.8-58.5) Absolute CD4 Count 247 /uL (359-1519) T-Lymphocyte CD4/CD8 Ratio 0.83 (0.92-3.72) Percent CD8 Cells 37.2 % (12.0-35.5) Absolute CD8 Count 298 /uL (109-897) HIV-1 RNA (PCR) <20 copies/mL (.) HIV-1 RNA (PCR) log10 Value (.) Troponin I High Sensitivity 9753 ng/L (</=54) Influenza Type A Antigen Negative (Negative) Influenza Type B Antigen Negative (Negative) SARS-CoV-2 Antigen (Rapid) Negative (NEGATIVE) Test 02/15/25 03:24 02/14/25 19:14 Hemoglobin A1c 5.3 % A1C (<5.7) Triglycerides Level 81 mg/dL (< 150) Cholesterol Level 138 mg/dL (< 200) LDL Cholesterol 81 mg/dL (< 100) HDL Cholesterol 44 mg/dL (40-59) Thyroid Stimulating Hormone (TSH) 0.63 uIU/mL (0.55-4.78) Urine Color Yellow (Yellow) Urine Clarity Turbid (Clear) Urine pH 6.0 (5.0-9.0) Urine Specific Dexter 1.027 (1.001-1.035) Urine Protein 2+ (Negative) Urine Ketones 1+ (Negative) Urine Blood 2+ /uL (Negative) Urine Nitrite Negative (Negative) Urine Bilirubin Negative (Negative) Urine Urobilinogen Normal mg/dL (Negative) Urine Leukocyte Esterase Trace /uL (Negative) Urine RBC 60 /hpf (0 - 3) Urine Microscopic WBC 8 /HPF (0-3) Urine Squamous Epithelial Cells Mod /hpf (<5) Urine Bacteria Many /hpf (None Seen) Urine Hyaline Casts Few /lpf (0 - 2) Urine Mucus Few (None Seen) Urine Sperm Present /hpf (None Seen) Urine Glucose Trace mg/dL (Normal) Urine Opiates Screen Neg (NEGATIVE) Urine Fentanyl Screen Neg (NEGATIVE) Urine Barbiturates Screen Neg (NEGATIVE) Urine Phencyclidine Screen Neg (NEGATIVE) Urine Amphetamines Screen Pos (NEGATIVE) Urine Benzodiazepines Screen Neg (NEGATIVE) Urine Cocaine Screen Neg (NEGATIVE) Urine Cannabinoids Screen Pos (NEGATIVE) Other Laboratory Tests 03/05/25 17:56 03/05/25 07:01 03/04/25 05:34 Brief Hx & Hospital Course: This is a 59-year-old male who presents for evaluation of shortness for breath. Past Medical History: HIV and COPD Past Surgical History: Hernia repair Family History: Cancer SH: Smoke: No. ALCOHOL: occassional. Drugs: Marijuana, Other (Methamphetamine). Lives: with Family Patient was sedated and intubated. Per ED records and family is at the bedside patient had been complaining of shortness for breath since yesterday. Today he had another episode of severe shortness for breath in which EMS was called and on arrival patient collapsed to the ground. Patient still had a pulse so he was bagged EN route to the emergency department. Patient regained consciousness prior to arrival to the emergency department and became combative. In the emergency department the patient was still combative, short of breath and was emergently intubated for airway protection. A head ct was normal. Patient has had significant clinical improvement from admission. We were able to wean him off the ventilator, he was initially treated for pneumonia with broad-spectrum antibiotics, COPD exacerbation with DuoNebs and glucocorticoids. After he passes through the CPAP trial, we extubated him. Right after extubation on the next morning he started to complain of severe abdominal pain, a liver ultrasound revealed cholelithiasis on possible left hepatic vein thrombosis which was later ruled out. A CT abdomen with contrast revealed acalculous cholecystitis. We will consulted Interventional Radiology, cholecystostomy was performed. Patient later started complaining of leg pain, diminished pulses were seen, paralysis, discoloration of the toes. Patient was taken immediately to the OR after getting an arterial Doppler which showed occlusion of femoral artery, vascular surgery performed a thrombectomy. Patient was noted to have thrombocytopenia, and he also had hepatology receive around six days ago, patient was started on argatroban given likelihood of heparin induced thrombocytopenia it was later transitioned to Eliquis. Patient was reassessed but surgeon we decided to perform a cholecystectomy, it was performed without any complications. Patient has had significant recovery from admission, he stated feeling much better, denied any significant abdominal pain, chest pain, shortness of breath. He is currently tolerating diet, ambulatory. Physical examination as below: General: Awake, alert, in no acute distress HEENT: Head is normocephalic and atraumatic. Pupils are equal, round, and reactive to light. Neck: Supple with no cervical lymphadenopathy. Heart: Normal rate without murmur, rub, or gallop. Lungs: Scattered crackles and wheezing Abdomen: No external sign of injury. Bowel sounds are present. Abdomen is soft, nontender. zoie drain on right side Extremities: Strong peripheral pulses. There is no clubbing, no cyanosis, and no edema. Skin: No rash. Neurologic: no neurologic deficits Patient will be discharge to SNF for PT for 4 weeks, will continue home medications as prescribed in spreadsheet. Follow-up with PCP in 1-2 weeks. Patient verbalized understanding and agree with the DC plan, we spent 36 minutes explaining the plan. Case was discussed with Dr. Servin Consults/Reason for consult Interventional Radiology was consulted for cholecystostomy Surgery was consulted for cholecystectomy Civil Draftsman was consulted due to transaminitis Vascular surgery was consulted due to arterial thrombosis Cardiology was consulted due to CHF Operations or Procedures [place] [id number] Ph: [phone] DIAGNOSTIC IMAGING Diagnostic Imaging Report : [id number] Signed PATIENT: ROSARIO SHEETS ACCT: [id number] UNIT: [id number] : 1965 LOC: [facility] / BED: [address] [place] [address] AGE / SEX: 59 / M ADM STATUS: ADM IN SERVICE 99 ORDERING PHYSICIAN: BARBIE DENNIS PROCEDURE(s): ECIDC - ECHO 2D MODE CARDIAC DOP REASON: chest pain ORDER NUMBER(s): [id number], ACCESSION NUMBER(s): [id number] APPROVED REPORT EXAM: Two-dimensional and M-mode echocardiogram with Doppler and color Doppler. Blood Pressure: 105/74 mmHg INDICATION Chest Pain RISK FACTORS Height: 5'5", Weight: 112 DIMENSIONS LVDd 4.6 (3.8-5.7cm) LA (2D) 3.8 (1.9-4.0cm) Aortic Root (2.0- 3.7cm) LVDs 4.2 (2.5-4.0cm) LA (MM) (1.9-4.0cm) Aortic Cusp Exc (1.5- 2.0cm) EF (%) 18.0 (55-70%) Rt. Atrium 3.1 (1.9-4.0cm) Asc. Aorta cm IVSd (0.7-1.1cm) RV (D) 3.2 (1.8-2.4cm) Mitral Valve Mitral Mitral Stenosis E wave 0.38m/s MV Mean GR. mmHg A wave 0.26m/s MV Peak GR. mmHg E/A ratio 1.5 2D MVA cm2 DECEL Time 142ms PRESS 1/2 Time ms Aortic Valve Aortic Valve Aortic Stenosis V1 0.69m/s AO Mean GR. 2mmHg V2 0.76m/s AO Peak GR. 2mmHg LVOT Diameter 2.0 (1.8-2.4cm) Doppler DANIAL 2.85cm2 Other Information Quality : Technically Limited Rhythm : Technically limited study due to body habitus and on vent. Conclusion Technically good study. Limited acoustic windows. Most of the studies based on apical and subcostal views. There appears to be biatrial and LV enlargement. Valves appear to be structurally normal as it pertains to aortic tricuspid and mitral. The pulmonic is not clearly visualized. Left ventricular systolic performance is markedly diminished. There is severe global hypokinesis. Akinesis of the apical lateral wall of left ventricle. EF is about 15-20%. Right ventricular function appears normal. Free wall hypokinesis. Mild tricuspid and mitral insufficiency. Small pericardial effusion not hemodynamically significant. SIGNED BY: ALEKSANDER ALEXANDRE Sr., MD SIGNED DATE/TIME: 02/17/25 1403 CC: Patient: ROSARIO SHEETS Acct: [id number] : 1965 Loc: [facility] Age/Sex: 59/M Room: [address] [place] [address] / Bed: A Attending Phy: LINDSEY JOY RESIDENT Operative Report Operative Report [facility] PROCEDURE REPORT [place], [place] Date of Service: 02/19/25 Action Installer: Jayy Philip MD PROCEDURES PERFORMED: Coronary angiogram, left heart catheterization, conscious sedation administration and supervision, less than 15 minutes; fluoroscopy use and interpretation. PREOPERATIVE DIAGNOSES: NSTEMI, severe CHF POSTOP DIAGNOSIS: NICM DESCRIPTION OF PROCEDURE: The patient or appropriate family signed informed consent understanding the risks, benefits and alternatives of the procedure, they wished to proceed. The patient was brought to the cardiac clinical laboratory medical director in n.p.o. state. The patient was prepped in a sterile fashion. Sedation was used per cardiac cath protocol. I administered 2 mL of 2% lidocaine to the right wrist. With an antegrade front wall puncture. I cannulated the right radial artery and placed a 6-St Helenian Glidesheath slender. Next, an intra-arterial spasmolytic was administered. Next, a - 6French [place] catheter and XXXXX guide and were used for coronary angiogram and LVEDP measurement and pressure pullback. At the completion of procedure, all guides and wires were removed, and there were no immediate complications. FINDINGS: RCA: Moderate vessel off the right sinus of Valsalva, there is no severe flow limiting stenosis. co dominant vessel LEFT MAIN: Moderate size left main, it bifurcates into LAD and circumflex. no stenosis CIRCUMFLEX: Moderate caliber vessel coming off the left main with no flow limiting stenosis. LAD: LAD is a moderate caliber vessel coming of the left main. no severe stenosis. prox LAD mild plaquing noted. LVEDP of 15 mmhg CONCLUSIONS: 1. NICM with mild CAD PLAN: Aggressive risk factor modification and medical management for the patient. JAYY PHILIP MD Feb 19, 2025 12:16 DICTATED BY:JAYY PHILIP MD DICTATED DATE/TIME:02/19/25 121 ELECTRONICALLY SIGNED BY:JAYY PHILIP MD 02/19/25 121 ELECTRONICALLY CO-SIGNED BY: [place] [id number] Ph: [phone] DIAGNOSTIC IMAGING Diagnostic Imaging Report : [id number] Signed PATIENT: ROSARIO SHEETS ACCT: [id number] UNIT: [id number] : 1965 LOC: [facility] ROOM / [place] [facility] [place] AGE / SEX: 59 / M ADM STATUS: ADM IN SERVICE 1 ORDERING PHYSICIAN: JERMAN DAI RESIDENT PROCEDURE(s): ECIDC - ECHO 2D MODE CARDIAC DOP REASON: look for cardiac shunt ORDER NUMBER(s): [id number], ACCESSION NUMBER(s): [id number] APPROVED REPORT EXAM: Two-dimensional and M-mode echocardiogram with Doppler, color Doppler and Bubble Study. INDICATION LOOK FOR CARDIAC SHUNT RISK FACTORS Height: 5'5", Weight: 88 Other Information Quality : Technically Limited Rhythm : Technically limited study due to body habitus. Conclusion trivial pericardial effusion severe LV systolic dysfunction --chronic eustachian valve noted in right atriuM? normal variant possibly SIGNED BY: JAYY PHILIP MD SIGNED DATE/TIME: 02/26/25 1312 CC: Patient: ROSARIO SHEETS Acct: [id number] : 1965 Loc: [facility] Age/Sex: 59/[facility] Attending Phy: KORI VO MD DATE OF SURGERY: 03/02/2025 PREOPERATIVE DIAGNOSES: Cholecystitis, status post cholecystostomy tube, status post cardiopulmonary arrest, status post right femoral thromboendarterectomy, and embolectomy. SURGEON: Flavio Rivera MD MANAGER EMS: Adam Pal NP ANESTHESIA: General endotracheal, WINDING INSPECTOR PROCEDURES: * Laparoscopic cholecystectomy. * Placement of Les-Rucker drain DESCRIPTION OF PROCEDURE: Under general endotracheal anesthesia with the patient's skin prepped and draped including the preparation of the percutaneous cholecystostomy tube, a supraumbilical incision was made and Veress needle inserted by the hanging drop technique to establish pneumoperitoneum to 15 mmHg pressure with carbon dioxide. Following distention of the abdomen, the needle was removed and replaced with a 5 mm trocar port through which a 0-degree viewing laparoscope was inserted and under direct vision, 5 and 10-mm ports inserted through the abdominal wall at the anterior axillary line at the level of the umbilicus and subxiphoid midline skin respectively. Instrumentation was then introduced and laparoscopy was performed. The abdomen was poorly distensible due to phlegmon in the right upper quadrant which included gangrenous gallbladder as well as omentum, transverse colon, and loops of small bowel. This was bluntly and the gallbladder was placed on tension. The gallbladder had extravasated much bile surrounding the gallbladder from the cholecystostomy insertion tube. On initial visualization, the bowel was cultured. The gallbladder contained many blood clots secondary to the cholecystostomy. The gallbladder was placed on tension. The cystic duct and cystic artery were identified, circumferentially dissected, traced into the hepatocystic triangle so as to minimize the potential for inadvertent injury to the common bile duct. The cystic duct and artery were then divided between metallic clips and gallbladder resected from its liver bed by electrocautery and traction. The fully mobilized gallbladder was removed from the peritoneal cavity by placement in a specimen extraction bag which was withdrawn from the peritoneal cavity through the subxiphoid 10 mm port site. Subsequently, the right upper quadrant was irrigated. Irrigant was aspirated. A 10 mm Les-Rucker drain was placed underneath the right lobe of the liver and exteriorized through the 5 mm port site in the right flank, secured with a 2-0 nylon suture. Following assurance of complete hemostasis and following aspiration of most of the irrigation fluid, the abdomen was desufflated after withdrawal of instrumentation. Fascial defect closed using #0 Vicryl. Wounds approximated using Monocryl sutures, Dermabond glue, and Steri-Strips. The patient remained stable throughout the procedure, left the operating room following an accurate needle and sponge count. Flavio Rivera MD PF/JPS TID: [id number] RECEIPT: [id number] DICTATED BY:FLAVIO RIVERA MD DICTATED DATE/TIME:03/02/25 0950 ELECTRONICALLY SIGNED BY:FLAVIO RIVERA MD 03/05/25 1035 ELECTRONICALLY CO-SIGNED BY: [place] [id number] Ph: [phone] DIAGNOSTIC IMAGING Diagnostic Imaging Report : [id number] Signed PATIENT: ROSARIO SHEETS ACCT: [id number] UNIT: [id number] : 1965 LOC: [facility] / BED: [address] [place] [address] AGE / SEX: 59 / M ADM STATUS: ADM IN SERVICE 042 ORDERING PHYSICIAN: ANDRES EARLY MD PROCEDURE(s): CTACH - CT ANGIO CHEST CONTRAST REASON: intubated, chest pain, sob, c/f pe ORDER NUMBER(s): [id number], ACCESSION NUMBER(s): [id number] INDICATION: intubated, chest pain, sob, c/f pe COMPARISON: CT ANGIO CHEST CONTRAST on DOS: 02/24/24 TECHNIQUE: Multidetector CTA of the chest was performed of the chest with 100 cc of intravenous contrast. PULMONARY ANGIOGRAPHY PROTOCOL was utilized using a bolus-tracking technique centered on the main pulmonary artery. Axial, coronal and sagittal multiplanar and MIP reformats were performed. Radiation Dose : 1. Chest: CTDI volume is 20.72 mGy. Dose-length product is 538.84 mGy*cm The dose indicators for CT are the volume Computed Tomography (CT) Dose Index (CTDIvol) and the Dose Length Product (DLP), and are measured in units of mGy and mGy-cm, respectively. These indicators are not patient dose, but values generated from the CT scanner acquisition factors. The report includes radiation exposure data for exposures received during this examination. Contrast consists 100 mL Omnipaque 350 with none wasted Findings: Heart size is normal. There is no evidence for pulmonary embolus there is bilateral hilar adenopathy. Esophagus is unremarkable nasogastric tube esophagus and stomach. There appears to be gas in the nondependent left lobe of the liver in the biliary radicles in there appears to be ascites adjacent to the liver. Vertebral body heights are well preserved. IMPRESSION: 1. No evidence for pulmonary embolus bilateral hilar adenopathy and there is a small amount of gas or air in the nondependent portion of the biliary radicles in the left lobe of the liver of uncertain significance ATED BY: JAN CASTANEDA MD DICTATED DATE/TIME: 02/14/252314 SIGNED BY: JAN CASTANEDA MD SIGNED DATE/TIME: 02/14/252314 CC: [place] [address] Ph: [phone] DIAGNOSTIC IMAGING Diagnostic Imaging Report : [id number] Signed PATIENT: ROSARIO SHEETS ACCT: [id number] UNIT: [id number] : 1965 [facility]GE / SEX: 59 / M ADM STATUS: ADM IN SERVICE 1341 ORDERING PHYSICIAN: PO MATAMOROS MD PROCEDURE(s): USGUIVASAC - US Guided Vascular Access REASON: PICC LINE INSERTION ORDER NUMBER(s): [id number], ACCESSION NUMBER(s): [id number] Exam: US US GUIDED VASCULAR ACCESS Clinical History: PICC LINE INSERTION Comparison: None Findings: Targeted sonographic evaluation of the upper extremity vein was obtained utilizing grayscale and color Doppler imaging. IMPRESSION: Sonographic assistance for peripheral central line placement. Please refer to procedural report for detailed findings. ATED BY: TERRI DILLARD MD DICTATED DATE/TIME: 02/20/25528 SIGNED BY: TERRI DILLARD MD SIGNED DATE/TIME: 02/20/25528 CC: [place] [address] Ph: [phone] DIAGNOSTIC IMAGING Diagnostic Imaging Report : [id number] Signed PATIENT: ROSARIO SHEETS ACCT: [id number] UNIT: [id number] : 1965 LOC: [facility] / BED: [address] [place] [address] AGE / SEX: 59 / M ADM STATUS: ADM IN SERVICE 9 ORDERING PHYSICIAN: LINDSEY JOY RESIDENT PROCEDURE(s): HWOCT - HEAD WITHOUT CONTRAST REASON: altered mental status ORDER NUMBER(s): [id number], ACCESSION NUMBER(s): [id number] EXAM: CT HEAD WITHOUT CONTRAST; DATE: 02/21/2025 08:36 AM HISTORY: altered mental status COMPARISON: None TECHNIQUE: Axial images were obtained and reformatted in coronal and sagittal planes. All CT scans at this medical facility are performed using dose modulation techniques as appropriate to a performed exam including the following: Automated exposure control was utilized; adjustment of the MA and/or KV according to patient size; and use of iterative reconstruction technique. CT Dose: CTDI volume is 51.54 mGy. Dose-length product is 929.5 mGy*cm FINDINGS: Supratentorial Region: No evidence for large acute territorial ischemia. No intracranial hemorrhage is noted. Posterior Fossa: No acute abnormality. Brainstem: Unremarkable. Sellar/Suprasellar Region: Unremarkable. Ventricles, Cisterns, Sulci: Age-appropriate. Orbits: Unremarkable. Paranasal Sinuses: Unremarkable. Mastoid Air Cells: Unremarkable. Vasculature: Unremarkable. Bones/Soft Tissues: No acute abnormality. Other: The patient is intubated. IMPRESSION: 1. No acute intracranial process. ATED BY: TAMIKO PANCHAL MD DICTATED DATE/TIME: 02/21/252117 SIGNED BY: TAMIKO PANCHAL MD SIGNED DATE/TIME: 02/21/252117 CC: [place] [address] Ph: [phone] DIAGNOSTIC IMAGING Diagnostic Imaging Report : [id number] Signed PATIENT: ROSARIO SHEETS ACCT: [id number] UNIT: [id number] : 1965 LOC: [facility] ROOM / BED: [address] [place] [address] AGE / SEX: 59 / M ADM STATUS: ADM IN SERVICE 3 ORDERING PHYSICIAN: LINDSEY JOY RESIDENT PROCEDURE(s): LIVUS - LIVER REASON: transaminitis ORDER NUMBER(s): [id number], ACCESSION NUMBER(s): [id number] INDICATION: transaminitis TECHNIQUE: Multiple real-time sonographic images of the abdomen were obtained. COMPARISON: None FINDINGS: The liver is homogenous in echogenicity. The liver measures 13cm. No intrahepatic biliary ductal dilatation is noted. The gallbladder wall measures 0.4 cm and is unremarkable. No gallstones or sludge is seen. The common duct measures 0.8 cm and is unremarkable. No pericholecystic fluid is noted. The right kidney measures 10cm. No hydronephrosis. The left kidney measures 10cm. No hydronephrosis. The spleen measures 10 cm, within normal limits. The echogenicity is within normal limits. The pancreas is not well visualized due to obscuration from bowel gas. The visualized portions of the IVC and aorta are grossly unremarkable. IMPRESSION: 2.4cm echogenic mass left hepatic mass . Left hepatic vein thrombus ATED BY: LINDA MONTERROSO MD DICTATED DATE/TIME: 02/22/25905 SIGNED BY: LINDA MONTERROSO MD SIGNED DATE/TIME: 02/22/25905 CC: [place] [id number] Ph: [phone] DIAGNOSTIC IMAGING Diagnostic Imaging Report : [id number] Signed PATIENT: ROSARIO SHEETS ACCT: [id number] UNIT: [id number] : 1965 LOC: ICU [facility]ST ROOM / BED: [address] [place] [address] / A AGE / SEX: 59 / M ADM STATUS: ADM IN SERVICE 1329 ORDERING PHYSICIAN: BARBIE SERVIN MD PROCEDURE(s): ABPLIV - CT AB PEL WITH IV CON ONLY REASON: ?Liver mass/liver vein thrombus ORDER NUMBER(s): [id number], ACCESSION NUMBER(s): [id number] Exam: CT CT AB PEL WITH IV CON ONLY History: Liver mass/liver vein thrombus Comparison Study: None available TECHNIQUE: A digital quill machine operator image was obtained. During the uneventful, intravenous administration of contrast material, multislice data acquisition was obtained through the abdomen and pelvis. The data set was subsequently reconstructed into axial images. Images reviewed on a wrist examination is an examination of axial and multiplanar reformations using a variety of window levels and settings. RADIATION DOSE: DLP 245.26 mGy.cm; CTDI vol 5.14 mGy. Findings: Lungs: Trace right pleural effusion. Heart: No cardiomegaly or pericardial effusion. Liver: 1.0 cm hemangioma in the left hepatic lobe. Gallbladder: Markedly distended gallbladder with wall thickening/edema. Spleen: Unremarkable Pancreas: Unremarkable Adrenals: Unremarkable Kidneys: Bilateral renal cysts. GI tract: Unremarkable : Breaux catheter within the urinary bladder which is mildly distended. Vasculature: Unremarkable Lymphadenopathy: Absent Peritoneum: No ascites Musculoskeletal: Unremarkable Soft tissues: Unremarkable Impression: 1. No acute abdominopelvic abnormalities. 2. 1.0 cm hemangioma in the left hepatic lobe. No other masses appreciated. 3. Markedly distended gallbladder with wall thickening / edema. 4. Breaux catheter within the urinary bladder which is distended. Correlate for appropriate functionality. ATED BY: KATARZYNA ALAS DO DICTATED DATE/TIME: 02/22/25 1508 SIGNED BY: KATARZYNA ALAS DO SIGNED DATE/TIME: 02/22/25 1508 CC: [place] [address] Ph: [phone] DIAGNOSTIC IMAGING Diagnostic Imaging Report : [id number] Signed PATIENT: ROSARIO SHEETS ACCT: [id number] UNIT: [id number] : 1965 LOC: ICU [facility] ROOM / BED: [address] [place] [address] / A AGE / SEX: 59 / M ADM STATUS: ADM IN SERVICE 0743 ORDERING PHYSICIAN: LINDSEY JOY RESIDENT PROCEDURE(s): MRCP - MRCP MRI REASON: r/o choledocholithiasis, cholangitis ORDER NUMBER(s): [id number], ACCESSION NUMBER(s): [id number] CLINICAL HISTORY: r/o choledocholithiasis, cholangitis TECHNIQUE: Multiplanar multisequence images of the abdomen were obtained per MRCP protocol. COMPARISON: 02/22/2025 CT and ultrasound abdomen FINDINGS: Examination is markedly degraded by motion. Adrenal glands, spleen unremarkable. No hydronephrosis. Small right pleural effusion. T2 bright lesion in the left hepatic lobe measuring 12 mm. The gallbladder is severely distended. There is either a large calculus or extensive sludge within the gallbladder. Extensive pericholecystic / gallbladder wall edema. Severe gallbladder distention. The common bile duct measures approximately 8 mm in diameter. Pancreatic duct measures 3 mm in diameter. IMPRESSION: Examination markedly degraded by motion. 1. Severe distention of the gallbladder which is extremely heterogeneous in appearance. There is either complete distention of gallbladder with sludge / debris and/or gallstones. Extensive pericholecystic edema with gallbladder distention. These findings are highly concerning for cholecystitis. Correlate clinically to exclude gangrenous cholecystitis and other etiologies. Recommend surgical consultation and HIDA scan for further management. 2. The common bile duct is dilated to approximately 8 mm 3. Right pleural effusion. 4. Other findings as described. ATED BY: BRI BARRIENTOS MD DICTATED DATE/TIME: 02/23/25 113 SIGNED BY: BRI BARRIENTOS MD SIGNED DATE/TIME: 02/23/25 1135 CC: [address] [id number] Ph: [phone] DIAGNOSTIC IMAGING Diagnostic Imaging Report : [id number] Signed PATIENT: ROSARIO SHEETS ACCT: [id number] UNIT: [id number] : 1965 LOC: [facility] ROOM / BED: [address] [place] [address] AGE / SEX: 59 / M ADM STATUS: ADM IN SERVICE 1512 ORDERING PHYSICIAN: NATAN CRUZ MD PROCEDURE(s): BLEAD - BiLat Low Ext Art Duplex REASON: left leg pain. no dorsalis pedis pulse ORDER NUMBER(s): [id number], ACCESSION NUMBER(s): [id number] EXAM: US BILAT LOW EXT ART DUPLEX HISTORY: left leg pain. no dorsalis pedis pulse COMPARISON: None TECHNIQUE: Real-time grayscale and color Doppler images of the bilateral lower extremities were obtained with spectral waveform analysis. Findings: Arterial peak systolic velocities reported in units of centimeters per second (cm/sec): Right side: Common femoral - 68 Profunda - 139 Proximal SFA - 127 Mid SFA - 128 Distal SFA - 141 Popliteal - 68 Posterior tibial - 33, monophasic Dorsalis pedis - not visualized Diffuse multiphasic waveforms. Left side: Common femoral - 207, monophasic Profunda - not visualized Proximal SFA - not visualized Mid SFA - not visualized Distal SFA - 17, monophasic Popliteal - not visualized Posterior tibial - not visualized Dorsalis pedis - not visualized IMPRESSION: 1. Occlusion of the left profunda femoris, proximal to mid superficial femoral, popliteal, posterior tibial, and dorsalis pedis arteries. 2. Occlusion of the right dorsalis pedis artery. Critical Result: Vascular occlusion Findings discussed with Victorino BREEN at 02/25/2025 08:40 PM, and acknowledged receipt and understanding of the findings. ATED BY: KATARZYNA ALAS DO DICTATED DATE/TIME: 02/25/252039 SIGNED BY: KATARZYNA ALAS DO SIGNED DATE/TIME: 02/25/252039 CC: [address] [address] Ph: [phone] DIAGNOSTIC IMAGING Diagnostic Imaging Report : [id number] Signed PATIENT: ROSARIO SHEETS ACCT: [id number] UNIT: [id number] : 1965 LOC: [facility] ROOM / BED: 0291T / A AGE / SEX: 59 / M ADM STATUS: ADM IN SERVICE 18 ORDERING PHYSICIAN: JERMAN DAI RESIDENT PROCEDURE(s): CTAAA - CT ANGIO ABD AORTA W RUN OFF REASON: limb ischaemia ORDER NUMBER(s): [id number], ACCESSION NUMBER(s): [id number] CTA ABDOMEN AND PELVIS WITH BILATERAL LOWER EXTREMITY RUNOFFS Clinical Indication: Male, 59 old. 59 years old, Male; limb ischaemia. Technique: Multiple contiguous axial images were obtained through the abdomen, pelvis, and both lower extremities following the administration of IV contrast material. Post processing coronal and sagittal reconstruction images were made from the axial images. Image post-processing was obtained. IV contrast: Administered DLP: 842.14 CTDI: 7.14, 31.57, 0.14 Comparison: CT CT AB PEL WITH IV CON ONLY on DOS: 02/22/25, MRCP from 02/23/2025 FINDINGS: Lower Thorax: Normal-sized heart. No pericardial effusion. There is moderate centrilobular emphysema in the lung bases. Liver and Biliary system: There is a cyst in segment 3 of the liver. Normal- sized liver. Major portal veins are patent. Redemonstration of marked distention of the gallbladder filled with intermediate density. There is gallbladder wall edema. There is mild dilatation of the common bile duct. Mild central intrahepatic bile duct dilatation. Spleen: There are bands of hypodensity within the upper spleen likely infarcts. Adrenal Glands and Kidneys: A tiny left renal cyst is seen otherwise unremarkable. Pancreas and Retroperitoneum: Mildly atrophic pancreas. There is no retroperitoneal lymphadenopathy. Aorta and Major Vessels: Widely patent abdominal aorta containing mild mixed atherosclerotic plaque. Widely patent origins of the celiac axis, SMA, TITUS, and single bilateral renal arteries. Widely patent bilateral common iliac, external iliac, and internal iliac arteries containing mild mixed plaque. Bowel, Mesentery and Peritoneal space: Normal caliber small and large bowel. There is scattered fluid-filled large bowel. There is no free air or fluid collection. Pelvis: A Breaux catheter is seen in the urinary bladder with nondependent gas likely related to the instrumentation. There are dystrophic calcifications in the prostate gland. There is no pelvic lymphadenopathy. Abdominal wall and Osseous Structures: Small fat containing right inguinal hernia. No destructive osseous lesion. Small bilateral hydroceles. Bilateral lower extremities: Right lower extremity: Widely patent and normal caliber right common, superficial, and deep femoral arteries. Widely patent right popliteal artery and origin of the trifurcation arteries. The anterior tibial and peroneal arteries become non-opacified distally. The posterior tibial artery demonstrates runoff to the ankle. No acute osseous abnormality. Normal mineralization and alignment. Joint spaces are preserved. Muscle bundles are intact. Left lower extremity: The left common femoral artery becomes occluded distally (series 2, image 122) by thrombus/plaque. There is occlusion at the bifurcation of the left common femoral artery. The left deep femoral artery becomes opacified shortly after origin. There is occlusion of the origin of the left superficial femoral artery and significant thrombus throughout the remainder of the left superficial femoral artery resulting in marked multifocal stenosis. Into the proximal to mid popliteal artery although is better opacified. The distal popliteal artery is occluded. Anterior tibial artery becomes opacified at the origin although becomes unopacified at the mid calf.. Minimal opacification of the tibioperoneal trunk although no significant opacification of the posterior tibial and peroneal arteries.. There is no opacification of the trifurcation arteries to the ankle. No acute osseous abnormality. Normal mineralization and alignment. Joint spaces are preserved. Muscle bundles are intact. IMPRESSION: 1. Left common femoral artery becomes occluded distally by thrombus/plaque ; occlusion at the bifurcation of the left common femoral artery; reconstitution of blood flow in the left deep femoral artery shortly after origin; occlusion of the origin of the left superficial femoral artery ; significant thrombus throughout the remainder of the left SFA resulting in marked multifocal stenosis. This thrombus extends into the popliteal artery which is better opacified although distally becomes occluded. 2. Anterior tibial artery on the left is opacified at origin although becomes non-opacified at the mid calf. Minimal opacification of the left tibioperoneal trunk. no opacification of the trifurcation arteries to the left ankle. 3. The right anterior tibial artery and peroneal arteries become non-opacified distally which may be due to timing of contrast bolus versus occlusion. Otherwise widely patent arteries in the right lower extremity. Posterior tibial artery with runoff to the ankle. 4. Widely patent aortoiliac vessels with widely at origins of aortic branch vessels. 5. Moderate centrilobular emphysema. 6. Marked distention of the gallbladder filled with intermediate density material which could be sludge 7. Mild dilatation of common bile duct and central intrahepatic bile ducts. Correlate with LFTs 8. Upper splenic infarcts. 9. Fluid-filled large bowel which maybe manifesting as loose stools and/or diarrhea and could be related to underlying colitis or physiologic. ATED BY: MARGIE ZAMBRANO MD DICTATED DATE/TIME: 02/26/25138 SIGNED BY: MARGIE ZAMBRANO MD SIGNED DATE/TIME: 02/26/25138 CC: [place] [address] Ph: [phone] DIAGNOSTIC IMAGING Diagnostic Imaging Report : [id number] Signed PATIENT: ROSARIO SHEETS ACCT: [id number] UNIT: [id number] : 1965 LOC: [facility] ROOM / BED: [address] [place] [address] AGE / SEX: 59 / M ADM STATUS: ADM IN SERVICE 5 ORDERING PHYSICIAN: BOB ANN MD PROCEDURE(s): PERCH - PERCUTANEOUS CHOLANGIO REASON: CHOLETUBE ORDER NUMBER(s): [id number], ACCESSION NUMBER(s): [id number] US US GUIDANCE FOR NEEDLE PLACEME, HISTORY: CARMEN TUBE PROCEDURE: Informed consent was obtained. The patient was placed in supine position, and initial limited ultrasound evaluation of the RUQ abdomen was obtained. The skin overlying the gallbladder was prepped with chlorhexidine which was allowed to dry and draped in the usual sterile fashion. Time out was performed. IV sedation and 1% lidocaine local anesthetic were administered. Using US needle biopsy guide, a 21 g Accu Stick needle was advanced into the gallbladder via a subcostal, trans-peritoneal approach. Following aspiration of bile, a small amount of contrast was injected to delineate the viscous. The needle was then exchanged over mandrill wire to a non-vascular access set, through which a guidewire was advanced into the gallbladder. Following serial dilation, an 10.2 St Helenian multipurpose pigtail catheter was placed within the gallbladder. Approximately 2 cc of fluid was withdrawn and sent to the laboratory for analysis. The drain was secured in place and attached to gravity drainage. A sterile dressing was applied. No immediate complication was identified. MRS996.9 FLUOROSCOPY TIME: 1.4 minutes. CONTRAST USED: 15 mL Isovue 300. SEDATION: Dr. Emi Ann was personally responsible for the administration of moderate sedation during the procedure performed, including the use of an independent trained observer who had no other duties during the procedure. The drugs utilized were IV fentanyl and versed (see nursing log for details). The total time of supervision by the attending physician was [id number] minutes. FINDINGS: Limited US scan of the right upper abdomen demonstrates large complex gallbladder filled with echogenic material. Aspirated bile is thick and dark. Completion image demonstrates good positioning of the drainage catheter. The cystic duct is patent. IMPRESSION: US/fluoro-guided percutaneous 10.2 St Helenian cholecystostomy tube placement. If output is low, consider connecting to suction drainage. PLAN: This tube will need to remain in place for at least 6-8 weeks before removal, so as to prevent bile leakage. If cholecystectomy is not planned, please have patient follow-up with IR at discharge to schedule cholangiogram in 6-8 weeks. If cystic duct patency and tract maturation is established, we will consider clamp trial prior to removal of the tube in 1-2 weeks. ATED BY: BOB ANN MD DICTATED DATE/TIME: 02/27/251123 SIGNED BY: BOB ANN MD SIGNED DATE/TIME: 02/27/25 112 CC: [place] [id number] Ph: [phone] DIAGNOSTIC IMAGING Diagnostic Imaging Report : [id number] Signed PATIENT: ROSARIO SHEETS ACCT: [id number] UNIT: [id number] : 1965 LOC: [facility] ROOM / BED: [facility] / A AGE / SEX: 59 / M ADM STATUS: ADM IN SERVICE 0727 ORDERING PHYSICIAN: BOB ANN MD PROCEDURE(s): THOUS - US GUIDANCE FOR NEEDLE PLACEME REASON: CARMEN TUBE ORDER NUMBER(s): [id number], ACCESSION NUMBER(s): [id number] US US GUIDANCE FOR NEEDLE PLACEME, HISTORY: CARMEN TUBE PROCEDURE: Informed consent was obtained. The patient was placed in supine position, and initial limited ultrasound evaluation of the RUQ abdomen was obtained. The skin overlying the gallbladder was prepped with chlorhexidine which was allowed to dry and draped in the usual sterile fashion. Time out was performed. IV sedation and 1% lidocaine local anesthetic were administered. Using US needle biopsy guide, a 21 g Accu Stick needle was advanced into the gallbladder via a subcostal, trans-peritoneal approach. Following aspiration of bile, a small amount of contrast was injected to delineate the viscous. The needle was then exchanged over mandrill wire to a non-vascular access set, through which a guidewire was advanced into the gallbladder. Following serial dilation, an 10.2 St Helenian multipurpose pigtail catheter was placed within the gallbladder. Approximately 2 cc of fluid was withdrawn and sent to the laboratory for analysis. The drain was secured in place and attached to gravity drainage. A sterile dressing was applied. No immediate complication was identified. JJE092.9 FLUOROSCOPY TIME: 1.4 minutes. CONTRAST USED: 15 mL Isovue 300. SEDATION: Dr. Emi Ann was personally responsible for the administration of moderate sedation during the procedure performed, including the use of an independent trained observer who had no other duties during the procedure. The drugs utilized were IV fentanyl and versed (see nursing log for details). The total time of supervision by the attending physician was [id number] minutes. FINDINGS: Limited US scan of the right upper abdomen demonstrates large complex gallbladder filled with echogenic material. Aspirated bile is thick and dark. Completion image demonstrates good positioning of the drainage catheter. The cystic duct is patent. IMPRESSION: US/fluoro-guided percutaneous 10.2 St Helenian cholecystostomy tube placement. If output is low, consider connecting to suction drainage. PLAN: This tube will need to remain in place for at least 6-8 weeks before removal, so as to prevent bile leakage. If cholecystectomy is not planned, please have patient follow-up with IR at discharge to schedule cholangiogram in 6-8 weeks. If cystic duct patency and tract maturation is established, we will consider clamp trial prior to removal of the tube in 1-2 weeks. ATED BY: BOB ANN MD DICTATED DATE/TIME: 02/27/25 1124 SIGNED BY: BOB ANN MD SIGNED DATE/TIME: 02/27/25 1124 CC: [place] [address] Ph: [phone] DIAGNOSTIC IMAGING Diagnostic Imaging Report : [id number] Signed PATIENT: ROSARIO SHEETS ACCT: [id number] UNIT: [id number] : 1965 LOC: [facility] ROOM / BED: [facility] / A AGE / SEX: 59 / M ADM STATUS: ADM IN SERVICE 1200 ORDERING PHYSICIAN: LINDSEY JOY PROCEDURE(s): ABPL - CT AB PEL WO CON-NO ORAL OR IV REASON: abdominal pain ORDER NUMBER(s): [id number], ACCESSION NUMBER(s): [id number] CT CT AB PEL WO CON-NO ORAL OR IV INDICATION: abdominal pain : 59 old Male abdominal pain EXAM DATE: 02/28/2025 12:51 PM COMPARISON: 02/25 RADIATION DOSE: CTDIvol: 5.07 mGy, DLP: 264.79 mGy*cm PROCEDURE: Helical CT images were obtained of the abdomen and pelvis without IV contrast Sagittal and coronal reconstructions are provided. ORAL CONTRAST: None. ADDITIONAL IMAGES / REFORMATS: None All CT scans at this medical facility are performed using dose modulation techniques as appropriate to a performed exam including the following: Automated exposure control was utilized; adjustment of the MA and/or KV according to patient size; and use of iterative reconstruction technique. FINDINGS: LUNG BASE: Emphysematous changes of the lungs with right middle lobe centrilobular nodules. LIVER: Normal. GALLBLADDER AND BILIARY TREE: Cholecystostomy tube in the gallbladder with dense material in the gallbladder. No intra- or extrahepatic biliary ductal dilation. PANCREAS: Normal. SPLEEN: Normal. BOWEL: Contrast material seen in the colon. Normal appendix. ADRENALS: Normal. KIDNEYS AND URETER: Normal. BLADDER: Normal. REPRODUCTIVE ORGANS: Normal. LYMPH NODES:No lymphadenopathy. PERITONEUM: No ascites or free air. No other fluid collection. VESSELS: Post surgical changes are seen in the left groin. RETROPERITONEUM: Normal. ABDOMINAL WALL: Normal. BONES: Scattered osseous degenerative changes are noted. IMPRESSION: No acute intraabdominal abnormality. Emphysematous changes of the lungs with right middle lobe centrilobular nodules could be aspiration pneumonia. Cholecystostomy tube in the gallbladder with dense material in the gallbladder probable contrast from the procedure. Post surgical changes are seen in the left groin. ATED BY: BOB ANN MD DICTATED DATE/TIME: 02/28/251556 SIGNED BY: BOB ANN MD SIGNED DATE/TIME: 02/28/251556 CC: [place] [address] Ph: [phone] DIAGNOSTIC IMAGING Diagnostic Imaging Report : [id number] Signed PATIENT: ROSARIO SHEETS ACCT: [id number] UNIT: [id number] : 1965 LOC: [facility] ROOM / BED: [address] [place] [address] AGE / SEX: 59 / M ADM STATUS: ADM IN SERVICE 9 ORDERING PHYSICIAN: LINDSEY JOY RESIDENT PROCEDURE(s): CXRP - CHEST PORTABLE REASON: sob ORDER NUMBER(s): [id number], ACCESSION NUMBER(s): [id number] CHEST RADIOGRAPH Indication: sob Technique: Single frontal view of the chest was obtained Comparison: XY CHEST PORTABLE on DOS: 03/01/25, XY CHEST PORTABLE on DOS: 02/24/25, XY CHEST PORTABLE on DOS: 02/22/25 IMPRESSION: Heart appears normal in size. The lungs appear clear without focal airspace opacity, effusion, or pneumothorax. Right PICC line tip in the region of the superior vena cava. No significant interval change. ATED BY: SHERLYN SANABRIA MD DICTATED DATE/TIME: 03/03/25542 SIGNED BY: SHERLYN SANABRIA MD SIGNED DATE/TIME: 03/03/25542 CC: Condition at Discharge: Good Final Diagnosis/Problems List #Toxic/Metabolic encephalopathy, likely due to sepsis, drug use, respiratory failure, improved #Acute on chronic systolic CHF, improving #Non-Ischemic cardiomyopathy #Drug-induced cardiomyopathy #Methamphetamine abuse #NSTEMI likely type 2 #CAD, mild #Left common femoral thrombus status post thrombectomy #Acute hypoxic respiratory failure likely due to pneumonia, COPD exacerbation, drug use, s/p mechanical ventilator, extubated 02/21/25 #Multifocal pneumonia, gram (+) vs gram (-), atypicals #COPD exacerbation, improving #Respiratory alkalosis, improved #MOLLY due to VMN, likely hemodynamically mediated, improved #Hyperglycemia due to glucocorticoids #Transaminitis, possibly due to left hepatic vein thrombosis #Hepatic mass, hemangioma #Left hepatic vein thrombosis ruled out #Acalculous cholecystitis #Hyperammonemia #Anemia normocytic, normochromic #Chronic, nonocclusive right common femoral thrombus #Thrombocytopenia, severe, 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 Patient was counseled about treatment plan, medications, possible side effects, patientverbalized understanding. All questions were answered to the best of my ability. This discharge took greater then 30 minutes in planning, reviewing documentation, counseling the patient, and discussing with other team members." DME: Diagnosis: [employer] for home use ASSESSMENT ASSESSMENT Assessment Left common femoral, profunda, SFA thrombosis Date of Service: Mar 06, 2025 Billing Provider: BARBIE SERVIN MD Common Visit Codes: 82525-QGX/OBS DISCH DAY >30min LINDSEY JOY Mar 06, 2025 07:16 BARBIE SERVIN MD Mar 07, 2025 14:00
[2025-03-06 09:52] LABS: Alanine Aminotransferase 49 U/L (7-40); Albumin 3.2 g/dL (3.2-4.8); Alkaline Phosphatase 236 U/L (46-116); Anion Gap 8 (5-15); Aspartate Aminotransferase 21 U/L (13-40); BUN/Creatinine Ratio 30.6 (10.0-20.0); Bilirubin, Total 0.7 mg/dL (0.2-1.0); Blood Urea Nitrogen 19 mg/dL (9-23); Calcium 8.6 mg/dL (8.7-10.4); Carbon Dioxide 27 mmol/L (20-31); Chloride 100 mmol/L (98-107); Glucose 116 mg/dL (74-106); Magnesium 1.7 mg/dL (1.6-2.6); Potassium 3.9 mmol/L (3.5-5.1); Sodium 135 mmol/L (136-145); Total Protein 5.3 g/dL (5.7-8.2)
[2025-03-06 09:53] LABS: Basophils # (auto) 0 10 ^3/uL (0-0.2); Basophils % (auto) 0.2 % (0.0-2.0); Eosinophils # (auto) 0.2 10 ^3/uL (0-0.8); Eosinophils % (auto) 2.3 % (0.0-7.0); Hematocrit 29.1 % (41.0-53.0); Hemoglobin 9.8 g/dL (13.5-17.5); Lymphocytes # (auto) 1.7 10 ^3/uL (0.4-5.4); Lymphocytes % (auto) 16.6 % (10.0-50.0); Mean Corpuscular Hemoglobin 32.7 pg (28.0-32.0); Mean Corpuscular Hgb Conc. 33.8 g/dL (32.0-36.0); Mean Corpuscular Volume 96.7 fL (80.0-100.0); Monocytes # (auto) 0.7 10 ^3/uL (0-1.3); Monocytes % (auto) 6.6 % (0.0-12.0); Neutrophils # (auto) 7.4 10 ^3/uL (1.6-8.6); Neutrophils % (auto) 74.3 % (37.0-80.0); Platelet Count (auto) 282 10^3/uL (140-450); Red Blood Cells 3.01 10^6/uL (4.5-5.90); Red Cell Distribution Width 14.6 % (11.8-14.3)
[2025-03-06] MEDS: predniSONE 20 MG TAB PO SCH (09:56)
--- NOTE | 2025-03-06 20:40 | DVHPN2 ---
Progress Note - Dictate Date Seen: Mar 06, 2025 Medical Necessity Reason Pt with a Central, PICC or Fol: No Subjective 59 y o male HIV positive patient previously underwent a cholecystostomy tube Patient is S/P laparoscopic cholecystectomy with drain placement on the 18 ELIAS drain output minimal Patient underwent physical therapy No new complaints tolerating diet vital signs Vital Sign Date Time Temp Pulse Resp B/P (MAP) Pulse Ox O2 Delivery O2 Flow Rate FiO2 03/06/25 16:59 98.4 83 17 100/52 (68) 94 98.4 03/06/25 09:05 Room Air* 0 21 Total Intake and Output 03/05/25 03/05/25 03/06/25 15:00 23:00 07:00 Intake Total 50 ml 600 ml 850 ml Output Total 610 ml Balance 50 ml -10 ml 850 ml medications Current Medications Medications Dose Ordered Sig/Zenon Route Start Time Stop Time Status Last Admin Dose Admin Acetaminophen 650 mg Q6HP PRN PO 02/14/25 20:00 03/01/25 13:11 650 MG Nitroglycerin 0.4 mg Q5MINP PRN SL 02/14/25 20:00 Sodium Chloride 10 ml QSHIFT@10,22 IV 02/18/25 22:00 03/06/25 10:44 10 ML Vancomycin HCl 100 ml @ 100 mls/hr Q12H IV 02/19/25 16:00 Cancel Ondansetron HCl 4 mg Q6HPRN PRN IV 02/21/25 16:00 03/01/25 10:31 4 MG Patient Own Medication 1 DAILY PO 02/27/25 10:00 03/06/25 10:44 1 Metoprolol Succinate 25 mg DAILY PO 02/28/25 10:00 03/06/25 09:55 25 MG Sacubitril/ Valsartan 0.5 tab BID PO 02/27/25 22:00 03/06/25 09:54 0.5 TAB Empaglifozin 10 mg DAILY PO 02/28/25 10:00 03/06/25 09:55 10 MG Pantoprazole Sodium 40 mg DAILY@0600 PO 03/01/25 06:00 03/06/25 06:02 40 MG Oxycodone/ Acetaminophen 1 tab Q4HP PRN PO 02/28/25 16:45 03/06/25 10:01 1 TAB Spironolactone 12.5 mg DAILY PO 03/01/25 10:00 03/06/25 09:55 12.5 MG Al Hydrox/Mg Hydrox/Simethicone 30 ml Q6HP PRN PO 03/01/25 14:00 Albuterol 2.5 mg Q4HPRN PRN NEB 03/01/25 11:00 03/06/25 09:05 2.5 MG Ipratropium [place] 0.5 mg Q4HPRN PRN NEB 03/01/25 11:00 03/06/25 09:05 0.5 MG Morphine Sulfate 1 mg Q4HP PRN IV 03/01/25 18:00 03/02/25 05:09 1 MG Mupirocin 1 applic BID EACHNOSTRI 03/03/25 15:40 03/08/25 15:39 03/06/25 10:43 1 APPLIC Apixaban 5 mg BID PO 03/05/25 10:00 03/06/25 09:55 5 MG Prednisone 10 mg DAILY PO 03/06/25 10:00 03/06/25 09:56 10 MG Lactulose 30 ml DAILY PO 03/07/25 10:00 objective General: Awake, alert, in no acute distress HEENT: Head is normocephalic and atraumatic. Pupils are equal, round, and reactive to light. Neck: Supple with no cervical lymphadenopathy. Heart: Normal rate without murmur, rub, or gallop. Lungs: Scattered crackles and wheezing Abdomen: No external sign of injury. Bowel sounds are present. Abdomen is soft, nontender. Extremities: Strong peripheral pulses. There is no clubbing, no cyanosis, and no edema. Skin: No rash. Neurologic: Following commands laboratory and microbiology Laboratory Tests 03/06/25 09:02 Test 03/06/25 09:02 Range/Units Serum Glucose 116 H 74-106 mg/dL Problems(with codes): (1) Hepatic encephalopathy (2) Leukocytosis (3) Multifocal pneumonia (4) COPD exacerbation (5) Elevated liver enzymes (6) Gall bladder disease (7) Hepatic vein thrombosis (8) Acute metabolic encephalopathy (9) Shortness of breath Prognosis Plan Advance diet as tolerated Continue physical therapy Supportive care Patient is awaiting a placement at SNF Dietary Evaluation Review Comments: 1) If patient remains NPO > 7 days, consider EN/TPN to meet at least 75% estimated daily needs 2) If GI is preferred, consider Jevity 1.2 @ goal rate of 45 mL/hr as tolerated. Flush with 200 mL free H2O Q6H. TF regimen (including flushes) will provide 1296 kcals, 60g Pro, and 1672 mL free H2O per 24 hrs. TF rate will meet 95% estimated daily energy needs and ~87% estimated daily protein needs 3) Advance to cardiac diet when medically feasible, pending SALES ORDER COORDINATOR approval 4) Follow-up with cardiology and pulmonology 5) Continue to monitor I&O, labs, and skin integrity Expected Outcomes/Goals: 1) patient to receive nutritional support within 7 days 2) appetite and labs to improve 3) diet to advance 4) f/u in 2-3 days Plan discussed with: Other (None) POLLY BAIRES MD Mar 06, 2025 20:40
[2025-03-07] VITALS (11 sets, daily range): BP systolic 92–115; BP diastolic 54–74; PULSE 84–102; RESP 18–20; TEMP 98–98.6; O2SAT 94–100
[2025-03-07] MEDS: LACTULOSE 20Gm/30ML SOLN PO SCH (09:22)
[2025-03-07] MEDS ORDERED: MUPI2OIN2 EACHNOSTRI (16:04)
[2025-03-07] MEDS ORDERED: APIX5TAB PO (16:04)
[2025-03-07] MEDS ORDERED: SPIR25TA PO (16:04)
[2025-03-07] MEDS ORDERED: SACU1TAB PO (16:04)
[2025-03-07] MEDS ORDERED: FLUT1INH27 INH (16:04)
[2025-03-07] MEDS ORDERED: ALBU108A5 PO (16:04)
[2025-03-07] MEDS ORDERED: LACT10SO3 PO (16:04)
[2025-03-07] MEDS ORDERED: EMPA1TAB PO (16:04)
[2025-03-07] MEDS ORDERED: METO-6 PO (16:04)
--- NOTE | 2025-03-07 17:47 | DVHPN2 ---
Progress Note - Dictate Date Seen: Mar 07, 2025 Medical Necessity Reason Pt with a Central, PICC or Fol: No Subjective 59 y o male HIV positive Postop day number five S/P laparoscopic cholecystectomy with drain placement on the statuspost cardiopulmonary arrest, status post right femoral thromboendarterectomy, and embolectomy. ELIAS drain output minimal Patient underwent physical therapy No new complaints tolerating diet vital signs Vital Sign Date Time Temp Pulse Resp B/P (MAP) Pulse Ox O2 Delivery O2 Flow Rate FiO2 03/07/25 17:00 98.6 99 20 115/62 (79) 96 98.6 03/07/25 16:22 Room Air* 0 21 Total Intake and Output 03/06/25 03/06/25 03/07/25 15:00 23:00 07:00 Intake Total 50 ml 500 ml 100 ml Balance 50 ml 500 ml 100 ml medications Current Medications Medications Dose Ordered Sig/Zenon Route Start Time Stop Time Status Last Admin Dose Admin Acetaminophen 650 mg Q6HP PRN PO 02/14/25 20:00 03/01/25 13:11 650 MG Nitroglycerin 0.4 mg Q5MINP PRN SL 02/14/25 20:00 Sodium Chloride 10 ml QSHIFT@10,22 IV 02/18/25 22:00 03/07/25 09:19 10 ML Vancomycin HCl 100 ml @ 100 mls/hr Q12H IV 02/19/25 16:00 Cancel Ondansetron HCl 4 mg Q6HPRN PRN IV 02/21/25 16:00 03/01/25 10:31 4 MG Patient Own Medication 1 DAILY PO 02/27/25 10:00 03/07/25 10:02 1 Metoprolol Succinate 25 mg DAILY PO 02/28/25 10:00 03/07/25 09:21 25 MG Sacubitril/ Valsartan 0.5 tab BID PO 02/27/25 22:00 03/07/25 15:26 0.5 TAB Empaglifozin 10 mg DAILY PO 02/28/25 10:00 03/07/25 09:21 10 MG Pantoprazole Sodium 40 mg DAILY@0600 PO 03/01/25 06:00 03/07/25 06:25 40 MG Oxycodone/ Acetaminophen 1 tab Q4HP PRN PO 02/28/25 16:45 03/07/25 09:20 1 TAB Spironolactone 12.5 mg DAILY PO 03/01/25 10:00 03/07/25 09:19 12.5 MG Al Hydrox/Mg Hydrox/Simethicone 30 ml Q6HP PRN PO 03/01/25 14:00 Albuterol 2.5 mg Q4HPRN PRN NEB 03/01/25 11:00 03/07/25 16:22 2.5 MG Ipratropium [place] 0.5 mg Q4HPRN PRN NEB 03/01/25 11:00 03/07/25 16:22 0.5 MG Morphine Sulfate 1 mg Q4HP PRN IV 03/01/25 18:00 03/02/25 05:09 1 MG Mupirocin 1 applic BID EACHNOSTRI 03/03/25 15:40 03/08/25 15:39 03/07/25 09:21 1 APPLIC Apixaban 5 mg BID PO 03/05/25 10:00 03/07/25 09:21 5 MG Lactulose 30 ml DAILY PO 03/07/25 10:00 objective General: Awake, alert, in no acute distress HEENT: Head is normocephalic and atraumatic. Pupils are equal, round, and reactive to light. Neck: Supple with no cervical lymphadenopathy. Heart: Normal rate without murmur, rub, or gallop. Lungs: Scattered crackles and wheezing Abdomen: No external sign of injury. Bowel sounds are present. Abdomen is soft, nontender. Extremities: Strong peripheral pulses. There is no clubbing, no cyanosis, and no edema. Skin: No rash. Neurologic: Following commands laboratory and microbiology Laboratory Tests 03/06/25 09:02 Test 03/06/25 09:02 Range/Units Serum Glucose 116 H 74-106 mg/dL Problems(with codes): (1) Hepatic encephalopathy (2) Leukocytosis (3) Multifocal pneumonia (4) COPD exacerbation (5) Elevated liver enzymes (6) Severe sepsis (7) Gall bladder disease (8) Hepatic vein thrombosis (9) Acute metabolic encephalopathy Prognosis Plan Continue supportive care Discharge planning is ongoing Advance diet as tolerated Continue physical therapy Outpatient follow up with GI Services as needed Dietary Evaluation Review Comments: 1) If patient remains NPO > 7 days, consider EN/TPN to meet at least 75% estimated daily needs 2) If GI is preferred, consider Jevity 1.2 @ goal rate of 45 mL/hr as tolerated. Flush with 200 mL free H2O Q6H. TF regimen (including flushes) will provide 1296 kcals, 60g Pro, and 1672 mL free H2O per 24 hrs. TF rate will meet 95% estimated daily energy needs and ~87% estimated daily protein needs 3) Advance to cardiac diet when medically feasible, pending INTERPRETIVE NATURALIST approval 4) Follow-up with cardiology and pulmonology 5) Continue to monitor I&O, labs, and skin integrity Expected Outcomes/Goals: 1) patient to receive nutritional support within 7 days 2) appetite and labs to improve 3) diet to advance 4) f/u in 2-3 days Plan discussed with: Other (None) POLLY BAIRES MD Mar 07, 2025 17:47
--- NOTE | 2025-03-07 18:20 | DVHPNRES ---
Progress Note Date Seen: Mar 07, 2025 Resident Creating Document: LINDSEY JOY RESIDENT Medical Necessity Reason Pt with a Central, PICC or Fol: No Subjective Review of Systems Patient staes feeling well, he's ambulatory, tolerating diet Patient will be discharge to home, will continue home medications as prescribed. Follow-up with PCP in 1-2 weeks. Patient verbalized understanding and agree with the DC plan, we spent 36 minutes explaining the plan. Objective vital signs Vital Sign Date Time Temp Pulse Resp B/P (MAP) Pulse Ox O2 Delivery O2 Flow Rate FiO2 03/07/25 17:00 98.6 99 20 115/62 (79) 96 98.6 03/07/25 16:22 Room Air* 0 21 Total Intake and Output 03/06/25 03/06/25 03/07/25 15:00 23:00 07:00 Intake Total 50 ml 500 ml 100 ml Balance 50 ml 500 ml 100 ml medications Current Medications Medications Dose Ordered Sig/Zenon Route Start Time Stop Time Status Last Admin Dose Admin Acetaminophen 650 mg Q6HP PRN PO 02/14/25 20:00 03/01/25 13:11 650 MG Nitroglycerin 0.4 mg Q5MINP PRN SL 02/14/25 20:00 Sodium Chloride 10 ml QSHIFT@10,22 IV 02/18/25 22:00 03/07/25 09:19 10 ML Vancomycin HCl 100 ml @ 100 mls/hr Q12H IV 02/19/25 16:00 Cancel Ondansetron HCl 4 mg Q6HPRN PRN IV 02/21/25 16:00 03/01/25 10:31 4 MG Patient Own Medication 1 DAILY PO 02/27/25 10:00 03/07/25 10:02 1 Metoprolol Succinate 25 mg DAILY PO 02/28/25 10:00 03/07/25 09:21 25 MG Sacubitril/ Valsartan 0.5 tab BID PO 02/27/25 22:00 03/07/25 15:26 0.5 TAB Empaglifozin 10 mg DAILY PO 02/28/25 10:00 03/07/25 09:21 10 MG Pantoprazole Sodium 40 mg DAILY@0600 PO 03/01/25 06:00 03/07/25 06:25 40 MG Oxycodone/ Acetaminophen 1 tab Q4HP PRN PO 02/28/25 16:45 03/07/25 09:20 1 TAB Spironolactone 12.5 mg DAILY PO 03/01/25 10:00 03/07/25 09:19 12.5 MG Al Hydrox/Mg Hydrox/Simethicone 30 ml Q6HP PRN PO 03/01/25 14:00 Albuterol 2.5 mg Q4HPRN PRN NEB 03/01/25 11:00 03/07/25 16:22 2.5 MG Ipratropium [place] 0.5 mg Q4HPRN PRN NEB 03/01/25 11:00 03/07/25 16:22 0.5 MG Morphine Sulfate 1 mg Q4HP PRN IV 03/01/25 18:00 03/02/25 05:09 1 MG Mupirocin 1 applic BID EACHNOSTRI 03/03/25 15:40 03/08/25 15:39 03/07/25 09:21 1 APPLIC Apixaban 5 mg BID PO 03/05/25 10:00 03/07/25 09:21 5 MG Lactulose 30 ml DAILY PO 03/07/25 10:00 Examination Physical examination as below: General: Awake, alert, in no acute distress HEENT: Head is normocephalic and atraumatic. Pupils are equal, round, and reactive to light. Neck: Supple with no cervical lymphadenopathy. Heart: Normal rate without murmur, rub, or gallop. Lungs: Scattered crackles and wheezing Abdomen: No external sign of injury. Bowel sounds are present. Abdomen is soft, nontender. zoie drain on right side Extremities: Strong peripheral pulses. There is no clubbing, no cyanosis, and no edema. Skin: No rash. Neurologic: no neurologic deficits laboratory and microbiology Laboratory Tests 03/06/25 09:02 Test 03/06/25 09:02 Range/Units Serum Glucose 116 H 74-106 mg/dL Microbiology Date/Time Source Procedure Growth Status 03/02/25 19:54 Nose MRSA Screen - Final Methicillin Resistant S.aureus Complete 03/02/25 10:22 Gallbladder Fluid Gram Stain - Final Complete 03/02/25 10:22 Gallbladder Fluid Anaerobic Culture - Final Complete 03/02/25 10:22 Gallbladder Fluid Aerobic Culture - Final Complete 02/15/25 06:17 Urine - [place] Urine Culture - Final Complete 02/14/25 18:22 Blood Blood Culture - Final NO GROWTH AFTER 5 DAYS OF INCUBATION. Complete 02/14/25 16:27 Sputum Gram Stain - Final Complete 02/14/25 16:27 Respiratory Culture - Final Klebsiella pneumoniae Complete Labs and/or images reviewed: Labs reviewed by me, Image(s) reviewed by me Problem List/Assessment/Plan Problem List/Assessment/Plan Neurology #Toxic/Metabolic encephalopathy, likely due to sepsis, drug use, respiratory failure, improved Ordered head ct, unremarkable Cardiovascular #Acute on chronic systolic CHF, improving continue GDMT Aldactone 12.5 mg p.o. q.d. entresto jardiance metoprolol succ EF 15-20% #Non-Ischemic cardiomyopathy #Drug-induced cardiomyopathy #Methamphetamine abuse #NSTEMI likely type 2 #CAD, mild #Left common femoral thrombus status post thrombectomy LHC performed on 02/19/25, mild CAD Aspirin eliquis 5mg po bid Pulmonology #Acute hypoxic respiratory failure likely due to pneumonia, COPD exacerbation, drug use, s/p mechanical ventilator, extubated 02/21/25 On nasal cannula 4lts, wane down as tolerated CPAP trial successful 02/21/25. Extubated, in nasal cannula #Multifocal pneumonia, gram (+) vs gram (-), atypicals Sputum culture growing K. pneumoniae Merrem IV #COPD exacerbation, improving prednisone 30mg po qd Continue duonebs #Respiratory alkalosis, improved Nephrology #MOLLY due to VMN, likely hemodynamically mediated, improved Monitor for in and outs Avoid nephrotoxic agents Endocrinology #Hyperglycemia due to glucocorticoids Monitor Gastroenterology #Transaminitis, possibly due to left hepatic vein thrombosis #Hepatic mass, hemangioma #Left hepatic vein thrombosis ruled out #Acalculous cholecystitis Surgery recommended IR cholecystostomy Consulted Interventional Radiology for percutaneous cholecystostomy performed, will fu in outpatient consulted surgery, cholecystectomy performed, no complications, ZOIE drain placed #Hyperammonemia lactulose 30ml bid diet: cardiac diet Hematology and Oncology #Anemia normocytic, normochromic Chronic, nonocclusive right common femoral thrombus Monitor #Thrombocytopenia, severe, 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 Patient will be discharge to [facility], will continue home medications as prescribed. Follow-up with PCP in 1-2 weeks. Patient verbalized understanding and agree with the DC plan, we spent 36 minutes explaining the plan. Goals of care were discussed for36 minutes. FULL CODE. Case was discussed with Dr. Casillas Plan discussed with: Patient, Daughter, Other (RN) My Orders My Orders Orders - LINDSEY JOY RESIDENT Procedure Category Date Status Time Discontinue Tele GEMA 03/07/25 In Process 06:39 Transfer Orders XFER 03/07/25 Transmitted 06:39 Discharge DISCHARGE 03/07/25 Transmitted 16:01 Dietary Evaluation Review Comments: 1) If patient remains NPO > 7 days, consider EN/TPN to meet at least 75% estimated daily needs 2) If GI is preferred, consider Jevity 1.2 @ goal rate of 45 mL/hr as tolerated. Flush with 200 mL free H2O Q6H. TF regimen (including flushes) will provide 1296 kcals, 60g Pro, and 1672 mL free H2O per 24 hrs. TF rate will meet 95% estimated daily energy needs and ~87% estimated daily protein needs 3) Advance to cardiac diet when medically feasible, pending ACUPRESSURE THERAPIST approval 4) Follow-up with cardiology and pulmonology 5) Continue to monitor I&O, labs, and skin integrity Expected Outcomes/Goals: 1) patient to receive nutritional support within 7 days 2) appetite and labs to improve 3) diet to advance 4) f/u in 2-3 days LINDSEY JOY RESIDENT Mar 07, 2025 18:20
== END 2025-03-07 20:06 | disposition home or self-care (01) | DRG 710 ==
LOC: ER 16:00 → EDBD 16:00 → OVERFLOW 20:00 → ICU WEST 22:25 → TELE-WESTW 02-23 13:19 → ICU WEST 03-02 12:42 → TELE-WESTW 03-03 11:28 → TELE-EAST 03-03 22:10
PROVIDERS: ADMIT Internal Medicine; ATTEND Internal Medicine
PROC: 5A1955Z Respiratory Ventilation, Greater than 96 Consecutive Hours (ICD-10-PCS; principal; 2025-02-14)
PROC: 0BH17EZ Insertion of Endotracheal Airway into Trachea, Via Natural or Artificial Opening (ICD-10-PCS; 2025-02-14)
PROC: 02HV33Z Insertion of Infusion Device into Superior Vena Cava, Percutaneous Approach (ICD-10-PCS; 2025-02-18)
PROC: B548ZZA Ultrasonography of Superior Vena Cava, Guidance (ICD-10-PCS; 2025-02-18)
PROC: 4A023N7 Measurement of Cardiac Sampling and Pressure, Left Heart, Percutaneous Approach (ICD-10-PCS; 2025-02-19)
PROC: B211YZZ Fluoroscopy of Multiple Coronary Arteries using Other Contrast (ICD-10-PCS; 2025-02-19)
PROC: 04CL0ZZ Extirpation of Matter from Left Femoral Artery, Open Approach (ICD-10-PCS; 2025-02-26)
PROC: 30233N1 Transfusion of Nonautologous Red Blood Cells into Peripheral Vein, Percutaneous Approach (ICD-10-PCS; 2025-02-26)
PROC: 0F9430Z Drainage of Gallbladder with Drainage Device, Percutaneous Approach (ICD-10-PCS; 2025-02-27)
PROC: BF121ZZ Fluoroscopy of Gallbladder using Low Osmolar Contrast (ICD-10-PCS; 2025-02-27)
PROC: 0FT44ZZ Resection of Gallbladder, Percutaneous Endoscopic Approach (ICD-10-PCS; 2025-03-02)
DX: A41.50 Gram-negative sepsis, unspecified (principal); J96.01 Acute respiratory failure with hypoxia; N17.0 Acute kidney failure with tubular necrosis; J44.0 Chronic obstructive pulmonary disease with (acute) lower respiratory infection; R65.21 Severe sepsis with septic shock; G92.8 Other toxic encephalopathy; E72.20 Disorder of urea cycle metabolism, unspecified; I50.23 Acute on chronic systolic (congestive) heart failure; I74.3 Embolism and thrombosis of arteries of the lower extremities; J15.69 Pneumonia due to other Gram-negative bacteria; J15.9 Unspecified bacterial pneumonia; I42.7 Cardiomyopathy due to drug and external agent; J44.1 Chronic obstructive pulmonary disease with (acute) exacerbation; Z20.822 Contact with and (suspected) exposure to COVID-19; E87.1 Hypo-osmolality and hyponatremia; F17.290 Nicotine dependence, other tobacco product, uncomplicated; I21.A1 Myocardial infarction type 2; E87.4 Mixed disorder of acid-base balance; D18.03 Hemangioma of intra-abdominal structures; F15.20 Other stimulant dependence, uncomplicated; R73.9 Hyperglycemia, unspecified; T38.0X5A Adverse effect of glucocorticoids and synthetic analogues, initial encounter; I25.10 Atherosclerotic heart disease of native coronary artery without angina pectoris; J98.11 Atelectasis; K80.42 Calculus of bile duct with acute cholecystitis without obstruction; K82.A1 Gangrene of gallbladder in cholecystitis; Z86.74 Personal history of sudden cardiac arrest; Z79.51 Long term (current) use of inhaled steroids; Z79.899 Other long term (current) drug therapy; Z91.018 Allergy to other foods; Z80.1 Family history of malignant neoplasm of trachea, bronchus and lung; Y92.89 Other specified places as the place of occurrence of the external cause
CPT/HCPCS: 31500; 36415; 36556; 36569; 36600; 47532; 70450; 71045; 71275; 74018; 74176; 74177; 74181; 75635; 76705; 76937; 76942; 80048; 80053; 80061; 80074; 80202; 80307; 81001; 82140; 82247; 82248; 82565; 82805; 82962; 83036; 83605; 83615; 83690; 83735; 83880; 84100; 84132; 84260; 84443; 84484; 85014; 85018; 85025; 85610; 85730; 86360; 86850; 86900; 86901; 86920; 87040; 87070; 87075; 87077; 87081; 87086; 87186; 87205; 87426; 87536; 87804; 92610; 93005; 93306; 93925; 93970; 94003; 94640; 96365; 96375; 97110; 97116; 97163; 97530; 99152; 99291; 99292; C1729; G0378; J0131; J1100; J2003; J2185; J2250; J2405; J2470; J2543; J2704; J3480; J3490; J7060; Q9967